=== PATIENT | female | born 1945 | race African-American/Black ===

== ENCOUNTER 2016-08-12 06:41 | Day surgery (SDC) | payer MEDICARE ==
--- NOTE | 2016-08-10 23:58 | HP ---
OPERATIVE SUMMARY: DATE OF ADMISSION: 08/12/16 AGE: 35 years, female. ADMITTING DIAGNOSES: 1. Advanced cervical carcinoma. 2. Right hydronephrosis. 3. Bladder lesion. PLANNED PROCEDURE: Transurethral resection of bladder lesion and right retrograde right stent insertion. SURGEON: Dr. Jimenez. ADMITTING HISTORY AND PHYSICAL: Teodora Kaplan is a 71-year-old lady with advanced cervical carcinoma resulting in severe right hydronephrosis. An ultrasound done in my office had revealed what appears to be tumor invading the right side of the trigone and obscuring the right orifice. She has been brought in for an attempt right stent insertion. After discussion with Dr. Moreau , the plan is that if stent insertion is feasible, then I would proceed with it. If it looks like the ureter is completely obliterated by the tumor, then we would hold off on a nephrostomy tube at the present time. PAST MEDICAL HISTORY: Significant for: 1. Advanced cervical carcinoma. 2. Diabetes mellitus. 3. Rheumatoid arthritis. MEDICATIONS ON ADMISSION: 1. Metformin 500 mg daily. 2. Prednisone 5 mg b.i.d. 3. Glucosamine chondroitin 1 tablet daily. 4. Gabapentin 300 mg t.i.d. ALLERGIES: No known drug allergies. PHYSICAL EXAM: GENERAL: Reveals a pleasant, elderly, uncomfortable-appearing -[place] lady. VITAL SIGNS: Blood pressure is 132/80, pulse 120 per minute, oxygen saturation 94% on room air. LUNGS: Clear bilaterally. CARDIOVASCULAR EXAM: Regular rate and rhythm. S1, S2. ABDOMEN: Soft with tenderness along the right upper and right lower quadrant and fullness in that area. IMPRESSION: A 71-year-old lady with advanced cervical cancer causing eroding into the trigone, into the bladder, and causing right hydronephrosis. PLAN: Plan is for transurethral resection of bladder lesion and right retrograde and stent insertion. CC: Dr. Jose Moreau; Dr. Deangelo Jimenez* [id number]/[facility] #: [id number] [facility]
[~2016-08-12 06:41] MED LIST: Buffered Lidocaine 1% SYRIN* 5 ML/SYR SYRINGE ONE; Famotidine IV* 10 MG/ML 2 ML (20 mg) IV ONE; Famotidine IV* 10 MG/ML 2 ML (20 mg) ONE; Hydrocortisone INJ* 100 MG VIAL ONE; Hydrocortisone INJ* 250 MG VIAL IV ONE; cefTRIAXone(*) 2 GM ADDV.VIAL IVPB ONE
[2016-08-12] MEDS ORDERED: Iohexol 180 (CONTRAST) 10 ML SDV IV ONE (07:16)
[2016-08-12] MEDS ORDERED: Ondansetron INJ* 2 MG/ML VIAL IV PRN (07:32)
[2016-08-12] MEDS ORDERED: oxyCODONE/Acetamin 5/325 MG* TAB PO PRN (07:32)
[2016-08-12] MEDS ORDERED: fentaNYL* 50 MCG/ML 2 ML VIAL (100 MCG VIAL) IV PRN (07:32)
[2016-08-12] MEDS ORDERED: DiMENhydriNATE IV* 50 MG/ML VIAL IV PUSH PRN (07:32)
[2016-08-12] MEDS ORDERED: Ondansetron INJ* 2 MG/ML VIAL ONE (07:39)
[2016-08-12] MEDS ORDERED: Propofol* 10 MG/ML 20 ML BTL IV PUSH ONE (07:39)
[2016-08-12] MEDS ORDERED: Chloroprocaine 2%* 20 ML VIAL ONE (07:39)
[2016-08-12] MEDS ORDERED: Midazolam* 1 MG/ML 5 ML VIAL (5 MG) ONE (07:40)
[2016-08-12] MEDS ORDERED: fentaNYL* 50 MCG/ML 2 ML VIAL (100 MCG VIAL) ONE (07:41)
[2016-08-12] MEDS ORDERED: Phenylephrine IV* 40 MCG/ML 10 ML SYRINGE ONE (08:06)
[2016-08-12] MEDS ORDERED: Fluorescein 10% INJ* 100 MG/ML AMP ONE (08:38)
[2016-08-12] MEDS ORDERED: Furosemide IV* 10 MG/ML 2 ML VIAL (20 MG) ONE (08:41)
[2016-08-12] MEDS ORDERED: oxyCODONE/Acetamin 5/325 MG* TAB ONE (10:35)
[2016-08-12 15:49] VITALS: BP 135/53
--- NOTE | 2016-08-13 03:04 | OP ---
CC: Dr. Jose Moreau; Dr. Deangelo Jimenez OPERATIVE SUMMARY: DATE OF OPERATION: 08/12/16 DATE OF : [birth year] AGE: 71 years, female. SURGEON: Deangelo Jimenez MD ANESTHESIOLOGIST: Dr. Khoury. ANESTHESIA: Spinal. PRE-OP DIAGNOSES: 1. Severe chronic right hydronephrosis. 2. Hematuria. 3. Bladder tumor (related to locally advanced cervical carcinoma). POST-OP DIAGNOSES: 1. Severe chronic right hydronephrosis. 2. Hematuria. 3. Bladder tumor (related to locally advanced cervical carcinoma). OPERATIVE PROCEDURE: 1. Cystoscopy, transurethral resection, and fulguration of bladder tumor (5 to 6 cm). 2. Attempted right stent insertion. COMPLICATIONS: None. ESTIMATED BLOOD LOSS: Less than 100 cc. INDICATIONS: Teodora Kaplan is a 71-year-old lady who unfortunately has advanced cervical carcinoma. Imaging had revealed right hydronephrosis, which appears to be chronic as there is significant los s of cortical thickness in the right kidney. I am attempting a right stent insertion on Dr. Moreau's request and the plan after discussing with him is that if the stent insertion is not successful, we will hold off for now on any attempted nephrostomy tube insertion. OPERATIVE FINDINGS: Large amount of solid invasive vascular tumor eroding into right side of trigon e of bladder and completely obstructing distal right ureter. POSTOPERATIVE CONDITION: Stable. DESCRIPTION OF PROCEDURE: After induction of spinal anesthesia, the patient was placed in dorsal li thotomy position. Sequential compression devices were in place and functioning. Initial cystoscopy revealed a normally located left orifice. On the right side, there was a large amount of solid lon earing tumor distorting the entire right trigone. There was no evidence of normal anatomic landmark on the right side of the trigone. Using the resectoscope, transurethral resection and fulguration of the tumor in the bladder was lópez ied out. The patient received intravenous fluorescein dye, which was seen coming from the left orif ice but in spite of a fairly aggressive resection, there was no fluorescein dye noted from the insid e. Using a wire, I attempted to probe to locate the right orifice and at one point, I did think contreras t I was able to cannulate what I thought was the right orifice; however, I suspect that there was ob struction further outside the bladder, which prevented the wire from advancing proximally. Hemostas is was secured using the coagulating current. A 24- Tajik Grant was placed for temporary bladder d rainage. The patient tolerated the procedure satisfactorily and was transferred back to the [facility] area in stable condition. [id number]/[facility] #: [id number]
== END 2016-08-12 16:29 | disposition home or self-care (01) ==
LOC: OR 06:41
PROVIDERS: ATTEND Urology
DX: C67.0 Malignant neoplasm of trigone of bladder (principal); N13.39 Other hydronephrosis; R31.9 Hematuria, unspecified; C53.9 Malignant neoplasm of cervix uteri, unspecified; E11.9 Type 2 diabetes mellitus without complications; Z79.84 Long term (current) use of oral hypoglycemic drugs; M06.9 Rheumatoid arthritis, unspecified
CPT/HCPCS: 88305; A9270-GY; J0696; J1720; J1940; J2250; J2400; J2405; J2704; J3010

== ENCOUNTER 2016-08-16 09:46 | Day surgery (SDC) | payer MEDICARE ==
[~2016-08-16 09:46] MED LIST changes: +Buffered Lidocaine 1% SYRIN* 5 ML/SYR SYRINGE INTRADERM ONE; -Buffered Lidocaine 1% SYRIN* 5 ML/SYR SYRINGE ONE; +Dexamethasone IV* 4 MG/ML 1 ML (4 MG) IV SLOW PU ONE; -Famotidine IV* 10 MG/ML 2 ML (20 mg) ONE; -Hydrocortisone INJ* 100 MG VIAL ONE; -Hydrocortisone INJ* 250 MG VIAL IV ONE; -cefTRIAXone(*) 2 GM ADDV.VIAL IVPB ONE
[2016-08-16] MEDS ORDERED: ceFAZolin 2 GM PREMIX(*) 2 GM/50 ML BAG IVPB ONE (10:12)
[2016-08-16] MEDS ORDERED: Dexamethasone IV* 4 MG/ML 1 ML (4 MG) ONE (10:13)
[2016-08-16] MEDS ORDERED: Famotidine IV* 10 MG/ML 2 ML (20 mg) ONE (10:13)
[2016-08-16] MEDS ORDERED: Lidocaine 1% INJ* 10 MG/ML 30 ML SDV ONE (12:15)
[2016-08-16] MEDS ORDERED: Midazolam* 1 MG/ML 5 ML VIAL (5 MG) ONE (12:20)
[2016-08-16] MEDS ORDERED: fentaNYL* 50 MCG/ML 2 ML VIAL (100 MCG VIAL) ONE (12:20)
[2016-08-16] MEDS ORDERED: Ondansetron INJ* 2 MG/ML VIAL ONE (12:21)
[2016-08-16] MEDS ORDERED: Propofol* 10 MG/ML 20 ML BTL IV PUSH ONE (12:21)
--- NOTE | 2016-08-16 14:05 | RAD ---
INDICATION: PowerPort placement COMPARISON: None FINDINGS: 10.9 seconds of fluoroscopy were provided for the surgical department. Fluoroscopic spot imaging of the chest were obtained for operative control and show a normal course of the right-sided central venous catheter. A follow-up chest x-rays pending . CPT II Codes: 6045F (fluoro time doc)
[2016-08-16] MEDS ORDERED: oxyCODONE/Acetamin 5/325 MG* TAB ONE (14:34)
[2016-08-16 14:39] VITALS: BP 135/82
--- NOTE | 2016-08-16 23:40 | OP ---
OPERATIVE REPORT: DATE OF OPERATION: 08/16/16 - SDS DATE OF : [birth year] SURGEON: Kory Kim MD GRAPHIC DESIGN ASSISTANT: None. ANESTHESIA: Local MAC. ANESTHESIOLOGIST: Dr. Khoury. PRE-OP DIAGNOSIS: Cervical carcinoma. POST-OP DIAGNOSIS: Cervical carcinoma. OPERATIVE PROCEDURE: Right subclavian PowerPort insertion. ESTIMATED BLOOD LOSS: Minimal. IV FLUIDS: Crystalloids. SPECIMEN: None. DRAINS: None. COMPLICATIONS: None. COUNT: The instrument, needle, and sponge counts were correct. DESCRIPTION OF PROCEDURE: The patient was brought to the operating room and placed on table supine. Sequential compression devices were placed on both lower extremities. Intravenous sedation was administered. She was prepped and draped in the usual sterile fashion and time-out was performed. Local anesthetic was infiltrated into the skin and soft tissue for a right subclavian approach. After accessing the right subclavian vein on first pass, the needle and J-wire was placed in its position, confirmed the superior vena cava under fluoroscopic guidance. Additional anesthetic was then infiltrated into the operative right chest to create the pocket, which was performed with sharp and blunt dissection along with cautery. The 8-Turkish PowerPort catheter was connected to the tunneler, it was back tunneled from the insertion site to the port site and then the peel-away sheath and dilator were advanced over the J -wire to the superior vena cava, then the dilator and guidewire were removed and the catheter was advanced to the superior vena cava with the tip noted at the intercaval junction. The peel-away sheath was removed. The catheter was cut to an appropriate length, connected to the PowerPort, which was placed into the pocket subcutaneously and secured there with a single 2-0 Surgipro. The port was accessed. It zeus and flushed easily. The pocket was closed with 3-0 Polysorb with subcutaneous tissues, 4-0 Monocryl's for the skin. Steri-Strips were applied. Tegaderm was applied. The port was flushed with heparinized saline. The patient tolerated the procedure well, was awakened and transferred to the recovery room in stable condition. CC: Jose Moreau MD* [id number]/[facility] #: [id number] [facility]
== END 2016-08-16 15:02 | disposition home or self-care (01) ==
LOC: OR 09:46
PROVIDERS: ATTEND Surgery
DX: C53.9 Malignant neoplasm of cervix uteri, unspecified (principal); D64.9 Anemia, unspecified; E11.9 Type 2 diabetes mellitus without complications; Z79.84 Long term (current) use of oral hypoglycemic drugs; Z87.891 Personal history of nicotine dependence; M06.9 Rheumatoid arthritis, unspecified
CPT/HCPCS: 71010; 76000; A9270-GY; C1788; J0690; J1100; J1642; J2001; J2250; J2405; J2704; J3010

== ENCOUNTER 2016-08-18 16:23 | Observation (INO) | payer MEDICARE ==
--- NOTE | 2016-08-18 18:17 | ED ---
Hector Mullins Benjamin, scribed for Ruperto Del Toro MD on 08/18/16 at 1731 . HPI Chest Pain - HPI Summary HPI Summary: 71yo female c/o crushing CP that radiates to the back. Pt is brought in from interventional radiology for CP. Pt states that her CP radiates to the back. Also mildly SOB. - History of Current Complaint Chief Complaint: EDChestPainROMI Time Seen by Provider: 08/18/16 17:04 Hx Obtained From: Patient Onset/Duration: Started Hours Ago, Still Present Timing: Constant Initial Severity: Moderate Current Severity: Moderate Chest Pain Location: Diffuse Chest Pain Radiates: Yes Chest Pain Radiates To:: Back Character: Crushing Aggravating Factor(s): Nothing Alleviating Factor(s): Nothing Associated Signs and Symptoms: Positive: Chest Pain, Shortness of Breath, Back Pain - Allergy/Home Medications Allergies/Adverse Reactions: Allergies Allergy/AdvReac Type Severity Reaction Status Date / Time No Known Allergies Allergy Verified 08/18/16 16:38 Home Medications: Home Medications Alendronate (NF) [Fosamax (NF)] 70 mg PO WEEKLY 08/18/16 [History Confirmed 04/05] Iron Polysaccharide Complex- [Poly-Iron 150 Forte] 1 cap PO DAILY 08/18/16 [ History Confirmed 08/18/16] PMH/Surg Hx/FS Hx/Imm Hx Endocrine/Hematology History: Reports: Hx Diabetes - type 2, Hx Anemia - on iron Cardiovascular History: Reports: Hx Hypertension - off of blood pressure meds at this time History: Reports: Hx Kidney Infection - last year at least 3 kidney infections - none at this time Musculoskeletal History: Reports: Hx Arthritis - osteoarthritis, rheumatoid arthritis Sensory History: Reports: Hx Cataracts - both eye , not ready for surgery, Hx Contacts or Glasses - glasses Denies: Hx Hearing Aid Opthamlomology History: Reports: Hx Cataracts - both eye , not ready for surgery , Hx Contacts or Glasses - glasses - Surgical History Surgery Procedure, Year, and Place: laparoscopic gall bladder removed 2012. right total knee replacement 2012 Hx Anesthesia Reactions: No Infectious Disease History: Denies: Traveled Outside the [place] in Last 30 Days - Family History Known Family History: Positive: Hypertension, Diabetes - Social History Occupation: Employed Full-time, Retired Lives: With Family Alcohol Use: Rare Substance Use Type: Reports: None Smoking Status (MU): Former Smoker Amount Used/How Often: smoked for 40 years approx, 1/2 -1 ppd Review of Systems Constitutional: Negative Eyes: Negative ENT: Negative Positive: Chest Pain Positive: Shortness Of Breath Gastrointestinal: Negative Genitourinary: Negative Musculoskeletal: Negative Skin: Negative Neurological: Negative Psychological: Normal All Other Systems Reviewed And Are Negative: Yes Physical Exam Triage Information Reviewed: Yes Vital Signs On Initial Exam: Initial Vitals Temp Pulse Resp BP Pulse Ox 98 F 80 18 122/61 100 08/18/16 17:30 08/18/16 17:30 08/18/16 17:30 08/18/16 17:30 08/18/16 17:30 Vital Signs Reviewed: Yes Appearance: Positive: Well-Appearing, No Pain Distress, Well-Nourished Skin: Positive: Warm, Skin Color Reflects Adequate Perfusion, Dry Head/Face: Positive: Normal Head/Face Inspection Eyes: Positive: Normal ENT: Positive: Normal ENT inspection Neck: Positive: Supple, Nontender Respiratory/Lung Sounds: Positive: Clear to Auscultation, Breath Sounds Present Cardiovascular: Positive: RRR Abdomen Description: Positive: Nontender, Soft Bowel Sounds: Positive: Present Musculoskeletal: Positive: Normal Neurological: Positive: Normal Psychiatric: Positive: Affect/Mood Appropriate Diagnostics - Vital Signs Vital Signs Temp Pulse Resp BP Pulse Ox 08/18/16 17:30 98 F 80 18 122/61 100 - Laboratory Lab Statement: Any lab studies that have been ordered have been reviewed, and results considered in the medical decision making process. - EKG 1658. Cardiac Rate: NL - 81bpm EKG Rhythm: Sinus Rhythm Ectopy: PACs Chest Pain Course/Dx - Course Course Of Treatment: Discussed with Dr. Crouch (surgery) at 1737. Ms. Kaplan has a small pneumothorax, is on O2 and we are observing her. I have ordered a repeat CXR for 1999. If the same or improved, then she will F/U with Dr. Crouch tomorrow morning after a repeat CXR. If worsening we will contact Dr. Crouch now. - Diagnoses Provider Diagnoses: Pneumothorax after biopsy - Provider Notifications Discussed Care Of Patient With: Dr. Gracia at change of shift Discharge - Discharge Plan Condition: Stable Disposition: OTHER Discharge Disposition Comment: change of shift The documentation as recorded by the scribe, Young,Lauro accurately reflects the service I personally performed and the decisions made by me, Ruperto Del Toro MD.
--- NOTE | 2016-08-18 20:32 | RAD ---
INDICATION: Pneumothorax COMPARISON: August 18, 2016 TECHNIQUE: PA dual-energy views were obtained. FINDINGS: Bones/Soft Tissues: There are no acute bony findings. Cardiomediastinal: The cardiomediastinal silhouette is normal. Lungs: There are no infiltrates. There is a small to moderate sized left-sided pneumothorax with 1.9 cm of visceral-parietal surface separation near the apex. Pleura: There are no pleural effusions. Other: None IMPRESSION: INTERVAL INCREASE IN SIZE IN LEFT-SIDED PNEUMOTHORAX.
[2016-08-18] MEDS ORDERED: Ondansetron TAB* 4 MG PO PRN (21:02)
--- NOTE | 2016-08-18 21:09 | ED ---
Nikki Mullins Rebecca, scribed for Garcia Gracia on 08/18/16 at 2106 . Progress - Progress Note Progress Note: Pt was signed out from Dr. Del Toro. - EKG/XRAY/CT XRAY: chest Xray Comments: INTERVAL INCREASE IN SIZE IN LEFT-SIDED PNEUMOTHORAX. Re-Evaluation - Re-Evaluation First Eval Re-Evaluation Time: 21:08 Change: Improved Comment: Pt is in mild pain, discussed the admission with her. She agreed and understands. Course/Dx - Course Course Of Treatment: Discussed care of pt with Dr. Morales, hospitalist, at 2100 , who already talked to Dr. Crouch conerning the pt and accepts her for admission. - Diagnoses Provider Diagnoses: Pneumothorax after biopsy - Provider Notifications Discussed Care Of Patient With: Dr. Crouch - Already discussed with Dr. Morales, advises admission Time Discussed With Above Provider: 20:59 The documentation as recorded by the Nikki byrd Rebecca accurately reflects the service I personally performed and the decisions made by , Garcia Gracia.
[2016-08-18] MEDS ORDERED: Acetaminophen TAB* 325 MG PO PRN (21:10)
[2016-08-18] MEDS ORDERED: Dextrose 50% Syringe 50 ML* 25 GM/50 ML SYRINGE IV PUSH PRN (21:23)
[2016-08-18] MEDS ORDERED: Heparin VIAL(*) 5000 UNITS/ML VIAL (FIVE THOUSAND) ONE (23:55)
[2016-08-18] MEDS: Heparin VIAL(*) 5000 UNITS/ML VIAL (FIVE THOUSAND) SUBCUT SCH (23:59)
--- NOTE | 2016-08-19 01:20 | HP ---
HOSPITAL MEDICINE HISTORY AND PHYSICAL: DATE OF ADMISSION: 08/18/16 PRIMARY CARE PHYSICIAN: Dr. Amando Tamez, [facility]. ATTENDING PHYSICIAN: Dr. Jesus Morales (dictation provided by Nanette Valle NP) CHIEF COMPLAINT: Chest pain. HISTORY OF PRESENT ILLNESS: Ms. Kaplan is a 71-year-old female with a recent diagnosis of advanced cervical cancer, who presented to the hospital today after a lung biopsy for pulmonary nodule. Ms. Kaplan states that she had not followed routinely with [employer]. She developed vaginal bleeding and was found to have a mass in the cervix. 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 The patient had cystoscopy with transurethral resection and fulguration of the bladder tumor, but Dr. Jimenez was unable to pass a stent on 08/12/16. On 08/16/16, she had port placed for chemotherapy. Per the report, Ms. Kaplan was evaluated in [place] and felt not to be a surgical candidate and therefore is planning for chemotherapy and radiation with Dr. Moreau. The patient had a PET scan, which showed the pulmonary nodule and therefore came in today for biopsy to help guide planning of chemotherapy and radiation. Ms. Kaplan states that everything went well with the procedure until approximately 5 minutes before she was going to leave the hospital, when while getting dressed, she developed sudden onset of crushing chest pain on the left side radiating into her back. She was immediately brought to the emergency room where chest x-ray showed a very small pneumothorax. Repeat chest x-ray showed that it has increased very slightly in size. Case was discussed with Dr. Crouch from surgical services, who states that this pneumothorax is small and that a chest tube would not be indicated at this point. The patient, however, states she does continue to feel mildly short of breath but her pain is essentially resolved. PAST MEDICAL HISTORY: 1. Cervical cancer with extension to the bladder causing right hydronephrosis, now status post cystoscopy and fulguration of the bladder. 2. Pulmonary nodule, left lung. 3. Diabetes, non-insulin dependent. 4. Hypertension, resolved, no longer on medications. 5. History of cholecystectomy. 6. History of right total knee replacement. 7. Rheumatoid arthritis. 4. Osteoarthritis. MEDICATIONS: As outpatient are: 1. Fosamax 70 mg p.o. weekly. 2. Tylenol p.r.n. 3. Ondansetron p.r.n. 4. Gabapentin 300 mg p.o. t.i.d. 5. Folic acid 1 mg p.o. daily. 6. Iron polysaccharide complex 1 cap p.o. daily. 7. Prednisone 5 mg in the a.m. and 3 mg in the p.m. 8. Metformin 500 mg p.o. daily. ALLERGIES: No known drug allergies. FAMILY HISTORY: The patient reports that mom and dad had hypertension and coronary artery disease. SOCIAL HISTORY: No report of alcohol, tobacco, or drug use. The patient states that her son, Renan, would be the healthcare proxy. REVIEW OF SYSTEMS: A 14-point review of systems was completed with Ms. Kaplan and all those not mentioned above were negative. PHYSICAL EXAMINATION GENERAL: Ms. Kaplan is lying in the bed. She is in no acute distress. VITAL SIGNS: Temperature 98, heart rate 83, respiratory rate 17, O2 saturation 100% on 2 L nasal cannula, blood pressure 106/48. LUNGS: Clear to auscultation bilaterally. There is good aeration. HEART: S1 and S2. No murmur, rub, or gallop, and regular. ABDOMEN: Soft, nontender with bowel sounds positive x4. EXTREMITIES: No cyanosis or edema. NEURO: She is alert. She is oriented x3. She moves all extremities equally. There is no facial asymmetry or focal weakness. Extraocular movements are intact. SKIN: Intact. DIAGNOSTIC STUDIES/LAB DATA: No available labs in our computer. Chest x-ray from 1435 shows small pneumothorax and I repeated it approximately 2000 hours, showed it increased slightly in size. ASSESSMENT AND PLAN: Ms. Kaplan is a 71-year-old female with past medical history of diabetes; hypertension, no longer on medication; as well as recent diagnosis of cervical cancer with a finding of a pulmonary nodule on CT, with biopsy of the nodule today and resultant pneumothorax. Our plans are for observation in the hospital for the followin. Pneumothorax: Again, Dr. Crouch has been consulted and there is no need for chest tube at this point. The patient will be monitored closely overnight. She will have oxygen available as needed and we will repeat the chest x-ray with any new chest pain, worsening shortness of breath, or hypoxia, otherwise she will have a repeat chest x-ray in the a.m. 2. Diabetes: Plan to hold metformin and provide blood glucoses q.a.c. with lispro sliding scale. 3. Hypertension: The patient states that she is no longer on medications. We will monitor. 4. History of cervical cancer: Plan as outlined per Dr. Moreau. 5. DVT prophylaxis: With heparin subcutaneous. 6. Disposition: To the surgical floor. TIME SPENT: Approximately 60 minutes was spent on the admission of this patient , more than half the time was spent with the patient at the bedside reviewing the events leading up to this hospitalization, performing the physical examination, and reviewing the plan of care. NANETTE VALLE NP CC: Dr. Amando Tamez, [facility] * [id number]/[facility] #: [id number] LILY
[2016-08-19] MEDS: Heparin VIAL(*) 5000 UNITS/ML VIAL (FIVE THOUSAND) SUBCUT SCH ×2 (06:29→14:06)
[2016-08-19] MEDS: Insulin LISPRO* 1 UNITS UNIT SUBCUT SCH ×2 (07:43→12:10)
--- NOTE | 2016-08-19 08:02 | RAD ---
INDICATION: Pneumothorax. COMPARISON: Comparison is made with a prior chest x-ray study from August 18, 2016. TECHNIQUE: A portable view of the chest was obtained. FINDINGS: Cardiac and mediastinal contours appear to be within normal limits. There is a power port central venous catheter present on the right side. The catheter tip projects over the right paratracheal region. The heart is within normal limits in size. The lungs are underinflated. There is a left apical pneumothorax measuring 2 cm from the lung apex, unchanged from the prior exam. There is a small infiltrate at the left lung base suggestive of atelectasis also unchanged. No pleural effusion is seen. IMPRESSION: SMALL LEFT APICAL PNEUMOTHORAX, UNCHANGED.
[2016-08-19] MEDS ORDERED: Folic Acid TAB* 1 MG PO SCH (09:00)
[2016-08-19] MEDS ORDERED: predniSONE TAB* 5 MG PO SCH (09:00)
[2016-08-19] MEDS: Gabapentin CAP(*) 300 MG PO SCH ×2 (09:35→14:05)
--- NOTE | 2016-08-19 10:45 | PN ---
Subjective Date of Service: 08/19/16 Interval History: Patient seen and examined at bedside. Pt states that she is feeling well today. Denies fever, chills, shortness of breath, chest discomfort, N/V/D. Family History: Unchanged from Admission Social History: Unchanged from Admission Past Medical History: Unchanged from Admission Objective Active Medications: Acetaminophen (Tylenol Tab*) 650 mg PO Q6H PRN Reason: PAIN Dextrose (D50w Syringe 50 Ml*) 12.5 gm IV PUSH .FOR FS < 60 - SS PRN Reason: FS < 60 Folic Acid (Folvite Tab*) 1 mg PO DAILY ANN Gabapentin (Neurontin Cap(*)) 300 mg PO TID ANN Heparin Sodium (Porcine) (Heparin Vial(*)) 5,000 units SUBCUT Q8HR ANN Insulin Human Lispro (Humalog*) 0 units SUBCUT AC ANN Ondansetron HCl (Zofran Tab*) 4 mg PO Q4HR PRN Reason: NAUSEA Prednisone (Deltasone Tab*) 3 mg PO QPM ANN Prednisone (Deltasone Tab*) 5 mg PO QAM [facility] Vital Signs 08/18/16 08/18/16 08/18/16 21:30 22:00 22:17 Temperature 99.0 F Pulse Rate 80 79 85 Respiratory 16 20 22 Rate Blood Pressure 125/63 123/66 124/71 (mmHg) O2 Sat by Pulse 98 97 100 Oximetry 08/18/16 08/18/16 08/18/16 22:26 22:30 23:15 Temperature 99.0 F 99.1 F Pulse Rate 85 75 Respiratory 22 18 16 Rate Blood Pressure 124/71 134/54 (mmHg) O2 Sat by Pulse 100 100 Oximetry 08/19/16 08/19/16 08/19/16 03:36 07:19 07:44 Temperature 98.8 F 98.8 F Pulse Rate 86 88 Respiratory 17 15 16 Rate Blood Pressure 124/68 123/50 (mmHg) O2 Sat by Pulse 100 96 Oximetry Oxygen Devices in Use Now: None Appearance: NAD, laying in bed Respiratory: Symmetrical Chest Expansion and Respiratory Effort, Clear to Auscultation Cardiovascular: NL Sounds; No Murmurs; No JVD, RRR Abdominal: NL Sounds; No Tenderness; No Distention Extremities: No Edema Skin: No Rash or Ulcers Neurological: Alert and Oriented x 3, NL Muscle Strength and Tone Lines/Tubes/Other Access: Clean, Dry and Intact Peripheral IV - site benign Nutrition: Taking PO's Assess/Plan/Problems-Billing Assessment: Ms. Kaplan is a 71 yo female with PMH DM, HTN, and recent dx cervical cancer with finding of pulmonary nodule on CT who is s/p biopsy on 08/18/16 and was admitted for observation for a resultant pneumothorax. - Patient Problems (1) Pneumothorax Code(s): J93.9 - PNEUMOTHORAX, UNSPECIFIED SNOMED Code(s): 89325311 Comment: - Repeat chest xray this AM shows a stable small left apical pneumothorax - Seen in consultation by Dr. Crouch, he feels there is no need for a chest tube at this time. - Discharge to home with follow-up chest xray in the morning (2) Diabetes Code(s): E11.9 - TYPE 2 DIABETES MELLITUS WITHOUT COMPLICATIONS SNOMED Code(s) : 64608604 Comment: - Resume metformin at discharge (3) HTN (hypertension) Code(s): I10 - ESSENTIAL (PRIMARY) HYPERTENSION SNOMED Code(s): 73006720 Comment: - Normotensive - Not currently on medications (4) Cervical cancer Code(s): C53.9 - MALIGNANT NEOPLASM OF CERVIX UTERI, UNSPECIFIED SNOMED Code(s ): 096400220 Comment: - Management per Dr. Moreau (5) DVT prophylaxis Code(s): GYE4886 - SNOMED Code(s): 096666694 (6) Full code status Code(s): Z78.9 - OTHER SPECIFIED HEALTH STATUS SNOMED Code(s): 456226568 Status and Disposition: OBV. Discharge to home.
[2016-08-19 11:55] VITALS: BP 116/58
--- NOTE | 2016-08-19 16:13 | CONS ---
CONSULTATION REPORT: DATE OF CONSULT: 08/19/16 HISTORY: The patient is a 71-year-old female with a history of carcinoma of the cervix, who has been found to have left upper lobe lung nodule, underwent an outpatient CT-guided biopsy of the left upper lobe lung nodule and sustained a postprocedure pneumothorax. She had chest pain with it and was sent to the emergency room. She was evaluated and worked up by the emergency room, found to have approximately 1 cm left apical pneumothorax. A 4-hour protocol was carried out and at that point, it was maybe 2 cm. She still had some dyspnea and chest pain and was admitted by the hospitalist service for observation and I have been asked to see her in evaluation as well. PHYSICAL EXAM: Today, she does not appear in any kind of distress. She has an O2 saturation in the mid 90s. At the time of my visit, she is not using her oxygen and is perfectly comfortable. There is no dyspnea, respiratory rate is 15, pulse is in the 80s, breathing is easy and unlabored. Lung sounds are clear with good aeration bilaterally. She has a bandage site in the upper chest , which appears to be in good condition. I have reviewed her chest x-ray from this morning, it shows approximately 2 cm left apical pneumothorax, unchanged from 12 hours ago. IMPRESSION: I discussed this with the patient and with her son and she is feeling much better now and I think the pneumothorax is stable. She does not need to stay in the hospital, she can be discharged. I think she should come back tomorrow for an outpatient x-ray and will be happy to see her any time should she get increasing dyspnea or chest pain. Certainly, she can come to the emergency room at any time as well. They are understanding and agreeable with this plan and I have discussed with hospitalist and we will make arrangements. CC: Carlos Crouch MD; Kory Fernandes MD; Jose Moreau MD* [id number]/[facility] [place] #: [id number] MTDClif
[2016-08-19] MEDS ORDERED: predniSONE TAB* 1 MG PO SCH (18:00)
--- NOTE | 2016-08-20 08:48 | DS ---
DISCHARGE SUMMARY: DATE OF ADMISSION: 08/18/16 DATE OF DISCHARGE: 08/19/16 ATTENDING PHYSICIAN: Jorge Johnson MD * (dictated by Tan Quinones NP) PRIMARY CARE PROVIDER: Dr. Sharee Tamez at [facility]. PRIMARY DIAGNOSIS: Pneumothorax. SECONDARY DIAGNOSES: 1. Diabetes. 2. Hypertension. 3. Cervical cancer. CONSULTATIONS WHILE IN THE HOSPITAL: Carlos Crouch MD with General Surgery. STUDIES WHILE IN THE HOSPITAL: 1. Chest x-ray on 08/18/16. Radiologist impression: Interval increase in size of left-sided pneumothorax. 2. Chest x-ray on 08/19/16. Radiologist impression: Small left apical pneumothorax, unchanged. DISCHARGE MEDICATIONS: Continued home medications: 1. Fosamax 70 mg oral weekly. 2. Extra strength acetaminophen 500 to 1000 mg oral every 6 hours as needed for pain. 3. Zofran 4 mg oral every 4 hours as needed for nausea. 4. Gabapentin 300 mg oral 3 times daily. 5. Folic acid 1 mg oral daily. 6. Iron polysaccharide complex 1 capsule oral daily. 7. Prednisone 5 mg oral every morning. 8. Prednisone 3 mg oral every evening. 9. Metformin 500 mg oral daily. HISTORY OF PRESENT ILLNESS/HOSPITAL COURSE: Ms. Kaplan is a 71-year-old female with past medical history significant for diabetes mellitus, hypertension , recent cervical cancer, diagnosis with left lung pulmonary nodule, who presented to the hospital on 08/18/16 for a lung biopsy of her pulmonary nodule. Ms. Kaplan had not been following routinely with [facility]. She developed vaginal bleeding and was found to have a mass in her cervix. 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 The patient had a large tumor extending into her right bladder, causing severe hydronephrosis. The patient underwent a cystoscopy and transurethral resection and fulguration of the bladder tumor by Dr. Jimenez. On August 16, the patient had a PowerPort placed for chemotherapy. Per the patient, she is not a surgical candidate and is planning chemotherapy and radiation therapy. The patient had a PET scan showing pulmonary nodule and therefore presented to the hospital for a biopsy to help further guide the planning of her treatment for her cervical cancer. The procedure went well and just prior to leaving the hospital, the patient developed sudden onset of crushing chest pain and left-sided pain radiating into her back. She was immediately taken to the emergency room, where she had a chest x-ray and was found to have a small pneumothorax. The patient had a repeat chest x-ray showing a slight increase in the size of the pneumothorax. The case was discussed with Dr. Crouch with General Surgery, who felt that the pneumothorax is small and the patient would not need a chest tube. The patient continued to not feel well and felt short of breath, but her pain had resolved. Hospitalists were asked to evaluate the patient for admission. While in the hospital the patient's shortness of breath resolved. She continued to be chest pain free. The patient had a repeat chest x-ray this morning showing a stable small left apical pneumothorax. The patient was seen in consultation by Dr. Crouch who felt that the patient could be discharged to home. She did not need chest tube at this time. Ms. Kaplan is stable for discharge to home today. Vital signs are as follows: Temperature 98.9, heart rate 77, respiratory rate 22, O2 saturation 95% on room air, and blood pressure 116/58. DISCHARGE PLAN: Ms. Kaplan will be discharged to home today. Activity as tolerated. She will be on a consistent carbohydrate diet. As far as the patient's pneumothorax, she has been instructed to return to the hospital tomorrow, August 20, to have a chest x-ray in the morning. The patient will wait at the hospital while that is read by the On-Call General Surgeon, Dr. Boom Ryo. The patient would be given further instruction if needed. It should be noted that the patient is not currently following up with her primary care provider, Dr. Sharee Tamez, as she is living here in [place] with her son where she undergoes treatment and not home in [place]. The patient does have an appointment with Dr. Fernandes in Radiation Oncology on August 22, at 3:30 p.m. The patient should continue to follow up with Dr. Moreau as previously planned or discussed. The patient will resume all of her home medications. The patient has been asked to return to the emergency room for any chest pain or shortness of breath. This is a summarized report of a complex medical history and hospital stay. For further details, please see the entire medical record. TIME SPENT: Time for this discharge was 50 minutes and greater than half of that was spent [id number] with the patient, discussing discharge plans and instructions. CONDITION ON DISCHARGE: Stable. TAN GALLAGHER NP CC: Dr. Sharee Tamez at [facility]; Jose Moreau MD; Kory Fernandes MD* [id number]/[facility] #: [id number] [facility]
--- NOTE | 2016-08-20 11:59 | PN ---
Progress Note - Progress Note SOAP: Subjective: case reviewed. Pt to come this am for cxr. Has not arrived. I called both phone numbers with no answer. No messgae left.
== END 2016-08-19 14:45 | disposition home or self-care (01) ==
LOC: ED 16:23 → SSU 21:01
PROVIDERS: ADMIT Internal Medicine; ATTEND Hospitalist
DX: J95.811 Postprocedural pneumothorax (principal); Y84.8 Other medical procedures as the cause of abnormal reaction of the patient, or of later complication, without mention of misadventure at the time of the procedure; E11.9 Type 2 diabetes mellitus without complications; I10 Essential (primary) hypertension; C53.9 Malignant neoplasm of cervix uteri, unspecified; I49.1 Atrial premature depolarization; I51.7 Cardiomegaly; I44.4 Left anterior fascicular block; R91.1 Solitary pulmonary nodule; M06.9 Rheumatoid arthritis, unspecified; Z79.899 Other long term (current) drug therapy
CPT/HCPCS: 71010; 93005; 96372; 99285; A9270-GY; G0378; J1644; J7512

== ENCOUNTER 2016-09-14 19:26 | Inpatient (IN) | payer MEDICARE ==
[2016-09-14] MEDS ORDERED: NS 0.9% 1000 ML* 1,000 ML IV ONE (20:12)
--- NOTE | 2016-09-14 20:57 | ED ---
Nikki Mullins Rebecca, scribed for Carlos Sinclair MD on 09/14/16 at 2012 . Complex/Multi-Sys Presentation - HPI Summary HPI Summary: Pt is a 71 y/o F who who presents to ED c/o N/D, low-grade fever, decreased appetite and generalized weakness. Son reports that diarrhea began 4 days ago and he started giving her Immodium which did not change sx. Experienced 6 episodes of diarrhea yesterday and 3 today, beginning at 0300. She additionally notes mild, intermittent abd pain which is not currently present. Sx aggravated and alleviated by nothing. Denies vomiting. She is currently undergoing chemotherapy Tx for cervical CA with her first Tx 6 days ago and the next scheduled for September 26. Oncologist is Dr. Pete. - History Of Current Complaint Chief Complaint: EDWeakness Time Seen by Provider: 09/14/16 20:04 Hx Obtained From: Patient, Family/Armament Mechanic - Son Onset/Duration: Lasting Days - 4 days, Still Present Timing: Intermittent, Lasting: Severity Currently: None Severity Initially: Mild Location: Pain At: - Abdominal pain Aggravating Factor(s): Nothing Alleviating Factor(s): Nothing Associated Signs And Symptoms: Positive: Weakness - Generalized, Nausea, Diarrhea, Abdominal Pain - Mild, intermittent, Decreased Oral Intake, Fever - Low-grade. Negative: Vomiting - Allergies/Home Medications Allergies/Adverse Reactions: Allergies Allergy/AdvReac Type Severity Reaction Status Date / Time No Known Allergies Allergy Verified 09/09/16 15:35 Home Medications: Home Medications Loperamide CAP* 2 mg PO Q6HR PRN 09/14/16 [History Confirmed 09/14/16] Vitamin 1 dose PO DAILY 09/14/16 [History Confirmed 09/14/16] oxyCODONE/Acetamin 5/325 MG* 1 - 2 tab PO Q4HR PRN 09/14/16 [History Confirmed 09/14/16] PMH/Surg Hx/FS Hx/Imm Hx Endocrine/Hematology History: Reports: Hx Diabetes - type 2, Hx Anemia - on iron Cardiovascular History: Reports: Hx Hypercholesterolemia, Hx Hypertension - off of blood pressure meds at this time, Other Cardiovascular Problems/Disorders - HYPERCHOLESTEROLEMIA Respiratory History: Reports: Other Respiratory Problems/Disorders - L lung nodule GI History: Reports: Hx Gall Bladder Disease - s/p cholesysectomy History: Reports: Hx Kidney Infection - last year at least 3 kidney infections - none at this time, Other Problems/Disorders - L hydronephrosis d /t obstruction Musculoskeletal History: Reports: Hx Arthritis - osteoarthritis, rheumatoid arthritis Sensory History: Reports: Hx Cataracts - both eye , not ready for surgery, Hx Contacts or Glasses Denies: Hx Hearing Aid Opthamlomology History: Reports: Hx Cataracts - both eye , not ready for surgery , Hx Contacts or Glasses - Cancer History Cancer Type, Location and Year: Cervical CA, diagnosed June 2016 - Surgical History Surgery Procedure, Year, and Place: laparoscopic gall bladder removed 2012. right total knee replacement 2012, s/p cysto with attempted stent placement Hx Anesthesia Reactions: No Infectious Disease History: Reports: Hx Shingles Denies: Traveled Outside the [place] in Last 30 Days - Family History Known Family History: Positive: Hypertension, Diabetes - Social History Alcohol Use: Occasionally Substance Use Type: Reports: None Hx Tobacco Use: Yes Smoking Status (MU): Former Smoker Amount Used/How Often: smoked for 40 years approx, 1/2 -1 ppd Review of Systems Positive: Fever - Low-grade, Other - Generalized weakness Positive: Abdominal Pain - Intermittent, mild, Diarrhea, Nausea, Other - Decreased appetite. Negative: Vomiting All Other Systems Reviewed And Are Negative: Yes Physical Exam Triage Information Reviewed: Yes Vital Signs On Initial Exam: Initial Vitals Temp BP 98.4 F 114/58 09/14/16 19:28 09/14/16 19:28 Vital Signs Reviewed: Yes Appearance: Positive: Thin - frail appearing Skin: Positive: Warm, Dry Head/Face: Positive: Normal Head/Face Inspection Eyes: Positive: MEGHAN ENT: Positive: Hearing grossly normal Neck: Positive: Supple Respiratory/Lung Sounds: Positive: Clear to Auscultation, Breath Sounds Present Cardiovascular: Positive: Tachycardia Abdomen Description: Positive: Nontender, Soft. Negative: Distended Bowel Sounds: Positive: Present Musculoskeletal: Positive: Strength/ROM Intact Neurological: Positive: Alert, Oriented to Person Place, Time Psychiatric: Positive: Affect/Mood Appropriate Diagnostics - Vital Signs Vital Signs Temp BP 09/14/16 19:28 98.4 F 114/58 - Laboratory Result Diagrams: 09/14/16 21:35 09/14/16 21:35 Lab Statement: Any lab studies that have been ordered have been reviewed, and results considered in the medical decision making process. - EKG 2146 Cardiac Rate: Bradycardia EKG Rhythm: Sinus Tachycardia EKG Interpretation: APCs, no STEMI Re-Evaluation - Re-Evaluation First Eval Change: Improved - results d/w pt d/w hospitalist Complex Multi-Symp Course/Dx Assessment/Plan: Pt is a 71 y/o F who who presents to ED c/o N/D, low-grade fever, decreased appetite and generalized weakness for 4 days. Experienced 6 episodes of diarrhea yesterday and 3 today, unchanged by Immodium. She additionally notes mild, intermittent abd pain which is not currently present. Sx aggravated and alleviated by nothing. Denies vomiting. She is currently undergoing chemotherapy Tx for cervical CA with her first Tx 6 days ago and the next scheduled for September 26. EKG reveals sinus tachy with APCs without STEMI. - Diagnoses Provider Diagnoses: Hyponatremia - Physician Notifications Discussed Care Of Patient With: Jesus Morales Time Discussed With Above Provider: 22:50 Instructed by Provider To: Admit As Inpatient - Critical Care Time Critical Care Time: 30-74 min Discharge - Discharge Plan Condition: Fair Disposition: ADMITTED TO [facility] The documentation as recorded by the Nikki byrd Rebecca accurately reflects the service I personally performed and the decisions made by me, Carlos Sinclair MD.
[2016-09-14 21:50] LABS: Hematocrit 31 % (35-47); Hemoglobin 9.7 g/dl (12.0-16.0); Mean Corpuscular HGB Conc 32 g/dl (31-36); Mean Corpuscular Hemoglobin 24 pg (27-31); Mean Corpuscular Volume 76 fL (80-97); Mean Platelet Volume 7 um3 (7.4-10.4); Red Blood Count 4.07 10^6/ul (4.0-5.4); Red Cell Distribution Width 19 % (10.5-15); White Blood Count 0.9 10^3/ul (3.5-10.8)
[2016-09-14 21:51] LABS: Comments Flag Yes
[2016-09-14 21:53] LABS: Add Diff/Slide Review? Slide Review Added
[2016-09-14 22:00] LABS: ALT 57 U/L (7-52); AST 31 U/L (13-39); Alkaline Phosphatase 311 U/L (34-104); Anion Gap 9 mmol/L (2-11); BUN/Creatinine Ratio 15.2 (8-20); Blood Urea Nitrogen 16 mg/dL (6-24); CO2 Carbon Dioxide 21 mmol/L (22-32); Calcium 8.8 mg/dL (8.6-10.3); Chloride 92 mmol/L (101-111); EGFR African American 66.1 (>60); EGFR Non-African American 51.4 (>60); Globulin 3.8 g/dL (2-4); Glucose 107 mg/dL (70-100); Lipase < 10 U/L (11.0-82.0); Magnesium 1.5 mg/dL (1.9-2.7); Potassium 4.3 mmol/L (3.5-5.0); Sodium 122 mmol/L (133-145); Total Protein 6.8 g/dL (6.4-8.9)
[2016-09-14 23:01] LABS: C Reactive Protein 250.05 mg/L (< 5.00)
[2016-09-14] MEDS ORDERED: Phytonadione Oral Solution* 5 MG/25 ML UDC PO ONE (23:49)
[2016-09-14] MEDS ORDERED: Dextrose 50% Syringe 50 ML* 25 GM/50 ML SYRINGE IV PUSH PRN (23:49)
[2016-09-15] MEDS ORDERED: Magnesium Sulfate 1 GM IV* 1 GM/100 ML BAG IV ONE (00:11)
[2016-09-15] MEDS ORDERED: oxyCODONE/Acetamin 5/325 MG* TAB PO PRN (02:08)
[2016-09-15] MEDS: NS 0.9% 1000 ML* 1,000 ML IV SCH ×2 (02:25→10:53)
[2016-09-15] MEDS: Heparin VIAL(*) 5000 UNITS/ML VIAL (FIVE THOUSAND) SUBCUT SCH ×3 (06:31→21:36)
--- NOTE | 2016-09-15 08:15 | HP ---
CC: Dr. Jose Moreau * HISTORY AND PHYSICAL: DATE OF ADMISSION: 09/14/16 PRIMARY CARE PHYSICIAN: Dr. Jose Moreau. CHIEF COMPLAINT: Diarrhea and weakness. HISTORY OF PRESENT ILLNESS: The patient is a 71-year-old woman who had her first chemotherapy approximately one week ago of Taxol and carboplatin. Approximately 4 days ago, she started developing weakness and diarrhea. It is watery diarrhea that is several bowel movements a day as per her son. She has had accompanying nausea but no vomiting. Her temperature maximum was 99.9. She has no abdominal pain. She is increasingly weak. She had decreased p.o. intake. PAST MEDICAL HISTORY: She has a past medical history significant for cervical cancer with extension of the bladder causing right hydronephrosis, status post cystoscopy and fulguration of the bladder, pulmonary nodule in left lung, non- insulin dependent diabetes, hypertension, rheumatoid arthritis, osteoarthritis. PAST SURGICAL HISTORY: Significant for total right knee replacement, rheumatoid arthritis and port placement. CURRENT MEDICATIONS: 1. Loperamide 2 mg every 6 hours as needed as given by her son. 2. Percocet 1 to 2 tabs every 4 hours as needed. 3. Compazine 10 mg every 6 hours as needed. 4. vitamins 1 dose daily. 5. Potassium chloride 20 mEq daily. 6. Iron polysaccharide complex 1 capsule daily. 7. Gabapentin 300 mg 3 times a day. 8. Folic acid 1 mg daily. 9. Prednisone 3 mg in the evening and 5 mg in the morning. 10. Metformin 500 mg daily. 11. Zofran 4 mg every 4 hours as needed. ALLERGIES: She has no known drug allergies. FAMILY HISTORY: Mom had hypertension and coronary artery disease. SOCIAL HISTORY: Quit tobacco 10 years ago. No alcohol or recreational drug use. She is retired. She worked in a bank. She is not . She has 1 son , Renan Kaplan, is her healthcare proxy. REVIEW OF SYSTEMS: A 14-point review of systems was completed with the patient. All pertinent positives and negatives are in the history of present illness, otherwise negative. PHYSICAL EXAMINATION GENERAL: Thin lady, weak, but in no acute distress. VITAL SIGNS: Temperature 99 degrees, heart rate 99 beats per minute, respiratory rate 16 breaths per minute, pulse ox 95% on room air, blood pressure 145/67. HEENT: Normocephalic, atraumatic. Pupils equal, round, and reactive to light. Moist mucous membranes. NECK: Supple. No JVD, bruits, palpable thyroid or lymphadenopathy. CHEST: Clear to auscultation and percussion bilaterally. CARDIOVASCULAR: S1 and S2 appreciated. Regular rate and rhythm. ABDOMEN: Positive bowel sounds in all 4 quadrants. Soft, nontender, nondistended. EXTREMITIES: No cyanosis, clubbing, or edema. +2 peripheral pulses bilaterally. NEUROLOGIC: Alert and oriented x3. Moves all extremities. DIAGNOSTIC STUDIES/LAB DATA: White count 3.9, hemoglobin 9.7, hematocrit 31, platelets are 130. Absolute neutrophils 0.3. Sodium is 122, potassium 4.2, chloride 92, CO2 21, BUN 16, creatinine 1.05, glucose 107. Alk phos 311. CRP 250.5. Magnesium is 1.5. EKG shows sinus tachycardia with rate of 100 beats per minute. Left axis deviation. No acute ST-T wave changes. ASSESSMENT AND PLAN: 1. Diarrhea, dehydration probably from chemotherapy. We will hydrate the patient with normal saline 125 cc an hour, Zofran p.r.n. for nausea. Check stool for O and P, fecal leukocytes, and C and S. Hold off on any treatment at this time. We will hold off on loperamide also until results from the stool are back. 2. Neutropenia, almost certainly secondary to chemotherapy. Uncertain if the patient has got Neulasta, will need it. We will defer to Oncology at this time. 3. Hyponatremia, probably hypovolemic hyponatremia. Expect this to improve once the patient is rehydrated. 4. Cervical cancer. Management as per Oncology. 5. Diabetes. Hold metformin. Fingersticks with sliding scale insulin. Consistent carb diet. 6. DVT prophylaxis: Heparin subcu. 7. The patient is a full code. TIME SPENT: Over 75 minutes was spent on this H and P, more than 40 minutes of which was spent in direct [id number] contact with the patient in evaluation, physical exam, and counseling and coordination of care. [id number]/[facility] #: [id number] MTDD
[2016-09-15 08:59] LABS: Mean Corpuscular Hemoglobin 24 pg (27-31); White Blood Count 0.8 10^3/ul (3.5-10.8)
[2016-09-15 09:09] LABS: Hematocrit 32 % (35-47); Hemoglobin 9.9 g/dl (12.0-16.0); Mean Corpuscular HGB Conc 31 g/dl (31-36); Mean Corpuscular Volume 77 fL (80-97); Mean Platelet Volume 7 um3 (7.4-10.4); Red Blood Count 4.14 10^6/ul (4.0-5.4); Red Cell Distribution Width 19 % (10.5-15)
[2016-09-15 09:12] LABS: Comments Flag Yes
[2016-09-15 09:14] LABS: Add Diff/Slide Review? Slide Review Added
[2016-09-15 09:17] LABS: BUN/Creatinine Ratio 13.2 (8-20); Calcium 8.5 mg/dL (8.6-10.3); EGFR African American 77.9 (>60); EGFR Non-African American 60.6 (>60); Globulin 3.7 g/dL (2-4); Magnesium 1.9 mg/dL (1.9-2.7); Potassium 4.3 mmol/L (3.5-5.0); Total Bilirubin 1.1 mg/dL (0.2-1.0); Total Protein 6.7 g/dL (6.4-8.9)
[2016-09-15] MEDS: Insulin LISPRO* 1 UNITS UNIT SUBCUT SCH ×4 (09:18→21:35)
--- NOTE | 2016-09-15 09:37 | PN ---
Progress Note - Progress Note Date of Service: 09/15/16 SOAP: Subjective: []Diagnosed with stage IV cervical cancer in July after nearly a year of vaginal bleeding. Started Carboplatin and Paclitaxel t2ukflj 09/08 (C1D1). Received blood 09/09. Presented to the ER last evening per recommendation from on-call provider d/t progressive weakness and fatigue with N/V/D x4 days. Pt. nor family (son very involved, though not at bedside today) had called office. Admitted for intractable N/V/D for hydration. Since admission temp. up to 100.3 as well as mild hypotension and tachycardia. Neutropenic on admission. This AM doesn't feel well. Tired. Still nauseated. Still stomach pain. Denies throwing up. Cont.'d diarrhea. PMH: RA, HTN, DM Medications: Dextrose (D50w Syringe 50 Ml*) 12.5 gm IV PUSH .FOR FS < 60 - SS PRN PRN Reason: FS < 60 Folic Acid (Folvite Tab*) 1 mg PO DAILY [facility] Gabapentin (Neurontin Cap(*)) 300 mg PO TID [facility] Heparin Sodium (Porcine) (Heparin Vial(*)) 5,000 units SUBCUT Q8HR [facility] Last Admin: 09/15/16 06:31 Dose: 5,000 units Sodium Chloride (Ns 0.9% 1000 Ml*) 1,000 mls @ 125 mls/hr IV PER RATE [facility] Last Admin: 09/15/16 02:25 Dose: 125 mls/hr Piperacillin Sod/Tazobactam (Sod 3.375 gm/ Sodium Chloride) 100 mls @ 200 mls/ hr IVPB ONCE ONE Stop: 09/15/16 10:07 Metronidazole/Sodium Chloride (Flagyl 500 Mg Ivpb*) 500 mg in 100 mls @ 100 mls /hr IVPB Q6H [facility] Insulin Human Lispro (Humalog*) 0 units SUBCUT ACHS ANN PRN Reason: Protocol Last Admin: 09/15/16 09:18 Dose: Not Given Multivitamins ( Vitamin Tab*) 1 tab PO DAILY [facility] Non-Formulary Medication (Iron Polysaccharide Complex-Vi [Poly-Iron 150 Forte 150-25-1 Mg-Mcg-Mg]) 1 cap PO DAILY [facility] Ondansetron HCl (Zofran Inj*) 4 mg IV Q4H PRN PRN Reason: NAUSEA Oxycodone/Acetaminophen (Percocet 5/325 Tab*) 1 tab PO Q4H PRN PRN Reason: PAIN Last Admin: 09/15/16 02:31 Dose: 1 tab Pharmacy Consult (Zosyn Per Pharmacy*) 1 note FOLLOW UP .ZOSYN PER PHARMACY ANN Potassium Chloride (Klor Con Er Tab*) 20 meq PO DAILY [facility] Prednisone (Deltasone Tab*) 3 mg PO QPM ANN Prednisone (Deltasone Tab*) 5 mg PO QAM ANN Objective: [] Vital Signs Temp Pulse Resp BP Pulse Ox 99.0 F 89 16 112/35 98 09/15/16 07:24 09/15/16 07:24 09/15/16 07:24 09/15/16 07:24 09/15/16 07:24 Sleepy and frail appearing, however oriented x3 and to situation, able to be roused but falls asleep shortly -- oral temp. during exam 100.1F EOMI, PERRLA, LAM HRR, S1S2 LS clear with dry cough +BS abd. soft and tender throughout +PP=bilat., trace edema Laboratory Results - last 24 hr 09/14/16 09/14/16 09/14/16 21:35 21:35 21:35 WBC 0.9 L RBC 4.07 Hgb 9.7 L Hct 31 L MCV 76 L MCH 24 L MCHC 32 RDW 19 H Plt Count 130 L MPV 7 L Neut % (Auto) 37.5 L Lymph % (Auto) 38.7 [place] % (Auto) 19.2 H Eos % (Auto) 3.8 Baso % (Auto) 0.8 Absolute Neuts (auto) 0.3 L* Absolute Lymphs (auto) 0.3 L Absolute Monos (auto) 0.2 Absolute Eos (auto) 0 Absolute Basos (auto) 0 Absolute Nucleated RBC 0.01 Nucleated RBC % 1.3 INR (Anticoag Therapy) Sodium 122 L Potassium 4.3 Chloride 92 L Carbon Dioxide 21 L Anion Gap 9 BUN 16 Creatinine 1.05 H Est GFR ( Amer) 66.1 Est GFR (Non-Af Amer) 51.4 BUN/Creatinine Ratio 15.2 Glucose 107 H POC Glucose (mg/dL) Lactic Acid 0.7 Calcium 8.8 Magnesium 1.5 L Total Bilirubin 0.80 AST 31 ALT 57 H Alkaline Phosphatase 311 H C-Reactive Protein 250.05 H Total Protein 6.8 Albumin 3.0 L Globulin 3.8 Albumin/Globulin Ratio 0.8 L Lipase < 10 L 09/15/16 09/15/16 09/15/16 08:44 08:44 08:44 WBC 0.8 L RBC 4.14 Hgb 9.9 L Hct 32 L MCV 77 L MCH 24 L MCHC 31 RDW 19 H Plt Count 125 L MPV 7 L Neut % (Auto) 28.0 L Lymph % (Auto) 46.9 [place] % (Auto) 21.0 H Eos % (Auto) 3.7 Baso % (Auto) 0.4 Absolute Neuts (auto) 0.2 L* Absolute Lymphs (auto) 0.4 L Absolute Monos (auto) 0.2 Absolute Eos (auto) 0 Absolute Basos (auto) 0 Absolute Nucleated RBC 0 Nucleated RBC % 0.6 INR (Anticoag Therapy) 0.97 Sodium 126 L Potassium 4.3 Chloride 98 L Carbon Dioxide 20 L Anion Gap 8 BUN 12 Creatinine 0.91 Est GFR ( Amer) 77.9 Est GFR (Non-Af Amer) 60.6 BUN/Creatinine Ratio 13.2 Glucose 97 POC Glucose (mg/dL) Lactic Acid Calcium 8.5 L Magnesium 1.9 Total Bilirubin 1.10 H AST 27 ALT 48 Alkaline Phosphatase 295 H C-Reactive Protein Total Protein 6.7 Albumin 3.0 L Globulin 3.7 Albumin/Globulin Ratio 0.8 L Lipase Microbiology 09/15/16 01:40 Stool Gross Appearance - Final Stool Stool Lactoferrin - Final: Positive 09/15/16 01:40 Stool Gross Appearance - Final Stool Assessment: []71 yo with stage IV ovarian cancer no C1D8 Carbo/Taxol (q3week dosing) with significant neutropenia and appearing very ill on exam concerning for SIRS. Plan: []1. STAT Blood Cultures as ordered by Dr. Escalera, STAT lactic acid as well 2. STAT CT abd./pelvis with contrast: eval. for diverticulitis vs. colitis and should show lung bases to help r/o PNA 3. NS @ 75 mL/hr IV continuous, start IV Zoysn and Flagyl 4. Repeat labs in AM, monitor VS q4hrs Case discussed with pt.'s primary Onc., Dr. Moreau, and today's attending, Dr. Escalera.
[2016-09-15] MEDS ORDERED: Iodixanol* (CONTRAST) 320 MG/ML 100 ML SDV IV SCH (09:58)
[2016-09-15] MEDS ORDERED: Zosyn per Pharmacy* NOTE FOLLOW UP SCH (10:00)
[2016-09-15] MEDS: Ondansetron INJ* 2 MG/ML VIAL IV PRN ×2 (10:50→14:49)
[2016-09-15] MEDS ORDERED: metroNIDAZOLE IV 500 MG/100ML* 500 MG/100 ML BAG IVPB SCH (11:00)
[2016-09-15] MEDS: Acetaminophen TAB* 325 MG PO PRN (13:16)
[2016-09-15] MEDS ORDERED: ZOSYN 3.375 GM Q8H per EXTENDED INFUSION IVPB SCH ×2 (14:00)
[2016-09-15] MEDS: predniSONE TAB* 5 MG PO SCH (14:49)
[2016-09-15] MEDS: Potassium Chlor TAB* 20 MEQ TAB.ER PO SCH (14:49)
[2016-09-15] MEDS: Prenatal Vitamin TAB PO SCH (14:49)
[2016-09-15] MEDS: Gabapentin CAP(*) 300 MG PO SCH ×3 (14:49→21:34)
[2016-09-15] MEDS: Folic Acid TAB* 1 MG PO SCH (14:50)
--- NOTE | 2016-09-15 15:03 | RAD ---
CLINICAL HISTORY: Diarrhea and abdominal pain. Relevant surgical history includes cholecystectomy in 2013. COMPARISON: CT abdomen pelvis dated July 10, 2016 TECHNIQUE: Contrast enhanced CT examination of the abdomen and pelvis from the lung bases through the initial tuberosities. The patient received 91 mL Visipaque 320 intravenously prior to imaging.The patient received oral contrast as well prior to imaging. FINDINGS: VISUALIZED LUNG BASES: The visualized lung bases are grossly clear. There is no pleural effusion. ABDOMEN AND PELVIS: There is been interval worsening in the degree of intrahepatic biliary duct dilatation. The common bile duct measures up to 1.3 cm in diameter (image 34 of 99) and increased from 8 mm on the previous CT examination. At the posterior aspect of the right lobe of the liver (image 18) there is a well-circumscribed 4.4 cm area of relative hypoattenuation. This was not definitely identified on the previous CT examination. This could represent a geographic area of focal fatty sparing. A more sinister etiology is not excluded. The spleen, pancreas and adrenal glands are grossly normal in appearance. The gallbladder is surgically absent. The degree of moderate hydronephrosis involving the right kidney is unchanged from the previous CT examination with the ureter measuring a maximum diameter of 1.3 cm. There is no definite hydronephrosis of the left kidney. A mostly fluid density cyst is noted at the left kidney. Delayed phase imaging shows no contrast being excreted in the right kidney compared to the left. The urinary bladder is mostly decompressed which makes evaluation difficult. Depicted better on the lateral view images the urinary bladder wall appears to be thickened up to 1 cm in thickness (image 73 of 139). Neural contrast has progressed as far as the rectum. There is no small or large bowel pathologic dilatation. The normal appendix is identified in the right lower quadrant (coronal image 27). Beginning at the descending colon there is wall thickening that extends as far as the rectum. The involved bowel wall measures a maximum wall thickness of 6 mm. Involving the rectum (axial image 85 and sagittal image 65) there is the appearance of ulcer along the endothelial membrane of the colon with contrast within the wall of the thickened rectum. There is no gross retroperitoneal or mesenteric lymphadenopathy. The fluid-filled uterus exhibits an endometrial stripe thickness of at least 2.7 cm. The lower abdominal aorta exhibits coarse calcification and irregularity with a maximum axial diameter of 2.3 cm. Atherosclerotic calcification of the abdominal aorta extends into the bilateral iliac arteries, more severely affecting the right than the left. Degenerative changes include multilevel loss of intervertebral disc height involving the lower thoracic and lumbar spine.There are no sinister bone lesions. IMPRESSION: 1. Specifically to the patient's current symptoms, there is long segment inflammatory change involving the distal descending colon through to the rectum. This includes wall thickening, irregularity of the bowel wall potentially including an ulcer at the rectum and pericolonic infiltration of the mesenteric fat. 2. The urinary bladder is completely decompressed but there appears to be wall thickening measuring up to a centimeter in thickness. Please correlate to symptoms of cystitis. Similar to the previous CT examination there is moderate right-sided hydroureter nephrosis with evidence of delayed excretion on the delayed phase CT imaging. 3. Thickened and fluid-filled uterus most suspicious for endometrial cancer in a woman of this age. 4. Well-circumscribed 4.5 cm area of hypoattenuation involving the posterior subcapsular liver. This can be further characterized with ultrasound to determine whether this is focal fatty sparing or potentially a metastatic lesion. 5. There is been interval worsening in the appearance of biliary duct dilatation, both intra and extrahepatic, since the July 10, 2016 CT examination. Please correlate to LFTs and bilirubin levels. Please correlate the patient's constellation of pelvic findings to radiation therapy.
[2016-09-15] MEDS: IRON POLYSACCHARIDE COMPLEX VI PO SCH (15:28)
[2016-09-15] MEDS: predniSONE TAB* 1 MG PO SCH (17:51)
[2016-09-15] MEDS: metroNIDAZOLE IV 500 MG/100ML* 500 MG/100 ML BAG IVPB SCH (20:23)
[2016-09-15] MEDS: ZOSYN 3.375 GM Q8H per EXTENDED INFUSION IVPB SCH ×4 (22:28→22:29)
[2016-09-16] MEDS: metroNIDAZOLE IV 500 MG/100ML* 500 MG/100 ML BAG IVPB SCH ×4 (01:53→19:33)
[2016-09-16] MEDS: NS 0.9% 1000 ML* 1,000 ML IV SCH ×2 (01:56→14:24)
[2016-09-16] MEDS: ZOSYN 3.375 GM Q8H per EXTENDED INFUSION IVPB SCH ×8 (04:54→22:21)
[2016-09-16 05:33] LABS: Hematocrit 25 % (35-47); Hemoglobin 7.7 g/dl (12.0-16.0); Mean Corpuscular HGB Conc 31 g/dl (31-36); Mean Corpuscular Hemoglobin 24 pg (27-31); Mean Corpuscular Volume 78 fL (80-97); Mean Platelet Volume 8 um3 (7.4-10.4); Red Blood Count 3.23 10^6/ul (4.0-5.4); Red Cell Distribution Width 19 % (10.5-15); White Blood Count 0.7 10^3/ul (3.5-10.8)
[2016-09-16 05:39] LABS: Add Diff/Slide Review? Slide Review Added; Comments Flag Yes
[2016-09-16 05:46] LABS: Albumin 2.3 g/dL (3.2-5.2); BUN/Creatinine Ratio 14.1 (8-20); EGFR African American 70.7 (>60); Globulin 3.2 g/dL (2-4); Magnesium 1.8 mg/dL (1.9-2.7); Potassium 3.9 mmol/L (3.5-5.0); Total Bilirubin 0.4 mg/dL (0.2-1.0); Total Protein 5.5 g/dL (6.4-8.9)
[2016-09-16] MEDS: Heparin VIAL(*) 5000 UNITS/ML VIAL (FIVE THOUSAND) SUBCUT SCH ×3 (06:19→21:21)
[2016-09-16] MEDS: Insulin LISPRO* 1 UNITS UNIT SUBCUT SCH ×4 (08:49→20:45)
[2016-09-16] MEDS: Folic Acid TAB* 1 MG PO SCH (10:10)
[2016-09-16] MEDS: Prenatal Vitamin TAB PO SCH (10:10)
[2016-09-16] MEDS: Gabapentin CAP(*) 300 MG PO SCH ×3 (10:11→20:41)
[2016-09-16] MEDS: Potassium Chlor TAB* 20 MEQ TAB.ER PO SCH (10:11)
[2016-09-16] MEDS: predniSONE TAB* 5 MG PO SCH (10:12)
[2016-09-16] MEDS: IRON POLYSACCHARIDE COMPLEX VI PO SCH (10:31)
[2016-09-16] MEDS: predniSONE TAB* 1 MG PO SCH (17:41)
[2016-09-17] MEDS: metroNIDAZOLE IV 500 MG/100ML* 500 MG/100 ML BAG IVPB SCH ×4 (01:47→19:31)
[2016-09-17] MEDS: NS 0.9% 1000 ML* 1,000 ML IV SCH ×2 (01:47→12:27)
[2016-09-17] MEDS: ZOSYN 3.375 GM Q8H per EXTENDED INFUSION IVPB SCH ×8 (04:11→21:59)
[2016-09-17 04:41] LABS: Hematocrit 25 % (35-47); Hemoglobin 7.5 g/dl (12.0-16.0); Mean Corpuscular HGB Conc 31 g/dl (31-36); Mean Corpuscular Hemoglobin 24 pg (27-31); Mean Corpuscular Volume 78 fL (80-97); Mean Platelet Volume 8 um3 (7.4-10.4); Red Blood Count 3.14 10^6/ul (4.0-5.4); Red Cell Distribution Width 19 % (10.5-15); White Blood Count 1.1 10^3/ul (3.5-10.8)
[2016-09-17 04:50] LABS: Add Diff/Slide Review? Slide Review Added; Comments Flag Yes
[2016-09-17 05:14] LABS: BUN/Creatinine Ratio 14.6 (8-20); EGFR Non-African American 62.2 (>60)
[2016-09-17 05:23] LABS: Potassium 4.1 mmol/L (3.5-5.0)
[2016-09-17] MEDS: Heparin VIAL(*) 5000 UNITS/ML VIAL (FIVE THOUSAND) SUBCUT SCH ×3 (05:43→21:45)
--- NOTE | 2016-09-17 07:55 | PN ---
Progress Note - Progress Note Date of Service: 09/17/16 SOAP: Subjective: patient reports overall she is feeling markedly better than admission. when questioned if she is having any rectal or vaginal bleeding she reports "I wouldn 't know, the nurses change me". she does report much less diarrhea. she denies nausea or vomiting no fevers x 2 dys. Objective: Vital Signs Temp Pulse Resp BP Pulse Ox 98.6 F 74 18 123/69 100 09/17/16 07:31 09/17/16 07:31 09/17/16 07:31 09/17/16 07:31 09/17/16 07:31 elderly female lying flat in bed in NAD perr eomi op moist, semiadentulous CTA bl s1 s2 nl soft nt +bs trace edema bilaterally A+O x 3, grossly nonfocal but did not ambulate port clean skin intact Laboratory Results - last 24 hr 09/15/16 09/16/16 09/16/16 01:40 08:22 11:20 WBC RBC Hgb Hct MCV MCH MCHC RDW Plt Count MPV Neut % (Auto) Lymph % (Auto) Sebastian % (Auto) Eos % (Auto) Baso % (Auto) Absolute Neuts (auto) Absolute Lymphs (auto) Absolute Monos (auto) Absolute Eos (auto) Absolute Basos (auto) Absolute Nucleated RBC Nucleated RBC % Sodium Potassium Chloride Carbon Dioxide Anion Gap BUN Creatinine Est GFR ( Amer) Est GFR (Non-Af Amer) BUN/Creatinine Ratio Glucose POC Glucose (mg/dL) 108 H 138 H Calcium Parasite Exam See comment 09/16/16 09/16/16 09/17/16 17:29 20:44 04:16 WBC RBC Hgb Hct MCV MCH MCHC RDW Plt Count MPV Neut % (Auto) Lymph % (Auto) Sebastian % (Auto) Eos % (Auto) Baso % (Auto) Absolute Neuts (auto) Absolute Lymphs (auto) Absolute Monos (auto) Absolute Eos (auto) Absolute Basos (auto) Absolute Nucleated RBC Nucleated RBC % Sodium 138 Potassium 4.1 Chloride 111 Carbon Dioxide 21 L Anion Gap 6 BUN 13 Creatinine 0.89 Est GFR ( Amer) 80.0 Est GFR (Non-Af Amer) 62.2 BUN/Creatinine Ratio 14.6 Glucose 121 H POC Glucose (mg/dL) 127 H 142 H Calcium 8.0 L Parasite Exam 09/17/16 04:16 WBC 1.1 L RBC 3.14 L Hgb 7.5 L Hct 25 L MCV 78 L MCH 24 L MCHC 31 RDW 19 H Plt Count 135 L MPV 8 Neut % (Auto) 37.2 L Lymph % (Auto) 41.0 Sebastian % (Auto) 19.0 H Eos % (Auto) 2.4 Baso % (Auto) 0.4 Absolute Neuts (auto) 0.4 L Absolute Lymphs (auto) 0.4 L Absolute Monos (auto) 0.2 Absolute Eos (auto) 0 Absolute Basos (auto) 0 Absolute Nucleated RBC 0 Nucleated RBC % 0.1 Sodium Potassium Chloride Carbon Dioxide Anion Gap BUN Creatinine Est GFR ( Amer) Est GFR (Non-Af Amer) BUN/Creatinine Ratio Glucose POC Glucose (mg/dL) Calcium Parasite Exam Acetaminophen (Tylenol Tab*) 650 mg PO Q6H PRN PRN Reason: FEVER/ PAIN Last Admin: 09/15/16 13:16 Dose: 650 mg Dextrose (D50w Syringe 50 Ml*) 12.5 gm IV PUSH .FOR FS < 60 - SS PRN PRN Reason: FS < 60 Folic Acid (Folvite Tab*) 1 mg PO DAILY [facility] Last Admin: 09/16/16 10:10 Dose: 1 mg Gabapentin (Neurontin Cap(*)) 300 mg PO TID [facility] Last Admin: 09/16/16 20:41 Dose: 300 mg Heparin Sodium (Porcine) (Heparin Vial(*)) 5,000 units SUBCUT Q8HR [facility] Last Admin: 09/17/16 05:43 Dose: 5,000 units Sodium Chloride (Ns 0.9% 1000 Ml*) 1,000 mls @ 125 mls/hr IV PER RATE [facility] Last Admin: 09/17/16 01:47 Dose: 125 mls/hr Piperacillin Sod/Tazobactam (Sod 3.375 gm/ Sodium Chloride) 100 mls @ 200 mls/ hr IVPB Q6H [facility] Last Admin: 09/17/16 04:11 Dose: 200 mls/hr Metronidazole/Sodium Chloride (Flagyl 500 Mg Ivpb*) 500 mg in 100 mls @ 100 mls /hr IVPB Q6H [facility] Last Admin: 09/17/16 01:47 Dose: 100 mls/hr Insulin Human Lispro (Humalog*) 0 units SUBCUT ACHS [facility] PRN Reason: Protocol Last Admin: 09/16/16 20:45 Dose: Not Given Multivitamins ( Vitamin Tab*) 1 tab PO DAILY [facility] Last Admin: 09/16/16 10:10 Dose: 1 tab Non-Formulary Medication (Iron Polysaccharide Complex-Vi [Poly-Iron 150 Forte 150-25-1 Mg-Mcg-Mg]) 1 cap PO DAILY [facility] Last Admin: 09/16/16 10:31 Dose: Not Given Ondansetron HCl (Zofran Inj*) 4 mg IV Q4H PRN PRN Reason: NAUSEA Last Admin: 09/15/16 14:49 Dose: 4 mg Oxycodone/Acetaminophen (Percocet 5/325 Tab*) 1 tab PO Q4H PRN PRN Reason: PAIN Last Admin: 09/15/16 02:31 Dose: 1 tab Pharmacy Consult (Zosyn Per Pharmacy*) 1 note FOLLOW UP .ZOSYN PER PHARMACY [facility] Potassium Chloride (Klor Con Er Tab*) 20 meq PO DAILY [facility] Last Admin: 09/16/16 10:11 Dose: 20 meq Prednisone (Deltasone Tab*) 3 mg PO QPM [facility] Last Admin: 09/16/16 17:41 Dose: 3 mg Prednisone (Deltasone Tab*) 5 mg PO QAM [facility] Last Admin: 09/16/16 10:12 Dose: 5 mg Assessment: 71 yo F w metastatic cervical cancer sp recent palliative RT 2/ bleeding and cycle 1 of carbo/taxol 09/08 admitted with neutropenic fevers and diarrhea. CT findings nicely summarized in Dr. Welsh's very thorough assessment, and many changes related to recent RT (bowel and bladder) and known cervical cancer ( uterus and hydro). 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 with diarrhea and variable PO intake may need to consider alternate regimen on resumption carb consistent diet diarrhea: improving significantly, decrease fluid repletion to 75 cc/hr rheumatoid arthritis: quiescent right now, cont prednisone anemia: chemotherapy induced PLUS iron deficiency from blood loss -cont po iron DVT prophylaxis: heparin as long as no significant vaginal bleeding full code
[2016-09-17] MEDS: Gabapentin CAP(*) 300 MG PO SCH ×3 (10:02→20:46)
[2016-09-17] MEDS: predniSONE TAB* 5 MG PO SCH (10:02)
[2016-09-17] MEDS: Potassium Chlor TAB* 20 MEQ TAB.ER PO SCH (10:02)
[2016-09-17] MEDS: Prenatal Vitamin TAB PO SCH (10:02)
[2016-09-17] MEDS: Folic Acid TAB* 1 MG PO SCH (10:02)
[2016-09-17] MEDS: Acetaminophen TAB* 325 MG PO PRN (10:06)
[2016-09-17] MEDS: IRON POLYSACCHARIDE COMPLEX VI PO SCH (10:07)
[2016-09-17] MEDS: Insulin LISPRO* 1 UNITS UNIT SUBCUT SCH ×4 (10:09→20:44)
[2016-09-17] MEDS: predniSONE TAB* 1 MG PO SCH (17:44)
[2016-09-18] MEDS: NS 0.9% 1000 ML* 1,000 ML IV SCH (00:17)
[2016-09-18] MEDS: metroNIDAZOLE IV 500 MG/100ML* 500 MG/100 ML BAG IVPB SCH ×4 (02:03→20:04)
[2016-09-18] MEDS: ZOSYN 3.375 GM Q8H per EXTENDED INFUSION IVPB SCH ×8 (04:14→22:14)
[2016-09-18 04:43] LABS: Hematocrit 26 % (35-47); Mean Corpuscular HGB Conc 30 g/dl (31-36); Mean Corpuscular Hemoglobin 24 pg (27-31); Mean Corpuscular Volume 79 fL (80-97); Mean Platelet Volume 8 um3 (7.4-10.4); Red Blood Count 3.33 10^6/ul (4.0-5.4); Red Cell Distribution Width 18 % (10.5-15)
[2016-09-18 04:47] LABS: Add Diff/Slide Review? Slide Review Added; Comments Flag Yes; White Blood Count 1.6 10^3/ul (3.5-10.8)
[2016-09-18 04:52] LABS: BUN/Creatinine Ratio 14.5 (8-20); Calcium 8.3 mg/dL (8.6-10.3); EGFR African American 95.9 (>60); EGFR Non-African American 74.6 (>60)
[2016-09-18] MEDS: Heparin VIAL(*) 5000 UNITS/ML VIAL (FIVE THOUSAND) SUBCUT SCH ×2 (05:58→12:55)
[2016-09-18] MEDS ORDERED: NS 0.9% 1000 ML* 1,000 ML IV SCH (07:53)
[2016-09-18] MEDS: Potassium Chlor TAB* 20 MEQ TAB.ER PO SCH (08:25)
[2016-09-18] MEDS: predniSONE TAB* 5 MG PO SCH (08:26)
[2016-09-18] MEDS: Folic Acid TAB* 1 MG PO SCH (08:26)
[2016-09-18] MEDS: Prenatal Vitamin TAB PO SCH (08:26)
[2016-09-18] MEDS: Gabapentin CAP(*) 300 MG PO SCH ×3 (08:26→21:12)
[2016-09-18] MEDS: IRON POLYSACCHARIDE COMPLEX VI PO SCH (08:27)
[2016-09-18] MEDS: Insulin LISPRO* 1 UNITS UNIT SUBCUT SCH ×4 (08:30→21:13)
[2016-09-18] MEDS: Omeprazole CAP* 20 MG PO SCH ×2 (13:01→21:13)
--- NOTE | 2016-09-18 13:14 | PN ---
Subjective Date of Service: 09/18/16 Interval History: pt was noted to have BRBPR today with a bowel movement. She stated that she has had intermittent rectal bleeding for the past month Objective Active Medications: Acetaminophen (Tylenol Tab*) 650 mg PO Q6H PRN PRN Reason: FEVER/ PAIN Last Admin: 09/17/16 10:06 Dose: 650 mg Dextrose (D50w Syringe 50 Ml*) 12.5 gm IV PUSH .FOR FS < 60 - SS PRN PRN Reason: FS < 60 Folic Acid (Folvite Tab*) 1 mg PO DAILY [facility] Last Admin: 09/18/16 08:26 Dose: 1 mg Gabapentin (Neurontin Cap(*)) 300 mg PO TID [facility] Last Admin: 09/18/16 12:53 Dose: 300 mg Heparin Sodium (Porcine) (Heparin Vial(*)) 5,000 units SUBCUT Q8HR [facility] Last Admin: 09/18/16 12:55 Dose: 5,000 units Piperacillin Sod/Tazobactam (Sod 3.375 gm/ Sodium Chloride) 100 mls @ 200 mls/ hr IVPB Q6H [facility] Last Admin: 09/18/16 11:42 Dose: 200 mls/hr Metronidazole/Sodium Chloride (Flagyl 500 Mg Ivpb*) 500 mg in 100 mls @ 100 mls /hr IVPB Q6H [facility] Last Admin: 09/18/16 08:33 Dose: 100 mls/hr Sodium Chloride (Ns 0.9% 1000 Ml*) 1,000 mls @ 75 mls/hr IV PER RATE [facility] Last Admin: 09/18/16 12:54 Dose: 75 mls/hr Insulin Human Lispro (Humalog*) 0 units SUBCUT ACHS [facility] PRN Reason: Protocol Last Admin: 09/18/16 11:56 Dose: Not Given Multivitamins ( Vitamin Tab*) 1 tab PO DAILY [facility] Last Admin: 09/18/16 08:26 Dose: 1 tab Non-Formulary Medication (Iron Polysaccharide Complex-Vi [Poly-Iron 150 Forte 150-25-1 Mg-Mcg-Mg]) 1 cap PO DAILY [facility] Last Admin: 09/18/16 08:27 Dose: 1 cap Omeprazole (Prilosec Cap*) 20 mg PO BID [facility] Last Admin: 09/18/16 13:01 Dose: 20 mg Ondansetron HCl (Zofran Inj*) 4 mg IV Q4H PRN PRN Reason: NAUSEA Last Admin: 09/15/16 14:49 Dose: 4 mg Oxycodone/Acetaminophen (Percocet 5/325 Tab*) 1 tab PO Q4H PRN PRN Reason: PAIN Last Admin: 09/15/16 02:31 Dose: 1 tab Pharmacy Consult (Zosyn Per Pharmacy*) 1 note FOLLOW UP .ZOSYN PER PHARMACY [facility] Potassium Chloride (Klor Con Er Tab*) 20 meq PO DAILY [facility] Last Admin: 09/18/16 08:25 Dose: 20 meq Prednisone (Deltasone Tab*) 3 mg PO QPM [facility] Last Admin: 09/17/16 17:44 Dose: 3 mg Prednisone (Deltasone Tab*) 5 mg PO QAM [facility] Last Admin: 09/18/16 08:26 Dose: 5 mg Vital Signs 09/17/16 09/17/16 09/17/16 15:19 15:58 17:58 Temperature 98.1 F Pulse Rate 71 Respiratory 16 14 16 Rate Blood Pressure 123/65 (mmHg) O2 Sat by Pulse 99 Oximetry 09/17/16 09/17/16 09/17/16 19:58 20:00 20:46 Temperature 98.5 F Pulse Rate 66 Respiratory 17 17 16 Rate Blood Pressure 118/64 (mmHg) O2 Sat by Pulse 99 Oximetry 09/17/16 09/17/16 09/18/16 22:46 23:05 03:37 Temperature 98.4 F 98.1 F Pulse Rate 65 73 Respiratory 16 16 16 Rate Blood Pressure 116/47 134/69 (mmHg) O2 Sat by Pulse 100 99 Oximetry 09/18/16 09/18/16 09/18/16 07:46 08:26 10:26 Temperature 98.3 F Pulse Rate 57 Respiratory 18 14 14 Rate Blood Pressure 146/66 (mmHg) O2 Sat by Pulse 100 Oximetry 09/18/16 09/18/16 10:52 12:53 Temperature 98.2 F Pulse Rate 63 Respiratory 18 14 Rate Blood Pressure 139/66 (mmHg) O2 Sat by Pulse 100 Oximetry Oxygen Devices in Use Now: None Appearance: 71 yo F in nAD, aAOx3 Eyes: No Scleral Icterus, PERRLA Ears/Nose/Mouth/Throat: NL Teeth, Lips, Gums, Mucous Membranes Moist Neck: NL Appearance and Movements; NL JVP, Trachea Midline Respiratory: Symmetrical Chest Expansion and Respiratory Effort, Clear to Auscultation Cardiovascular: NL Sounds; No Murmurs; No JVD, RRR Abdominal: NL Sounds; No Tenderness; No Distention Lymphatic: No Cervical Adenopathy Extremities: No Edema, No Clubbing, Cyanosis Skin: No Rash or Ulcers, No Nodules or Sclerosis Neurological: Alert and Oriented x 3, NL Muscle Strength and Tone Result Diagrams: 09/18/16 04:25 09/18/16 04:25 Microbiology and Other Data: Microbiology 09/15/16 08:44 Aerobic Blood Culture - Preliminary Blood Venous No Growth Day 3 Anaerobic Blood Culture - Preliminary No Growth Day 3 Blood Culture - Final 09/15/16 13:50 Aerobic Blood Culture - Preliminary Blood Venous No Growth Day 2 Anaerobic Blood Culture - Preliminary No Growth Day 2 Blood Culture - Final 09/16/16 15:00 Urine Culture - Final Urine No Growth (<1,000 CFU/mL) 09/15/16 01:40 Stool Culture - Final Stool Stool Gross Appearance - Final Shiga Toxin I & II - Final Negative Shiga Toxin 1 & 2 09/15/16 01:40 Stool Gross Appearance - Final Stool Stool Lactoferrin - Final Cryptosporidium/Giardia - Final Neg Cryptosporidium/Giardia Assess/Plan/Problems-Billing Assessment: 71 yo F w metastatic cervical cancer sp recent palliative RT 2/2 bleeding and cycle 1 of carbo/taxol 09/08 admitted with neutropenic fevers and diarrhea. - Patient Problems (1) Neutropenic fever Comment: ANC improving cont Zosyn and Flagyl assuming source likely GI with recent diarrhea, CT changes suggestive of colonic inflammation and rectal ulcer . Radiation related colitis also on differential when ANC closer to 1000 can d/c home (2) Diarrhea Comment: improving. Pt tolerates PO diet. Today pt had an episode of blood in stool, apparently she has had intermittent BRBPR x 1 month. I could be a consequence of radiation related colitis and rectal ulcer noted on CT. cont antibiotics. F/u H&H. (3) Hypokalemia Comment: repleted (4) DM2 (diabetes mellitus, type 2) Comment: controlled with ISS (5) Rheumatoid arthritis Comment: cont Prednisone (6) Anemia Comment: Hb stable, but in light of BRBPR will recheck tonight (7) DVT prophylaxis Comment: heparin held due to BRBPR Status and Disposition: inpatient
[2016-09-18 19:11] LABS: Hematocrit 27 % (35-47); Hemoglobin 8.2 g/dl (12.0-16.0)
[2016-09-18 19:12] LABS: Comments Flag Yes
[2016-09-18] MEDS: predniSONE TAB* 1 MG PO SCH (19:18)
[2016-09-19] MEDS: metroNIDAZOLE IV 500 MG/100ML* 500 MG/100 ML BAG IVPB SCH ×2 (01:09→09:07)
[2016-09-19] MEDS: ZOSYN 3.375 GM Q8H per EXTENDED INFUSION IVPB SCH ×2 (04:25)
[2016-09-19 05:59] LABS: Hematocrit 29 % (35-47); Mean Corpuscular HGB Conc 31 g/dl (31-36); Mean Corpuscular Hemoglobin 24 pg (27-31); Mean Corpuscular Volume 78 fL (80-97); Mean Platelet Volume 8 um3 (7.4-10.4); Red Blood Count 3.75 10^6/ul (4.0-5.4); Red Cell Distribution Width 19 % (10.5-15)
[2016-09-19 06:01] LABS: Comments Flag Yes; White Blood Count 2.6 10^3/ul (3.5-10.8)
[2016-09-19 06:10] LABS: BUN/Creatinine Ratio 14.4 (8-20); Calcium 8.6 mg/dL (8.6-10.3); EGFR African American 72.4 (>60); EGFR Non-African American 56.3 (>60)
[2016-09-19 06:42] LABS: Potassium 3.9 mmol/L (3.5-5.0)
[2016-09-19 07:28] VITALS: BP 134/60
[2016-09-19] MEDS: Insulin LISPRO* 1 UNITS UNIT SUBCUT SCH (07:29)
--- NOTE | 2016-09-19 08:09 | DS ---
- Discharge Summary ADMIT DATE: 09/14/2016 DISCHARGE DATE: 09/19/2016 DISCHARGE DIAGNOSIS: 1. neutropenic fevers 2. metastatic cervical cancer on chemotherapy 3. radiation colitis 4. dehydration, resolved 5. hypokalemia, resolved 6. diet controlled diabetes DISCHARGE MEDICATIONS: Home Medications Medication Instructions Recorded Confirmed Type Folic Acid TAB* [Folvite TAB*] 1 mg PO DAILY 08/10/16 09/14/16 History Gabapentin CAP(*) [Neurontin 300 300 mg PO TID 08/10/16 09/14/16 History CAP(*)] predniSONE TAB* [Deltasone TAB*] 3 mg PO QPM 08/10/16 09/14/16 History predniSONE TAB* [Deltasone TAB*] 5 mg PO QAM 08/10/16 09/14/16 History Iron Polysaccharide Complex- 1 cap PO DAILY 08/18/16 09/14/16 History [Poly-Iron 150 Forte 150-25-1 mg-Mcg-mg] Ondansetron HCl [Zofran 4 MG TAB] 1 tab PO Q4HR PRN 08/18/16 09/14/16 History Potassium Chlor TAB* [Potassium 20 meq PO DAILY 09/09/16 09/14/16 History Chlor TAB 20 MEQ*] Prochlorperazine TAB* [Compazine 10 mg PO Q6H PRN 09/09/16 09/14/16 History Tab*] Loperamide CAP* 2 mg PO Q6HR PRN 09/14/16 09/14/16 History Vitamin 1 dose PO DAILY 09/14/16 09/14/16 History oxyCODONE/Acetamin 5/325 MG* 1 - 2 tab PO Q4HR PRN 09/14/16 09/14/16 History Omeprazole CAP* [Prilosec CAP* 20 20 mg PO BID #60 cap 09/19/16 Rx MG] DISCHARGE FOLLOW UP: 1. Yelena Stokes NP 09/26 KRYSTAL Parrish, 1 pm DISCHARGE SUMMARY: Maite was admitted 5 days after receiving cycle 1 carbo/taxol, with weakness, dehydration and fevers in the setting of radiation colitis and significant diarrhea. The night of admission she developed a fever and was hypotensive. Coverage for neutropenic fevers was started to include bowel source given diarrhea. CT A/P revealed radiation colitis and cystitis, known hydronephrosis and some biliary ductal dilitation. She improved markedly with fluids and antibiotics, as well as antidiarrheals. She will be discharged off of antibiotics. Notably, she did not require ANY insulin coverage in the hospital and her metformin has been held. Her fingersticks have been well below 200 and she will be discharged OFF of metformin. >30 mins spent on this discharge, >50% in face to face counseling
[2016-09-19] MEDS: Acetaminophen TAB* 325 MG PO PRN (09:06)
[2016-09-19] MEDS: Folic Acid TAB* 1 MG PO SCH (09:07)
[2016-09-19] MEDS: predniSONE TAB* 5 MG PO SCH (09:08)
[2016-09-19] MEDS: Prenatal Vitamin TAB PO SCH (09:08)
[2016-09-19] MEDS: Omeprazole CAP* 20 MG PO SCH (09:08)
[2016-09-19] MEDS: Gabapentin CAP(*) 300 MG PO SCH (09:08)
[2016-09-19] MEDS: Potassium Chlor TAB* 20 MEQ TAB.ER PO SCH (09:09)
[2016-09-19] MEDS: IRON POLYSACCHARIDE COMPLEX VI PO SCH (09:09)
== END 2016-09-19 12:15 | disposition home or self-care (01) | DRG 809 ==
LOC: ED 19:26 → MED 23:49
PROVIDERS: ADMIT Internal Medicine; ATTEND Internal Medicine Hematology & Oncology
DX: D70.1 Agranulocytosis secondary to cancer chemotherapy (principal); C79.11 Secondary malignant neoplasm of bladder; N13.30 Unspecified hydronephrosis; C53.9 Malignant neoplasm of cervix uteri, unspecified; K52.0 Gastroenteritis and colitis due to radiation; E86.0 Dehydration; N30.80 Other cystitis without hematuria; E11.9 Type 2 diabetes mellitus without complications; I10 Essential (primary) hypertension; R50.81 Fever presenting with conditions classified elsewhere; R91.1 Solitary pulmonary nodule; M06.9 Rheumatoid arthritis, unspecified; M19.90 Unspecified osteoarthritis, unspecified site; E87.6 Hypokalemia; Z96.651 Presence of right artificial knee joint; Z79.52 Long term (current) use of systemic steroids; Z79.899 Other long term (current) drug therapy; Z82.49 Family history of ischemic heart disease and other diseases of the circulatory system; Z79.84 Long term (current) use of oral hypoglycemic drugs; Z87.891 Personal history of nicotine dependence
CPT/HCPCS: 36415; 74177; 80048; 80053; 83605; 83630; 83690; 83735; 85014; 85018; 85025; 85060; 85610; 86140; 87040; 87045; 87046; 87086; 87177; 87209; 87328; 87329; 87899; 93005; 99232; 99233; A9270-GY; J1642; J1644; J2405; J2543; J7512; Q9967

== ENCOUNTER 2016-10-10 21:16 | Inpatient (IN) | payer MEDICARE, OTHER ==
[2016-10-10 22:01] LABS: Hematocrit 36 % (35-47); Hemoglobin 10.6 g/dl (12.0-16.0); Mean Corpuscular HGB Conc 30 g/dl (31-36); Mean Corpuscular Hemoglobin 24 pg (27-31); Mean Corpuscular Volume 80 fL (80-97); Mean Platelet Volume 8 um3 (7.4-10.4); Red Blood Count 4.47 10^6/ul (4.0-5.4); Red Cell Distribution Width 22 % (10.5-15); White Blood Count 6.7 10^3/ul (3.5-10.8)
[2016-10-10 22:05] LABS: Albumin 3.3 g/dL (3.2-5.2); Calcium 9.6 mg/dL (8.6-10.3); EGFR African American 39.8 (>60); EGFR Non-African American 30.9 (>60); Globulin 4.1 g/dL (2-4); Potassium 4.3 mmol/L (3.5-5.0); Total Bilirubin 0.5 mg/dL (0.2-1.0); Total Protein 7.4 g/dL (6.4-8.9)
[2016-10-10] MEDS ORDERED: NS 0.9% 500 ML BAG* 500 ML IV ONE (22:16)
[2016-10-10 22:31] LABS: Comments Flag Yes
--- NOTE | 2016-10-10 22:38 | ED ---
Yady Mullins Edward, scribed for Carlos Sinclair MD on 10/10/16 at 2138 . Shortness of Breath - HPI Summary HPI Summary: 71 y/o female presents to ED c/o gradual onset SOB starting at around 14:00 this afternoon. Pt c/o weakness from chemotherapy two weeks ago, and she also had 1 syncopal episode this afternoon before the onset of SOB. Denies fever. PMHx CA, currently in treatment. Most of the information was provided by the patient's son. - History of Current Complaint Chief Complaint: EDShortnessOfBreath Time Seen by Provider: 10/10/16 21:32 Hx Obtained From: Patient Onset/Duration: Gradual Onset, Lasting Hours - This afternoon, Still Present - Allergy/Home Medications Allergies/Adverse Reactions: Allergies Allergy/AdvReac Type Severity Reaction Status Date / Time No Known Allergies Allergy Verified 09/09/16 15:35 PMH/Surg Hx/FS Hx/Imm Hx Previously Healthy: No Endocrine/Hematology History: Reports: Hx Diabetes - type 2, Hx Anemia - on iron Cardiovascular History: Reports: Hx Hypercholesterolemia, Hx Hypertension - off of blood pressure meds at this time, Other Cardiovascular Problems/Disorders - HYPERCHOLESTEROLEMIA Respiratory History: Reports: Other Respiratory Problems/Disorders - L lung nodule GI History: Reports: Hx Gall Bladder Disease - s/p cholesysectomy History: Reports: Hx Kidney Infection - last year at least 3 kidney infections - none at this time, Other Problems/Disorders - L hydronephrosis d /t obstruction Musculoskeletal History: Reports: Hx Arthritis - osteoarthritis, rheumatoid arthritis Sensory History: Reports: Hx Cataracts - both eye , not ready for surgery, Hx Contacts or Glasses Denies: Hx Hearing Aid Opthamlomology History: Reports: Hx Cataracts - both eye , not ready for surgery , Hx Contacts or Glasses - Cancer History Cancer Type, Location and Year: Cervical CA, diagnosed June 2016 Hx Chemotherapy: Yes Hx Radiation Therapy: Yes - Surgical History Surgery Procedure, Year, and Place: laparoscopic gall bladder removed 2012. right total knee replacement 2012, s/p cysto with attempted stent placement Hx Anesthesia Reactions: No Infectious Disease History: No Infectious Disease History: Reports: Hx Shingles - FALL 2015 Denies: Traveled Outside the [place] in Last 30 Days - Family History Known Family History: Positive: Hypertension, Diabetes - Social History Alcohol Use: None Substance Use Type: Reports: None Hx Tobacco Use: Yes Smoking Status (MU): Former Smoker Type: Cigarettes Amount Used/How Often: smoked for 40 years approx, 1/2 -1 ppd Review of Systems Constitutional: Negative Eyes: Negative ENT: Negative Cardiovascular: Negative Positive: Shortness Of Breath Gastrointestinal: Negative Genitourinary: Negative Musculoskeletal: Negative Skin: Negative Positive: Weakness, Syncope Psychological: Normal All Other Systems Reviewed And Are Negative: Yes Physical Exam Triage Information Reviewed: Yes Vital Signs On Initial Exam: Initial Vitals Pulse Resp BP Pulse Ox 74 24 113/80 97 10/10/16 21:18 10/10/16 21:18 10/10/16 21:18 10/10/16 21:18 Vital Signs Reviewed: Yes Appearance: Positive: No Pain Distress, Ill-Appearing, Thin Skin: Positive: Warm Head/Face: Positive: Normal Head/Face Inspection Eyes: Positive: MEGHAN ENT: Positive: Hearing grossly normal Neck: Positive: Supple, Nontender Respiratory/Lung Sounds: Positive: Breath Sounds Present Cardiovascular: Positive: Tachycardia Abdomen Description: Positive: Nontender, Soft Bowel Sounds: Positive: Present Musculoskeletal: Positive: Strength/ROM Intact Neurological: Positive: Alert, Oriented to Person Place, Time Psychiatric: Positive: Affect/Mood Appropriate Diagnostics - Vital Signs Vital Signs Temp Pulse Resp BP Pulse Ox 10/10/16 21:26 96.9 F 133 20 103/62 92 10/10/16 21:18 74 24 113/80 97 - Laboratory Lab Results: Lab Results 10/10/16 10/10/16 10/10/16 Range/Units 21:38 21:38 21:38 WBC 6.7 (3.5-10.8) 10^3/ul RBC 4.47 (4.0-5.4) 10^6/ul Hgb 10.6 L (12.0-16.0) g/dl Hct 36 (35-47) % MCV 80 (80-97) fL MCH 24 L (27-31) pg MCHC 30 L (31-36) g/dl RDW 22 H (10.5-15) % Plt Count 242 (150-450) 10^3/ul MPV 8 (7.4-10.4) um3 Neut % (Auto) 51.6 (38-83) % Lymph % (Auto) 33.1 (25-47) % [place] % (Auto) 14.9 H (1-9) % Eos % (Auto) 0 (0-6) % Baso % (Auto) 0.4 (0-2) % Absolute Neuts (auto) 3.4 (1.5-7.7) 10^3/ul Absolute Lymphs (auto) 2.2 (1.0-4.8) 10^3/ul Absolute Monos (auto) 1.0 H (0-0.8) 10^3/ul Absolute Eos (auto) 0 (0-0.6) 10^3/ul Absolute Basos (auto) 0 (0-0.2) 10^3/ul Absolute Nucleated RBC 0.01 10^3/ul Nucleated RBC % 0.2 Sodium 131 L (133-145) mmol/L Potassium 4.3 (3.5-5.0) mmol/L Chloride 98 L (101-111) mmol/L Carbon Dioxide 14 L* (22-32) mmol/L Anion Gap 19 H (2-11) mmol/L BUN 26 H (6-24) mg/dL Creatinine 1.63 H (0.51-0.95) mg/dL Est GFR ( Amer) 39.8 (>60) Est GFR (Non-Af Amer) 30.9 (>60) BUN/Creatinine Ratio 16.0 (8-20) Glucose 310 H (70-100) mg/dL Lactic Acid 5.4 H* (0.5-2.0) mmol/L Calcium 9.6 (8.6-10.3) mg/dL Total Bilirubin 0.50 (0.2-1.0) mg/dL AST 16 (13-39) U/L ALT 13 (7-52) U/L Alkaline Phosphatase 77 (34-104) U/L Troponin I 1.00 H* (<0.04) ng/mL B-Natriuretic Peptide ( - 100) pg/mL Total Protein 7.4 (6.4-8.9) g/dL Albumin 3.3 (3.2-5.2) g/dL Globulin 4.1 H (2-4) g/dL Albumin/Globulin Ratio 0.8 L (1-3) //17 Range/Units 21:38 WBC (3.5-10.8) 10^3/ul RBC (4.0-5.4) 10^6/ul Hgb (12.0-16.0) g/dl Hct (35-47) % MCV (80-97) fL MCH (27-31) pg MCHC (31-36) g/dl RDW (10.5-15) % Plt Count (150-450) 10^3/ul MPV (7.4-10.4) um3 Neut % (Auto) (38-83) % Lymph % (Auto) (25-47) % [place] % (Auto) (1-9) % Eos % (Auto) (0-6) % Baso % (Auto) (0-2) % Absolute Neuts (auto) (1.5-7.7) 10^3/ul Absolute Lymphs (auto) (1.0-4.8) 10^3/ul Absolute Monos (auto) (0-0.8) 10^3/ul Absolute Eos (auto) (0-0.6) 10^3/ul Absolute Basos (auto) (0-0.2) 10^3/ul Absolute Nucleated RBC 10^3/ul Nucleated RBC % Sodium (133-145) mmol/L Potassium (3.5-5.0) mmol/L Chloride (101-111) mmol/L Carbon Dioxide (22-32) mmol/L Anion Gap (2-11) mmol/L BUN (6-24) mg/dL Creatinine (0.51-0.95) mg/dL Est GFR ( Amer) (>60) Est GFR (Non-Af Amer) (>60) BUN/Creatinine Ratio (8-20) Glucose (70-100) mg/dL Lactic Acid (0.5-2.0) mmol/L Calcium (8.6-10.3) mg/dL Total Bilirubin (0.2-1.0) mg/dL AST (13-39) U/L ALT (7-52) U/L Alkaline Phosphatase (34-104) U/L Troponin I (<0.04) ng/mL B-Natriuretic Peptide 400 H ( - 100) pg/mL Total Protein (6.4-8.9) g/dL Albumin (3.2-5.2) g/dL Globulin (2-4) g/dL Albumin/Globulin Ratio (1-3) Result Diagrams: 10/10/16 21:38 10/10/16 21:38 Lab Statement: Any lab studies that have been ordered have been reviewed, and results considered in the medical decision making process. - Radiology CXR Xray Interpretation: No Acute Changes - Negative for acute pathology Radiology Interpretation Completed By: ED Physician - EKG 1 EKG Interpretation: 21:29 - Sinus tachycardia @ 132 bpm Course/Dx - Course Assessment/Plan: 71 y/o female presents to ED c/o gradual onset SOB starting at around 14:00 this afternoon. Pt c/o weakness from chemotherapy two weeks ago, and she also had 1 syncopal episode this afternoon before the onset of SOB. Denies fever. PMHx CA, currently in treatment. Most of the information was provided by the patient's son. EKG at 21:29 shows sinus tachycardia @ [address] Morales @ 22:00. Pt will be admitted to [facility] [place]. - Diagnoses Provider Diagnoses: ACS (acute coronary syndrome), Dyspnea - Physician Notifications Discussed Care of Patient With: Jesus Morales Time Discussed With Above Provider: 22:00 Instructed by Provider To: Admit As Inpatient Discharge - Discharge Plan Condition: Fair Disposition: ADMITTED TO [facility] The documentation as recorded by the Yady byrd Edward accurately reflects the service I personally performed and the decisions made by , Carlos Sinclair MD.
[2016-10-10] MEDS ORDERED: Loperamide CAP* 2 MG PO PRN (23:37)
[2016-10-10] MEDS ORDERED: Prochlorperazine TAB* 10 MG PO PRN (23:37)
[2016-10-11 00:07] LABS: Magnesium 1.9 mg/dL (1.9-2.7)
[2016-10-11] MEDS: Heparin DRIP 25,000 UNITS(*) 25,000 UNITS/500 ML BAG IV SCH ×2 (00:32→02:53)
[2016-10-11] MEDS: NS 0.9% 1000 ML* 1,000 ML IV SCH (02:54)
--- NOTE | 2016-10-11 04:33 | HP ---
CC: Dr. Jose Moreau * HISTORY AND PHYSICAL: DATE OF ADMISSION: CHIEF COMPLAINT: Shortness of breath. HISTORY OF PRESENT ILLNESS: The patient is a 71-year-old woman who said she could not breathe today and it started earlier today. Yesterday, she was feeling much better. She has had this shortness of breath on and off even before she was diagnosed with cancer. Shortness of breath only occurs when she is exerting herself and is not worse with position. She had no wheezing or chest tightness or chest pain. She had no palpitations or nausea or vomiting. Her last chemo treatment was about one and a half weeks ago. In the ED, the patient was evaluated and found to have sinus tachycardia and an elevated troponin of 1. PAST MEDICAL HISTORY: Significant for cervical cancer with extension of the bladder causing right hydronephrosis, status post cystoscopy and fulguration of the bladder, pulmonary nodule in left lung, non-insulin dependent diabetes, hypertension, rheumatoid arthritis and osteoarthritis. PAST SURGICAL HISTORY: Significant for total right knee replacement and port placement. CURRENT MEDICATIONS: 1. Prednisone 5 mg in the morning, 3 mg in the evening. 2. Compazine 10 mg every 6 hours as needed. 3. vitamins 1 dose daily. 4. Potassium chloride 20 mEq daily. 5. Percocet 5/325 every 4 hours as needed. 6. Zofran 4 mg every 4 hours as needed. 7. Omeprazole 20 mg twice daily. 8. Loperamide 2 mg every 6 hours as needed. 9. Iron polysaccharide complex 1 capsule daily. 10. Gabapentin 300 mg 3 times a day. 11. Folic acid 1 mg daily. ALLERGIES: She has no known drug allergies. FAMILY HISTORY: Mother had hypertension and coronary artery disease. SOCIAL HISTORY: Quit tobacco 10 years ago. No alcohol or recreational drug use. Retired. She worked in a bank. She is not . She has 1 son, Renan Kaplan, who is her healthcare proxy. REVIEW OF SYSTEMS: A 14-point review of systems was completed with the patient. All pertinent positives and negatives are in the history of present illness, otherwise it is negative. PHYSICAL EXAMINATION GENERAL: A very pleasant woman, lying in bed, in no acute distress. VITAL SIGNS: Temperature, she has got a temperature of 96.9 degrees, heart rate 135 beats a minute, respiratory rate 22 breaths per minute, pulse ox 89%, blood pressure 103/62. HEENT: Normocephalic, atraumatic. Pupils equal, round, and reactive to light. Dry mucous membranes. NECK: Supple. No JVD, bruits, palpable thyroid or lymphadenopathy. CHEST: Clear to auscultation and percussion bilaterally. CARDIOVASCULAR: S1 and S2 appreciated. Increased rate and regular rhythm. ABDOMEN: Positive bowel sounds in all 4 quadrants. Soft, nontender, nondistended. EXTREMITIES: No cyanosis, clubbing, or edema. +2 peripheral pulses bilaterally. NEUROLOGIC: Alert and oriented x3. Moves all extremities. SKIN: Poor skin turgor. DIAGNOSTIC STUDIES/LAB DATA: White count 6.7, hemoglobin 10.6, hematocrit 36, platelets of 242. Sodium is 131, potassium 4.3, chloride 98, CO2 14, BUN is 26 , creatinine 1.63, glucose 310, lactic acid 5.4, troponin 1. BNP is 400. D- dimer is greater than 1050. Chest x-ray shows pulmonary reading, no acute infiltrates. EKG shows sinus tach at 132 beats per minute. Left axis deviation. No acute ST -T wave changes. ASSESSMENT AND PLAN: 1. Possible non-ST elevation myocardial infarction. Troponin is elevated. I question if this is real or not. Based on the patient's symptoms, we will cycle troponins, place her on telemetry, and start her on a heparin drip. Pulmonary embolism is obviously a concern, but I cannot get a CTA of her chest right now. As I noticed that she will still be on heparin, I will hydrate her with normal saline at 100 cc an hour. She has got an elevated lactic acid, which could be from poor perfusion. I am hoping this will come down with fluids as will her creatinine, then we will be able to get a CTA of her chest. 2. Cervical cancer. Management per Oncology. 3. Diabetes mellitus. She is off metformin at this time. Her sugar here was 310. I will place her on fingersticks with sliding scale insulin. 4. FEN. NPO diet for now in case, she is having non-ST elevation myocardial infarction and needs procedure. 5. The patient is a full code. TIME SPENT: Over 75 minutes were spent on this H and P, more than 40 minutes of which was spent in direct [id number] contact with the patient in evaluation , physical exam, and counseling and coordination of care. [id number]/[facility] #: [id number] LILY
[2016-10-11 06:33] LABS: BUN/Creatinine Ratio 20.4 (8-20); Calcium 8.9 mg/dL (8.6-10.3); EGFR African American 48.6 (>60); EGFR Non-African American 37.8 (>60); Potassium 4.7 mmol/L (3.5-5.0)
[2016-10-11 06:47] LABS: Hematocrit 32 % (35-47); Mean Corpuscular HGB Conc 31 g/dl (31-36); Mean Corpuscular Hemoglobin 24 pg (27-31); Mean Corpuscular Volume 78 fL (80-97); Mean Platelet Volume 8 um3 (7.4-10.4); Red Blood Count 4.15 10^6/ul (4.0-5.4); Red Cell Distribution Width 22 % (10.5-15); White Blood Count 4.1 10^3/ul (3.5-10.8)
[2016-10-11 06:54] LABS: Troponin I 0.97 ng/mL (<0.04)
--- NOTE | 2016-10-11 07:28 | RAD ---
INDICATION: Shortness of breath. COMPARISON: Comparison is made with a prior study from August 20, 2016. TECHNIQUE: PA and lateral views of the chest were obtained. FINDINGS: There is a power port central venous catheter present on the right side. The catheter tip projects over the superior vena cava. Cardiac and mediastinal contours appear normal. The lungs are clear. There appears to be interval resolution of the previously noted left-sided pneumothorax. No pleural effusion is seen. IMPRESSION: NO EVIDENCE FOR ACUTE FINDING.
[2016-10-11] MEDS ORDERED: Iodixanol* (CONTRAST) 320 MG/ML 100 ML SDV IV SCH (08:41)
--- NOTE | 2016-10-11 09:39 | ECHO ---
Patient: HOLA CHONG Rec#: [id number] : 1945 Date: 10/11/2016 Age: 71y Height: 175.3 cm / 69.0 in Weight: 68 kg / 149.9 lbs Sex: F BSA: 1.83 Room#: 432 Admit Date#: 10/10/2016 Type: Inpatient Referring: Jesus Morales MD Reading: Jovan Garces MD Wood Inspector: Nga Fontaine RN RDCS Transthoracic Echocardiogram Indication: NSTEMI, SOB BP: 95/69 HR: 107 Rhythm: Tachycardia Findings History: Cervical cancer with bladder involvement, chemotherapy, pulmonary nodule left lung, HTN, HLD, DM, former smoker, RA, OA Technical Comments: The study quality is fair. The study is technically limited due to poor apical windows. Completed at 0855. Left Ventricle: The left ventricular chamber size is decreased. Mild to moderate concentric left ventricular hypertrophy is observed. Global left ventricular wall motion and contractility are within normal limits. There is normal left ventricular systolic function. The estimated ejection fraction is 60-65%. There is septal flattening of the interventricular septum consistent with right ventricular volume or pressure overload. There is no consistent Doppler evidence of clinically significant diastolic dysfunction. Left Atrium: The left atrial chamber size is normal. Right Ventricle: The right ventricle is moderate to severely dilated. The right ventricular global systolic function is severely reduced. Right Atrium: The right atrium is moderately dilated. Aortic Valve: The aortic valve is trileaflet. The aortic valve leaflets are mildly thickened. There is a trace of aortic regurgitation. There is no evidence of aortic stenosis. Mitral Valve: The mitral valve leaflets are mildly thickened. There is a trace of mitral regurgitation. There is no evidence of mitral stenosis. Tricuspid Valve: The tricuspid valve leaflets are normal. There is moderate tricuspid regurgitation. There is evidence of mild pulmonary hypertension. Pulmonic Valve: The pulmonic valve appears normal. There is mild pulmonic regurgitation. There is no pulmonic stenosis. Pericardium: There is no significant pericardial effusion. Aorta: There is no dilatation of the ascending aorta. There is no dilatation of the aortic arch. The aortic root is normal in size. Pulmonary Artery: The main pulmonary artery appears normal. Venous: The inferior vena cava appears normal in size. There is less than 50% respiratory change in the inferior vena cava dimension. Conclusions The left ventricular chamber size is decreased. Mild to moderate concentric left ventricular hypertrophy is observed. There is normal left ventricular systolic function. The estimated ejection fraction is 60-65%. There is septal flattening of the interventricular septum consistent with right ventricular volume or pressure overload. The right ventricle is moderate to severely dilated. The right ventricular global systolic function is severely reduced. There is a trace of aortic regurgitation. There is a trace of mitral regurgitation. There is moderate tricuspid regurgitation. There is evidence of mild pulmonary hypertension (of note this may be due to significant RV systolic dysfunction) . There is mild pulmonic regurgitation. Sugeestive findings of significant RV overload with significant RV systolic dysfunction. Dr. Herrera contacted Dr. Welsh with preliminary results. Measurements Name Value Normal Range RVIDd (AP) 2D 4.6 cm (0.9 - 2.6) RVDdMajor (2D) 5.1 cm (2.2 - 4.4) RAd ISD 4CH 6 cm (3.4 - 4.9) RA (A4C)W 5.1 cm (2.9 - 4.6) IVSd (2D) 1.3 cm (0.6 - 1) LVPWd (2D) 1.3 cm (0.6 - 1) LVIDd (2D) 2.5 cm (3.6 - 5.4) LVIDs (2D) 1.7 cm - LV FS (2D) 33 % (25 - 45) Aortic Annulus 2 cm (1.4 - 2.6) Ao root diameter (2D) 2.8 cm (2.1 - 3.5) Ascending Ao 2.5 cm (2.1 - 3.4) Aortic arch 2.5 cm (1.8 - 3.4) LA dimension (AP) 2D 2.4 cm (2.3 - 3.8) LAd ISD 4CH 3.7 cm (2.9 - 5.3) LA ISD 4CH W 3 cm (2.5 - 4.5) Name Value Normal Range MV E-wave Vmax 0.41 m/sec - MV deceleration time 204 msec - MV A-wave Vmax 0.53 m/sec - MV E:A ratio 0.76 ratio - LV septal e' Vmax 0.09 m/sec - LV lateral e' Vmax 0.05 m/sec - LV E:e' septal ratio 4.6 ratio - LV E:e' lateral ratio 8.2 ratio - Name Value Normal Range AV Vmax 0.96 m/sec - LVOT Vmax 0.53 m/sec - CATINA Vmax 0.38 m/sec - Name Value Normal Range TR Vmax 2.8 m/sec - TR peak gradient 31 mmHg - RAP 8 mmHg - RVSP 39 mmHg - IVC diameter 2.1 cm - Name Value Normal Range PV Vmax 0.33 m/sec -
--- NOTE | 2016-10-11 09:45 | RAD ---
Indication: Shortness of breath, elevated d-dimer. Contrast: Administered 67.0 ml of VISIPAQUE 320 mg/ml CTA of the chest was performed after IV contrast administration. Coronal and sagittal reconstructed images were obtained. Inferior thyroid lobes are unremarkable. The origins of the great vessels are unremarkable. The pulmonary arterial tree is well opacified. There are large filling defects in the right upper lobe, right lower lobe pulmonary arteries consistent with pulmonary embolus. There is also large filling defect involving the left lower lobe pulmonary artery extending into the segmental branches. Left upper lobe filling defects are also noted. The heart demonstrates no pericardial effusion. The changes and major bronchi appear patent. The lung spain demonstrate no definite nodules or alveolar consolidation. The liver demonstrates no focal lesions. The spleen is normal in size. There is chronic right hydronephrosis noted. 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 There is a large left para-aortic lymph node present. This may represent infectious etiology or metastatic process. IMPRESSION: BILATERAL MULTIPLE LARGE PULMONARY EMBOLI ESPECIALLY IN THE LOWER LOBES WITH PULMONARY EMBOLI IN BOTH UPPER LOBES WELL. LEFT PARA-AORTIC ADENOPATHY. CHRONIC RIGHT HYDRONEPHROSIS. SPLENIC ARTERY ANEURYSM. Adriel the nurse taking care of the patient on 4 S. was notified of the results at 0942 hours.
[2016-10-11] MEDS: Heparin VIAL(*) 5000 UNITS/ML VIAL (FIVE THOUSAND) IV SCH (11:09)
[2016-10-11] MEDS: Omeprazole CAP* 20 MG PO SCH ×2 (12:17→21:06)
[2016-10-11] MEDS: Folic Acid TAB* 1 MG PO SCH (12:17)
[2016-10-11] MEDS: Prenatal Vitamin TAB PO SCH (12:18)
[2016-10-11] MEDS: predniSONE TAB* 5 MG PO SCH (12:18)
[2016-10-11] MEDS: Potassium Chlor TAB* 20 MEQ TAB.ER PO SCH (12:18)
[2016-10-11] MEDS: Gabapentin CAP(*) 300 MG PO SCH ×3 (12:18→21:05)
[2016-10-11] MEDS: POLY IRON 150 MG PO SCH (12:21)
[2016-10-11 15:18] LABS: Urine Bilirubin Negative (Negative); Urine Glucose Negative (Negative); Urine Nitrite Negative (Negative)
[2016-10-11] MEDS: oxyCODONE/Acetamin 5/325 MG* TAB PO PRN (19:45)
[2016-10-11] MEDS: predniSONE TAB* 1 MG PO SCH (19:45)
[2016-10-12] MEDS: Heparin DRIP 25,000 UNITS(*) 25,000 UNITS/500 ML BAG IV SCH (00:06)
[2016-10-12] MEDS: NS 0.9% 1000 ML* 1,000 ML IV SCH ×2 (01:14→12:42)
[2016-10-12] MEDS: oxyCODONE/Acetamin 5/325 MG* TAB PO PRN (01:18)
[2016-10-12 04:20] LABS: Hematocrit 32 % (35-47); Hemoglobin 9.8 g/dl (12.0-16.0); Mean Corpuscular HGB Conc 30 g/dl (31-36); Mean Corpuscular Hemoglobin 24 pg (27-31); Mean Corpuscular Volume 78 fL (80-97); Mean Platelet Volume 8 um3 (7.4-10.4); Red Blood Count 4.14 10^6/ul (4.0-5.4); Red Cell Distribution Width 22 % (10.5-15); White Blood Count 7.2 10^3/ul (3.5-10.8)
[2016-10-12 04:23] LABS: BUN/Creatinine Ratio 23.2 (8-20); Calcium 8.1 mg/dL (8.6-10.3); EGFR African American 70.7 (>60); Potassium 4.5 mmol/L (3.5-5.0)
[2016-10-12] MEDS: Heparin VIAL(*) 5000 UNITS/ML VIAL (FIVE THOUSAND) IV SCH (05:04)
[2016-10-12] MEDS: Gabapentin CAP(*) 300 MG PO SCH ×4 (08:12→20:39)
[2016-10-12] MEDS: Omeprazole CAP* 20 MG PO SCH ×2 (08:12→20:39)
[2016-10-12] MEDS: Prenatal Vitamin TAB PO SCH (09:58)
[2016-10-12] MEDS: predniSONE TAB* 5 MG PO SCH (09:58)
[2016-10-12] MEDS: Potassium Chlor TAB* 20 MEQ TAB.ER PO SCH (09:58)
[2016-10-12] MEDS: Folic Acid TAB* 1 MG PO SCH (10:03)
[2016-10-12] MEDS: POLY IRON 150 MG PO SCH (10:04)
[2016-10-12] MEDS: Enoxaparin(*) 60 MG/0.6 ML SYR SUBCUT SCH (16:25)
[2016-10-12] MEDS: predniSONE TAB* 1 MG PO SCH (17:15)
[2016-10-13 00:47] LABS: Hematocrit 28 % (35-47); Hemoglobin 8.8 g/dl (12.0-16.0)
[2016-10-13] MEDS: oxyCODONE/Acetamin 5/325 MG* TAB PO PRN (05:03)
[2016-10-13] MEDS: Enoxaparin(*) 60 MG/0.6 ML SYR SUBCUT SCH ×2 (05:04→16:37)
[2016-10-13 05:28] LABS: Hematocrit 28 % (35-47); Hemoglobin 8.7 g/dl (12.0-16.0); Mean Corpuscular HGB Conc 31 g/dl (31-36); Mean Corpuscular Hemoglobin 24 pg (27-31); Mean Corpuscular Volume 78 fL (80-97); Mean Platelet Volume 8 um3 (7.4-10.4); Red Blood Count 3.64 10^6/ul (4.0-5.4); Red Cell Distribution Width 21 % (10.5-15); White Blood Count 9.9 10^3/ul (3.5-10.8)
[2016-10-13 05:46] LABS: BUN/Creatinine Ratio 20.9 (8-20); Calcium 8.2 mg/dL (8.6-10.3); EGFR African American 62.6 (>60); EGFR Non-African American 48.7 (>60); Potassium 4.8 mmol/L (3.5-5.0)
[2016-10-13] MEDS: Omeprazole CAP* 20 MG PO SCH ×2 (08:41→20:44)
[2016-10-13] MEDS: predniSONE TAB* 5 MG PO SCH (08:41)
[2016-10-13] MEDS: Prenatal Vitamin TAB PO SCH (08:41)
[2016-10-13] MEDS: Folic Acid TAB* 1 MG PO SCH (08:41)
[2016-10-13] MEDS: Potassium Chlor TAB* 20 MEQ TAB.ER PO SCH (08:41)
[2016-10-13] MEDS: Gabapentin CAP(*) 300 MG PO SCH ×3 (08:41→20:43)
[2016-10-13] MEDS: POLY IRON 150 MG PO SCH (10:48)
[2016-10-13] MEDS: predniSONE TAB* 1 MG PO SCH (18:00)
[2016-10-13] MEDS: Acetaminophen TAB* 325 MG PO PRN (20:42)
[2016-10-14] MEDS: Enoxaparin(*) 60 MG/0.6 ML SYR SUBCUT SCH ×2 (05:29→19:40)
[2016-10-14 07:08] LABS: Hematocrit 24 % (35-47); Hemoglobin 7.5 g/dl (12.0-16.0); Mean Corpuscular HGB Conc 31 g/dl (31-36); Mean Corpuscular Hemoglobin 24 pg (27-31); Mean Corpuscular Volume 77 fL (80-97); Mean Platelet Volume 8 um3 (7.4-10.4); Red Blood Count 3.12 10^6/ul (4.0-5.4); Red Cell Distribution Width 22 % (10.5-15); White Blood Count 8.3 10^3/ul (3.5-10.8)
[2016-10-14] MEDS: Potassium Chlor TAB* 20 MEQ TAB.ER PO SCH (10:09)
[2016-10-14] MEDS: Omeprazole CAP* 20 MG PO SCH ×2 (10:09→19:53)
[2016-10-14] MEDS: Prenatal Vitamin TAB PO SCH (10:09)
[2016-10-14] MEDS: Gabapentin CAP(*) 300 MG PO SCH ×3 (10:09→19:52)
[2016-10-14] MEDS: Folic Acid TAB* 1 MG PO SCH (10:09)
[2016-10-14] MEDS: predniSONE TAB* 5 MG PO SCH (10:09)
[2016-10-14] MEDS: POLY IRON 150 MG PO SCH (10:12)
--- NOTE | 2016-10-14 10:30 | PN ---
Progress Note - Progress Note Date of Service: 10/14/16 SOAP: Subjective: []Feeling OK, no significant improvement. Wonders about her breathing and doesn 't understand. Having upper abd. pain across right to epigastric region. Passing gas but no BM in last day per her report ("But I just started eating so there isn't much in there). No further bright red blood, no dark stools per her report. Was able to amb. to doorway yesterday but became very week. Getting chilled easily. Medications: Acetaminophen (Tylenol Tab*) 650 mg PO Q6H PRN PRN Reason: FEVER Last Admin: 10/13/16 20:42 Dose: 650 mg Enoxaparin Sodium (Lovenox(*)) 60 mg SUBCUT Q12H [facility] Last Admin: 10/14/16 05:29 Dose: 60 mg Folic Acid (Folvite Tab*) 1 mg PO DAILY [facility] Last Admin: 10/14/16 10:09 Dose: 1 mg Gabapentin (Neurontin Cap(*)) 300 mg PO TID [facility] Last Admin: 10/14/16 10:09 Dose: 300 mg Loperamide HCl (Imodium Cap*) 2 mg PO Q6H PRN PRN Reason: DIARRHEA Multivitamins ( Vitamin Tab*) 1 tab PO DAILY [facility] Last Admin: 10/14/16 10:09 Dose: 1 tab Non-Formulary Medication (Iron Polysaccharide Complex-Vi [Poly-Iron 150 Forte 150-25-1 Mg-Mcg-Mg]) 1 cap PO DAILY [facility] Last Admin: 10/14/16 10:12 Dose: Not Given Omeprazole (Prilosec Cap*) 20 mg PO BID [facility] Last Admin: 10/14/16 10:09 Dose: 20 mg Oxycodone/Acetaminophen (Percocet 5/325 Tab*) 1 tab PO Q4H PRN PRN Reason: PAIN Last Admin: 10/13/16 05:03 Dose: 1 tab Potassium Chloride (Klor Con Er Tab*) 20 meq PO DAILY [facility] Last Admin: 10/14/16 10:09 Dose: 20 meq Prednisone (Deltasone Tab*) 3 mg PO QPM [facility] Last Admin: 10/13/16 18:00 Dose: 3 mg Prednisone (Deltasone Tab*) 5 mg PO QAM [facility] Last Admin: 10/14/16 10:09 Dose: 5 mg Prochlorperazine (Compazine Tab*) 10 mg PO Q6H PRN PRN Reason: NAUSEA Last Admin: 10/12/16 08:18 Dose: 10 mg Objective: [] Vital Signs Temp Pulse Resp BP Pulse Ox 97.5 F 101 20 107/58 100 10/14/16 03:22 10/14/16 03:22 10/14/16 10:09 10/14/16 03:22 10/14/16 03:22 A&Ox3, EOMI, neuro grossly non-focal HRR, tachycardic, S1S2 Tele ST with PACs LS clear to bases without rhonchi or wheeze, slightly tachypnea and some resp. effort noted @ rest. +BS, abd. soft and very tender to RUQ. No rebound tenderness and no tenderness with percussion +PP=bilat., +1 non-pitting edema Laboratory Results - last 24 hr 10/14/16 10/14/16 05:06 05:06 WBC 8.3 RBC 3.12 L Hgb 7.5 L Hct 24 L MCV 77 L MCH 24 L MCHC 31 RDW 22 H Plt Count 139 L MPV 8 Neut % (Auto) 77.3 Lymph % (Auto) 10.8 L [place] % (Auto) 11.5 H Eos % (Auto) 0.2 Baso % (Auto) 0.2 Absolute Neuts (auto) 6.4 Absolute Lymphs (auto) 0.9 L Absolute Monos (auto) 1.0 H Absolute Eos (auto) 0 Absolute Basos (auto) 0 Absolute Nucleated RBC 0.01 Nucleated RBC % 0.1 BUN 24 Assessment: []71 yo female with recently diagnosed metastatic cervical cancer s/p C2 Carbo/ Taxol (D16 today) with admission for large bilat. PEs with slow improvement on anti-coagulation. Reviewed reason for resp. distress with pt. at length. Plan: []1. PE: Lovenox indefinitely, hypoxia off O2 and will need supplement likely for some time d/t extent of PEs. 2. NSTEMI: demand ischemia r/t PE, no further work-up indicated 3. Tachycardia: secondary to poor perfusion, cont. to monitor on tele while resp. status improves 4. Fever: likely r/t PE, however last elevation approx. 24 hours ago and with significant RUQ pain I would like to r/o abscess vs. hepatic progression (s/p 2 cycles with prior plan for restaging at this time anyway) with CT scan 5. Hyponatremia: likely r/t poor intake, will recheck today with planned contrast as may want to provide hydration after scan 6. Anemia: one episode of bright red blood per rectum, possibly hemorrhoidal and will check stool for occult blood with drop in H&H and recheck in AM, likely secondary to chemotherapy with associated thrombocytopenia 7. Stage IV cervical cancer: s/p 2 cycles, restaging scan today (A/P only as chest done on admission)
[2016-10-14] MEDS ORDERED: Iodixanol* (CONTRAST) 320 MG/ML 100 ML SDV IV ONE (12:07)
[2016-10-14 13:20] LABS: Albumin 2.5 g/dL (3.2-5.2); BUN/Creatinine Ratio 23.5 (8-20); Calcium 8.2 mg/dL (8.6-10.3); EGFR African American 71.5 (>60); EGFR Non-African American 55.6 (>60); Globulin 3.7 g/dL (2-4); Potassium 4.5 mmol/L (3.5-5.0); Total Bilirubin 0.4 mg/dL (0.2-1.0); Total Protein 6.2 g/dL (6.4-8.9)
--- NOTE | 2016-10-14 14:15 | RAD ---
INDICATION: Cervical cancer diagnosed in June 2016. Restaging. COMPARISON: September 15, 2016 CT. TECHNIQUE: Multidetector CT images were obtained from the lung bases to the ischial tuberosities with 79 mL Visipaque 320 IV and oral contrast. Multiplanar reformation. REPORT: Mild LEFT basilar dependent atelectasis with cardiomegaly contributing to LEFT lower lobe volume loss. Arms down position results in beam hardening artifact limiting image quality at the upper abdomen. No conspicuous focal hepatic lesions. Post cholecystectomy with typical postcholecystectomy mild prominence of the common bile duct. Moderately atrophic pancreas without suspicious finding. Unremarkable spleen. Small splenule anterior to the dominant spleen. Negative for CT abnormality of the upper GI, small bowel, or retrocecal appendix. Mild diverticulosis of the colon without findings of diverticulitis. Negative for ascites, free air, or significant hernias. Normal adrenal glands. Severe RIGHT hydroureteronephrosis without change with associated delayed nephrogram and pyelogram appears secondary to contiguous tumor infiltration from the cervix. Negative for LEFT hydronephrosis. A few renal cortical cysts are noted. Unremarkable LEFT ureter. Partially distended urinary bladder is remarkable for mild nonfocal wall thickening. Hydrometra with the endometrial cavity distended up to 5 cm in thickness compared with 2.7 cm previously. Interval decrease in size of ill-defined mass at the level of the cervix extending to the distal RIGHT ureter measuring up to 2.4 cm AP by 3.6 cm transverse compared with 2.6 x 4.5 cm previously. No adnexal region lesions evident. 1.6 cm short axis lymph node insinuating between the RIGHT internal and external iliac arteries decreased from 1.7 cm short axis previously. Infrarenal periaortic lymphadenopathy with dominant 2.5 cm short axis LEFT periaortic node decreased from 2.6 cm previously. No anterior to the IVC at the bifurcation measures 1.4 cm short axis without change. Atherosclerotic plaque. Negative for aortoiliac aneurysm. Negative for suspicious osseous lesions. IMPRESSION: 1. Resolution of previous biliary dilatation. 2. Unchanged severe RIGHT hydronephrosis appears secondary to direct tumor infiltration of the distal ureter. 3. Hydrometra with the endometrial cavity distended up to 5 cm in thickness compared with 2.7 cm previously. 4. Interval decrease in size of ill-defined mass at the level of the cervix extending to the distal RIGHT ureter. 5. Equivocal mild interval improvement in retroperitoneal metastatic adenopathy.
[2016-10-14] MEDS: predniSONE TAB* 1 MG PO SCH (17:31)
[2016-10-15] MEDS: Enoxaparin(*) 60 MG/0.6 ML SYR SUBCUT SCH ×2 (05:29→17:35)
[2016-10-15 06:05] LABS: Hematocrit 23 % (35-47); Hemoglobin 6.9 g/dl (12.0-16.0); Mean Corpuscular HGB Conc 31 g/dl (31-36); Mean Corpuscular Hemoglobin 24 pg (27-31); Mean Corpuscular Volume 78 fL (80-97); Mean Platelet Volume 8 um3 (7.4-10.4); Red Cell Distribution Width 21 % (10.5-15); White Blood Count 5.7 10^3/ul (3.5-10.8)
[2016-10-15 06:21] LABS: Albumin 2.4 g/dL (3.2-5.2); BUN/Creatinine Ratio 21.4 (8-20); EGFR African American 71.5 (>60); EGFR Non-African American 55.6 (>60); Globulin 3.7 g/dL (2-4); Potassium 4.8 mmol/L (3.5-5.0); Total Bilirubin 0.3 mg/dL (0.2-1.0); Total Protein 6.1 g/dL (6.4-8.9)
[2016-10-15] MEDS: predniSONE TAB* 5 MG PO SCH (07:51)
[2016-10-15] MEDS: Gabapentin CAP(*) 300 MG PO SCH ×3 (07:51→20:07)
[2016-10-15] MEDS: Prenatal Vitamin TAB PO SCH (07:52)
[2016-10-15] MEDS: Folic Acid TAB* 1 MG PO SCH (07:52)
[2016-10-15] MEDS: Potassium Chlor TAB* 20 MEQ TAB.ER PO SCH (07:52)
[2016-10-15] MEDS: Omeprazole CAP* 20 MG PO SCH ×2 (07:52→20:09)
[2016-10-15] MEDS: POLY IRON 150 MG PO SCH (07:52)
[2016-10-15] MEDS: Acetaminophen TAB* 325 MG PO PRN (12:57)
[2016-10-15] MEDS: predniSONE TAB* 1 MG PO SCH (16:59)
[2016-10-16] MEDS: Enoxaparin(*) 60 MG/0.6 ML SYR SUBCUT SCH ×2 (05:25→16:15)
[2016-10-16 05:51] LABS: Hematocrit 27 % (35-47); Hemoglobin 8.3 g/dl (12.0-16.0); Mean Corpuscular HGB Conc 31 g/dl (31-36); Mean Corpuscular Hemoglobin 25 pg (27-31); Mean Corpuscular Volume 79 fL (80-97); Mean Platelet Volume 8 um3 (7.4-10.4); Red Blood Count 3.37 10^6/ul (4.0-5.4); Red Cell Distribution Width 22 % (10.5-15); White Blood Count 5.3 10^3/ul (3.5-10.8)
[2016-10-16 06:05] LABS: BUN/Creatinine Ratio 21.4 (8-20); EGFR African American 85.5 (>60); EGFR Non-African American 66.5 (>60); Potassium 4.4 mmol/L (3.5-5.0)
[2016-10-16] MEDS: Folic Acid TAB* 1 MG PO SCH (07:19)
[2016-10-16] MEDS: Prenatal Vitamin TAB PO SCH (07:19)
[2016-10-16] MEDS: Omeprazole CAP* 20 MG PO SCH ×2 (07:19→21:57)
[2016-10-16] MEDS: Potassium Chlor TAB* 20 MEQ TAB.ER PO SCH (07:19)
[2016-10-16] MEDS: predniSONE TAB* 5 MG PO SCH (07:19)
[2016-10-16] MEDS: Gabapentin CAP(*) 300 MG PO SCH ×3 (07:19→21:56)
[2016-10-16] MEDS: POLY IRON 150 MG PO SCH (07:23)
[2016-10-16] MEDS: Acetaminophen TAB* 325 MG PO PRN (08:33)
[2016-10-16] MEDS: predniSONE TAB* 1 MG PO SCH (16:59)
[2016-10-17] MEDS: Enoxaparin(*) 60 MG/0.6 ML SYR SUBCUT SCH ×2 (05:25→17:15)
[2016-10-17 06:33] LABS: Hematocrit 27 % (35-47); Hemoglobin 8.6 g/dl (12.0-16.0); Mean Corpuscular HGB Conc 31 g/dl (31-36); Mean Corpuscular Hemoglobin 25 pg (27-31); Mean Corpuscular Volume 80 fL (80-97); Mean Platelet Volume 8 um3 (7.4-10.4); Red Blood Count 3.45 10^6/ul (4.0-5.4); White Blood Count 4.5 10^3/ul (3.5-10.8)
[2016-10-17 06:35] LABS: Comments Flag Yes; Red Cell Distribution Width 22 % (10.5-15)
[2016-10-17] MEDS: Potassium Chlor TAB* 20 MEQ TAB.ER PO SCH (08:35)
[2016-10-17] MEDS: Omeprazole CAP* 20 MG PO SCH ×2 (08:35→20:00)
[2016-10-17] MEDS: Gabapentin CAP(*) 300 MG PO SCH ×3 (08:35→19:59)
[2016-10-17] MEDS: oxyCODONE/Acetamin 5/325 MG* TAB PO PRN (08:35)
[2016-10-17] MEDS: Folic Acid TAB* 1 MG PO SCH (08:35)
[2016-10-17] MEDS: Prenatal Vitamin TAB PO SCH (08:35)
[2016-10-17] MEDS: predniSONE TAB* 5 MG PO SCH (08:35)
[2016-10-17] MEDS: POLY IRON 150 MG PO SCH (08:36)
[2016-10-17 09:34] LABS: Urine Bacteria Absent (Absent); Urine Bilirubin Negative (Negative); Urine Glucose Negative (Negative); Urine Nitrite Negative (Negative)
--- NOTE | 2016-10-17 09:53 | PN ---
Progress Note - Progress Note Date of Service: 10/17/16 SOAP: Subjective: feeling slowly better day to day. got up a little with PT today and thinks she will probably be able to go home tomorrow. still coughing a lot. Objective: Vital Signs Temp Pulse Resp BP Pulse Ox 99.0 F 95 16 120/74 100 10/17/16 07:12 10/17/16 07:12 10/17/16 08:35 10/17/16 07:12 10/17/16 07:12 sitting up in chair sleeping comfortably perr eomi op moist adentulous irr irr cta but poor effort soft nt +bs trace LE edema severe RA changes of hands A+O x 3, globally weak but nonfocal Laboratory Results - last 24 hr 10/17/16 10/17/16 06:25 09:02 WBC 4.5 RBC 3.45 L Hgb 8.6 L Hct 27 L MCV 80 MCH 25 L MCHC 31 RDW 22 H Plt Count 150 MPV 8 Neut % (Auto) 74.0 Lymph % (Auto) 16.5 L [place] % (Auto) 8.4 Eos % (Auto) 0.6 Baso % (Auto) 0.5 Absolute Neuts (auto) 3.3 Absolute Lymphs (auto) 0.7 L Absolute Monos (auto) 0.4 Absolute Eos (auto) 0 Absolute Basos (auto) 0 Absolute Nucleated RBC 0 Nucleated RBC % 0.1 Urine Color [place] Urine Appearance Turbid Urine pH 6.0 Ur Specific [place] 1.015 Urine Protein 2+(100 mg/dl) H Urine Ketones Negative Urine Blood 3+ H Urine Nitrate Negative Urine Bilirubin Negative Urine Urobilinogen Negative Ur Leukocyte Esterase 3+ H Urine WBC (Auto) 3+(>20/hpf) H Urine RBC (Auto) 3+(>10/hpf) H Ur Squamous Epith Cells Present H Urine Bacteria Absent Urine Glucose Negative Acetaminophen (Tylenol Tab*) 650 mg PO Q6H PRN PRN Reason: FEVER Last Admin: 10/16/16 08:33 Dose: 650 mg Enoxaparin Sodium (Lovenox(*)) 60 mg SUBCUT Q12H [facility] Last Admin: 10/17/16 05:25 Dose: 60 mg Folic Acid (Folvite Tab*) 1 mg PO DAILY ANN Last Admin: 10/17/16 08:35 Dose: 1 mg Gabapentin (Neurontin Cap(*)) 300 mg PO TID [facility] Last Admin: 10/17/16 08:35 Dose: 300 mg Heparin Sodium (Porcine) (Heparin Flush Port (Ivad)) 5 ml FLUSH DAILY PRN; Protocol PRN Reason: PER PROTOCOL Last Admin: 10/15/16 18:50 Dose: 5 ml Loperamide HCl (Imodium Cap*) 2 mg PO Q6H PRN PRN Reason: DIARRHEA Multivitamins ( Vitamin Tab*) 1 tab PO DAILY [facility] Last Admin: 10/17/16 08:35 Dose: 1 tab Pto:Poly-Iron 150 Mg 1 cap PO DAILY [facility] Last Admin: 10/17/16 08:36 Dose: 1 cap Omeprazole (Prilosec Cap*) 20 mg PO BID [facility] Last Admin: 10/17/16 08:35 Dose: 20 mg Oxycodone/Acetaminophen (Percocet 5/325 Tab*) 1 tab PO Q4H PRN PRN Reason: PAIN Last Admin: 10/17/16 08:35 Dose: 1 tab Potassium Chloride (Klor Con Er Tab*) 20 meq PO DAILY [facility] Last Admin: 10/17/16 08:35 Dose: 20 meq Prednisone (Deltasone Tab*) 3 mg PO QPM [facility] Last Admin: 10/16/16 16:59 Dose: 3 mg Prednisone (Deltasone Tab*) 5 mg PO QAM [facility] Last Admin: 10/17/16 08:35 Dose: 5 mg Prochlorperazine (Compazine Tab*) 10 mg PO Q6H PRN PRN Reason: NAUSEA Last Admin: 10/12/16 08:18 Dose: 10 mg Assessment: 71 yo F w metastatic cervical cancer on palliative chemoRT admitted with massive PEs and subsequent NSTEMI. currently improving slowly. Plan for more conditioning today and hopeful discharge home tomorrow (home PT and oxygen). In terms of her malodorous urine, UA is pending but I do wonder if it might just be radiation cystitis. I will discuss with Dr. Fernandes. Plan: -cont lovenox BID (son to administer) -home O2 -PT eval and treat -holding all cervical cancer treatment at present pending improvement in performance status -cont oral iron for iron deficiency anemia as well as anemia of chronic disease
[2016-10-17] MEDS: predniSONE TAB* 1 MG PO SCH (17:15)
[2016-10-18] MEDS: Enoxaparin(*) 60 MG/0.6 ML SYR SUBCUT SCH (04:17)
[2016-10-18 07:41] VITALS: BP 119/61
[2016-10-18] MEDS ORDERED: NS 0.9% 1000 ML* 1,000 ML IV ONE (09:07)
--- NOTE | 2016-10-18 09:24 | DS ---
- Discharge Summary DISCHARGE SUMMARY: Admission Date: 10/10/16 Discharge Date: 10/18/16 Discharge Diagnosis: 1. Bilat. Pulmonary Emoblisms: present on admission, resp. status improving slowly with supplemental O2 and Lovenox 2. NSTEMI: demand ischemia r/t PE with no evidence for significant damage, no f/ u required 3. DM: stable on diet management alone and will need close monitoring as outpatient with HmgA1C to be checked on f/u 4. RA: stable with steroids 5. Cervical Cancer: s/p C2 09/29 and would be due 10/20 however will hold therapy until improved performance status, home PT in place Discharge Medications: Acetaminophen (Tylenol Tab*) 650 mg PO Q6H PRN PRN Reason: FEVER Last Admin: 10/16/16 08:33 Dose: 650 mg -- Call office prior to taking for any fevers Enoxaparin Sodium (Lovenox(*)) 60 mg SUBCUT Q12H [facility] Last Admin: 10/18/16 04:17 Dose: 60 mg Folic Acid (Folvite Tab*) 1 mg PO DAILY [facility] Last Admin: 10/17/16 08:35 Dose: 1 mg Gabapentin (Neurontin Cap(*)) 300 mg PO TID [facility] Last Admin: 10/17/16 19:59 Dose: 300 mg Loperamide HCl (Imodium Cap*) 2 mg PO Q6H PRN PRN Reason: DIARRHEA Multivitamins ( Vitamin Tab*) 1 tab PO DAILY [facility] Last Admin: 10/17/16 08:35 Dose: 1 tab Poly-Iron 150 Mg 1 cap PO DAILY [facility] Last Admin: 10/17/16 08:36 Dose: 1 cap Omeprazole (Prilosec Cap*) 20 mg PO BID [facility] Last Admin: 10/17/16 20:00 Dose: 20 mg Potassium Chloride (Klor Con Er Tab*) 20 meq PO DAILY [facility] Last Admin: 10/17/16 08:35 Dose: 20 meq Prednisone (Deltasone Tab*) 3 mg PO QPM [facility] Last Admin: 10/17/16 17:15 Dose: 3 mg Prednisone (Deltasone Tab*) 5 mg PO QAM [facility] Last Admin: 10/17/16 08:35 Dose: 5 mg Prochlorperazine (Compazine Tab*) 10 mg PO Q6H PRN PRN Reason: NAUSEA Last Admin: 10/12/16 08:18 Dose: 10 mg Ondansetron (Zofran) 4 mg PO q4H PRN nausea Oxycodone/APAP 5/325 mg PO 1-2 tabs PO q4H PRN pain Hospital Course: Please see admission note for full H&P, however briefly Ms. Kaplan is well known to our service d/t her recent diagnosis of advanced Cervical cancer. Treatment with palliative Carboplatin and Paclitaxel was initiated on 09/08/16 with C1 c/b neutropenia and subsequently received C2 with 20% dose reduction on 09/29. She presented to the ER on the evening of 10/10 with acute SOB and was admitted with NSTEMI and subsequently found to have multiple bilat. PEs. Her elevated troponins are felt to be related to the demand ischemia of these PEs. A heparin gtt was initiated and she transitioned to Lovenox on 10/12. While she made slow improvement she has had cont.'d hypoxia requiring supplemental O2 via NC and PT d/t marked de-conditioning. During her admission /c de-conditioning and fevers for several days a full CT was completed on 10/14 (AP in addition to CTA done on admission) revealing stable to slightly improved disease and no abscess present. On 10/15 she required 1 unit of PRBCs d/t drop in H&H over several days with 1 episode of bright red blood per rectum on the evening of which self resolved and ultimately was felt to be related to hemorrhoidal bleeding. Her hmg has since remained stable. On 10/16 Ms. Kaplan c/o foul smelling urine with UA revealing + WBC and esterace, however negative for bacteria. By time of d/c her urine had grown E.Coli >100,000CFU/mL therefore she will be d/c'd home on Keflex 500 mg PO BID x14 days. She will be d/c'd home where she lives with family and will continue BID Lovenox injections (to be administered by her son) and home PT. Further treatment of her cervical cancer will be held until she is re-evaluated d/t her marked de-conditioning. She will f/u with Dr. Moreau on 11/04 with labs. >40 min spent with >50% face to face counseling
[2016-10-18] MEDS: Folic Acid TAB* 1 MG PO SCH (09:35)
[2016-10-18] MEDS: Gabapentin CAP(*) 300 MG PO SCH (09:35)
[2016-10-18] MEDS: POLY IRON 150 MG PO SCH (09:35)
[2016-10-18] MEDS: Prenatal Vitamin TAB PO SCH (09:36)
[2016-10-18] MEDS: Omeprazole CAP* 20 MG PO SCH (09:36)
[2016-10-18] MEDS: Potassium Chlor TAB* 20 MEQ TAB.ER PO SCH (09:36)
[2016-10-18] MEDS: predniSONE TAB* 5 MG PO SCH (09:36)
== END 2016-10-18 14:42 | disposition home or self-care (01) | DRG 175 ==
LOC: ED 21:16 → MEDTELE 23:42
PROVIDERS: ADMIT Internal Medicine; ATTEND Internal Medicine Hematology & Oncology
PROC: 30233N1 Transfusion of Nonautologous Red Blood Cells into Peripheral Vein, Percutaneous Approach (ICD-10-PCS; principal; 2016-10-15)
DX: I26.99 Other pulmonary embolism without acute cor pulmonale (principal); I21.4 Non-ST elevation (NSTEMI) myocardial infarction; N39.0 Urinary tract infection, site not specified; E87.1 Hypo-osmolality and hyponatremia; N13.39 Other hydronephrosis; C53.9 Malignant neoplasm of cervix uteri, unspecified; B96.20 Unspecified Escherichia coli [E. coli] as the cause of diseases classified elsewhere; I10 Essential (primary) hypertension; E11.9 Type 2 diabetes mellitus without complications; M06.9 Rheumatoid arthritis, unspecified; K64.9 Unspecified hemorrhoids; D50.0 Iron deficiency anemia secondary to blood loss (chronic); R91.1 Solitary pulmonary nodule; Z96.651 Presence of right artificial knee joint; M19.90 Unspecified osteoarthritis, unspecified site; Z79.52 Long term (current) use of systemic steroids; Z79.899 Other long term (current) drug therapy; Z82.49 Family history of ischemic heart disease and other diseases of the circulatory system; Z87.891 Personal history of nicotine dependence; Z79.84 Long term (current) use of oral hypoglycemic drugs
CPT/HCPCS: 36415; 71020; 71275; 74177; 80048; 80053; 81003; 81015; 82272; 83605; 83735; 83880; 84484; 84520; 85014; 85018; 85025; 85379; 85610; 85730; 86850; 86900; 86901; 86922; 87040; 87077; 87086; 87186; 93005; 93306; 94760; 99232; 99233; 99239; A9270-GY; J1642; J1644; J1650; J7512; P9016; Q0164; Q9967

== ENCOUNTER 2017-03-31 06:11 | Day surgery (SDC) | payer MEDICARE ==
--- NOTE | 2017-03-29 19:49 | HP ---
CC: Dr. Moreau * ADMITTING HISTORY AND PHYSICAL: DATE OF ADMISSION: 03/31/17 ADMITTING DIAGNOSES: 1. Right hydronephrosis. 2. Cervical cancer invading into bladder. PLANNED PROCEDURE: Transurethral resection of bladder tumor and right retrograde and right stent insertion. SURGEON: Deangelo Jimenez MD HISTORY OF PRESENT ILLNESS: Teodora Kaplan is a 72-year-old lady who has been diagnosed with metastatic cervical cancer. This is a large pelvic tumor eroding into the bladder and causing obstruction of the right ureter. I had previously seen her several months and had attempted a right stent insertion, but in spite of resecting tumor in the bladder, I was not able to place a right stent. Since then, she has had radiotherapy and chemotherapy with some significant resolution of the tumor burden and is now being brought in at Dr. Moreau's request for another attempt at right stent insertion. PAST MEDICAL HISTORY: Significant for: 1. Advanced cervical cancer. 2. History of pulmonary embolism. 3. Right hydronephrosis. MEDICATIONS ON ADMISSION: 1. Prednisone 5 mg q.a.m. and 3 mg q.p.m. 2. Warfarin which is currently on hold (on Lovenox). 3. Omeprazole 20 mg a day. ALLERGIES: No known drug allergies. PHYSICAL EXAMINATION GENERAL: Reveals a pleasant elderly -[place]istani lady. VITAL SIGNS: Blood pressure is 136/98, pulse 114 per minute (recheck 100 per minute), oxygen saturation 98% on room air, temperature 96.8. LUNGS: Clear bilaterally. CARDIOVASCULAR: Regular rate and rhythm. S1, S2. ABDOMEN: Soft with bilateral flank tenderness, more on the right. IMPRESSION: A 72-year-old lady with advanced cervical cancer and right hydronephrosis with tumor eroding into the bladder. Planned procedure is cystoscopy, transurethral resection of bladder tumor, right retrograde and right stent insertion. [id number]/[facility] #: [id number] MTDD
[~2017-03-31 06:11] MED LIST changes: +Buffered Lidocaine 0.9% SYRIN* 5 ML/SYR SYRINGE INTRADERM ONE; -Buffered Lidocaine 1% SYRIN* 5 ML/SYR SYRINGE INTRADERM ONE
[2017-03-31] MEDS ORDERED: Famotidine IV* 10 MG/ML 2 ML (20 mg) ONE (06:21)
[2017-03-31] MEDS ORDERED: Dexamethasone IV* 4 MG/ML 1 ML (4 MG) ONE (06:22)
[2017-03-31] MEDS ORDERED: cefTRIAXone(*) 2 GM VIAL ONE (06:22)
[2017-03-31] MEDS ORDERED: Buffered Lidocaine 0.9% SYRIN* 5 ML/SYR SYRINGE ONE (06:22)
[2017-03-31] MEDS ORDERED: Midazolam* 1 MG/ML 2 ML VIAL (2 MG) ONE (07:18)
[2017-03-31 07:23] LABS: INR 0.94 (0.77-1.02)
[2017-03-31] MEDS ORDERED: PROCHLORPERAZINE INJ 5 MG/ML 2 ML VIAL IV PRN (07:24)
[2017-03-31] MEDS ORDERED: Naloxone* 0.4 MG/ML 1 ML VIAL IV PRN (07:24)
[2017-03-31] MEDS ORDERED: Acetaminophen TAB* 325 MG PO PRN (07:24)
[2017-03-31] MEDS ORDERED: fentaNYL* 50 MCG/ML 2 ML VIAL (100 MCG VIAL) IV PRN (07:24)
[2017-03-31] MEDS ORDERED: HYDROcodone/ACETAMIN 5-325 MG* 1 TAB PO PRN (07:24)
[2017-03-31] MEDS ORDERED: oxyCODONE TAB* 5 MG TAB PO PRN (07:24)
[2017-03-31] MEDS ORDERED: Iohexol 180 (CONTRAST) 10 ML SDV IV ONE (08:01)
[2017-03-31] MEDS ORDERED: fentaNYL* 50 MCG/ML 2 ML VIAL (100 MCG VIAL) ONE ×2 (08:02→08:27)
[2017-03-31] MEDS ORDERED: Propofol* 10 MG/ML 20 ML BTL IV PUSH ONE (08:02)
[2017-03-31] MEDS ORDERED: Lidocaine 2% PF * 5 ML VIAL ONE (08:02)
[2017-03-31] MEDS ORDERED: Ondansetron INJ* 2 MG/ML VIAL ONE (08:30)
--- NOTE | 2017-03-31 09:51 | RAD ---
CPT II Codes: 6045F INDICATION: Right retrograde ureteral stent placement. Fluoroscopic services provided for referring physician. 9 seconds of fluoroscopy time was used. This placement of a right ureteral stent. IMPRESSION: Placement of right ureteral stent under fluoroscopic guidance.
[2017-03-31 11:05] VITALS: BP 141/72
--- NOTE | 2017-04-01 07:04 | OP ---
CC: Dr. Jose Moreau * DATE OF OPERATION: 03/31/17 - [facility] DATE OF : 41 SURGEON: Deangelo Jimenez MD ANESTHESIOLOGIST: Dr. Paredes. ANESTHESIA: General. PRE-OP DIAGNOSES: 1. Cervical/bladder tumor. 2. Right hydronephrosis. POST-OP DIAGNOSES: 1. Cervical/bladder tumor. 2. Right hydronephrosis. OPERATIVE PROCEDURE: 1. Transurethral resection of bladder tumor (approximately 2 cm). 2. Right retrograde and right stent insertion. COMPLICATIONS: None. ESTIMATED BLOOD LOSS: Less than 25 mL. STENT USED: 8.5 [place] 28 cm silicon stent, right ureter. INDICATIONS: Teodora Kaplan is a 72-year-old lady with advanced cervical cancer eroding into the urinary bladder and leading to right hydronephrosis. She had a very significant response to chemotherapy and is now being brought in for an attempt at right stent insertion. POSTOPERATIVE CONDITION: Stable. DESCRIPTION OF PROCEDURE: After induction of general anesthesia, the patient was placed in dorsal lithotomy position. Sequential compression devices were in place and functioning. Initial cystoscopy revealed normally located right and left urethral orifices. There was some tumor noted adjacent to the right orifice, but the orifice itself now could be visualized. Right retrograde pyelogram revealed right hydronephrosis. Balloon dilatation of the right distal ureter was carried out and an 8.5-Ang[place] 28 cm silicon stent was placed. Next, using the resectoscope, the visible tumor adjacent to the orifice was resected. The tumor burden was much less than it had been previously noted suggesting an excellent response to the chemotherapy and radiation. Hemostasis was secured using the coagulant current. At the end of the procedure, hemostasis appeared satisfactory and there was no evidence of bladder perforation. A 22- [place] Grant was placed for temporary bladder drainage. The patient tolerated the procedure satisfactorily and was transferred back to recovery area in stable condition. [id number]/[facility] #: [id number] MTDD
== END 2017-03-31 11:27 | disposition home or self-care (01) ==
LOC: OR 06:11
PROVIDERS: ATTEND Urology
DX: N32.9 Bladder disorder, unspecified (principal); N13.30 Unspecified hydronephrosis; C53.9 Malignant neoplasm of cervix uteri, unspecified; Z86.711 Personal history of pulmonary embolism; Z79.01 Long term (current) use of anticoagulants; I10 Essential (primary) hypertension; I25.2 Old myocardial infarction; E11.9 Type 2 diabetes mellitus without complications; D64.9 Anemia, unspecified; Z79.52 Long term (current) use of systemic steroids
CPT/HCPCS: 36415; 74420; 85610; 88305; C1876; J0696; J1100; J2250; J2405; J2704; J3010

== ENCOUNTER 2017-04-10 17:09 | Observation (INO) | payer MEDICARE ==
[2017-04-10] MEDS ORDERED: oxyCODONE/Acetamin 5/325 MG* TAB PO PRN (17:13)
[2017-04-10] MEDS ORDERED: Ondansetron INJ* 2 MG/ML VIAL IV PRN (17:13)
[2017-04-10] MEDS ORDERED: Acetaminophen TAB* 325 MG PO PRN (17:13)
[2017-04-10] MEDS ORDERED: predniSONE TAB* 1 MG PO SCH (18:00)
[2017-04-10] MEDS ORDERED: Iodixanol* (CONTRAST) 320 MG/ML 100 ML SDV IV ONE (18:03)
[2017-04-10] MEDS: Aspirin EC TAB* 325 MG PO SCH (19:10)
[2017-04-10] MEDS: Metoprolol Tartrate TAB* 25 MG PO SCH ×2 (19:10→23:50)
[2017-04-10] MEDS ORDERED: Zolpidem TAB* 5 MG PO SCH (21:00)
[2017-04-10] MEDS: Senna TAB PO SCH (21:24)
--- NOTE | 2017-04-10 21:25 | RAD ---
Indication: History of pulmonary embolus. Shortness of breath. Contrast: Administered 79.0 ml of VISIPAQUE 320 mg/ml CTA of the chest was performed coronal and sagittal reconstructed images were obtained. Comparison is made with previous exam dated 02/22 and 10/11/2016 The pulmonary arterial tree is well opacified. There is wall thickening of the left lower lobe pulmonary artery region prior pulmonary embolus September 2016. This may be chronic changes from embolus. This was noted on February 22, 2017 and is not significantly changed. No definite intraluminal filling defect pulmonary. The heart demonstrates no pericardial effusion. Inferior thyroid lobes are unremarkable with no mediastinal adenopathy noted. The trachea and major bronchi are patent. The aorta demonstrates no evidence of aortic dissection. Trachea and major bronchi appear patent. Dependent changes noted in the lung bases only structures are grossly unremarkable. The abdominal organs demonstrates a splenic artery aneurysm which appears to be unchanged from 12 IMPRESSION: There is some wall thickening of the left lower lobe pulmonary artery likely sequela from prior pulmonary embolus September 2016. No intraluminal filling defect to suggest acute pulmonary embolus is noted currently. Dependent changes are noted in the lung [place]. Stable splenic artery aneurysm.
[2017-04-11] MEDS: Metoprolol Tartrate TAB* 25 MG PO SCH ×2 (05:17→12:54)
[2017-04-11 06:37] LABS: INR 2.84 (0.77-1.02)
[2017-04-11 06:40] LABS: ABS Basophils 0 10^3/ul (0-0.2); ABS Eosinophils 0.1 10^3/ul (0-0.6); ABS Monocytes 0.1 10^3/ul (0-0.8); ABS Neutrophils 1.1 10^3/ul (1.5-7.7); ABS Nucleated RBC 0 10^3/ul; Eosinophil % 2.3 % (0-6); Hematocrit 31 % (35-47); Hemoglobin 10.1 g/dl (12.0-16.0); Lymphocyte % 42.7 % (25-47); Mean Corpuscular HGB Conc 32 g/dl (31-36); Mean Corpuscular Hemoglobin 28 pg (27-31); Mean Corpuscular Volume 86 fL (80-97); Mean Platelet Volume 8 um3 (7.4-10.4); Nucleated Red Blood Cells % 0.2; Platelet Count 241 10^3/ul (150-450); Red Blood Count 3.64 10^6/ul (4.0-5.4); Red Cell Distribution Width 20 % (10.5-15); White Blood Count 2.3 10^3/ul (3.5-10.8)
[2017-04-11 06:41] LABS: EGFR Non-African American 61.2 (>60)
[2017-04-11 06:47] LABS: Urine Appearance Turbid; Urine Blood 2+ (Negative); Urine Color Yellow; Urine Ketones Negative (Negative); Urine Protein 2+(100 mg/dL) (Negative); Urine Specific Gravity > 1.060 (1.010-1.030); Urine Urobilinogen Negative (Negative)
[2017-04-11] MEDS ORDERED: Folic Acid TAB* 1 MG PO SCH (09:00)
[2017-04-11] MEDS: Senna TAB PO SCH (09:29)
[2017-04-11] MEDS: Aspirin EC TAB* 325 MG PO SCH (09:29)
--- NOTE | 2017-04-11 10:36 | ECHO ---
Patient: HOLA CHONG Rec#: [id number] : 1945 Date: 04/11/2017 Age: 72y Height: 175.3 cm / 69.0 in Weight: 81.7 kg / 180.1 lbs Sex: F BSA: 2 Room#: [facility] Admit Date#: 04/10/2017 Type: Inpatient Referring: Jose Moreau MD Reading: Guanako Herrera MD Dental Scheduler: Nga Fontaine RN RDCS Transthoracic Echocardiogram Indication: Shortness of breath, tachycardia BP: 118/55 HR: 52 Rhythm: Bradycardia Findings History: HTN, HLD, DM, former smoker, cervical cancer with bladder involvement, chemotherapy, pulmonary nodule left lung, PE Technical Comments: The study quality is fair. The study is technically limited due to poor apical windows. The study is technically limited due to patient body habitus. The study is technically limited due to the patient's smoking history. Left Ventricle: The left ventricular chamber size is normal. Mild to moderate concentric left ventricular hypertrophy is observed. Global left ventricular wall motion and contractility are within normal limits. There is normal left ventricular systolic function. The estimated ejection fraction is 55-60%. There is an E to A reversal in the mitral valve flow pattern suggestive of diastolic dysfunction. Left Atrium: The left atrial chamber size is normal. Right Ventricle: The right ventricular cavity size is normal. The right ventricular global systolic function is mildly reduced. Right Atrium: The right atrial cavity size is normal. Aortic Valve: The aortic valve is trileaflet. The aortic valve leaflets are mildly thickened. There is a trace of aortic regurgitation. There is no evidence of aortic stenosis. Mitral Valve: The mitral valve leaflets are mildly thickened. There is a trace of mitral regurgitation. There is no evidence of mitral stenosis. Tricuspid Valve: The tricuspid valve leaflets are normal. There is trace to mild tricuspid regurgitation. There is evidence of mild pulmonary hypertension. There is no tricuspid stenosis. Pulmonic Valve: The pulmonic valve appears normal. There is trace to mild pulmonic regurgitation. There is no pulmonic stenosis. Pericardium: There is no significant pericardial effusion. A pericardial fat pad is visualized. Aorta: The ascending aorta is not well visualized. The aortic arch is not well visualized. There is no dilation of the aortic root. Pulmonary Artery: The main pulmonary artery appears normal. Venous: The venous system is not well visualized. The inferior vena cava is not visualized. Conclusions Mild to moderate concentric left ventricular hypertrophy is observed. Global left ventricular wall motion and contractility are within normal limits. The estimated ejection fraction is 55-60%. There is an E to A reversal in the mitral valve flow pattern suggestive of diastolic dysfunction. There is a trace of aortic regurgitation. There is no evidence of aortic stenosis. There is a trace of mitral regurgitation. There is trace to mild tricuspid regurgitation. There is evidence of mild pulmonary hypertension. There is no significant pericardial effusion. Compared to study of 10/11/16, the LV function iss the same. THe degree of TR is less Measurements Name Value Normal Range RVDdMajor (2D) 3.6 cm (2.2 - 4.4) RAd ISD 4CH 4.6 cm (3.4 - 4.9) RA (A4C)W 3.4 cm (2.9 - 4.6) IVSd (2D) 1.3 cm (0.6 - 1) LVPWd (2D) 1.3 cm (0.6 - 1) LVIDd (2D) 3.9 cm (3.6 - 5.4) Aortic Annulus 2.2 cm (1.4 - 2.6) Ao root diameter (2D) 2.7 cm (2.1 - 3.5) LA dimension (AP) 2D 3.6 cm (2.3 - 3.8) LAd ISD 4CH 4.6 cm (2.9 - 5.3) LA ISD 4CH W 3.7 cm (2.5 - 4.5) Name Value Normal Range MV E-wave Vmax 0.47 m/sec - MV deceleration time 264 msec - MV A-wave Vmax 0.71 m/sec - MV E:A ratio 0.66 ratio - LV septal e' Vmax 0.07 m/sec - LV lateral e' Vmax 0.08 m/sec - LV E:e' septal ratio 6.7 ratio - LV E:e' lateral ratio 5.9 ratio - Name Value Normal Range AV Vmax 1.1 m/sec - AV VTI 22.7 cm - AV peak gradient 4.9 mmHg - AV mean gradient 2.9 mmHg - LVOT Vmax 0.78 m/sec - LVOT VTI 15.5 cm - LVOT peak gradient 2.4 mmHg - LVOT mean gradient 1 mmHg - Name Value Normal Range TR Vmax 2.8 m/sec - TR peak gradient 31 mmHg - RAP 8 mmHg - RVSP 39 mmHg - Name Value Normal Range PV Vmax 0.78 m/sec -
[2017-04-11 11:49] VITALS: BP 117/50
[2017-04-11] MEDS ORDERED: Warfarin TAB(*) 5 MG PO SCH (17:00)
== END 2017-04-11 13:13 | disposition home or self-care (01) ==
LOC: MEDTELE 17:09
PROVIDERS: ADMIT Internal Medicine Hematology & Oncology; ATTEND Internal Medicine Hematology & Oncology
DX: C78.00 Secondary malignant neoplasm of unspecified lung (principal); C53.9 Malignant neoplasm of cervix uteri, unspecified; R07.9 Chest pain, unspecified; R06.02 Shortness of breath; R00.1 Bradycardia, unspecified; I27.20 Pulmonary hypertension, unspecified; R91.1 Solitary pulmonary nodule; Z86.79 Personal history of other diseases of the circulatory system; Z87.891 Personal history of nicotine dependence; Z85.41 Personal history of malignant neoplasm of cervix uteri; D64.9 Anemia, unspecified; E11.9 Type 2 diabetes mellitus without complications; M19.90 Unspecified osteoarthritis, unspecified site; Z96.651 Presence of right artificial knee joint
CPT/HCPCS: 36415; 71275; 80053; 81003; 81015; 83735; 84443; 84484; 85025; 85610; 87077; 87086; 87186; 93306; 96375; 99220; 99239; A9270-GY; G0378; J1642; Q9967

== ENCOUNTER 2017-07-24 21:13 | Inpatient (IN) | payer MEDICARE ==
[2017-07-25] MEDS ORDERED: NS 0.9% 1000 ML* 1,000 ML IV ONE ×2 (00:26→04:28)
[2017-07-25] MEDS ORDERED: Albuterol/Ipratropium NEB.SOL* Albuterol 2.5 MG/Ipratropium 0.5 MG 3 ML INH ONE (00:26)
[2017-07-25] MEDS ORDERED: Hydrocortisone INJ* 100 MG VIAL IV ONE (00:27)
[2017-07-25 01:12] LABS: INR 3.22 (0.77-1.02)
[2017-07-25 01:16] LABS: Hematocrit 32 % (35-47); Hemoglobin 10.1 g/dl (12.0-16.0); Mean Corpuscular HGB Conc 32 g/dl (31-36); Mean Corpuscular Hemoglobin 27 pg (27-31); Mean Corpuscular Volume 85 fL (80-97); Platelet Count 199 10^3/ul (150-450); Red Blood Count 3.69 10^6/ul (4.0-5.4); Red Cell Distribution Width 22 % (10.5-15); White Blood Count 3.5 10^3/ul (3.5-10.8)
[2017-07-25] MEDS: Albuterol 2.5 MG/3 ML NEB.SOL* (0.083%) INH SCH ×3 (01:17→01:50)
[2017-07-25 01:20] LABS: EGFR Non-African American 42.7 (>60)
[2017-07-25 01:35] LABS: ABS Basophils 0 10^3/ul (0-0.2); ABS Eosinophils 0 10^3/ul (0-0.6); ABS Lymphocytes 0.4 10^3/ul (1.0-4.8); ABS Monocytes 0.1 10^3/ul (0-0.8); ABS Neutrophils 2.9 10^3/ul (1.5-7.7); ABS Nucleated RBC 0 10^3/ul; Eosinophil % 0.2 % (0-6); Lymphocyte % 12.7 % (25-47); Nucleated Red Blood Cells % 0.1
[2017-07-25] MEDS ORDERED: Iodixanol* (CONTRAST) 320 MG/ML 100 ML SDV IV ONE (01:41)
[2017-07-25] MEDS ORDERED: Levofloxacin 750 MG IVPREMIX(* 750 MG/150 ML BAG IVPB ONE (04:25)
--- NOTE | 2017-07-25 04:58 | ED ---
Nikki Mullins Rebecca, scribed for Evelina Calhoun MD on 07/25/17 at 0009 . Shortness of Breath - HPI Summary HPI Summary: Pt is a 72 y/o F who presents to ED due to SOB. Son reports that since last night her breathing has been labored. SOB characterized as dyspnea at rest. Additionally c/o back pain that began while en route to [facility] and cough. Denies fever. Does not use O2 at home. Dx CA in June 2016, oncologist is Dr. Pete, last chemotherapy was last (5 days ago) IV. Chemotherapy schedule is 2 weeks on, 1 week off. PSHx ureteral stent. PMHx bilateral PE - about 1 year ago. Is on Coumadin. - History of Current Complaint Chief Complaint: EDShortnessOfBreath Time Seen by Provider: 07/25/17 00:04 Hx Obtained From: Patient, Family/Financial Professional - son Onset/Duration: Lasting Days - Last night, Still Present Dyspnea At: Rest Aggrevating Factors: Nothing Alleviating Factors: Nothing Associated Signs & Symptoms: Cough (Nonproductive) - Allergy/Home Medications Allergies/Adverse Reactions: Allergies Allergy/AdvReac Type Severity Reaction Status Date / Time No Known Allergies Allergy Verified 03/31/17 06:27 PMH/Surg Hx/FS Hx/Imm Hx Endocrine/Hematology History: Reports: Hx Diabetes - type 2, Hx Anemia - on iron Cardiovascular History: Reports: Hx Hypercholesterolemia, Hx Hypertension - off of blood pressure meds at this time, Other Cardiovascular Problems/Disorders - HYPERCHOLESTEROLEMIA Respiratory History: Reports: Other Respiratory Problems/Disorders - L lung nodule GI History: Reports: Hx Gall Bladder Disease - s/p cholesysectomy History: Reports: Hx Kidney Infection - last year at least 3 kidney infections - none at this time, Other Problems/Disorders - stent placed on kidney 03/31/17 Denies: Hx Renal Disease Musculoskeletal History: Reports: Hx Arthritis - osteoarthritis, rheumatoid arthritis Sensory History: Reports: Hx Cataracts - both eye , not ready for surgery, Hx Contacts or Glasses Denies: Hx Hearing Aid Opthamlomology History: Reports: Hx Cataracts - both eye , not ready for surgery , Hx Contacts or Glasses - Cancer History Cancer Type, Location and Year: cervical 2016 Hx Chemotherapy: Yes Hx Radiation Therapy: Yes - Surgical History Surgery Procedure, Year, and Place: laparoscopic gall bladder removed 2012. right total knee replacement 2012, s/p cysto with attempted stent placement Hx Anesthesia Reactions: No Infectious Disease History: No Infectious Disease History: Reports: Hx Shingles - FALL 2015 Denies: Traveled Outside the [place] in Last 30 Days - Family History Known Family History: Positive: Hypertension, Diabetes - Social History Alcohol Use: Rare Substance Use Type: Reports: None Hx Tobacco Use: Yes Smoking Status (MU): Former Smoker Type: Cigarettes Amount Used/How Often: smoked for 40 years approx, 1/2 -1 ppd Have You Smoked in the Last Year: No Review of Systems Negative: Fever Positive: Shortness Of Breath, Cough Positive: Other - Back pain All Other Systems Reviewed And Are Negative: Yes Physical Exam - Summary Physical Exam Summary: VITAL SIGNS: Reviewed. GENERAL: ~Patient is a pale, lethargic female. Patient is not in any acute respiratory distress. HEAD AND FACE: No signs of trauma. No ecchymosis, hematomas or skull depressions. No sinus tenderness. EYES: PERRLA, EOMI x 2, No injected conjunctiva, no nystagmus. EARS: Hearing grossly intact. Ear canals and tympanic membranes are within normal limits. MOUTH: Oropharynx within normal limits. NECK: Supple, trachea is midline, no adenopathy, no JVD, no carotid bruit, no c- spine tenderness, neck with full ROM. CHEST: Symmetric, no tenderness at palpation LUNGS: Clear to auscultation bilaterally. No wheezing or crackles. Decreased breath sounds bilaterally. CVS: Regular rate and rhythm, S1 and S2 present, no murmurs or gallops appreciated. ABDOMEN: Soft, non-tender. No signs of distention. No rebound no guarding, and no masses palpated. Bowel sounds are normal. EXTREMITIES: Deformities in both hands, consistent with rheumatoid arthritis. No edema, no cyanosis or clubbing. NEURO: Alert and oriented x 3. No acute neurological deficits. Speech is normal and follows commands. SKIN: Dry and warm, pale. Triage Information Reviewed: Yes Vital Signs On Initial Exam: Initial Vitals Temp Pulse Resp BP Pulse Ox 99.4 F 114 20 106/52 93 07/24/17 21:28 07/24/17 21:28 07/24/17 21:28 07/24/17 21:28 07/24/17 21:28 Vital Signs Reviewed: Yes Diagnostics - Vital Signs Vital Signs Temp Pulse Resp BP Pulse Ox 07/24/17 21:28 99.4 F 114 20 106/52 93 - Laboratory Result Diagrams: 07/25/17 00:42 07/25/17 00:42 Lab Statement: Any lab studies that have been ordered have been reviewed, and results considered in the medical decision making process. - Radiology CXR Xray Interpretation: No Acute Changes - No acute disease. Pending official report. Radiology Interpretation Completed By: ED Physician - CT Chest/thorax CTA CT Interpretation Completed By: Radiologist - There is air space opacity are new from the prior study and suggests pneumonia. ED physician reviewed this radiology report. Pending official report. Re-Evaluation - Re-Evaluation First Eval Re-Evaluation Time: 04:31 Comment: Discussed results with the pt. Course/Dx - Course Assessment/Plan: Pt is a 72 y/o F who presents to ED due to SOB characterized as dyspnea at rest since last night with labored breathing. Additionally c/o back pain that began while en route to [facility] and cough. Denies fever. Does not use O2 at home. Dx CA in June 2016, oncologist is Dr. Pete, last chemotherapy was last (5 days ago) IV. Chemotherapy schedule is 2 weeks on, 1 week off. PSHx ureteral stent. PMHx bilateral PE - about 1 year ago. Is on Coumadin. CXR reveals no acute findings. CT Chest reveals PNA. Discussed care of pt with Driss Lehman, who accepts pt for admission. Pt will be admitted with Dx of PNA. - Diagnoses Provider Diagnoses: PNA (pneumonia) - Physician Notifications Discussed Care of Patient With: Joseph Lehman Time Discussed With Above Provider: 04:30 Instructed by Provider To: Other - Accepts pt for admission. Discharge - Sign-Out/Discharge Documenting (check all that apply): Discharge/Admit/Transfer - Admit - Discharge Plan Condition: Stable Disposition: ADMITTED TO [facility] Referrals: Non Staff,Doctor [Primary Care Provider] - The documentation as recorded by the Nikki byrd Rebecca accurately reflects the service I personally performed and the decisions made by , Evelina Calhoun MD.
[2017-07-25] MEDS ORDERED: Albuterol 2.5 MG/3 ML NEB.SOL* (0.083%) INH PRN (05:14)
[2017-07-25] MEDS ORDERED: Ondansetron INJ* 2 MG/ML VIAL IV PRN (05:14)
[2017-07-25] MEDS ORDERED: NS 0.9% 1000 ML* 1,000 ML IV SCH (05:15)
[2017-07-25] MEDS ORDERED: oxyCODONE/Acetamin 5/325 MG* TAB PO PRN (05:23)
[2017-07-25] MEDS ORDERED: Dextrose 50% Syringe 50 ML* 25 GM/50 ML SYRINGE IV PUSH PRN (05:33)
[2017-07-25 06:19] LABS: Hematocrit 27 % (35-47); Hemoglobin 8.6 g/dl (12.0-16.0); Mean Corpuscular HGB Conc 32 g/dl (31-36); Mean Corpuscular Hemoglobin 28 pg (27-31); Mean Corpuscular Volume 87 fL (80-97); Mean Platelet Volume 7.5 um3 (7.4-10.4); Platelet Count 145 10^3/ul (150-450); Red Cell Distribution Width 22 % (10.5-15); White Blood Count 3.5 10^3/ul (3.5-10.8)
[2017-07-25 06:25] LABS: INR 3.47 (0.77-1.02)
[2017-07-25 06:32] LABS: EGFR Non-African American 43.9 (>60)
[2017-07-25 06:57] LABS: ABS Basophils 0 10^3/ul (0-0.2); ABS Eosinophils 0 10^3/ul (0-0.6); ABS Lymphocytes 0.1 10^3/ul (1.0-4.8); ABS Monocytes 0.1 10^3/ul (0-0.8); ABS Neutrophils 3.3 10^3/ul (1.5-7.7)
[2017-07-25 07:30] LABS: Monocytes % 2 % (0-7)
[2017-07-25 08:11] LABS: Urine Appearance Cloudy; Urine Blood 2+ (Negative); Urine Color Yellow; Urine Ketones 1+ (Negative); Urine Protein 2+(100 mg/dL) (Negative); Urine Specific Gravity 1.039 (1.010-1.030); Urine Urobilinogen Negative (Negative)
[2017-07-25] MEDS: Acetaminophen TAB* 325 MG PO PRN (08:14)
--- NOTE | 2017-07-25 08:14 | RAD ---
INDICATION: Difficulty breathing COMPARISON: Most recent comparison chest x-rays dated October 10, 2016 TECHNIQUE: Single AP portable view of the chest was obtained. FINDINGS: Image quality is compromised due to the relative inferiority of a portable chest x-ray. Again seen is a right subclavian vein Mediport with the tip terminating at the superior vena cava The heart and mediastinum exhibit normal size and contour. The lungs are grossly clear. There is no evidence of a large pleural effusion. Visualized bones are normal for the patient's age. IMPRESSION: No radiographic evidence for acute cardiopulmonary abnormality on this portable chest x-ray.
[2017-07-25] MEDS: predniSONE TAB* 5 MG PO SCH (08:15)
[2017-07-25] MEDS: Metoprolol Tartrate TAB* 25 MG PO SCH ×2 (08:15→21:24)
[2017-07-25] MEDS: Insulin LISPRO* 1 UNITS UNIT SUBCUT SCH ×3 (08:27→17:49)
[2017-07-25] MEDS ORDERED: Metoprolol Tartrate TAB* 25 MG PO SCH (09:00)
--- NOTE | 2017-07-25 09:04 | HP ---
CC: Dr. Sharee Tamez; Dr. Moreau * HISTORY AND PHYSICAL: DATE OF ADMISSION: 07/25/17 PRIMARY CARE PROVIDER: Dr. Sharee Tamez. PRIMARY ONCOLOGIST: Dr. Moreau. ATTENDING PHYSICIAN WHILE IN THE HOSPITAL: Dr. Concepcion * (report dictated by Joseph Lehman NP). CHIEF COMPLAINT: 1. Shortness of breath. 2. Cough. 3. Not feeling well. HISTORY OF PRESENTING ILLNESS: Ms. Ortega is a 72-year-old female patient; she carries a history of uterine cancer that has spread to bladder and has caused hydronephrosis of the right kidney and she is status post cystoscopy with stenting. She also has a history of pulmonary nodule, diabetes that is diet controlled, history of hypertension, history of PE, rheumatoid arthritis, osteoarthritis, and a history of a pneumothorax. She present to our ER today stating that the last few days she started out having a sore throat, feeling decreased appetite. She says the last couple of days she has had progressive worsening shortness of breath. She has been having pain in her chest when she takes a deep breath. She has been having a cough that has been productive. She says she normally has a dry cough but the cough in the last few days has been productive. She is unclear what the color of sputum looks like as she has been swallowing it. She says that she has been having no vomiting except for 1 episode. No abdominal pain. No nausea. She denied any urinary symptoms. No dysuria or frequency. No chills. She has been more and more short of breath particularly now even at rest. She was concerned given her history and she decided to come into the ER today to be evaluated. She says she has been taking her warfarin and her medications as prescribed with the exception she did miss her Lopressor tonight. She came into the ED, was evaluated, and she was noted to be tachycardic when she came in. In addition to this, she had a respiratory rate of 20, she was requiring O2, on room air she was 91% to 89% and now she is requiring 2 L. On evaluation, I did find her to have pneumonia bilaterally. So, because of these findings, we were asked to evaluate for admission. PAST MEDICAL HISTORY: Significant for: 1. Uterine cancer. 2. Pulmonary nodule. 3. Diabetes, diet controlled. 4. Hypertension. 5. Rheumatoid arthritis. 6. Osteoarthritis. 7. Pneumothorax. 8. History of PE. PAST SURGICAL HISTORY: 1. She has had a cystoscopy with right ureteral stent placement. 2. Right total knee replacement. 3. Cholecystectomy. HOME MEDICATIONS: Include, according to the bottle she brought in: 1. Prednisone 5 mg in the morning, 3 mg at bedtime. 2. Compazine 10 mg every 6 hours as needed. 3. Zofran 4 mg every 4 hours as needed. 4. Warfarin 5 mg alternating with 7.5 mg daily. She will take 5 mg and then alternating with 7.5. 5. She takes Percocet 1 tablet every 4 hours as needed. 6. Lopressor 25 mg p.o. b.i.d. ALLERGIES TO MEDICATIONS: Include no known drug allergies. FAMILY HISTORY: Mother had a history of CAD as did her father and both her parents had a history of hypertension. SOCIAL HISTORY: She is a former smoker; she quit about 10 years ago. She smoked for about 40 years. She does not drink alcohol. She lives with her family. Surrogate decision maker is her son. REVIEW OF SYSTEMS: There is no documented fever. She denied having any significant weight change. There was no double vision. She denies having any ear discharge. There was no rhinorrhea. There is a sore throat. She does admit to having a cough. There was chest pain, sharp stabbing pain with worsening with deep breath. She did admit to dyspnea with exertion and at rest. No orthopnea. No nocturnal dyspnea. She denied having any abdominal pain. There was no nausea, no vomiting. No dysuria, no frequency. No seizure , no loss of consciousness. No pruritus and no skin ulcerations. Review of 14 systems completed, all others were negative. PHYSICAL EXAMINATION GENERAL: At this time, Ms. Ortega is a 72-year-old female patient; she is sitting in the ER stretcher. She does not appear to be in any acute distress. VITAL SIGNS: Blood pressure 119/60, pulse 116, respirations were 18, her O2 saturation is 96% on 2 L, temperature was 99.4. HEENT: Head is atraumatic and normocephalic. Eyes: EOMs are intact. Sclerae are anicteric and not pale. Throat: Oral mucosa appears to be dry. No oropharyngeal erythema. NECK: Supple. LUNGS: She did have rhonchi in the upper lobes. Crackles noted in the right base. She had equal diaphragmatic expansion. HEART: Sounds S1, S2. Regular rate and rhythm. No murmurs, rubs, or gallops. ABDOMEN: Soft, it was flat, nontender. Bowel sounds were present. EXTREMITIES: Pulses were 2+ throughout. She is moving all 4 extremities with 5 /5 strength. She does have deformities of her both hands due to rheumatoid arthritis. NEUROLOGICAL: She is awake, alert, and oriented x3. Her speech is clear. Tongue midline. She had no gross focal deficits. SKIN: Grossly intact. DIAGNOSTIC STUDIES/LABORATORY DATA: Today revealing a WBC of 3.5, RBC of 3.69 , hemoglobin of 10.1, hematocrit of 32; that hemoglobin is right near her baseline. Her platelet count was 199. INR was 3.32, PTT of 42.3. Sodium 130; potassium 4.1; chloride 97; bicarb 23; BUN 17; creatinine 1.23, which is slightly up from her baseline of 1.0; her glucose was 194, lactate 1.4, calcium of 8.9. Total bili 1.5, AST 15, ALT 20, alk phos 72. Troponin 0.01. CRP was 360. BNP was 55. Albumin was 3.1. Urine is pending. She did have a chest x-ray obtained today. Under my review, I do see that she does have blunting of the left costophrenic angle and in the right there did appear to be an infiltrate, most likely in the right lower base. She did have a CTA chest, impression: Airspace opacities are new from the prior study and suggest pneumonia. She had dense airspace consolidation in the dependent lower lobes bilaterally, it is new from previous study and there is some patchy peripheral airspace disease in the right upper lobe, which is new from previous study. Old medical records were reviewed. ASSESSMENT AND PLAN: Ms. Ortega is a 72-year-old female patient undergoing active chemotherapy, and in addition of this has a history of rheumatoid arthritis, presenting to the emergency department today with progressive worsening cough, sore throat. On evaluation, today there was concern for bilateral pneumonia. She will be admitted under inpatient status for: 1. Bilateral pneumonia. Again at this point, I would like to get a sputum culture, legionella antigen, Strep pneumo antigen. Blood cultures have been sent. I do think we should check her for flu swab. She is tachycardic down here and she does appear to be dry, so I am going to give her another liter of fluid in the ED, which has been started for a 2 L bolus of normal saline at 100 an hour for one more liter. Continue with Levaquin for antibiotics. I have ordered flutter valve for pulmonary toileting, p.r.n. nebs, and I will continue to follow. We will monitor her blood pressure closely. If she does become hypotensive, she might need stress- dose steroids given the fact that she is on chronic steroids. If she does not improve on Levaquin, we can consider broadening her antibiotic coverage, but at this point, I think Levaquin is appropriate. She appears to be stable. She is not overly tachypneic. She is not tachypneic in the ER hopefully with fluids the heart rate will respond and we will continue to follow. 2. History of uterine cancer. Follow up with her primary oncology team. 3. Diabetes. Her sugar here was 194. I will check an A1c. I am going to put her on a lispro sliding scale. She says she is diet controlled but her random sugar of 194. I would like to get a little bit better control of this. 4. Hypertension. She is on the metoprolol. We will continue her meds as prescribed. 5. Rheumatoid arthritis. Continue her steroids. 6. Osteoarthritis. Continue with p.r.n. Percocet. 7. History of pulmonary embolism. Her INR is 3.22. I am holding her warfarin. We will check her INR later this morning and we will need to adjust accordingly. 8. History of pulmonary nodule. Follow up with her primary care provider and oncologist. 9. Acute kidney injury. This is probably secondary to dehydration. Again, we will hydrate the patient and we will check a urine and we will continue to follow. 10. DVT prophylaxis. She will continue her warfarin. 11. Fluids, electrolytes, nutrition: She can have a consistent carbohydrate diet. 12. Code status. Full code. TIME SPENT: Time spent on the admission was approximately 60 minutes; greater than half the time was spent [id number] with the patient obtaining my history and physical, other half the time was spent going over the plan of care with the patient and implementing plan of care. I did discuss the plan of care with my attending, Dr. Concepcion; she is in agreement. JOSEPH LEHMAN NP [id number]/CPS #: [id number] LILY
--- NOTE | 2017-07-25 09:07 | RAD ---
INDICATION: Shortness of breath. COMPARISON: Comparison is made with a prior CT angiogram of the chest from April 10, 2017 and a prior chest x-ray study from July 24, 2017. Correlation is also made with a prior study from October 11, 2016. TECHNIQUE: A CT angiogram of the chest was performed with intravenous following intravenous injection of 85 ml of Visipaque 320 nonionic contrast. Contiguous axial sections were obtained from the lung apices through the lung bases. Images were reconstructed in the coronal and sagittal planes. FINDINGS: There is suboptimal opacification of the pulmonary arteries limiting the exam slightly. Again note is made of mild thickening of the wall of the left lower lobe pulmonary artery which appears less prominent than on the prior exam and is in the region of a prior pulmonary embolus noted on the study from September 2016 and most consistent with chronic pulmonary embolic changes. No other intraluminal filling defects are seen. There is no evidence for acute pulmonary embolism. The heart is within normal limits in size. There are coronary artery calcifications. No pericardial effusion is seen. The thoracic aorta is normal in caliber and demonstrates homogeneous contrast opacification. No significant enlarged mediastinal or hilar lymph nodes are seen. There is a patchy infiltrate present in the dependent portion of the right upper lobe and more confluent dependent lower lobe infiltrates suspicious for pneumonia. No pleural effusion is seen. Images of the upper abdomen are without evidence for acute finding. No significant focal osseous abnormality is seen. IMPRESSION: 1. SLIGHTLY LIMITED EXAM, NO EVIDENCE FOR ACUTE PULMONARY EMBOLISM. FINDINGS CONSISTENT WITH CHRONIC PULMONARY EMBOLIC CHANGES IN THE LEFT LOWER LOBE PULMONARY ARTERY SLIGHTLY IMPROVED FROM THE PRIOR STUDY. 2. BILATERAL LOWER LOBE INFILTRATES MOST CONSISTENT WITH PNEUMONIA.
[2017-07-25] MEDS: predniSONE TAB* 1 MG PO SCH (17:49)
[2017-07-26] MEDS: Levofloxacin 750 MG IVPREMIX(* 750 MG/150 ML BAG IVPB SCH (06:04)
[2017-07-26 06:27] LABS: INR 2.48 (0.77-1.02)
[2017-07-26] MEDS: Acetaminophen TAB* 325 MG PO PRN ×2 (07:31→19:50)
[2017-07-26] MEDS: predniSONE TAB* 5 MG PO SCH (08:27)
[2017-07-26] MEDS: Metoprolol Tartrate TAB* 25 MG PO SCH ×2 (08:27→19:50)
[2017-07-26] MEDS: Insulin LISPRO* 1 UNITS UNIT SUBCUT SCH ×3 (08:28→17:35)
--- NOTE | 2017-07-26 11:09 | PN ---
Progress Note - Progress Note Date of Service: 07/26/17 SOAP: Subjective: [][place] poorly upon waking, though states a little better now. Better than when first came in. Denies concerns and states she has still been getting up to walk to bathroom. No additional pain. Has gained wt. recently which she attributes to her sons "good cooking." Medications: Acetaminophen (Tylenol Tab*) 650 mg PO Q4H PRN PRN Reason: FEVER/PAIN Last Admin: 07/26/17 07:31 Dose: 650 mg Albuterol (Ventolin 2.5 Mg/3 Ml Neb.Antonia*) 2.5 mg INH Q2H PRN PRN Reason: SOB/WHEEZING Dextrose (D50w Syringe 50 Ml*) 12.5 gm IV PUSH .FOR FS < 60 - SS PRN PRN Reason: FS < 60 Heparin Sodium (Porcine) (Heparin Flush Port (Ivad)) 5 ml FLUSH DAILY [facility] PRN Reason: Protocol Last Admin: 07/26/17 08:27 Dose: 5 ml Levofloxacin/Dextrose (Levaquin 750 Mg Ivpremix(*)) 750 mg in 150 mls @ 100 mls /hr IVPB Q24H [facility] Last Admin: 07/26/17 06:04 Dose: 100 mls/hr Insulin Human Lispro (Humalog*) 0 units SUBCUT AC [facility] PRN Reason: Protocol Last Admin: 07/26/17 08:28 Dose: 2 units Metoprolol Tartrate (Lopressor Tab*) 25 mg PO BID [facility] Last Admin: 07/26/17 08:27 Dose: 25 mg Ondansetron HCl (Zofran Inj*) 4 mg IV Q6H PRN PRN Reason: NAUSEA Last Admin: 07/26/17 08:28 Dose: 4 mg Oxycodone/Acetaminophen (Percocet 5/325 Tab*) 1 tab PO Q4H PRN PRN Reason: PAIN Prednisone (Deltasone Tab*) 5 mg PO DAILY [facility] Last Admin: 07/26/17 08:27 Dose: 5 mg Prednisone (Deltasone Tab*) 3 mg PO QPM [facility] Last Admin: 07/25/17 17:49 Dose: 3 mg Objective: [] Vital Signs Temp Pulse Resp BP Pulse Ox 100.7 F 99 20 112/50 99 07/26/17 07:12 07/26/17 08:54 05/09/18 08:54 07/26/17 07:12 07/26/17 08:54 A&Ox3, EOMI, PERRLA, good strength bilat. Notable swan neck deformities of hands, known RA HRR, S1S2 LS +rhonchi, resp. even and non-labored, harsh wet cough +BS, abd. soft and non-tender throughout -CVA tenderness +PP=bilat., +1 edema bilat. Laboratory Results - last 24 hr 07/25/17 07/25/17 07/25/17 06:08 11:28 17:01 Hem Pathologist Commnt INR (Anticoag Therapy) POC Glucose (mg/dL) 163 H 201 H 07/26/17 07/26/17 06:10 07:30 Hem Pathologist Commnt INR (Anticoag Therapy) 2.48 H POC Glucose (mg/dL) 139 H Microbiology 07/25/17 07:51 Urine Culture - Preliminary Urine Enterococcus Faecalis Aerococcus Urinae 07/25/17 00:42 Aerobic Blood Culture - Preliminary Blood Venous No Growth Day 1 Anaerobic Blood Culture - Preliminary No Growth Day 1 07/25/17 00:42 Aerobic Blood Culture - Preliminary Blood Venous No Growth Day 1 Anaerobic Blood Culture - Preliminary No Growth Day 1 07/25/17 07:49 Legionella Urinary Antigen - Final Urine Negative Legionella Antigen Streptococcus pneumoniae Ag Screen - Final Negative S. 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 PNA and now positive urine. Plan: []1. UTI: limited symptoms and moderate growth of two bacteria as above, should have reasonable coverage with Levaquin, will cont. 2. Pneumonia: slightly improved breathing since coming into hosp. per pt., cont. Levaquin as not neutropenic 3. Fever: felt related to above and just 24 hrs. since starting abx., no additional coverage as of now. Recommend cultures with any further fevers 4. Anemia: likely secondary to dilution, recheck labs today 5. Wt. Gain: check BNP d/t mild edema and follow daily while inpt. Disposition: suggest at least 3 days IV abx., will d/c home independently as per previously
[2017-07-26 12:32] LABS: Hematocrit 24 % (35-47); Hemoglobin 7.6 g/dl (12.0-16.0); Mean Corpuscular HGB Conc 32 g/dl (31-36); Mean Corpuscular Hemoglobin 27 pg (27-31); Mean Corpuscular Volume 86 fL (80-97); Mean Platelet Volume 7.7 um3 (7.4-10.4); Platelet Count 156 10^3/ul (150-450); Red Blood Count 2.78 10^6/ul (4.0-5.4); Red Cell Distribution Width 22 % (10.5-15); White Blood Count 2.9 10^3/ul (3.5-10.8)
[2017-07-26 12:40] LABS: EGFR Non-African American 55.5 (>60)
[2017-07-26 12:53] LABS: ABS Basophils 0 10^3/ul (0-0.2); ABS Eosinophils 0 10^3/ul (0-0.6); ABS Lymphocytes 0.3 10^3/ul (1.0-4.8); ABS Monocytes 0.2 10^3/ul (0-0.8); ABS Neutrophils 2.5 10^3/ul (1.5-7.7)
[2017-07-26 12:57] LABS: Monocytes % 4 % (0-7); Tear Drop Cells 1+
[2017-07-26] MEDS: predniSONE TAB* 1 MG PO SCH (17:55)
[2017-07-27] MEDS: Levofloxacin 750 MG IVPREMIX(* 750 MG/150 ML BAG IVPB SCH (04:43)
[2017-07-27] MEDS: Acetaminophen TAB* 325 MG PO PRN (04:46)
[2017-07-27 05:19] LABS: Hematocrit 25 % (35-47); Hemoglobin 8.1 g/dl (12.0-16.0); Mean Corpuscular HGB Conc 32 g/dl (31-36); Mean Corpuscular Hemoglobin 28 pg (27-31); Mean Corpuscular Volume 86 fL (80-97); Mean Platelet Volume 7.7 um3 (7.4-10.4); Platelet Count 191 10^3/ul (150-450); Red Blood Count 2.91 10^6/ul (4.0-5.4); Red Cell Distribution Width 22 % (10.5-15); White Blood Count 3.4 10^3/ul (3.5-10.8)
[2017-07-27 05:32] LABS: EGFR Non-African American 51.2 (>60)
[2017-07-27 05:39] LABS: ABS Basophils 0 10^3/ul (0-0.2); ABS Eosinophils 0 10^3/ul (0-0.6); ABS Lymphocytes 0.6 10^3/ul (1.0-4.8); ABS Monocytes 0.3 10^3/ul (0-0.8); ABS Neutrophils 2.4 10^3/ul (1.5-7.7); ABS Nucleated RBC 0 10^3/ul; Eosinophil % 1.4 % (0-6); Lymphocyte % 17.9 % (25-47); Nucleated Red Blood Cells % 0.1
[2017-07-27] MEDS: predniSONE TAB* 5 MG PO SCH (08:05)
[2017-07-27] MEDS: Metoprolol Tartrate TAB* 25 MG PO SCH ×2 (08:05→20:18)
[2017-07-27] MEDS: Insulin LISPRO* 1 UNITS UNIT SUBCUT SCH ×3 (08:06→18:05)
--- NOTE | 2017-07-27 10:58 | PN ---
Progress Note - Progress Note Date of Service: 07/27/17 SOAP: Subjective: []Feeling OK today, a little better. Breathing feels better. Hasn't given a sputum yet. Has some LLQ discomfort. Last BM 2 days ago. Urine output OK, but less as she admits to decreased PO fluids. Ambulating in room, no pain. No back pain. Has tingling in legs intermittently over last several weeks, improves with ambulating and no numbness or radiculopathy. Medications: Acetaminophen (Tylenol Tab*) 650 mg PO Q4H PRN PRN Reason: FEVER/PAIN Last Admin: 07/27/17 04:46 Dose: 650 mg Albuterol (Ventolin 2.5 Mg/3 Ml Neb.Antonia*) 2.5 mg INH Q2H PRN PRN Reason: SOB/WHEEZING Dextrose (D50w Syringe 50 Ml*) 12.5 gm IV PUSH .FOR FS < 60 - SS PRN PRN Reason: FS < 60 Heparin Sodium (Porcine) (Heparin Flush Port (Ivad)) 5 ml FLUSH DAILY [facility] PRN Reason: Protocol Last Admin: 07/27/17 06:29 Dose: 5 ml Levofloxacin/Dextrose (Levaquin 750 Mg Ivpremix(*)) 750 mg in 150 mls @ 100 mls /hr IVPB Q24H [facility] Last Admin: 07/27/17 04:43 Dose: 100 mls/hr Insulin Human Lispro (Humalog*) 0 units SUBCUT AC [facility] PRN Reason: Protocol Last Admin: 07/27/17 08:06 Dose: Not Given Metoprolol Tartrate (Lopressor Tab*) 25 mg PO BID [facility] Last Admin: 07/27/17 08:05 Dose: 25 mg Ondansetron HCl (Zofran Inj*) 4 mg IV Q6H PRN PRN Reason: NAUSEA Last Admin: 07/26/17 08:28 Dose: 4 mg Oxycodone/Acetaminophen (Percocet 5/325 Tab*) 1 tab PO Q4H PRN PRN Reason: PAIN Prednisone (Deltasone Tab*) 5 mg PO DAILY [facility] Last Admin: 07/27/17 08:05 Dose: 5 mg Prednisone (Deltasone Tab*) 3 mg PO QPM [facility] Last Admin: 07/26/17 17:55 Dose: 3 mg Objective: [] Vital Signs Temp Pulse Resp BP Pulse Ox 98.6 F 90 18 113/64 93 07/27/17 07:15 07/27/17 08:24 07/27/17 08:31 07/27/17 07:15 07/27/17 08:24 A&Ox3, EOMI, LAM [place] neck deformities of fingers HRR, S1S2, no murmur noted LS with fine crackles at bases, harsh wet cough, no sputum production while in room Resp. even and non-labored Skin warm, temp. 99F orally while in room +BS, abd soft and tender to left lower quad with mod. pressure, tymphony throughout +PP=bilat., non-pitting edema to ankles -CVA tenderness Laboratory Results - last 24 hr 07/26/17 07/26/17 07/26/17 11:57 12:05 12:05 WBC 2.9 L RBC 2.78 L Hgb 7.6 L Hct 24 L MCV 86 MCH 27 MCHC 32 RDW 22 H Plt Count 156 MPV 7.7 Neut % (Auto) Not Reportable Lymph % (Auto) Not Reportable Morton % (Auto) Not Reportable Eos % (Auto) Not Reportable Baso % (Auto) Not Reportable Absolute Neuts (auto) 2.5 Absolute Lymphs (auto) 0.3 L Absolute Monos (auto) 0.2 Absolute Eos (auto) 0 Absolute Basos (auto) 0 Absolute Nucleated RBC Not Reportable Immature Gran % 15 H Neutrophils % 72 Band Neutrophils % 15 H Lymphocytes % 6 L Reactive Lymphs % 2 Monocytes % 4 Eosinophils % 1 Basophils % 0 Nucleated RBC % Not Reportable Abs Neuts (Manual) 2.1 Abs Lymphs (Manual) 0.2 L Abs Monocytes (Manual) 0.1 Absolute Eos (Manual) 0 Abs Basophils (Manual) 0 Toxic Granulation 1+ Dohle Bodies Present Normal RBC Morphology Not Reportable Tear Drop Cells 1+ Sodium Potassium Chloride Carbon Dioxide Anion Gap BUN Creatinine Est GFR ( Amer) Est GFR (Non-Af Amer) BUN/Creatinine Ratio Glucose POC Glucose (mg/dL) 121 H Calcium Total Bilirubin AST ALT Alkaline Phosphatase B-Natriuretic Peptide 97 Total Protein Albumin Globulin Albumin/Globulin Ratio 07/26/17 07/26/17 07/27/17 12:05 17:33 04:43 WBC 3.4 L RBC 2.91 L Hgb 8.1 L Hct 25 L MCV 86 MCH 28 MCHC 32 RDW 22 H Plt Count 191 MPV 7.7 Neut % (Auto) 71.4 Lymph % (Auto) 17.9 L Morton % (Auto) 9.0 H Eos % (Auto) 1.4 Baso % (Auto) 0.3 Absolute Neuts (auto) 2.4 Absolute Lymphs (auto) 0.6 L Absolute Monos (auto) 0.3 Absolute Eos (auto) 0 Absolute Basos (auto) 0 Absolute Nucleated RBC 0 Immature Gran % Neutrophils % Band Neutrophils % Lymphocytes % Reactive Lymphs % Monocytes % Eosinophils % Basophils % Nucleated RBC % 0.1 Abs Neuts (Manual) Abs Lymphs (Manual) Abs Monocytes (Manual) Absolute Eos (Manual) Abs Basophils (Manual) Toxic Granulation Dohle Bodies Normal RBC Morphology Tear Drop Cells Sodium 133 L Potassium 3.8 Chloride 103 Carbon Dioxide 23 Anion Gap 7 BUN 13 Creatinine 0.98 H Est GFR ( Amer) 71.3 Est GFR (Non-Af Amer) 55.5 BUN/Creatinine Ratio 13.3 Glucose 127 H POC Glucose (mg/dL) 125 H Calcium 8.3 L Total Bilirubin 0.60 AST 17 ALT 16 Alkaline Phosphatase 59 B-Natriuretic Peptide Total Protein 5.7 L Albumin 2.5 L Globulin 3.2 Albumin/Globulin Ratio 0.8 L 07/27/17 07/27/17 04:43 07:58 WBC RBC Hgb Hct MCV MCH MCHC RDW Plt Count MPV Neut % (Auto) Lymph % (Auto) Morton % (Auto) Eos % (Auto) Baso % (Auto) Absolute Neuts (auto) Absolute Lymphs (auto) Absolute Monos (auto) Absolute Eos (auto) Absolute Basos (auto) Absolute Nucleated RBC Immature Gran % Neutrophils % Band Neutrophils % Lymphocytes % Reactive Lymphs % Monocytes % Eosinophils % Basophils % Nucleated RBC % Abs Neuts (Manual) Abs Lymphs (Manual) Abs Monocytes (Manual) Absolute Eos (Manual) Abs Basophils (Manual) Toxic Granulation Dohle Bodies Normal RBC Morphology Tear Drop Cells Sodium 132 L Potassium 3.8 Chloride 101 Carbon Dioxide 24 Anion Gap 7 BUN 13 Creatinine 1.05 H Est GFR ( Amer) 65.9 Est GFR (Non-Af Amer) 51.2 BUN/Creatinine Ratio 12.4 Glucose 113 H POC Glucose (mg/dL) 108 H Calcium 8.6 Total Bilirubin 0.50 AST 31 ALT 31 Alkaline Phosphatase 64 B-Natriuretic Peptide Total Protein 6.3 L Albumin 2.8 L Globulin 3.5 Albumin/Globulin Ratio 0.8 L Assessment: []72 yo female with advanced uterine cancer, hx. of hydronephrosis secondary to tumor, admitted with PNA and found to have a UTI slowly improving on IV Levaquin. She did have a fever last night and repeat cultures were sent though fortunately she feels a little better today. If she spikes a temp. again I want to obtain a CT AP to eval. for abcess vs. pyelonephritis, however at this time her urine culture is sensative to Levaquin and I think we should see cont.' d improvement. Plan: []1. Enc. ambulation and PO fluids 2. Cont. IV Levaquin 3. If recurrent temp. >100.4F obtain CT AP as above 4. Repeat labs in AM, if rising Cr will need IV fluids and may consider CT
[2017-07-27] MEDS: predniSONE TAB* 1 MG PO SCH (16:34)
[2017-07-28] MEDS: Levofloxacin 750 MG IVPREMIX(* 750 MG/150 ML BAG IVPB SCH (05:39)
[2017-07-28 06:00] LABS: Hematocrit 24 % (35-47); Hemoglobin 7.5 g/dl (12.0-16.0); Mean Corpuscular HGB Conc 32 g/dl (31-36); Mean Corpuscular Hemoglobin 28 pg (27-31); Mean Corpuscular Volume 86 fL (80-97); Mean Platelet Volume 7.7 um3 (7.4-10.4); Platelet Count 217 10^3/ul (150-450); Red Blood Count 2.73 10^6/ul (4.0-5.4); Red Cell Distribution Width 23 % (10.5-15)
[2017-07-28 06:10] LABS: EGFR Non-African American 64.5 (>60)
[2017-07-28 06:41] LABS: Monocytes % 10 % (0-7); Tear Drop Cells 1+
[2017-07-28] MEDS: Insulin LISPRO* 1 UNITS UNIT SUBCUT SCH ×3 (07:41→17:25)
[2017-07-28] MEDS: Metoprolol Tartrate TAB* 25 MG PO SCH ×2 (09:10→21:27)
[2017-07-28] MEDS: predniSONE TAB* 5 MG PO SCH (09:10)
--- NOTE | 2017-07-28 11:30 | PN ---
Progress Note - Progress Note Date of Service: 07/21/17 SOAP: Subjective: [No fevers overnight. Teodora reports that she is starting to feel somewhat better. Still has an occasional cough, able to provide a sputum sample this am. No dyspnea. No BM in several days, no abd pain, n/v. Appetite is poor. No urinary symptoms.] Objective: [ Vital Signs Temp Pulse Resp BP Pulse Ox 99.2 F 80 16 108/62 98 07/28/17 10:47 07/28/17 10:47 07/28/17 07:42 07/28/17 10:47 07/28/17 10:47 Acetaminophen (Tylenol Tab*) 650 mg PO Q4H PRN PRN Reason: FEVER/PAIN Last Admin: 07/27/17 04:46 Dose: 650 mg Albuterol (Ventolin 2.5 Mg/3 Ml Neb.Antonia*) 2.5 mg INH Q2H PRN PRN Reason: SOB/WHEEZING Clotrimazole (Mycelex Jasmyn*) 10 mg PO QID [facility] Dextrose (D50w Syringe 50 Ml*) 12.5 gm IV PUSH .FOR FS < 60 - SS PRN PRN Reason: FS < 60 Heparin Sodium (Porcine) (Heparin Flush Port (Ivad)) 5 ml FLUSH DAILY [facility] PRN Reason: Protocol Last Admin: 07/28/17 09:10 Dose: 5 ml Levofloxacin/Dextrose (Levaquin 750 Mg Ivpremix(*)) 750 mg in 150 mls @ 100 mls /hr IVPB Q24H [facility] Last Admin: 07/28/17 05:39 Dose: 100 mls/hr Insulin Human Lispro (Humalog*) 0 units SUBCUT AC [facility] PRN Reason: Protocol Last Admin: 07/28/17 07:41 Dose: Not Given Metoprolol Tartrate (Lopressor Tab*) 25 mg PO BID [facility] Last Admin: 07/28/17 09:10 Dose: 25 mg Ondansetron HCl (Zofran Inj*) 4 mg IV Q6H PRN PRN Reason: NAUSEA Last Admin: 07/26/17 08:28 Dose: 4 mg Oxycodone/Acetaminophen (Percocet 5/325 Tab*) 1 tab PO Q4H PRN PRN Reason: PAIN Polyethylene Glycol/Electrolytes (Miralax*) 17 gm PO DAILY [facility] Prednisone (Deltasone Tab*) 5 mg PO DAILY [facility] Last Admin: 07/28/17 09:10 Dose: 5 mg Prednisone (Deltasone Tab*) 3 mg PO QPM [facility] Last Admin: 07/27/17 16:34 Dose: 3 mg Senna (Senokot Tab*) 1 tab PO BEDTIME [facility] Laboratory Results - last 24 hr 07/27/17 07/27/17 07/28/17 11:35 16:35 05:36 WBC 3.0 L RBC 2.73 L Hgb 7.5 L Hct 24 L MCV 86 MCH 28 MCHC 32 RDW 23 H Plt Count 217 MPV 7.7 Neut % (Auto) Not Reportable Lymph % (Auto) Not Reportable [place] % (Auto) Not Reportable Eos % (Auto) Not Reportable Baso % (Auto) Not Reportable Absolute Neuts (auto) Not Reportable Absolute Lymphs (auto) Not Reportable Absolute Monos (auto) Not Reportable Absolute Eos (auto) Not Reportable Absolute Basos (auto) Not Reportable Absolute Nucleated RBC Not Reportable Immature Gran % 5 Neutrophils % 58 Band Neutrophils % 4 Lymphocytes % 26 Monocytes % 10 H Eosinophils % 1 Basophils % 0 Metamyelocytes % 1 Nucleated RBC % Not Reportable Abs Neuts (Manual) 1.7 Abs Lymphs (Manual) 0.8 L Abs Monocytes (Manual) 0.3 Absolute Eos (Manual) 0 Abs Basophils (Manual) 0 Toxic Granulation 1+ Normal RBC Morphology Not Reportable Tear Drop Cells 1+ Elliptocytes 1+ Sodium Potassium Chloride Carbon Dioxide Anion Gap BUN Creatinine Est GFR ( Amer) Est GFR (Non-Af Amer) BUN/Creatinine Ratio Glucose POC Glucose (mg/dL) 99 164 H Calcium Total Bilirubin AST ALT Alkaline Phosphatase Total Protein Albumin Globulin Albumin/Globulin Ratio Blood Type Antibody Screen Crossmatch 07/28/17 07/28/17 07/28/17 05:36 05:36 07:35 WBC RBC Hgb Hct MCV MCH MCHC RDW Plt Count MPV Neut % (Auto) Lymph % (Auto) [place] % (Auto) Eos % (Auto) Baso % (Auto) Absolute Neuts (auto) Absolute Lymphs (auto) Absolute Monos (auto) Absolute Eos (auto) Absolute Basos (auto) Absolute Nucleated RBC Immature Gran % Neutrophils % Band Neutrophils % Lymphocytes % Monocytes % Eosinophils % Basophils % Metamyelocytes % Nucleated RBC % Abs Neuts (Manual) Abs Lymphs (Manual) Abs Monocytes (Manual) Absolute Eos (Manual) Abs Basophils (Manual) Toxic Granulation Normal RBC Morphology Tear Drop Cells Elliptocytes Sodium 135 L Potassium 3.5 Chloride 103 Carbon Dioxide 25 Anion Gap 7 BUN 10 Creatinine 0.86 Est GFR ( Amer) 83.0 Est GFR (Non-Af Amer) 64.5 BUN/Creatinine Ratio 11.6 Glucose 108 H POC Glucose (mg/dL) 124 H Calcium 8.4 L Total Bilirubin 0.40 AST 42 H ALT 43 Alkaline Phosphatase 69 Total Protein 6.2 L Albumin 2.7 L Globulin 3.5 Albumin/Globulin Ratio 0.8 L Blood Type A Positive Antibody Screen Negative Crossmatch See Detail Exam: Gen: 72 yo female in NAD, appears fatigued but comfortable HEENT: thin white coat on tongue Neck: supple, free LAD CV: RRR, no murmurs appreciated Resp: few crackles at lung bases Abd: soft, mildly distended, non TTP, bowel sounds present Ext: No edema] Assessment: [72 yo female with uterine CA currently treated with paclitaxel who presented with cough and fever with bilateral infiltrates on CT. Treated for PNA with Levaquin. Urine also grew a low colony count of enterococcus, also sensitive to Levaquin.] Plan: [1. Sepsis secondary to PNA - patient met SIRS and qSOFA criteria for sepsis at time of admission with bilateral infiltrate present on CT - improved 2. PNA - improving - sputum pending - cont Levaquin 3. Anemia - likely r/t chemotherapy - transfuse 1U PRBCs today 4. Uterine CA 5. RA Dispo: likely ready for dc home tomorrow]
[2017-07-28] MEDS: Clotrimazole TROCHE* 10 MG TROCHE PO SCH ×3 (12:55→21:27)
[2017-07-28] MEDS: Polyethylene Glycol 3350* 17 GM PACKET PO SCH (12:57)
[2017-07-28] MEDS: Acetaminophen TAB* 325 MG PO PRN (16:35)
[2017-07-28] MEDS: predniSONE TAB* 1 MG PO SCH (17:24)
[2017-07-28] MEDS ORDERED: Senna TAB PO SCH (21:00)
[2017-07-29] MEDS: Levofloxacin 750 MG IVPREMIX(* 750 MG/150 ML BAG IVPB SCH (05:34)
[2017-07-29] MEDS: Acetaminophen TAB* 325 MG PO PRN (07:36)
[2017-07-29] MEDS: Insulin LISPRO* 1 UNITS UNIT SUBCUT SCH ×3 (07:40→17:24)
[2017-07-29] MEDS ORDERED: Polyethylene Glycol 3350* 17 GM PACKET PO ONE (08:28)
--- NOTE | 2017-07-29 08:34 | PN ---
Progress Note - Progress Note Date of Service: 07/29/17 SOAP: Subjective: []Doing well. Breathing at baseline. Wants to go home. No fevers or chills. Eating well. No BM since Monday. Has not been up to walk. No pain. Active Medications Generic Name Dose Route Start Last Admin Trade Name Freq PRN Reason Stop Dose Admin Acetaminophen 650 mg 07/25/17 05:14 07/29/17 07:36 Tylenol Tab* PO 650 mg Q4H PRN Administration FEVER/PAIN Albuterol 2.5 mg 07/25/17 05:14 Ventolin 2.5 Mg/3 Ml Neb.Antonia* INH Q2H PRN SOB/WHEEZING Clotrimazole 10 mg 07/28/17 13:00 07/28/17 21:27 Mycelex Jasmyn* PO 10 mg QID [facility] Administration Dextrose 12.5 gm 07/25/17 05:33 D50w Syringe 50 Ml* IV PUSH .FOR FS < 60 - SS PRN FS < 60 Heparin Sodium (Porcine) 5 ml 07/25/17 19:00 07/29/17 07:29 Heparin Flush Port (Ivad) FLUSH 5 ml DAILY [facility] Administration Protocol Levofloxacin/Dextrose 750 mg in 150 mls @ 100 mls/hr 07/26/17 06:00 07/29/17 05:34 Levaquin 750 Mg Ivpremix(*) IVPB 100 mls/hr Q24H [facility] Administration Insulin Human Lispro 0 units 07/25/17 07:30 07/29/17 07:40 Humalog* SUBCUT Not Given [facility] Protocol Metoprolol Tartrate 25 mg 07/25/17 09:00 07/28/17 21:27 Lopressor Tab* PO 25 mg BID [facility] Administration Ondansetron HCl 4 mg 07/25/17 05:14 07/26/17 08:28 Zofran Inj* IV 4 mg Q6H PRN Administration NAUSEA Oxycodone/Acetaminophen 1 tab 07/25/17 05:23 Percocet 5/325 Tab* PO Q4H PRN PAIN Polyethylene Glycol/Electrolytes 17 gm 07/28/17 11:00 07/28/17 12:57 Miralax* PO 17 gm DAILY [facility] Administration Polyethylene Glycol/Electrolytes 17 gm 07/29/17 08:28 Miralax* PO 07/29/17 08:29 ONCE ONE Prednisone 5 mg 07/25/17 09:00 07/28/17 09:10 Deltasone Tab* PO 5 mg DAILY [facility] Administration Prednisone 3 mg 07/25/17 18:00 07/28/17 17:24 Deltasone Tab* PO 3 mg QPM [facility] Administration Senna 1 tab 07/28/17 21:00 07/28/17 21:27 Senokot Tab* PO 1 tab BEDTIME [facility] Administration Objective: [] Vital Signs Temp Pulse Resp BP Pulse Ox 98.9 F 77 17 118/51 95 07/29/17 07:52 07/29/17 07:52 07/29/17 07:52 07/29/17 07:52 07/29/17 07:52 Exam: HEENT: thin white coat on tongue, no thrush on soft palate Neck: supple, free LAD CV: RRR, no murmurs appreciated Resp: few crackles at lung bases Abd: soft, mildly distended, non TTP, bowel sounds present Ext: No edema, joint deformity from RA MSK: Tried to walk. Stand with assist, to weak to move otherwise. Assessment: [72 yo female with uterine CA currently treated with paclitaxel who presented with cough and fever with bilateral infiltrates on CT. Treated for PNA with Levaquin. Urine also grew a low colony count of enterococcus, also sensitive to Levaquin.] Plan: [1. Sepsis secondary to PNA - patient met SIRS and qSOFA criteria for sepsis at time of admission with bilateral infiltrate present on CT - improved 2. PNA. Baseline SOB, will plan total of 14 days Levaquin. 3. Anemia. PRBC 07/28, check CBC today 4. Uterine CA. Chemotherapy on hold until follow up in clinc 5. RA, prednisone 6. GI. Miralax x 1 6. Disp. Ready to go but could not walk on exam today. Lives in trailer, no room for walker but has cane. Will have PT see today and if she is able to walk enough, discharge this afternoon.
[2017-07-29] MEDS: Clotrimazole TROCHE* 10 MG TROCHE PO SCH ×3 (09:20→17:22)
[2017-07-29] MEDS: Metoprolol Tartrate TAB* 25 MG PO SCH (09:20)
[2017-07-29] MEDS: predniSONE TAB* 5 MG PO SCH (09:20)
[2017-07-29] MEDS: Polyethylene Glycol 3350* 17 GM PACKET PO SCH (09:21)
[2017-07-29 11:32] LABS: ABS Basophils 0 10^3/ul (0-0.2); ABS Eosinophils 0 10^3/ul (0-0.6); ABS Lymphocytes 1.2 10^3/ul (1.0-4.8); ABS Monocytes 0.4 10^3/ul (0-0.8); ABS Neutrophils 2.7 10^3/ul (1.5-7.7); ABS Nucleated RBC 0 10^3/ul; Eosinophil % 0.7 % (0-6); Hematocrit 29 % (35-47); Hemoglobin 9.4 g/dl (12.0-16.0); Lymphocyte % 27.5 % (25-47); Mean Corpuscular HGB Conc 32 g/dl (31-36); Mean Corpuscular Hemoglobin 28 pg (27-31); Mean Corpuscular Volume 86 fL (80-97); Nucleated Red Blood Cells % 0.6; Red Blood Count 3.36 10^6/ul (4.0-5.4); Red Cell Distribution Width 22 % (10.5-15); White Blood Count 4.3 10^3/ul (3.5-10.8)
[2017-07-29 15:35] VITALS: BP 108/64
[2017-07-29] MEDS: predniSONE TAB* 1 MG PO SCH (17:22)
--- NOTE | 2017-09-04 23:35 | DS ---
DISCHARGE SUMMARY: DATE OF ADMISSION: 07/25/17 DATE OF DISCHARGE: 07/29/17 DISCHARGE DIAGNOSES: 1. Metastatic uterine cancer on Taxol chemotherapy. 2. Community-acquired pneumonia. 3. Urinary tract infection. 4. Constipation. HOSPITAL COURSE: She was admitted on the with cough and fever. CT scan showed bilateral infiltr ates. She was placed on IV Levaquin for community-acquired pneumonia. She did meet SIRS criteria ea rly in admission and had subsequently improved. Breathing has improved dramatically since being on a ntibiotics. She is now with her baseline shortness of breath. Course was complicated by polyuria wi th UA consistent with UTI and growing out enterococcus. Treated concurrently with the Levaquin. She had bouts of progressive anemia and had a unit of packed red blood cells on 07/28. History of rheum atoid arthritis on prednisone, she continued through the admission. She had some limitation of functional status both from her weakness and from peripheral neuropathy, s econdary to chemotherapy. She received physical therapy while in the hospital and was doing well, wa lking with a walker, able to manage challenges of her home environment. DISCHARGE MEDICATIONS: 1. Levofloxacin 500 mg p.o. daily 7 days. 2. Prednisone 8 mg daily. 3. Oxycodone and Tylenol 5/325 one tab q.4 hours p.r.n. 4. Warfarin 7.5 and 5 mg alternating daily. 5. Compazine 10 mg p.o. p.r.n. 6. Ondansetron 4 mg p.o. p.r.n. 7. Lopressor 25 mg b.i.d. FOLLOWUP: She will follow up next week in clinic before resuming chemotherapy. [id number]/[facility] #: [id number]
== END 2017-07-29 19:30 | disposition home or self-care (01) | DRG 871 ==
LOC: ED 21:13 → MED 07-25 10:07
PROVIDERS: ADMIT Internal Medicine; ATTEND Internal Medicine Hematology & Oncology
PROC: 30233N1 Transfusion of Nonautologous Red Blood Cells into Peripheral Vein, Percutaneous Approach (ICD-10-PCS; principal; 2017-07-28)
DX: A41.9 Sepsis, unspecified organism (principal); J18.9 Pneumonia, unspecified organism; N17.9 Acute kidney failure, unspecified; N39.0 Urinary tract infection, site not specified; I10 Essential (primary) hypertension; M54.9 Dorsalgia, unspecified; Z86.711 Personal history of pulmonary embolism; E78.00 Pure hypercholesterolemia, unspecified; R91.1 Solitary pulmonary nodule; M06.9 Rheumatoid arthritis, unspecified; E11.36 Type 2 diabetes mellitus with diabetic cataract; Z90.49 Acquired absence of other specified parts of digestive tract; Z96.651 Presence of right artificial knee joint; Z82.49 Family history of ischemic heart disease and other diseases of the circulatory system; Z83.3 Family history of diabetes mellitus; Z87.891 Personal history of nicotine dependence; Z72.89 Other problems related to lifestyle; E86.0 Dehydration; C54.1 Malignant neoplasm of endometrium; D64.9 Anemia, unspecified; B95.2 Enterococcus as the cause of diseases classified elsewhere
CPT/HCPCS: 36415; 71045; 71275; 80048; 80053; 81003; 81015; 83036; 83605; 83880; 84484; 85025; 85060; 85610; 85730; 86140; 86850; 86900; 86901; 86922; 87040; 87070; 87077; 87086; 87186; 87205; 87502; 87899; 93005; 99232; 99238; 99285; A9270-GY; G8978-GP-CJ; G8979-GP-CH; J1642; J1720; J7512; P9040; Q9967

== ENCOUNTER 2017-08-21 23:07 | Inpatient (IN) | payer MEDICARE ==
[2017-08-22] MEDS ORDERED: NS 0.9% 1000 ML*IV.FLUID IV ONE (00:11)
[2017-08-22] MEDS ORDERED: Acetaminophen TAB* 325 MG PO ONE (00:12)
[2017-08-22] MEDS ORDERED: Levofloxacin 750 MG IVPREMIX(* 750 MG/150 ML BAG IVPB ONE (00:12)
[2017-08-22 01:04] LABS: ABS Basophils 0 10^3/ul (0-0.2); ABS Eosinophils 0 10^3/ul (0-0.6); ABS Lymphocytes 1.2 10^3/ul (1.0-4.8); ABS Monocytes 0.1 10^3/ul (0-0.8); ABS Neutrophils 1.1 10^3/ul (1.5-7.7); ABS Nucleated RBC 0 10^3/ul; Eosinophil % 1.2 % (0-6); Hematocrit 32 % (35-47); Hemoglobin 10.3 g/dl (12.0-16.0); Mean Corpuscular HGB Conc 32 g/dl (31-36); Mean Corpuscular Hemoglobin 27 pg (27-31); Mean Corpuscular Volume 85 fL (80-97); Mean Platelet Volume 7.4 um3 (7.4-10.4); Nucleated Red Blood Cells % 0.5; Platelet Count 197 10^3/ul (150-450); Red Blood Count 3.76 10^6/ul (4.0-5.4); Red Cell Distribution Width 22 % (10.5-15); White Blood Count 2.5 10^3/ul (3.5-10.8)
[2017-08-22 01:14] LABS: INR 1.6 (0.77-1.02)
[2017-08-22 01:23] LABS: EGFR Non-African American 61.2 (>60)
[2017-08-22] MEDS ORDERED: Iodixanol* (CONTRAST) 320 MG/ML 100 ML SDV IV ONE (02:36)
--- NOTE | 2017-08-22 04:06 | ED ---
Crystal Mullins Emily, scribcarmen for Evelina Calhoun MD on 08/22/17 at 0005 . HPI Febrile Illness - HPI Summary HPI Summary: This patient is a 72 year old F presenting to [facility] accompanied by family with a chief complaint of fever that began today. The patient rates the pain 0/10 in severity. Symptoms aggravated by nothing. Symptoms alleviated by nothing. Patient reports SOB and cough. Pt reports that she is currently in chemotherapy (last treatment was ) for cervical cancer. Family reports she was diagnosed with cervical cancer in June 2016. - History of Current Complaint Chief Complaint: EDFever Hx Obtained From: Patient Onset/Duration: Started Hours Ago, Atraumatic, Still Present Timing: Constant Initial Severity: Mild Current Severity: Mild Pain Intensity: 0 Pain Scale Used: 0-10 Numeric Aggravating Factors: Nothing Alleviating Factors: Nothing Associated Signs and Symptoms: Cough, SOB - Additional Pertinent History Primary Care Physician: DUANE - Allergy/Home Medications Allergies/Adverse Reactions: Allergies Allergy/AdvReac Type Severity Reaction Status Date / Time No Known Allergies Allergy Verified 03/31/17 06:27 PMH/Surg Hx/FS Hx/Imm Hx Previously Healthy: No Endocrine/Hematology History: Reports: Hx Diabetes - type 2, Hx Anemia - on iron Cardiovascular History: Reports: Hx Hypercholesterolemia, Hx Hypertension - off of blood pressure meds at this time, Other Cardiovascular Problems/Disorders - HYPERCHOLESTEROLEMIA Respiratory History: Reports: Other Respiratory Problems/Disorders - L lung nodule Denies: Hx Asthma, Hx Chronic Obstructive Pulmonary Disease (COPD) GI History: Reports: Hx Gall Bladder Disease - s/p cholesysectomy History: Reports: Hx Kidney Infection - last year at least 3 kidney infections - none at this time, Other Problems/Disorders - stent placed on kidney 03/31/17 Denies: Hx Renal Disease Musculoskeletal History: Reports: Hx Arthritis - osteoarthritis, rheumatoid arthritis Sensory History: Reports: Hx Cataracts - both eye , not ready for surgery, Hx Contacts or Glasses Denies: Hx Hearing Aid Opthamlomology History: Reports: Hx Cataracts - both eye , not ready for surgery , Hx Contacts or Glasses - Cancer History Cancer Type, Location and Year: cervical 2016 Hx Chemotherapy: Yes Hx Radiation Therapy: Yes - Surgical History Surgery Procedure, Year, and Place: laparoscopic gall bladder removed 2012. right total knee replacement 2012, s/p cysto with attempted stent placement Hx Anesthesia Reactions: No Infectious Disease History: Yes Infectious Disease History: Reports: Hx Shingles - FALL 2016 Denies: Traveled Outside the [place] in Last 30 Days - Family History Known Family History: Positive: Hypertension, Diabetes - Social History Occupation: Retired Lives: With Family Alcohol Use: Rare Substance Use Type: Reports: None Hx Tobacco Use: Yes Smoking Status (MU): Former Smoker Type: Cigarettes Amount Used/How Often: smoked for 40 years approx, 1/2 -1 ppd Have You Smoked in the Last Year: No Review of Systems Positive: Fever Positive: Shortness Of Breath, Cough All Other Systems Reviewed And Are Negative: Yes Physical Exam - Summary Physical Exam Summary: VITAL SIGNS: Reviewed. GENERAL: ~Patient is a well-developed and nourished female who is lying comfortable in the stretcher. Patient is not in any acute respiratory distress. HEAD AND FACE: No signs of trauma. No ecchymosis, hematomas or skull depressions. No sinus tenderness. EYES: PERRLA, EOMI x 2, No injected conjunctiva, no nystagmus. EARS: Hearing grossly intact. Ear canals and tympanic membranes are within normal limits. MOUTH: Oropharynx within normal limits. NECK: Supple, trachea is midline, no adenopathy, no JVD, no carotid bruit, no c- spine tenderness, neck with full ROM. CHEST: Symmetric, no tenderness at palpation LUNGS: Bilateral basal rales, left more than right. No wheezing. CVS: Regular rate and rhythm, S1 and S2 present, no murmurs or gallops appreciated. ABDOMEN: Soft, non-tender. No signs of distention. No rebound no guarding, and no masses palpated. Bowel sounds are normal. EXTREMITIES: FROM in all major joints, no edema, no cyanosis or clubbing. Bilateral hand deformity, consistent with rheumatoid arthritis NEURO: Alert and oriented x 3. No acute neurological deficits. Speech is normal and follows commands. SKIN: Dry and warm Triage Information Reviewed: Yes Vital Signs On Initial Exam: Initial Vitals Temp Pulse Resp BP Pulse Ox 97.7 F 129 20 98/60 98 08/21/17 23:09 08/21/17 23:09 08/21/17 23:09 08/21/17 23:09 08/21/17 23:09 Vital Signs Reviewed: Yes Diagnostics - Vital Signs Vital Signs Temp Pulse Resp BP Pulse Ox 08/21/17 23:22 112 106/68 98 08/21/17 23:21 120 95 08/21/17 23:09 97.7 F 129 20 98/60 98 - Laboratory Result Diagrams: 08/22/17 00:37 08/22/17 00:37 Lab Statement: Any lab studies that have been ordered have been reviewed, and results considered in the medical decision making process. - Radiology CXR Radiology Interpretation Completed By: ED Physician - CXR reveals, per ED physician, right lower lobe infiltrate. - CT CTA Chest CT Interpretation Completed By: Radiologist - CT CTA chest reveals, per radiologist, airspace opacity at the right lung base suggesting aspiration or pneumonia. Follow-up to document complete resolution is recommended. ED physician has reviewed this radiology report. - EKG 0048 Cardiac Rate: Tachycardia EKG Rhythm: Sinus Rhythm - 109 BPM EKG Interpretation: LVH Course/Dx - Course Course Of Treatment: This patient is a 72 year old F [facility] by family with a chief complaint of fever that began today. Pt reports that she is currently in chemotherapy (last treatment was ) for cervical cancer. CXR reveals, per ED physician, right lower lobe infiltrate. CT CTA chest reveals, per radiologist, airspace opacity at the right lung base suggesting aspiration or pneumonia. Consult with Dr. Driver ( hospitalist) at [phone]. He agrees to admit patient for further evaluation. Patient is agreeable with this plan. - Diagnoses Provider Diagnoses: Right lower lobe pneumonia Discharge - Sign-Out/Discharge Documenting (check all that apply): Discharge/Admit/Transfer - Admit to [facility] - Discharge Plan Condition: Stable Disposition: ADMITTED TO [facility] Referrals: No Primary Care Phys,NOPCP [Primary Care Provider] - The documentation as recorded by the Crystal byrd Emily accurately reflects the service I personally performed and the decisions made by me, Evelina Calhoun MD.
[2017-08-22 04:08] LABS: Urine Appearance Cloudy; Urine Blood 2+ (Negative); Urine Color Yellow; Urine Ketones Negative (Negative); Urine Protein 2+(100 mg/dL) (Negative); Urine Specific Gravity 1.036 (1.010-1.030); Urine Urobilinogen Negative (Negative)
[2017-08-22] MEDS ORDERED: Acetaminophen TAB* 325 MG PO PRN (04:59)
[2017-08-22] MEDS ORDERED: Albuterol/Ipratropium NEB.SOL* Albuterol 2.5 MG/Ipratropium 0.5 MG 3 ML INH PRN (04:59)
[2017-08-22] MEDS ORDERED: Albuterol 2.5 MG/3 ML NEB.SOL* (0.083%) INH PRN (04:59)
[2017-08-22] MEDS ORDERED: NS 0.9% 1000 ML* 1,000 ML IV SCH (05:00)
[2017-08-22] MEDS ORDERED: Zosyn per Pharmacy* NOTE FOLLOW UP PRN (05:17)
[2017-08-22] MEDS ORDERED: Zosyn 3.375 GM IV - ED ONCE IVPB ONE ×2 (05:30)
[2017-08-22] MEDS ORDERED: Vancomycin(*) 0 MG in NS 0.9% 250 ML* 250 ML IVPB SCH (06:00)
[2017-08-22] MEDS ORDERED: Vancomycin(*) 1,250 MG in NS 0.9% 250 ML* 250 ML IVPB SCH (06:00)
[2017-08-22] MEDS ORDERED: Vancomycin 1500 MG IV - x ONCE IVPB ONE ×2 (06:00)
[2017-08-22 06:09] LABS: INR 1.57 (0.77-1.02)
[2017-08-22] MEDS ORDERED: Vancomycin per Pharmacy* NOTE FOLLOW UP PRN (07:34)
--- NOTE | 2017-08-22 07:36 | RAD ---
HISTORY: Fever COMPARISONS: July 24, 2017 VIEWS: 1: frontal portable view of the chest at 12:20 AM FINDINGS: LINES AND TUBES: A right-sided chest port is noted from a subclavian approach with the tip overlying the superior vena cava. CARDIOMEDIASTINAL SILHOUETTE: The cardiomediastinal silhouette is normal for portable technique. PLEURA: The costophrenic angles are sharp. No pleural abnormalities are noted. LUNG PARENCHYMA: There is patchy alveolar opacification of the right lung base near the cardiophrenic angle. ABDOMEN: The upper abdomen is clear. There is no subphrenic gas. BONES AND SOFT TISSUES: Degenerative changes are noted IMPRESSION: PATCHY AIRSPACE DISEASE OF THE RIGHT LUNG BASE. RECOMMEND FOLLOW-UP UNTIL RESOLUTION TO EXCLUDE UNDERLYING PULMONARY PARENCHYMAL PATHOLOGY.
--- NOTE | 2017-08-22 07:46 | RAD ---
HISTORY: Fever, pulmonary reason, shortness of breath, cervical cancer COMPARISONS: July 25, 2017 TECHNIQUE: Multiple contiguous axial CT scans of the chest were obtained after the administration of nonionic intravenous contrast, timed to the pulmonary arterial phase of contrast enhancement.. Coronal and sagittal multiplanar reformations are also submitted for review. FINDINGS: NECK AND THYROID: The lower neck and thyroid are unremarkable. CHEST WALL: There is no lower cervical, axillary, or supraclavicular lymphadenopathy by size criteria. A right-sided chest port is noted. HEART AND PERICARDIUM: The heart is unremarkable. AORTA AND PULMONARY VASCULATURE: There is no pulmonary arterial filling defect to suggest pulmonary embolism. There is no linear filling defect within the aorta to suggest aortic dissection. MEDIASTINUM: There is no mediastinal lymphadenopathy by size criteria. FLORENTIN: There is no hilar lymphadenopathy by size criteria. AIRWAY AND ESOPHAGUS: The airway is unremarkable, without endobronchial filling defect. The esophagus is grossly normal. LUNG PARENCHYMA: There are small patchy consolidative changes in the lung bases bilaterally, though pulmonary parenchymal nodules may give a similar appearance. These measure up to 2 cm in size. There is mild emphysematous change. PLEURA: No pleural abnormalities are noted. UPPER ABDOMEN: The upper abdomen is unremarkable. BONES AND SOFT TISSUES: Degenerative changes are noted along the spine. OTHER: None. IMPRESSION: 1. NO PULMONARY ARTERIAL FILLING DEFECT TO SUGGEST PULMONARY EMBOLISM. 2. SMALL PATCHY CONSOLIDATIVE CHANGES IN THE LUNG BASES BILATERALLY, THOUGH PULMONARY NODULES MAY GIVE A SIMILAR APPEARANCE. RECOMMEND FOLLOW-UP UNTIL RESOLUTION, OR CONSIDERATION OF CORRELATION WITH PET/CT IF THERE IS HIGH CLINICAL SUSPICION FOR METASTATIC DISEASE TO THE LUNGS.
[2017-08-22] MEDS: predniSONE TAB* 5 MG PO SCH (08:16)
[2017-08-22] MEDS: Docusate CAP* 100 MG PO SCH ×2 (08:16→20:59)
[2017-08-22] MEDS: Metoprolol Tartrate TAB* 25 MG PO SCH ×2 (08:16→20:58)
[2017-08-22] MEDS ORDERED: Ondansetron ODT TAB* 4 MG PO PRN (09:08)
--- NOTE | 2017-08-22 10:59 | HP ---
ADMITTING HISTORY AND PHYSICAL: DATE OF ADMISSION: 08/22/17 CHIEF COMPLAINT/REASON FOR ADMISSION: Shortness of breath, as well as cough and fever. HISTORY OF PRESENT ILLNESS/HOSPITAL COURSE: The patient is a 72-year-old lady with history of diabetes, hypertension, and uterine/cervical cancer, possibly adenocarcinoma stage IV on palliative chemotherapy on Taxol, who was recently admitted and discharged last month for shortness of breath due to pneumonia and was subsequently discharged. She mentions that when she finished her medications she was at her usual state of health and went back to her baseline until 1 day prior to admission when she started feeling unwell. More specifically, she describes symptoms of shortness of breath and productive cough , although she has not looked at her sputum to further evaluate its quality and color. She also complained of some shortness of breath and fever that was taken at home to be 101 degrees Fahrenheit. Persistence of signs and symptoms during the night led to her presentation in the ED, for which she had a chest x- ray and a CT angio was done despite the fact that the patient is on Coumadin given the patient's INR was subtherapeutic. CT angio reveals bilateral bibasilar infiltrates which is also present on chest x-ray, although more clear on the right on the chest x-ray than it is on the left. PE was ruled out, although there are some changes that was thought to be due to her old PE. In the ED, she was given Tylenol, Levaquin, and normal saline bolus. PAST MEDICAL/SURGICAL HISTORY: 1. Uterine cancer with possible cervical involvement, stage IV, on palliative chemotherapy on Taxol, last dose was . 2. Pulmonary nodules. 3. Diabetes, diet controlled. 4. Hypertension. 5. Rheumatoid arthritis. 6. Osteoarthritis. 7. Pneumothorax. 8. History of PE, on Coumadin. 9. Status post cystoscopy with right ureteral stent placement. 10. Right total knee replacement. 11. Cholecystectomy. MEDICATIONS: Home medications that is remembered by the patient : 1. Coumadin 5 mg p.o. daily. 2. Prednisone 5 mg in the a.m. and 3 mg in the p.m. 3. Metoprolol. Although she does not remember her metoprolol dose, previous data suggests that she takes 25 mg p.o. b.i.d. ALLERGIES: NKDA. FAMILY HISTORY: Mother has had history of CAD. Father and both her parents had history of hypertension. SOCIAL HISTORY: She is a former smoker. She quit about 10 years prior. She smoked about 40 years and denies any history of alcohol abuse. She lives with her family and surrogate decision maker is her son. REVIEW OF SYSTEMS: The patient mentions that she feels unwell, but is now currently feeling better. Fevers as described above, productive sputum as previously described. Denies any recent headaches, dizziness, nausea, vomiting , chest pain, shortness of breath, abdominal pain, diarrhea, constipation, pain and/or increased frequency in urination, myalgias or arthralgias, throat pain or new skin lesions. The rest of the 14-point review of systems are otherwise unremarkable. PHYSICAL EXAMINATION GENERAL APPEARANCE: The patient is awake, obese, not in acute distress. VITAL SIGNS: Shows the most recent vitals signs of records with blood pressure of 124/65, 96 beats per minute, heart rate 97 per minute, 20 per minute respiratory rate and saturating at 97%. HEENT: Normocephalic, atraumatic. PERRLA. Extraocular muscles intact. Negative for icterus. Moist oral mucosa. Negative throat erythema. NECK: Soft and supple with no cervical lymphadenopathy, no JVD. CHEST: Clear to auscultation bilaterally. Good air entry. No wheezes, rales, or rhonchi. HEART: S1, S2 within normal limits. Regular rate and rhythm. No murmurs, rubs , or gallops. ABDOMEN: Soft, nondistended, nontender. Normoactive bowel sounds x4 quadrants. EXTREMITIES: No cyanosis or clubbing, with 1 to 2 + bilateral lower extremity edema. DIAGNOSTIC STUDIES AND LABORATORY DATA: Has been reviewed including imaging and EKG data. Please see chart for details. ASSESSMENT AND PLAN: 1. Healthcare-associated pneumonia. Given she is immunocompromised, although her ANC is still above 1000, we will place the patient on Zosyn and vancomycin, especially when she was just recently discharged for a similar condition last month. We will continue to follow cultures and we will check urine antigen for Legionella, as well as Strep pneumonia. We will place the patient on normal saline at 75 cc an hour for 1 bag and then reevaluate. 2. Uterine/cervical carcinoma stage IV. The patient is followed by Heme-Onc. I have spoken with Dr. Escalera to further clarify above history and hence will defer. 3. Hypertension. Continue metoprolol. We will continue watchful waiting. 4. Diabetes mellitus, diet controlled. We will check HbA1c and fingersticks q.a.c. and h.s., and we will continue consistent carbohydrate diet. 5. Hyponatremia, stable. We will continue to follow. 6. DVT prophylaxis. The patient is on Coumadin, but her INR is currently subtherapeutic. We will continue warfarin and adjust warfarin doses to achieve appropriate INR goal. 7. Disposition. Informed Dr. Escalera of oncologic admission as mentioned and we will ask for a PT evaluation for discharge planning as well as optimization of the patient's activity. [id number]/[facility] #: [id number] LILY
--- NOTE | 2017-08-22 11:09 | HP ---
HISTORY AND PHYSICAL: ADDENDUM: ASSESSMENT AND PLAN: 1. The patient was also found to have UTI, which should be treated with Zosyn provided for HCAP. Will defer with rounding team to likewise follow cultures. [id number]/[facility] #: [id number] MTDD
[2017-08-22] MEDS: Piperacillin/Tazobac ADVAN(*) 3.375 GM in NS 0.9% 100 ML* 100 ML IVPB SCH ×2 (11:38→19:58)
[2017-08-22] MEDS ORDERED: Warfarin TAB(*) 5 MG PO SCH (17:00)
[2017-08-22] MEDS: Vancomycin(*) 1,000 MG in NS 0.9% 250 ML* 250 ML IVPB SCH (17:21)
[2017-08-22] MEDS: Warfarin TAB(*) 6 MG PO SCH (17:21)
[2017-08-22] MEDS: predniSONE TAB* 1 MG PO SCH (18:42)
[2017-08-23] MEDS: Vancomycin(*) 1,000 MG in NS 0.9% 250 ML* 250 ML IVPB SCH ×2 (00:45→07:17)
[2017-08-23] MEDS: Piperacillin/Tazobac ADVAN(*) 3.375 GM in NS 0.9% 100 ML* 100 ML IVPB SCH ×3 (02:37→17:23)
[2017-08-23 05:37] LABS: ABS Basophils 0 10^3/ul (0-0.2); ABS Eosinophils 0 10^3/ul (0-0.6); ABS Lymphocytes 1.2 10^3/ul (1.0-4.8); ABS Monocytes 0.2 10^3/ul (0-0.8); ABS Neutrophils 1.3 10^3/ul (1.5-7.7); ABS Nucleated RBC 0 10^3/ul; Eosinophil % 1.5 % (0-6); Hematocrit 27 % (35-47); Hemoglobin 8.5 g/dl (12.0-16.0); Lymphocyte % 43.8 % (25-47); Mean Corpuscular HGB Conc 32 g/dl (31-36); Mean Corpuscular Hemoglobin 28 pg (27-31); Mean Corpuscular Volume 86 fL (80-97); Mean Platelet Volume 7.4 um3 (7.4-10.4); Nucleated Red Blood Cells % 0.1; Platelet Count 151 10^3/ul (150-450); Red Blood Count 3.11 10^6/ul (4.0-5.4); Red Cell Distribution Width 21 % (10.5-15); White Blood Count 2.7 10^3/ul (3.5-10.8)
[2017-08-23 05:42] LABS: INR 1.62 (0.77-1.02)
[2017-08-23 05:52] LABS: EGFR Non-African American 56.1 (>60)
[2017-08-23 05:53] LABS: Vancomycin Trough 23.4 mcg/mL
[2017-08-23] MEDS ORDERED: Vancomycin Trough Check NOTE FOLLOW UP ONE (07:30)
[2017-08-23] MEDS ORDERED: NS 0.9% 100 ML* 100 ML ONE ×2 (08:40→17:16)
[2017-08-23] MEDS: Metoprolol Tartrate TAB* 25 MG PO SCH ×2 (08:47→20:53)
[2017-08-23] MEDS: predniSONE TAB* 5 MG PO SCH (08:47)
[2017-08-23] MEDS: Docusate CAP* 100 MG PO SCH ×2 (08:52→20:53)
[2017-08-23] MEDS ORDERED: Vancomycin(*) 1,000 MG in NS 0.9% 250 ML* 250 ML IVPB SCH (14:00)
[2017-08-23] MEDS: predniSONE TAB* 1 MG PO SCH (17:23)
[2017-08-23] MEDS: Warfarin TAB(*) 6 MG PO SCH (17:23)
[2017-08-23] MEDS ORDERED: Magnesium Sulfate IV* 3 GM in NS 0.9% 100 ML* 100 ML IVPB ONE (19:30)
[2017-08-24] MEDS: Piperacillin/Tazobac ADVAN(*) 3.375 GM in NS 0.9% 100 ML* 100 ML IVPB SCH ×2 (02:00→10:57)
[2017-08-24 06:20] LABS: INR 1.56 (0.77-1.02)
[2017-08-24 06:27] LABS: EGFR Non-African American 54.2 (>60)
[2017-08-24] MEDS: Docusate CAP* 100 MG PO SCH (08:29)
[2017-08-24] MEDS: predniSONE TAB* 5 MG PO SCH (08:34)
[2017-08-24] MEDS: Metoprolol Tartrate TAB* 25 MG PO SCH (08:34)
[2017-08-24 11:50] VITALS: BP 92/54
--- NOTE | 2017-08-24 12:20 | DS ---
- Discharge Summary Admission Date: 08/22/2017 Discharge Date: 08/24/2017 Discharge Diagnosis: 1. Pneumonia: d/c home on abx. 2. Cervical Lung Cancer: chemo on hold until /p 09/06 appt., CT restaging scans ordered (abd/pelvis as chest completed during admission) 3. RA: cont. low dose steroids 4. Hydronephrosis: stent in place, followed by urology Discharge Medications: Medication Instructions Recorded Confirmed Type predniSONE TAB* [Deltasone 1 MG 3 mg PO QPM 08/10/16 08/22/17 History TAB*] oxyCODONE/Acetamin 5/325 MG* 1 tab PO Q4HR PRN 09/14/16 08/22/17 History Metoprolol Tartrate TAB* 25 mg PO BID 07/25/17 08/22/17 History [Lopressor TAB*] Ondansetron TAB* [Zofran 4 MG Tab*] 4 mg PO Q4H PRN 07/25/17 08/22/17 History Prochlorperazine TAB* [Compazine 10 mg PO Q6H PRN 07/25/17 08/22/17 History Tab*] predniSONE TAB* [Deltasone TAB*] 5 mg PO DAILY 07/25/17 08/22/17 History Acetaminophen TAB* [Tylenol TAB*] 650 mg PO Q6H PRN tab 08/24/17 Rx Amoxicillin/Clavulanate TAB* 875 mg PO BID #22 tab 08/24/17 Rx [Augmentin TAB 875*] Docusate CAP* [Colace Cap*] 100 mg PO BID PRN #30 cap 08/24/17 Rx Warfarin TAB(*) [Coumadin TAB(*)] 6 mg PO 1700 #14 tab 08/24/17 Rx Hospital Course: Please see admission note for full H&P, however briefly, Ms. Kaplan is well known to our service due to her unfortunate diagnosis of metastatic cervical cancer diagnosed just over a year ago. She presented to the ER early in the AM of 08/22 with fever, sweats, and recent progressive cough. She had previously been discharge from the hospital for bilat. pneumonia on 07/29 at which time she was on Levaquin. She resumed her weekly paclitaxel (2 on 1 off) on 08/10 after a week delay and received day 8 on 08/17. A CTA of the chest revealed bilat. infiltrates, R>L, similar to prior admission CT. She was given Zosyn and Vanco and admitted to the hospital. She also had flank pain, however a urine was ultimately negative (colonization growth). On 08/23 she felt markedly better and the Vanco was discontinued. She cont.'s to improve and is feeling "back to normal today". She has been ambulating in the room and denies SOB. She will be discharged home on oral antibiotics with Augmentin for anaerobe coverage ( with question of post-obstructive component) to complete a full 2 weeks of abx. She will f/u with Dr. Moreau on 09/[address] of the abd/pelvis prior as she is due for restaging (s/p C8 with last imaging in May). Plan of care was reviewed with the patient who states good understanding. >40 min with >50% face to face counseling
[2017-08-25] MEDS ORDERED: Vancomycin Trough Check NOTE FOLLOW UP ONE (05:30)
== END 2017-08-24 16:04 | disposition home or self-care (01) | DRG 194 ==
LOC: ED 23:07 → MEDTELE 08-22 04:59
PROVIDERS: ADMIT Student in an Organized Health Care Education/Training Program; ATTEND Internal Medicine Hematology & Oncology
DX: J18.9 Pneumonia, unspecified organism (principal); N13.30 Unspecified hydronephrosis; C78.00 Secondary malignant neoplasm of unspecified lung; E87.1 Hypo-osmolality and hyponatremia; N39.0 Urinary tract infection, site not specified; E78.00 Pure hypercholesterolemia, unspecified; M06.9 Rheumatoid arthritis, unspecified; Z96.0 Presence of urogenital implants; C53.9 Malignant neoplasm of cervix uteri, unspecified; I10 Essential (primary) hypertension; Z96.651 Presence of right artificial knee joint; M19.90 Unspecified osteoarthritis, unspecified site; D89.9 Disorder involving the immune mechanism, unspecified; D64.9 Anemia, unspecified; E11.36 Type 2 diabetes mellitus with diabetic cataract; Z92.3 Personal history of irradiation; Z79.52 Long term (current) use of systemic steroids; Z79.01 Long term (current) use of anticoagulants; Z90.49 Acquired absence of other specified parts of digestive tract; Z86.711 Personal history of pulmonary embolism; Z82.49 Family history of ischemic heart disease and other diseases of the circulatory system; Z92.21 Personal history of antineoplastic chemotherapy; Z87.891 Personal history of nicotine dependence; Z83.3 Family history of diabetes mellitus; Z86.19 Personal history of other infectious and parasitic diseases
CPT/HCPCS: 36415; 71045; 71275; 80048; 80053; 80202; 81003; 81015; 83605; 83735; 83880; 84100; 84484; 85025; 85610; 85730; 86140; 87040; 87086; 87088; 87899; 93005; 99232; 99233; 99239; 99285; A9270-GY; J1642; J2543; J3370; J3475; J7512; Q9967

== ENCOUNTER 2017-09-10 23:02 | Inpatient (IN) | payer MEDICARE ==
[2017-09-11] MEDS ORDERED: NS 0.9% 1000 ML*IV.FLUID IV ONE (00:22)
[2017-09-11] MEDS ORDERED: Hydrocortisone INJ* 100 MG VIAL IV ONE (00:23)
[2017-09-11] MEDS ORDERED: Levofloxacin 750 MG IVPREMIX(* 750 MG/150 ML BAG IVPB ONE (00:26)
[2017-09-11] MEDS ORDERED: Vancomycin per Pharmacy* NOTE FOLLOW UP PRN (00:32)
[2017-09-11] MEDS ORDERED: Vancomycin(*) 1,500 MG in NS 0.9% 250 ML* 250 ML IVPB ONE (00:45)
[2017-09-11] MEDS ORDERED: NS 0.9% 250 ML* 250 ML ONE (00:51)
[2017-09-11 01:03] LABS: INR 4.37 (0.77-1.02)
[2017-09-11 01:17] LABS: EGFR Non-African American 51.2 (>60); Urine Appearance Turbid; Urine Blood 2+ (Negative); Urine Color Yellow; Urine Ketones Negative (Negative); Urine Protein 2+(100 mg/dL) (Negative); Urine Specific Gravity 1.016 (1.010-1.030); Urine Urobilinogen Negative (Negative)
[2017-09-11] MEDS ORDERED: Potassium Chloride LIQUID* 20 MEQ PACKET PO ONE (01:21)
[2017-09-11 01:30] LABS: ABS Basophils 0 10^3/ul (0-0.2); ABS Eosinophils 0 10^3/ul (0-0.6); ABS Lymphocytes 1.4 10^3/ul (1.0-4.8); ABS Monocytes 0.4 10^3/ul (0-0.8); ABS Neutrophils 11.4 10^3/ul (1.5-7.7); ABS Nucleated RBC 0 10^3/ul; Eosinophil % 0.3 % (0-6); Hematocrit 32 % (35-47); Hemoglobin 10.2 g/dl (12.0-16.0); Lymphocyte % 10.5 % (25-47); Mean Corpuscular HGB Conc 32 g/dl (31-36); Mean Corpuscular Hemoglobin 28 pg (27-31); Mean Corpuscular Volume 87 fL (80-97); Mean Platelet Volume 7.4 um3 (7.4-10.4); Nucleated Red Blood Cells % 0; Platelet Count 286 10^3/ul (150-450); Red Cell Distribution Width 21 % (10.5-15); White Blood Count 13.2 10^3/ul (3.5-10.8)
--- NOTE | 2017-09-11 01:42 | ED ---
Crystal Mullins Emily, scribed for Evelina Calhoun MD on 09/11/17 at 0015 . HPI Febrile Illness - HPI Summary HPI Summary: This patient is a 72 year old F presenting to [facility] accompanied by son with a chief complaint of fever that began earlier today. The patient rates the pain 0/ 10 in severity. Symptoms aggravated by nothing. Symptoms alleviated by nothing. Patient reports weakness, vomiting, nausea, and incontinence. The son reports that the patient currently has cervical CA. Per son, patient was recently diagnosed with pneumonia. - History of Current Complaint Chief Complaint: EDFever Time Seen by Provider: 09/10/17 23:44 Hx Obtained From: Patient, Family/Cyber Security Specialist Onset/Duration: Started Hours Ago, Still Present Timing: Constant, Lasting Hours Initial Severity: Mild Current Severity: Mild Pain Intensity: 0 Pain Scale Used: 0-10 Numeric Aggravating Factors: Nothing Alleviating Factors: Nothing Associated Signs and Symptoms: Other: - Positive weakness, vomiting, nausea, and incontinence. - Additional Pertinent History Primary Care Physician: [id number] - Allergy/Home Medications Allergies/Adverse Reactions: Allergies Allergy/AdvReac Type Severity Reaction Status Date / Time amoxicillin [From Augmentin] AdvReac Intermediate Rash Verified 09/10/17 23:35 clavulanic acid AdvReac Intermediate Rash Verified 09/10/17 23:35 [From Augmentin] PMH/Surg Hx/FS Hx/Imm Hx Previously Healthy: No Endocrine/Hematology History: Reports: Hx Diabetes - type 2, diet controlled, Hx Anemia - on iron Cardiovascular History: Reports: Hx Hypercholesterolemia, Hx Hypertension - off of blood pressure meds at this time, Other Cardiovascular Problems/Disorders - HYPERCHOLESTEROLEMIA Respiratory History: Reports: Hx Pulmonary Embolism, Other Respiratory Problems/ Disorders - L lung nodule Denies: Hx Asthma, Hx Chronic Obstructive Pulmonary Disease (COPD) GI History: Reports: Hx Gall Bladder Disease - s/p cholesysectomy History: Reports: Hx Kidney Infection - last year at least 3 kidney infections - none at this time, Other Problems/Disorders - stent placed on kidney 03/31/17 Denies: Hx Renal Disease Musculoskeletal History: Reports: Hx Arthritis - osteoarthritis, rheumatoid arthritis, Other Musculoskeletal History - RA, contracted right hand Sensory History: Reports: Hx Cataracts - both eye , not ready for surgery, Hx Contacts or Glasses Denies: Hx Hearing Aid Opthamlomology History: Reports: Hx Cataracts - both eye , not ready for surgery , Hx Contacts or Glasses - Cancer History Cancer Type, Location and Year: cervical 2017 Hx Chemotherapy: Yes Hx Radiation Therapy: Yes - Surgical History Surgery Procedure, Year, and Place: laparoscopic gall bladder removed 2012. right total knee replacement 2012, s/p cysto with attempted stent placement Hx Anesthesia Reactions: No Infectious Disease History: No Infectious Disease History: Reports: Hx Shingles - FALL 2015 Denies: Traveled Outside the [place] in Last 30 Days - Family History Known Family History: Positive: Hypertension, Diabetes - Social History Occupation: Retired Lives: With Family Alcohol Use: None Hx Substance Use: No Substance Use Type: Reports: None Hx Tobacco Use: Yes Smoking Status (MU): Former Smoker Type: Cigarettes Amount Used/How Often: smoked for 40 years approx, 1/2 -1 ppd Have You Smoked in the Last Year: No Review of Systems Positive: Fever Positive: Vomiting, Nausea Positive: incontinence Positive: Weakness All Other Systems Reviewed And Are Negative: Yes Physical Exam - Summary Physical Exam Summary: VITAL SIGNS: Reviewed. GENERAL: Patient is a well-developed and nourished female who is lying comfortable in the stretcher. Patient is not in any acute respiratory distress. Ill appearing. HEAD AND FACE: No signs of trauma. No ecchymosis, hematomas or skull depressions. No sinus tenderness. EYES: PERRLA, EOMI x 2, No injected conjunctiva, no nystagmus. EARS: Hearing grossly intact. Ear canals and tympanic membranes are within normal limits. MOUTH: Oropharynx within normal limits. NECK: Supple, trachea is midline, no adenopathy, no JVD, no carotid bruit, no c- spine tenderness, neck with full ROM. CHEST: Symmetric, no tenderness at palpation LUNGS: Decreased breath sounds bilaterally. No wheezing or crackles. CVS: Regular rate and rhythm, S1 and S2 present, no murmurs or gallops appreciated. ABDOMEN: Soft, non-tender. No signs of distention. No rebound no guarding, and no masses palpated. Bowel sounds are normal. EXTREMITIES: FROM in all major joints, bilateral lower extremity edema, no cyanosis or clubbing. NEURO: Alert and oriented x 3. No acute neurological deficits. Speech is normal and follows commands. Lethargic, sleepy but arousable SKIN: Dry and warm Triage Information Reviewed: Yes Vital Signs On Initial Exam: Initial Vitals Temp Pulse Resp BP Pulse Ox 98.8 F 98 20 118/85 93 09/10/17 23:10 09/10/17 23:10 09/10/17 23:10 09/10/17 23:10 09/10/17 23:10 Vital Signs Reviewed: Yes Diagnostics - Vital Signs Vital Signs Temp Pulse Resp BP Pulse Ox 09/10/17 23:10 98.8 F 98 20 118/85 93 - Laboratory Result Diagrams: 09/11/17 00:36 09/11/17 00:36 Lab Statement: Any lab studies that have been ordered have been reviewed, and results considered in the medical decision making process. - Radiology CXR Radiology Interpretation Completed By: ED Physician - CXR reveals, per ED physician, right upper lobe pneumonia and left upper lobe infiltrate. Course/Dx - Course Course Of Treatment: This patient is a 72 year old F presenting to [facility] accompanied by son with a chief complaint of fever that began earlier today. Symptoms alleviated by nothing. Patient reports weakness, vomiting, nausea, and incontinence. Bloodwork and UA obtained. In the ED course the patient was given hydrocortisone, levofloxacin, and fluids. CXR reveals, per ED physician, right upper lobe pneumonia and left upper lobe infiltrate. Consult with Dr. Recinos (hospitalist) at 0137. He agrees to admit pt for further evaluation. Pt is agreeable with this plan. - Diagnoses Provider Diagnoses: Sepsis, Pneumonia, UTI (urinary tract infection) - Provider Notifications Discussed Care Of Patient With: Chris Recinos Time Discussed With Above Provider: 01:37 Instructed by Provider To: Other - Consult with Dr. Recinos (hospitalist) at 0137. He agrees to admit pt for further evaluation. Discharge - Sign-Out/Discharge Documenting (check all that apply): Discharge/Admit/Transfer - Admit - Discharge Plan Condition: Stable Disposition: ADMITTED TO [facility] documentation as recorded by the Crystal bryd Emily accurately reflects the service I personally performed and the decisions made by me, Evelina Calhoun MD.
--- NOTE | 2017-09-11 02:01 | ED ---
Crystal Mullins Emily, scribed for Evelina Calhoun MD on 09/11/17 at 0154 . Progress - Progress Note Progress Note: EKG taken at 0138 reveals nml sinus tachycardia at 124 BPM with Q waves in the inferior leads. Course/Dx - Course Course Of Treatment: This patient is a 72 year old F presenting to [facility] accompanied by son with a chief complaint of fever that began earlier today. Symptoms alleviated by nothing. Patient reports weakness, vomiting, nausea, and incontinence. Bloodwork and UA obtained. In the ED course the patient was given hydrocortisone, levofloxacin, and fluids. CXR reveals, per ED physician, right upper lobe pneumonia and left upper lobe infiltrate. Consult with Dr. Recinos (hospitalist) at 0137. He agrees to admit pt for further evaluation. Pt is agreeable with this plan. - Diagnoses Provider Diagnoses: Sepsis, Pneumonia, UTI (urinary tract infection) - Provider Notifications Time Discussed With Above Provider: 01:37 Instructed by Provider To: Other - Consult with Dr. Recinos (hospitalist) at 0137. He agrees to admit pt for further evaluation. Discharge - Sign-Out/Discharge Documenting (check all that apply): Discharge/Admit/Transfer - Discharge Plan Condition: Stable Disposition: ADMITTED TO [facility] Referrals: No Primary Care Phys,NOPCP [Primary Care Provider] - - Billing Disposition and Condition Condition: STABLE Disposition: Admitted to [facility] The documentation as recorded by the fawnibCrystal carmen Emily accurately reflects the service I personally performed and the decisions made by , Evelina Calhoun MD.
[2017-09-11] MEDS ORDERED: Albuterol 2.5 MG/3 ML NEB.SOL* (0.083%) INH PRN (02:57)
[2017-09-11] MEDS ORDERED: Melatonin 3 MG TAB PO PRN (03:01)
--- NOTE | 2017-09-11 03:02 | HP ---
H&P (Free Text) History and Physical: PCP: Maday Tamez MD Oncology: Israel Moreau MD Date/Time: 09/11/2017 0230 CC: AMS/lethargy HPI: Mrs Kaplan is a 72YO female HX uterine CA stg 4, pulmonary embolism, DM2, HTN, RA presenting at the behest of her son who felt she was lethargic today. She reports stable cough and sputum production since discharge 08/24/2017 from an admission for HCAP. She reports chills, but denies fever, sweats, pain, change in bowel/bladder, B/U/F of urine, headache, rash, open wound, or other issues. Please note this is an interval H&P. The original dated 08/22/2017 has been copied at the end. PMedHx, PSurgHx, SocHx, & FamHx: Reviewed & unchanged compared to H&P dated 07/2017 Ambulatory Orders Nursing to reconcile. predniSONE TAB* [Deltasone 1 MG TAB*] 3 mg PO QPM 08/10/16 Metoprolol Tartrate TAB* [Lopressor TAB*] 25 mg PO BID 07/25/17 predniSONE TAB* [Deltasone TAB*] 5 mg PO DAILY 07/25/17 Warfarin TAB(*) [Coumadin TAB(*)] 6 mg PO 1700 #14 tab 08/24/17 Allergies amoxicillin [From Augmentin] Adverse Reaction (Intermediate, Verified 09/10/17 23:35) Rash clavulanic acid [From Augmentin] Adverse Reaction (Intermediate, Verified 23:35) Rash ROS: as above, otherwise reviewed and all were negative vitals: Vital Signs Temp 37.1 C 09/10/17 23:10 Pulse 125 09/11/17 01:47 Resp 15 09/11/17 01:47 BP 97/49 09/11/17 01:47 Pulse Ox 99 09/11/17 01:47 Intake & Output 09/10/17 09/10/17 09/11/17 11:59 23:59 11:59 Intake Total 3190 Output Total 300 Balance 2890 Weight 92.986 kg Intake: IV Fluids 3190 Output: Residual 300 Grant 16 Fr 300 Constitutional: NAD, normally developed, obese black female HEENM: atraumatic; sclera/conjunctiva: anicteric/clear; hearing: clinically intact; oropharynx: clear, mucosa tacky Neck: soft tissue: no nuchal rigidity; thyroid: non-tender Pulmonary: coarse upper airways B, fair aeration, no accessory muscle use CV: TR/RR, normal S1S2, no carotid bruit, no jugular venous distention, 1+ B DP/ PT, no edema Abdominal: soft, non-distended, non-tender, no rebound/guarding/rigidity, normoactive bowel sounds, no hepatosplenomegaly or masses, no costovertebral angle tenderness Musculoskeletal: general: grossly intact, non-tender Integumental: normal appearance and texture of exposed skin Psychiatric orientation: AA&O to PPS affect: fatigued mood: cooperative eye contact: poor content: seemingly reliable, but only brief responses responses: mildly slowed insight: fair Testing: Lab Results 09/11/17 09/11/17 09/11/17 Range/Units 00:36 00:36 00:36 WBC 13.2 H (3.5-10.8) 10^3/ul RBC 3.70 L (4.00-5.40) 10^6/ul Hgb 10.2 L (12.0-16.0) g/dl Hct 32 L (35-47) % MCV 87 (80-97) fL MCH 28 (27-31) pg MCHC 32 (31-36) g/dl RDW 21 H (10.5-15) % Plt Count 286 (150-450) 10^3/ul MPV 7.4 (7.4-10.4) um3 Neut % (Auto) 86.2 H (38-83) % Lymph % (Auto) 10.5 L (25-47) % Platte % (Auto) 2.9 (0-7) % Eos % (Auto) 0.3 (0-6) % Baso % (Auto) 0.1 (0-2) % Absolute Neuts (auto) 11.4 H (1.5-7.7) 10^3/ul Absolute Lymphs (auto) 1.4 (1.0-4.8) 10^3/ul Absolute Monos (auto) 0.4 (0-0.8) 10^3/ul Absolute Eos (auto) 0 (0-0.6) 10^3/ul Absolute Basos (auto) 0 (0-0.2) 10^3/ul Absolute Nucleated RBC 0 10^3/ul Nucleated RBC % 0 INR (Anticoag Therapy) (0.77-1.02) APTT (26.0-36.3) seconds Sodium 136 (135-145) mmol/L Potassium 3.3 L (3.5-5.0) mmol/L Chloride 101 (101-111) mmol/L Carbon Dioxide 23 (22-32) mmol/L Anion Gap 12 H (2-11) mmol/L BUN 17 (6-24) mg/dL Creatinine 1.05 H (0.51-0.95) mg/dL Est GFR ( Amer) 62.0 (>60) Est GFR (Non-Af Amer) 51.2 (>60) BUN/Creatinine Ratio 16.2 (8-20) Glucose 161 H (70-100) mg/dL Lactic Acid (0.5-2.0) mmol/L Calcium 8.8 (8.6-10.3) mg/dL Total Bilirubin 0.90 (0.2-1.0) mg/dL AST 14 (13-39) U/L ALT 23 (7-52) U/L Alkaline Phosphatase 97 (34-104) U/L Troponin I 0.02 (<0.04) ng/mL C-Reactive Protein 234.31 H (<8.01) mg/L Total Protein 6.5 (6.4-8.9) g/dL Albumin 2.9 L (3.2-5.2) g/dL Globulin 3.6 (2-4) g/dL Albumin/Globulin Ratio 0.8 L (1-3) Urine Color Yellow Urine Appearance Turbid Urine pH 5.0 (5-9) Ur Specific [place] 1.016 (1.010-1.030) Urine Protein 2+(100 mg/dl) A (Negative) Urine Ketones Negative (Negative) Urine Blood 2+ A (Negative) Urine Nitrate Negative (Negative) Urine Bilirubin Negative (Negative) Urine Urobilinogen Negative (Negative) Ur Leukocyte Esterase 3+ A (Negative) Urine WBC (Auto) 3+(>20/hpf) A (Absent) Urine RBC (Auto) 3+(>10/hpf) A (Absent) Ur Squamous Epith Cells Present A (Absent) Urine Bacteria Absent (Absent) Urine Glucose Negative (Negative) 09/11/17 09/11/17 Range/Units 00:36 00:37 WBC (3.5-10.8) 10^3/ul RBC (4.00-5.40) 10^6/ul Hgb (12.0-16.0) g/dl Hct (35-47) % MCV (80-97) fL MCH (27-31) pg MCHC (31-36) g/dl RDW (10.5-15) % Plt Count (150-450) 10^3/ul MPV (7.4-10.4) um3 Neut % (Auto) (38-83) % Lymph % (Auto) (25-47) % Platte % (Auto) (0-7) % Eos % (Auto) (0-6) % Baso % (Auto) (0-2) % Absolute Neuts (auto) (1.5-7.7) 10^3/ul Absolute Lymphs (auto) (1.0-4.8) 10^3/ul Absolute Monos (auto) (0-0.8) 10^3/ul Absolute Eos (auto) (0-0.6) 10^3/ul Absolute Basos (auto) (0-0.2) 10^3/ul Absolute Nucleated RBC 10^3/ul Nucleated RBC % INR (Anticoag Therapy) 4.37 H (0.77-1.02) APTT 42.0 H (26.0-36.3) seconds Sodium (135-145) mmol/L Potassium (3.5-5.0) mmol/L Chloride (101-111) mmol/L Carbon Dioxide (22-32) mmol/L Anion Gap (2-11) mmol/L BUN (6-24) mg/dL Creatinine (0.51-0.95) mg/dL Est GFR ( Amer) (>60) Est GFR (Non-Af Amer) (>60) BUN/Creatinine Ratio (8-20) Glucose (70-100) mg/dL Lactic Acid 1.8 (0.5-2.0) mmol/L Calcium (8.6-10.3) mg/dL Total Bilirubin (0.2-1.0) mg/dL AST (13-39) U/L ALT (7-52) U/L Alkaline Phosphatase (34-104) U/L Troponin I (<0.04) ng/mL C-Reactive Protein (<8.01) mg/L Total Protein (6.4-8.9) g/dL Albumin (3.2-5.2) g/dL Globulin (2-4) g/dL Albumin/Globulin Ratio (1-3) Urine Color Urine Appearance Urine pH (5-9) Ur Specific [place]bank (1.010-1.030) Urine Protein (Negative) Urine Ketones (Negative) Urine Blood (Negative) Urine Nitrate (Negative) Urine Bilirubin (Negative) Urine Urobilinogen (Negative) Ur Leukocyte Esterase (Negative) Urine WBC (Auto) (Absent) Urine RBC (Auto) (Absent) Ur Squamous Epith Cells (Absent) Urine Bacteria (Absent) Urine Glucose (Negative) ECG, personally reviewed: sinus tachycardia rate 124, no ischemia CXR, personally reviewed: interval development of a RUL infiltrate Impression: 72F HX stg 4 uterine CA, pulmonary embolism, DM2, HTN, RA presents with sepsis 2nd RUL pneumonia & UTI DIAGNOSIS & PLAN Primary sepsis (tachypnea, tachycardia, leukocytosis) 2nd RUL pneumonia & UTI : IV vancomycin, cefepime, & levofloxacin : IVFs : blood, sputum, & urine CXs : urine Legionella & S pneumo antigens : supportive care warfarin toxicity : hold & re-initiate once therapeutic, daily INRs Secondary uterine CA, stg 4 : continue outpatient oncology follow up DM2, diet controlled : A1c 6.24 Jul 2017 : consistent carb diet : ACHS glucometry & correctional insulin HTN : hold anti-hypertensives for now given soft BPs currently in setting of sepsis Admission Rational: inpatient for IVFs & IV ABX in patient at high risk of morbidity/mortality; inappropriate for outpatient setting DVTp: SCDs, hold warfarin as above Code Status: full HCP: Renan rodríguez History & Physical Patient: HOLA KAPLAN /Age: 12 1945 72 Medical Record#: [id number] Admission Date: 08/22/17 Provider: Lawrence Driver MD ADMITTING HISTORY AND PHYSICAL: DATE OF ADMISSION: 08/22/17 CHIEF COMPLAINT/REASON FOR ADMISSION: Shortness of breath, as well as cough and fever. HISTORY OF PRESENT ILLNESS/HOSPITAL COURSE: The patient is a 72-year-old lady with history of diabetes, hypertension, and uterine/cervical cancer, possibly adenocarcinoma stage IV on palliative chemotherapy on Taxol, who was recently admitted and discharged last month for shortness of breath due to pneumonia and was subsequently discharged. She mentions that when she finished her medications she was at her usual state of health and went back to her baseline until 1 day prior to admission when she started feeling unwell. More specifically, she describes symptoms of shortness of breath and productive cough , although she has not looked at her sputum to further evaluate its quality and color. She also complained of some shortness of breath and fever that was taken at home to be 101 degrees Fahrenheit. Persistence of signs and symptoms during the night led to her presentation in the ED, for which she had a chest x- ray and a CT angio was done despite the fact that the patient is on Coumadin given the patient's INR was subtherapeutic. CT angio reveals bilateral bibasilar infiltrates which is also present on chest x-ray, although more clear on the right on the chest x-ray than it is on the left. PE was ruled out, although there are some changes that was thought to be due to her old PE. In the ED, she was given Tylenol, Levaquin, and normal saline bolus. PAST MEDICAL/SURGICAL HISTORY: 1. Uterine cancer with possible cervical involvement, stage IV, on palliative chemotherapy on Taxol, last dose was . 2. Pulmonary nodules. 3. Diabetes, diet controlled. 4. Hypertension. 5. Rheumatoid arthritis. 6. Osteoarthritis. 7. Pneumothorax. 8. History of PE, on Coumadin. 9. Status post cystoscopy with right ureteral stent placement. 10. Right total knee replacement. 11. Cholecystectomy. MEDICATIONS: Home medications that is remembered by the patient : 1. Coumadin 5 mg p.o. daily. 2. Prednisone 5 mg in the a.m. and 3 mg in the p.m. 3. Metoprolol. Although she does not remember her metoprolol dose, previous data suggests that she takes 25 mg p.o. b.i.d. ALLERGIES: NKDA. FAMILY HISTORY: Mother has had history of CAD. Father and both her parents had history of hypertension. SOCIAL HISTORY: She is a former smoker. She quit about 10 years prior. She smoked about 40 years and denies any history of alcohol abuse. She lives with her family and surrogate decision maker is her son. REVIEW OF SYSTEMS: The patient mentions that she feels unwell, but is now currently feeling better. Fevers as described above, productive sputum as previously described. Denies any recent headaches, dizziness, nausea, vomiting , chest pain, shortness of breath, abdominal pain, diarrhea, constipation, pain and/or increased frequency in urination, myalgias or arthralgias, throat pain or new skin lesions. The rest of the 14-point review of systems are otherwise unremarkable. PHYSICAL EXAMINATION GENERAL APPEARANCE: The patient is awake, obese, not in acute distress. VITAL SIGNS: Shows the most recent vitals signs of records with blood pressure of 124/65, 96 beats per minute, heart rate 97 per minute, 20 per minute respiratory rate and saturating at 97%. HEENT: Normocephalic, atraumatic. PERRLA. Extraocular muscles intact. Negative for icterus. Moist oral mucosa. Negative throat erythema NECK: Soft and supple with no cervical lymphadenopathy, no JVD. CHEST: Clear to auscultation bilaterally. Good air entry. No wheezes, rales, or rhonchi. HEART: S1, S2 within normal limits. Regular rate and rhythm. No murmurs, rubs , or gallops. ABDOMEN: Soft, nondistended, nontender. Normoactive bowel sounds x4 quadrants. EXTREMITIES: No cyanosis or clubbing, with 1 to 2 + bilateral lower extremity edema. DIAGNOSTIC STUDIES AND LABORATORY DATA: Has been reviewed including imaging and EKG data. Please see chart for details. ASSESSMENT AND PLAN: 1. Healthcare-associated pneumonia. Given she is immunocompromised, although her ANC is still above 1000, we will place the patient on Zosyn and vancomycin, especially when she was just recently discharged for a similar condition last month. We will continue to follow cultures and we will check urine antigen for Legionella, as well as Strep pneumonia. We will place the patient on normal saline at 75 cc an hour for 1 bag and then reevaluate. 2. Uterine/cervical carcinoma stage IV. The patient is followed by Heme-Onc. I have spoken with Dr. Escalera to further clarify above history and hence will defer. 3. Hypertension. Continue metoprolol. We will continue watchful waiting. 4. Diabetes mellitus, diet controlled. We will check HbA1c and fingersticks q.a.c. and h.s., and we will continue consistent carbohydrate diet. 5. Hyponatremia, stable. We will continue to follow. 6. DVT prophylaxis. The patient is on Coumadin, but her INR is currently subtherapeutic. We will continue warfarin and adjust warfarin doses to achieve appropriate INR goal. 7. Disposition. Informed Dr. Escalera of oncologic admission as mentioned and we will ask for a PT evaluation for discharge planning as well as optimization of the patient's activity. [id number] #: [id number] <Electronically signed by Lawrence Driver MD> 08/22/171951 Lawrence Driver MD Dictated Date/Time: 08/22/17520 Transcribed Date/Time 08/22/17 0645 Copy to: CC: Lawrence Driver MD ADDENDUM HISTORY AND PHYSICAL: ADDENDUM: ASSESSMENT AND PLAN: 1. The patient was also found to have UTI, which should be treated with Zosyn provided for HCAP. Will defer with rounding team to likewise follow cultures. [id number] #: [id number] <Electronically signed by Lawrence Driver MD>08/24/1720 Dictated by: Lawrence Driver MD Dictated Date/Time:08/22/17534 Transcribed Date/Time 08/22/17 0713 Copy to: Lawrence Driver MD
[2017-09-11] MEDS ORDERED: Ondansetron ODT TAB* 4 MG PO PRN (03:51)
[2017-09-11] MEDS ORDERED: Vancomycin per Pharmacy* NOTE FOLLOW UP SCH (04:00)
[2017-09-11] MEDS: Cefepime 1 GM in Dextrose(*) 1 GM/50 ML BAG IV SCH ×2 (04:31→16:16)
[2017-09-11] MEDS: NS 0.9% 1000 ML* 1,000 ML IV SCH ×2 (04:31→14:19)
[2017-09-11] MEDS: Omeprazole CAP* 20 MG PO SCH (04:42)
[2017-09-11 04:55] LABS: ABS Basophils 0 10^3/ul (0-0.2); ABS Eosinophils 0 10^3/ul (0-0.6); ABS Lymphocytes 0.6 10^3/ul (1.0-4.8); ABS Monocytes 0.4 10^3/ul (0-0.8); ABS Neutrophils 10.9 10^3/ul (1.5-7.7); ABS Nucleated RBC 0 10^3/ul; Eosinophil % 0.1 % (0-6); Hematocrit 27 % (35-47); Hemoglobin 8.5 g/dl (12.0-16.0); Lymphocyte % 5.1 % (25-47); Mean Corpuscular HGB Conc 32 g/dl (31-36); Mean Corpuscular Hemoglobin 28 pg (27-31); Mean Corpuscular Volume 87 fL (80-97); Mean Platelet Volume 6.8 um3 (7.4-10.4); Nucleated Red Blood Cells % 0; Platelet Count 211 10^3/ul (150-450); Red Blood Count 3.08 10^6/ul (4.00-5.40); Red Cell Distribution Width 21 % (10.5-15); White Blood Count 11.9 10^3/ul (3.5-10.8)
[2017-09-11 04:59] LABS: INR 3.99 (0.77-1.02)
[2017-09-11 05:09] LABS: EGFR Non-African American 61.2 (>60)
--- NOTE | 2017-09-11 07:59 | RAD ---
INDICATION: Fever COMPARISON: August 22, 2017 TECHNIQUE: An AP portable view obtained at 0122 hours is submitted. FINDINGS: Bones/Soft Tissues: There are no acute bony findings. There is a right-sided [id number] catheter Cardiomediastinal: The cardiomediastinal silhouette is normal. Lungs: There is interstitial infiltrate in the right upper lobe. There may be a right basilar infiltrate as well. There is minimal atelectasis in left lung base. Pleura: There are no pleural effusions. Other: None IMPRESSION: RIGHT-SIDED INFILTRATES. SUGGEST FOLLOW-UP.
--- NOTE | 2017-09-11 08:36 | PN ---
Subjective Date of Service: 09/11/17 Interval History: Denies pain. Reports "sometimes SOB" No chest pain. Denies nausea, LH, palps Sleepy this AM but interactive Objective Active Medications: Acetaminophen (Tylenol Tab*) 650 mg PO Q6H PRN PRN Reason: FEVER/PAIN Albuterol (Ventolin 2.5 Mg/3 Ml Neb.Antonia*) 2.5 mg INH Q2H PRN PRN Reason: SOB/WHEEZING Levofloxacin/Dextrose (Levaquin 750 Mg Ivpremix(*)) 750 mg in 150 mls @ 100 mls /hr IVPB Q24H [facility] Cefepime HCl (Maxipime 1 Gm In Dextrose Duplex (*)) 1 gm in 50 mls @ 100 mls/ hr IV Q12H [facility] Last Admin: 09/11/17 04:31 Dose: 100 mls/hr Sodium Chloride (Ns 0.9% 1000 Ml*) 1,000 mls @ 125 mls/hr IV PER RATE [facility] Stop: 09/12/17 11:14 Last Admin: 09/11/17 04:31 Dose: 125 mls/hr Vancomycin HCl 1,000 mg/ (Sodium Chloride) 250 mls @ 166.667 mls/hr IVPB Q8H [facility] Insulin Human Lispro (Humalog*) 0 units SUBCUT ACHS [facility]; Protocol Melatonin (Melatonin) 3 mg PO BEDTIME PRN; Protocol PRN Reason: Sleep Omeprazole (Prilosec Cap*) 20 mg PO DAILY@0600 [facility] Last Admin: 09/11/17 04:42 Dose: 20 mg Ondansetron HCl (Zofran Odt Tab*) 4 mg PO Q6H PRN PRN Reason: n/v Pharmacy Consult (Vancomycin Per Pharmacy*) 1 note FOLLOW UP .VANC PER PHARMACY [facility] Pharmacy Profile Note (Vancomycin Trough Check) 1 note FOLLOW UP 0900 ONE Stop: 09/12/17 09:01 Prednisone (Deltasone Tab*) 3 mg PO QPM [facility] Prednisone (Deltasone Tab*) 5 mg PO DAILY [facility] Vital Signs - 8 hr 09/11/17 09/11/17 09/11/17 00:48 01:00 01:17 Temperature Pulse Rate 138 127 132 Respiratory 17 24 28 Rate Blood Pressure 105/56 121/59 (mmHg) O2 Sat by Pulse 96 94 97 Oximetry 06/09/11/17 09/11/17 01:47 02:00 02:17 Temperature Pulse Rate 125 115 121 Respiratory 15 20 27 Rate Blood Pressure 97/49 112/51 (mmHg) O2 Sat by Pulse 99 98 96 Oximetry 09/11/17 09/11/17 09/11/17 02:47 03:00 03:17 Temperature Pulse Rate 111 109 112 Respiratory 29 31 25 Rate Blood Pressure 113/48 120/58 (mmHg) O2 Sat by Pulse 94 95 96 Oximetry 09/11/17 09/11/17 09/11/17 03:37 04:07 05:06 Temperature 98 F 98.7 F 99.9 F Pulse Rate 108 110 110 Respiratory 18 16 20 Rate Blood Pressure 120/58 110/52 (mmHg) O2 Sat by Pulse 98 100 100 Oximetry 09/11/17 09/11/17 07:52 07:54 Temperature 99.5 F Pulse Rate 103 Respiratory 35 18 Rate Blood Pressure 102/46 (mmHg) O2 Sat by Pulse 100 Oximetry Oxygen Devices in Use Now: None Appearance: lying 35 deg, NAD Eyes: No Scleral Icterus, PERRLA Ears/Nose/Mouth/Throat: Clear Oropharnyx, - - dry MM Neck: NL Appearance and Movements; NL JVP, Trachea Midline Respiratory: Symmetrical Chest Expansion and Respiratory Effort, - - rhonchi b/ l posterior bases to 3/4 to apex Cardiovascular: RRR, - - tachy Abdominal: NL Sounds; No Tenderness; No Distention, No Hepatosplenomegaly Lymphatic: No Cervical Adenopathy Extremities: - - 1+ le edema, fingers with b/l contractures Skin: No Rash or Ulcers Neurological: Alert and Oriented x 3 Result Diagrams: 09/11/17 04:40 09/11/17 04:40 Assess/Plan/Problems-Billing Assessment: 72 yo F with metastatic cervical cancer, RA, b/l hydro with history of stents now admitted for 3rd time this month after developing fevers at home with sepsis with HCAP as continued source - Patient Problems (1) Sepsis Comment: continued infiltrate on CXR with SOB, fevers, tachypneia, tachycardia Worsening evidence of inflammation (CRP) and elevated WBC Start cefepime, vanco, and levaquin May need prolonged (14 day) course abx for complete eradication suspect PNA as source but urine with aerococcus in July and August - culture pending now Normal saline at 125cc/hr (2) Cervical cancer Comment: consult oncology (3) Rheumatoid arthritis Comment: cont Prednisone (4) Pulmonary embolism Comment: coumadin (5) DVT prophylaxis Comment: coumadin on hold with elevated INR
[2017-09-11] MEDS: Insulin LISPRO* 1 UNITS UNIT SUBCUT SCH ×4 (08:48→21:08)
[2017-09-11] MEDS: Vancomycin(*) 1,000 MG in NS 0.9% 250 ML* 250 ML IVPB SCH ×2 (08:48→17:34)
[2017-09-11] MEDS: predniSONE TAB* 5 MG PO SCH (08:50)
[2017-09-11] MEDS: predniSONE TAB* 1 MG PO SCH (17:36)
[2017-09-11] MEDS: Acetaminophen TAB* 325 MG PO PRN (21:13)
[2017-09-11] MEDS: Morphine VIAL* 4 MG/ML VIAL (1 ml vial) IV PRN (22:15)
[2017-09-12] MEDS: Levofloxacin 750 MG IVPREMIX(* 750 MG/150 ML BAG IVPB SCH (00:35)
[2017-09-12] MEDS: Cefepime 1 GM in Dextrose(*) 1 GM/50 ML BAG IV SCH ×2 (04:19→15:53)
[2017-09-12] MEDS: Omeprazole CAP* 20 MG PO SCH (05:37)
[2017-09-12 05:55] LABS: ABS Basophils 0 10^3/ul (0-0.2); ABS Eosinophils 0.1 10^3/ul (0-0.6); ABS Lymphocytes 0.7 10^3/ul (1.0-4.8); ABS Monocytes 0.3 10^3/ul (0-0.8); ABS Neutrophils 6.9 10^3/ul (1.5-7.7); ABS Nucleated RBC 0 10^3/ul; Eosinophil % 1.6 % (0-6); Hematocrit 24 % (35-47); Hemoglobin 7.6 g/dl (12.0-16.0); Lymphocyte % 9.2 % (25-47); Mean Corpuscular HGB Conc 32 g/dl (31-36); Mean Corpuscular Hemoglobin 28 pg (27-31); Mean Corpuscular Volume 87 fL (80-97); Mean Platelet Volume 6.6 um3 (7.4-10.4); Nucleated Red Blood Cells % 0.1; Platelet Count 184 10^3/ul (150-450); Red Blood Count 2.72 10^6/ul (4.00-5.40); Red Cell Distribution Width 21 % (10.5-15); White Blood Count 8.1 10^3/ul (3.5-10.8)
[2017-09-12 06:00] LABS: INR 2.35 (0.77-1.02)
[2017-09-12 06:11] LABS: EGFR Non-African American 70.1 (>60)
[2017-09-12] MEDS: Insulin LISPRO* 1 UNITS UNIT SUBCUT SCH ×4 (08:27→20:12)
[2017-09-12] MEDS ORDERED: Vancomycin Trough Check NOTE FOLLOW UP ONE (09:00)
[2017-09-12] MEDS: predniSONE TAB* 5 MG PO SCH (09:06)
--- NOTE | 2017-09-12 09:33 | PN ---
Subjective Date of Service: 09/12/17 Interval History: Pain in right flank with deep breath Feels more awake and alert today +cough denies SOB at rest has not walked Objective Active Medications: Acetaminophen (Tylenol Tab*) 650 mg PO Q6H PRN PRN Reason: FEVER/PAIN Last Admin: 09/11/17 21:13 Dose: 650 mg Albuterol (Ventolin 2.5 Mg/3 Ml Neb.Antonia*) 2.5 mg INH Q2H PRN PRN Reason: SOB/WHEEZING Levofloxacin/Dextrose (Levaquin 750 Mg Ivpremix(*)) 750 mg in 150 mls @ 100 mls /hr IVPB Q24H [facility] Last Admin: 09/12/17 00:35 Dose: 100 mls/hr Cefepime HCl (Maxipime 1 Gm In Dextrose Duplex (*)) 1 gm in 50 mls @ 100 mls/ hr IV Q12H [facility] Last Admin: 09/12/17 04:19 Dose: 100 mls/hr Insulin Human Lispro (Humalog*) 0 units SUBCUT ACHS [facility]; Protocol Last Admin: 09/12/17 08:27 Dose: Not Given Melatonin (Melatonin) 3 mg PO BEDTIME PRN; Protocol PRN Reason: Sleep Morphine Sulfate (Morphine Vial*) 1 mg IV Q2H PRN PRN Reason: PAIN Last Admin: 09/11/17 22:15 Dose: 1 mg Omeprazole (Prilosec Cap*) 20 mg PO DAILY@0600 [facility] Last Admin: 09/12/17 05:37 Dose: 20 mg Ondansetron HCl (Zofran Odt Tab*) 4 mg PO Q6H PRN PRN Reason: n/v Prednisone (Deltasone Tab*) 3 mg PO QPM [facility] Last Admin: 09/11/17 17:36 Dose: 3 mg Prednisone (Deltasone Tab*) 5 mg PO DAILY [facility] Last Admin: 09/12/17 09:06 Dose: 5 mg Vital Signs - 8 hr 09/12/17 09/12/17 09/12/17 03:43 07:34 08:00 Temperature 98.6 F 99.2 F Pulse Rate 88 93 Respiratory 20 24 24 Rate Blood Pressure 109/45 119/57 (mmHg) O2 Sat by Pulse 100 100 Oximetry Oxygen Devices in Use Now: Nasal Cannula - 2L Appearance: sittin gup, interactive, NAD Eyes: No Scleral Icterus, PERRLA Ears/Nose/Mouth/Throat: Clear Oropharnyx, Mucous Membranes Moist Neck: NL Appearance and Movements; NL JVP, Trachea Midline Respiratory: Symmetrical Chest Expansion and Respiratory Effort, - - rales left base, decreased BS in right base Cardiovascular: NL Sounds; No Murmurs; No JVD, RRR Abdominal: NL Sounds; No Tenderness; No Distention, No Hepatosplenomegaly Lymphatic: No Cervical Adenopathy Extremities: - - 3+ LE edema, left UE edema in hand and distal arm Neurological: Alert and Oriented x 3 Result Diagrams: 09/12/17 05:40 09/12/17 05:40 Microbiology and Other Data: Microbiology 09/11/17 00:37 Aerobic Blood Culture - Preliminary Blood Venous No Growth Day 1 Anaerobic Blood Culture - Preliminary Blood MRSA/MSSA (PCR) - Final Mrsa Negative S.aureus Negative 09/11/17 00:37 Aerobic Blood Culture - Preliminary Blood Venous Anaerobic Blood Culture - Preliminary No Growth Day 1 Blood MRSA/MSSA (PCR) - Final Mrsa Negative S.aureus Negative 09/11/17 10:00 Legionella Urinary Antigen - Final Urine Negative Legionella Antigen Streptococcus pneumoniae Ag Screen - Final Negative S. pneumo Antigen Assess/Plan/Problems-Billing Assessment: 72 yo F with metastatic cervical cancer, RA, b/l hydro with history of stents now admitted for 3rd time this month after developing fevers at home with sepsis with HAP as continued source - Patient Problems (1) Sepsis Comment: continued infiltrate on CXR with SOB, fevers, tachypneia, tachycardia Worsening evidence of inflammation (CRP) and elevated WBC c/w cefepime, vanco, and levaquin May need prolonged (14 day) course abx for complete eradication suspect PNA as source but urine with aerococcus in July and August - culture pending now stop IVF 09/12/17 (2) Cervical cancer Comment: receiving palliative therapy (3) Rheumatoid arthritis Comment: cont Prednisone (4) Pulmonary embolism Comment: history of PE coumadin - decreased from 6mg to 5mg while on levaquin. Recheck INR tomorrow (5) Anemia Comment: trend tomorrow No e/o acute blood loss although pt did have elevated INR (6) Edema Comment: Left upper extremity - check US to r/o DVT b/l LEs - stop IVF and elevate (7) DVT prophylaxis Comment: restart coumadin 09/12
[2017-09-12] MEDS: Acetaminophen TAB* 325 MG PO PRN (10:45)
--- NOTE | 2017-09-12 11:03 | RAD ---
HISTORY: Left upper extremity swelling and an oncology patient. COMPARISON: CTA chest August 22, 2017 TECHNIQUE: Multiple transverse and longitudinal ultrasound images were obtained of the veins of the left upper extremity using grayscale, color Doppler, and spectral Doppler imaging with and without compression and with augmentation. FINDINGS: VEINS: The axillary, brachial, basilic and cephalic are compressible throughout their course, with normal flow on color Doppler imaging and normal response to augmentation on spectral Doppler imaging. The subclavian vein exhibits appropriate augmentation and phasicity. The radial and ulnar veins are compressible. Evidence of adequate flow is identified in the left internal jugular and subclavian vein as well. SOFT TISSUES: Grossly normal. IMPRESSION: No sonographic evidence of deep vein thrombosis.
--- NOTE | 2017-09-12 11:10 | PN ---
Progress Note - Progress Note Date of Service: 09/12/17 SOAP: Subjective: [72 yo female with cervical CA admitted with sepsis secondary to PNA and UTI. This is her 3rd admission since the beginning of July for infectious reasons. Chemotherapy has been held since that time. She has had hydronephrosis on the R previously with a R ureteral stent in place that appeared in good position as of 09/04 CT scan. Since chemotherapy has been held, she did resume her methotrexate with her first dose being last week (09/07). She had some additional fever overnight, Tmax 100.8. Yesterday, she developed R sided chest/flank pain that seems to be quite severe this am and worse with deep inspiration. Cough remains about the same.] Objective: [ Laboratory Results - last 24 hr 09/11/17 09/11/17 09/11/17 11:48 16:49 20:58 WBC RBC Hgb Hct MCV MCH MCHC RDW Plt Count MPV Neut % (Auto) Lymph % (Auto) Aiken % (Auto) Eos % (Auto) Baso % (Auto) Absolute Neuts (auto) Absolute Lymphs (auto) Absolute Monos (auto) Absolute Eos (auto) Absolute Basos (auto) Absolute Nucleated RBC Nucleated RBC % INR (Anticoag Therapy) Sodium Potassium Chloride Carbon Dioxide Anion Gap BUN Creatinine Est GFR ( Amer) Est GFR (Non-Af Amer) BUN/Creatinine Ratio Glucose POC Glucose (mg/dL) 161 H 170 H 164 H Calcium 09/12/17 09/12/17 09/12/17 05:40 05:40 05:40 WBC 8.1 RBC 2.72 L Hgb 7.6 L Hct 24 L MCV 87 MCH 28 MCHC 32 RDW 21 H Plt Count 184 MPV 6.6 L Neut % (Auto) 85.1 H Lymph % (Auto) 9.2 L Aiken % (Auto) 3.8 Eos % (Auto) 1.6 Baso % (Auto) 0.3 Absolute Neuts (auto) 6.9 Absolute Lymphs (auto) 0.7 L Absolute Monos (auto) 0.3 Absolute Eos (auto) 0.1 Absolute Basos (auto) 0 Absolute Nucleated RBC 0 Nucleated RBC % 0.1 INR (Anticoag Therapy) 2.35 H Sodium 137 Potassium 3.5 Chloride 108 Carbon Dioxide 23 Anion Gap 6 BUN 11 Creatinine 0.80 Est GFR ( Amer) 84.8 Est GFR (Non-Af Amer) 70.1 BUN/Creatinine Ratio 13.8 Glucose 132 H POC Glucose (mg/dL) Calcium 7.7 L 09/12/17 07:51 WBC RBC Hgb Hct MCV MCH MCHC RDW Plt Count MPV Neut % (Auto) Lymph % (Auto) Aiken % (Auto) Eos % (Auto) Baso % (Auto) Absolute Neuts (auto) Absolute Lymphs (auto) Absolute Monos (auto) Absolute Eos (auto) Absolute Basos (auto) Absolute Nucleated RBC Nucleated RBC % INR (Anticoag Therapy) Sodium Potassium Chloride Carbon Dioxide Anion Gap BUN Creatinine Est GFR ( Amer) Est GFR (Non-Af Amer) BUN/Creatinine Ratio Glucose POC Glucose (mg/dL) 128 H Calcium Vital Signs Temp Pulse Resp BP Pulse Ox 99.2 F 93 24 119/57 100 09/12/17 07:34 09/12/17 07:34 09/12/17 08:00 09/12/17 07:34 09/12/17 07:34 Acetaminophen (Tylenol Tab*) 650 mg PO Q6H PRN PRN Reason: FEVER/PAIN Last Admin: 09/12/17 10:45 Dose: 650 mg Albuterol (Ventolin 2.5 Mg/3 Ml Neb.Antonia*) 2.5 mg INH Q2H PRN PRN Reason: SOB/WHEEZING Levofloxacin/Dextrose (Levaquin 750 Mg Ivpremix(*)) 750 mg in 150 mls @ 100 mls /hr IVPB Q24H ANN Last Admin: 09/12/17 00:35 Dose: 100 mls/hr Cefepime HCl (Maxipime 1 Gm In Dextrose Duplex (*)) 1 gm in 50 mls @ 100 mls/ hr IV Q12H ANN Last Admin: 09/12/17 04:19 Dose: 100 mls/hr Insulin Human Lispro (Humalog*) 0 units SUBCUT [facility]; Protocol Last Admin: 09/12/17 08:27 Dose: Not Given Melatonin (Melatonin) 3 mg PO BEDTIME PRN; Protocol PRN Reason: Sleep Morphine Sulfate (Morphine Vial*) 1 mg IV Q2H PRN PRN Reason: PAIN Last Admin: 09/11/17 22:15 Dose: 1 mg Omeprazole (Prilosec Cap*) 20 mg PO DAILY@0600 [facility] Last Admin: 09/12/17 05:37 Dose: 20 mg Ondansetron HCl (Zofran Odt Tab*) 4 mg PO Q6H PRN PRN Reason: n/v Pharmacy Profile Note (Coumadin Daily Reminder*) 1 note FOLLOW UP 1700 ANN Prednisone (Deltasone Tab*) 3 mg PO QPM [facility] Last Admin: 09/11/17 17:36 Dose: 3 mg Prednisone (Deltasone Tab*) 5 mg PO DAILY [facility] Last Admin: 09/12/17 09:06 Dose: 5 mg Warfarin Sodium (Coumadin Tab(*)) 5 mg PO DAILY@1700 ANN; Protocol Exam: Gen: 72 yo female who appears uncomfortable HEENT: few missing teeth, MMM CV: RRR, no m/r/g Resp: limited exam but no adventious sounds appreciated Abd: soft, R flank pain on palpation Ext: trace edema] Assessment: [72 yo female with metastatic cervical CA admitted with sepsis that appears to be due to PNA and UTI. Currently on Cefepime and Levaquin. New development of R sided chest/flank pain with R ureteral stent in place. Chemotherapy has been held since early July due to recurrent infection, but she did recently resume her MTX for RA.] Plan: [1. Septicemia - 2/4 blood culture bottles now growing gram + cocci, MSSA and MRSA neg on PCR - Klebsiella isolated from the urine - cont Cefepime and Levaquin - repeat blood cultures from periphery and port - she is now c/o R flank/chest pain which may be d/t PNA, but would like to eval R kidney for recurrent hydro and stent failure, US ordered 2. Metastatic cervical CA - previously treated with taxol with has been held since early July due to recurrent infection - plan to continue to hold additional treatment 3. RA - hold MTX - cont prednisone - received stress dose of hydrocortisone at admission 4. DM - generally diet controlled - cont glucose monitoring and coverage with Humalog for hyperglycemia ]
[2017-09-12] MEDS: Morphine VIAL* 4 MG/ML VIAL (1 ml vial) IV PRN (11:21)
[2017-09-12] MEDS: Alteplase (CATHFLO)* 2 MG VIAL IV ONE ×2 (11:23→12:07)
--- NOTE | 2017-09-12 13:06 | RAD ---
INDICATION: Right flank pain in a patient with a history of right ureteral stent COMPARISON: CT of the abdomen and pelvis dated September 04, 2017 TECHNIQUE: Real-time ultrasound examination of the right kidney and urinary bladder including grayscale and Doppler color flow analysis. FINDINGS: The right kidney measures 8.1 x 3.5 x 3.2 cm. There is no significant hydronephrosis. There is cortical thinning similar to that seen on the previous CT examination. The visualized portions of the proximal ureteral stent appear to be appropriately position. IMPRESSION: Appropriately positioned right ureteral stent without signs of urinary obstruction.
[2017-09-12] MEDS ORDERED: Vancomycin per Pharmacy* NOTE FOLLOW UP PRN (16:39)
[2017-09-12] MEDS: Warfarin TAB(*) 5 MG PO SCH (17:46)
[2017-09-12] MEDS: predniSONE TAB* 1 MG PO SCH (17:47)
[2017-09-12] MEDS: Vancomycin(*) 1,000 MG in NS 0.9% 250 ML* 250 ML IVPB SCH (18:30)
[2017-09-13] MEDS: Levofloxacin 750 MG IVPREMIX(* 750 MG/150 ML BAG IVPB SCH (00:31)
[2017-09-13] MEDS: Vancomycin(*) 1,000 MG in NS 0.9% 250 ML* 250 ML IVPB SCH ×2 (02:18→09:14)
[2017-09-13] MEDS: Cefepime 1 GM in Dextrose(*) 1 GM/50 ML BAG IV SCH ×2 (04:20→16:14)
[2017-09-13] MEDS: Omeprazole CAP* 20 MG PO SCH (05:26)
[2017-09-13 05:45] LABS: ABS Basophils 0 10^3/ul (0-0.2); ABS Eosinophils 0.2 10^3/ul (0-0.6); ABS Lymphocytes 0.9 10^3/ul (1.0-4.8); ABS Monocytes 0.4 10^3/ul (0-0.8); ABS Neutrophils 7.2 10^3/ul (1.5-7.7); ABS Nucleated RBC 0 10^3/ul; Eosinophil % 2.1 % (0-6); Hematocrit 24 % (35-47); Hemoglobin 7.7 g/dl (12.0-16.0); Lymphocyte % 10.5 % (25-47); Mean Corpuscular HGB Conc 33 g/dl (31-36); Mean Corpuscular Hemoglobin 28 pg (27-31); Mean Corpuscular Volume 85 fL (80-97); Mean Platelet Volume 6.8 um3 (7.4-10.4); Nucleated Red Blood Cells % 0; Platelet Count 195 10^3/ul (150-450); Red Blood Count 2.76 10^6/ul (4.00-5.40); Red Cell Distribution Width 21 % (10.5-15); White Blood Count 8.7 10^3/ul (3.5-10.8)
[2017-09-13 05:51] LABS: INR 1.82 (0.77-1.02)
[2017-09-13 06:01] LABS: EGFR Non-African American 72.2 (>60)
[2017-09-13] MEDS: Insulin LISPRO* 1 UNITS UNIT SUBCUT SCH ×4 (07:53→20:30)
[2017-09-13] MEDS: Acetaminophen TAB* 325 MG PO PRN ×2 (08:06→20:34)
[2017-09-13] MEDS: predniSONE TAB* 5 MG PO SCH (08:07)
[2017-09-13] MEDS ORDERED: Iodixanol* (CONTRAST) 320 MG/ML 100 ML SDV IV ONE (11:18)
--- NOTE | 2017-09-13 12:33 | RAD ---
INDICATION: Right upper quadrant pain. Flank pain. Metastatic cervical cancer. COMPARISON: CT abdomen and pelvis September 04, 2017; CTA chest August 22, 2017 TECHNIQUE: Axial source images were obtained from the thoracic inlet to the iliac crests following administration of intravenous contrast only. 119 mL of Visipaque 320 was utilized. Coronal and sagittal reconstructed images were acquired. CHEST FINDINGS: Neck/thyroid: The visualized neck to include the thyroid appear normal. Chest wall: There are no acute abnormalities of the bony thorax or chest wall. There is a right-sided [id number] catheter There is no supraclavicular, infraclavicular, or axillary lymphadenopathy. Lungs : There is extensive interstitial and alveolar change with a pneumatocele in the inferior segment of the right upper lobe. There is progressive consolidative change in the right lung base. There are stable interstitial change left lung base. Cardiomediastinal structures: The heart is normal in size. There is a tiny pericardial effusion at the base the heart which appears new. There is no evidence of aortic aneurysm or dissection. The pulmonary vessels appear normal. There is no mediastinal or hilar adenopathy. The esophagus appears normal. Pleura : There is a moderate sized right-sided pleural effusion which is new. ABDOMINAL FINDINGS: Liver: There is a subtle focus of increased attenuation in the posterior right hepatic lobe appearing less conspicuous than noted previously related the timing of the contrast injection. Previously, recommendations have been made for a workup for this indeterminate lesion. There is persistent intra and extra hepatic dilatation which is likely related to postsurgical cystectomy state. The appearance unchanged. Gallbladder: Cholecystectomy. Spleen: The spleen is normal in size. There are no masses. Pancreas: There is no evidence of pancreatic mass or ductal dilatation. There is partial fatty replacement of pancreas. Adrenal glands: There is no evidence of adrenal mass. Kidneys: The left kidney appears normal. There is prompt perfusion and excretion. Incidental note is made of a small mid pole cyst. The right kidney is atrophic. There are renal cortical cysts and presumed parapelvic cyst. There is mild hydronephrosis. There is right ureteral stenting. The appearance is unchanged. Adenopathy: There is enlarged periportal lymph node measuring 1.6 cm and there are several additional mildly prominent pelvic lymph nodes. The appearance unchanged. Fluid collections: There are no free or localized fluid collections. Vessels:There are atherosclerotic changes with ectasia of the infrarenal abdominal aorta with maximum transverse dimension of 2.5 cm, unchanged. The visualized iliac vessels are atherosclerotic vascular change and are tortuous and ectatic GI tract: Limited evaluation without oral contrast. The visualized upper and lower GI tracts are unremarkable. Abdominal soft tissues: The extraperitoneal abdominal soft tissues appear normal.. Osseous structures: There are no acute osseous findings. IMPRESSION: 1. Progressive interstitial and alveolar change in the inferior segment of the right upper lobe. Mild worsening aeration right lower lobe. New right-sided effusion. Suggest serial radiographs for follow-up. 2. Incompletely characterized right hepatic lesion. Please refer to CT dated September 04, 2017. 3. Cholecystectomy with chronic intra- and extra hepatic ductal dilatation. 4. Left para-aortic lymphadenopathy, unchanged. 5. Atrophic right kidney. Right renal stenting. No interval change. 6. Atherosclerotic changes of the aorta with ectasia.
--- NOTE | 2017-09-13 12:51 | PN ---
Progress Note - Progress Note Date of Service: 09/13/17 SOAP: Subjective: [Reports fatigue, still having R sided pain but some improved. No further fevers.] Objective: [ Laboratory Results - last 24 hr 09/12/17 09/12/17 09/13/17 17:16 19:47 05:25 WBC RBC Hgb Hct MCV MCH MCHC RDW Plt Count MPV Neut % (Auto) Lymph % (Auto) Geary % (Auto) Eos % (Auto) Baso % (Auto) Absolute Neuts (auto) Absolute Lymphs (auto) Absolute Monos (auto) Absolute Eos (auto) Absolute Basos (auto) Absolute Nucleated RBC Nucleated RBC % INR (Anticoag Therapy) Sodium 136 Potassium 3.7 Chloride 103 Carbon Dioxide 26 Anion Gap 7 BUN 11 Creatinine 0.78 Est GFR ( Amer) 87.4 Est GFR (Non-Af Amer) 72.2 BUN/Creatinine Ratio 14.1 Glucose 121 H POC Glucose (mg/dL) 159 H 159 H Calcium 8.4 L Total Bilirubin 0.50 Direct Bilirubin 0.10 Indirect Bilirubin 0.4 AST 22 ALT 24 Alkaline Phosphatase 64 Blood Type Antibody Screen Crossmatch 09/13/17 09/13/17 09/13/17 05:25 05:25 05:25 WBC 8.7 RBC 2.76 L Hgb 7.7 L Hct 24 L MCV 85 MCH 28 MCHC 33 RDW 21 H Plt Count 195 MPV 6.8 L Neut % (Auto) 83.0 Lymph % (Auto) 10.5 L Geary % (Auto) 4.2 Eos % (Auto) 2.1 Baso % (Auto) 0.2 Absolute Neuts (auto) 7.2 Absolute Lymphs (auto) 0.9 L Absolute Monos (auto) 0.4 Absolute Eos (auto) 0.2 Absolute Basos (auto) 0 Absolute Nucleated RBC 0 Nucleated RBC % 0 INR (Anticoag Therapy) 1.82 H Sodium Potassium Chloride Carbon Dioxide Anion Gap BUN Creatinine Est GFR ( Amer) Est GFR (Non-Af Amer) BUN/Creatinine Ratio Glucose POC Glucose (mg/dL) Calcium Total Bilirubin Direct Bilirubin Indirect Bilirubin AST ALT Alkaline Phosphatase Blood Type A Positive Antibody Screen Negative Crossmatch See Detail 09/13/17 09/13/17 07:51 11:13 WBC RBC Hgb Hct MCV MCH MCHC RDW Plt Count MPV Neut % (Auto) Lymph % (Auto) Geary % (Auto) Eos % (Auto) Baso % (Auto) Absolute Neuts (auto) Absolute Lymphs (auto) Absolute Monos (auto) Absolute Eos (auto) Absolute Basos (auto) Absolute Nucleated RBC Nucleated RBC % INR (Anticoag Therapy) Sodium Potassium Chloride Carbon Dioxide Anion Gap BUN Creatinine Est GFR ( Amer) Est GFR (Non-Af Amer) BUN/Creatinine Ratio Glucose POC Glucose (mg/dL) 127 H 185 H Calcium Total Bilirubin Direct Bilirubin Indirect Bilirubin AST ALT Alkaline Phosphatase Blood Type Antibody Screen Crossmatch Acetaminophen (Tylenol Tab*) 650 mg PO Q6H PRN PRN Reason: FEVER/PAIN Last Admin: 09/13/17 08:06 Dose: 650 mg Albuterol (Ventolin 2.5 Mg/3 Ml Neb.Antonia*) 2.5 mg INH Q2H PRN PRN Reason: SOB/WHEEZING Heparin Sodium (Porcine) (Heparin Flush Port ([place]ad)) 5 ml FLUSH DAILY [facility]; Protocol Last Admin: 09/12/17 12:53 Dose: 5 ml Cefepime HCl (Maxipime 1 Gm In Dextrose Duplex (*)) 1 gm in 50 mls @ 100 mls/ hr IV Q12H [facility] Last Admin: 09/13/17 04:20 Dose: 100 mls/hr Insulin Human Lispro (Humalog*) 0 units SUBCUT ACHS [facility]; Protocol Last Admin: 09/13/17 07:53 Dose: Not Given Melatonin (Melatonin) 3 mg PO BEDTIME PRN; Protocol PRN Reason: Sleep Morphine Sulfate (Morphine Vial*) 1 mg IV Q2H PRN PRN Reason: PAIN Last Admin: 09/12/17 11:21 Dose: 1 mg Omeprazole (Prilosec Cap*) 20 mg PO DAILY@0600 [facility] Last Admin: 09/13/17 05:26 Dose: 20 mg Ondansetron HCl (Zofran Odt Tab*) 4 mg PO Q6H PRN PRN Reason: n/v Pharmacy Profile Note (Coumadin Daily Reminder*) 1 note FOLLOW UP 1700 [facility] Last Admin: 09/12/17 18:31 Dose: 1 note Prednisone (Deltasone Tab*) 3 mg PO QPM [facility] Last Admin: 09/12/17 17:47 Dose: 3 mg Prednisone (Deltasone Tab*) 5 mg PO DAILY ANN Last Admin: 09/13/17 08:07 Dose: 5 mg Warfarin Sodium (Coumadin Tab(*)) 5 mg PO DAILY@1700 [facility]; Protocol Last Admin: 09/12/17 17:46 Dose: 5 mg Vital Signs: Temp Pulse Resp BP Pulse Ox 98.6 F 101 20 128/52 99 09/13/17 07:23 09/13/17 07:23 09/13/17 08:00 09/13/17 07:23 09/13/17 07:23 Exam: Gen: 72 yo female who appears fatigued but more comfortable today HEENT: few missing teeth, MMM CV: RRR, no m/r/g Resp: limited exam, few crackles at lung base Abd: soft, R distal hemithorax TTP Ext: trace edema] Assessment: [72 yo female with metastatic cervical CA admitted with sepsis that appears to be due to PNA and UTI. New development of R sided chest/flank pain with R ureteral stent in place, renal US from yesterday appeared normal. Chemotherapy has been held since early July due to recurrent infection, but she did recently resume her MTX for RA.] Plan: [1. Sepsis - 2/ blood culture bottles now growing gram + cocci, MSSA and MRSA neg on PCR, now identified to be Staph epi - requested ID consult who suggested bacteremia is likely a contaminant - repeat blood cultures from port and periphery are pending from yesterday - Klebsiella isolated from the urine - cont Cefepime, stop Levaquin and Vanco per ID recommendations - R sided pain is of unclear etiology, may be rib? - added transaminases to today's labs and ordered CT chest and abdomen with contrast to evaluate further 2. Metastatic cervical CA - previously treated with taxol with has been held since early July due to recurrent infection - plan to continue to hold additional treatment 3. RA - hold MTX - cont prednisone - received stress dose of hydrocortisone at admission 4. DM - generally diet controlled - cont glucose monitoring and coverage with Humalog for hyperglycemia ] Assessment: [] Plan: []
--- NOTE | 2017-09-13 15:23 | CONS ---
CONSULTATION REPORT: DATE OF CONSULT: 09/13/17 REQUESTING PROVIDER: CHETAN Talavera. CONSULTING SERVICE: Infectious Disease. REASON FOR CONSULTATION: Pneumonia, urinary tract infection. IMPRESSION: 1. Right upper lung field infiltrate on chest x-ray with cough and a fever as well as new supplemental oxygen requirement. She has a community-acquired pneumonia. She has been improving on broad coverage. 2. Klebsiella urinary tract infection in the setting of a right ureteral stent , question stent involvement. 3. Right upper quadrant flank pain. Renal ultrasound shows no hydronephrosis and stents in appropriate location, question biliary pathology or liver related. She does not have a gallbladder but could be common bile duct or liver. 4. Uterine cancer with cervical and bladder involvement, treated with chemotherapy, radiation, and transurethral resection of the bladder tumor. 5. Coag-negative Staphylococcus in 2/4 blood culture bottles. I think this is a contaminant. They were all drawn at the same time. 6. Rheumatoid arthritis, on chronic low-dose prednisone. RECOMMENDATIONS: 1. Continue cefepime. Stop the vanco and Levaquin. 2. CT chest and abdomen to evaluate further this right flank pain and if unrevealing, we will ask Dr. Jimenez to evaluate her. HISTORY OF PRESENT ILLNESS: This is a 72-year-old woman with uterine cancer with cervical involvement and bladder tumor, admitted with fever and cough. She had been in the hospital early August with pneumonia, treated with broad spectrum antibiotics, some improvement, the infiltrates at that time on the CT were bibasilar. She was discharged home, apparently doing well and then had worsening malaise, so her son brought her to the hospital on the . She was afebrile at that time, spiked a fever later in the night. She has been tachypneic and was found to be hypoxic, so she was started on supplemental oxygen 2 L a minute and satting in the high 90s now. She has had some right- sided lower chest and upper abdominal pain for the last day and a half. She had a renal ultrasound, which was unrevealing. She had a fever overnight. She has been on vancomycin, cefepime, Levaquin. Blood cultures /4 growing coag- negative staph, which was Staph epidermidis. She has no pain other than the right flank pain, which is not worse with eating, is sometimes worse with a deep breath or moving around. She is still coughing up brownish sputum without blood in it. She had an ultrasound of her leg, showed no blood clot. She had a leukocytosis of 13,000 on admission, down to 8000 today. She had a urinalysis that showed blood, leukocyte esterase. Urine cultures growing Klebsiella, which is resistant to ampicillin and intermediate to nitrofurantoin. PAST MEDICAL HISTORY: 1. Uterine cancer with cervical involvement and bladder involvement, treated with chemotherapy, radiation, transurethral resection of bladder tumor, and right ureteral stent placement in March 2017. 2. Rheumatoid arthritis with severe bilateral hand deformities, on chronic corticosteroids. 3. Pulmonary nodules. 4. Diet-controlled diabetes. 5. Hypertension. 6. Osteoarthritis. 7. Pneumothorax. 8. Pulmonary embolus, on Coumadin. 9. Status post right total knee arthroplasty. 10. Status post cholecystectomy in 2012. MEDICATIONS: 1. Tylenol. 2. Albuterol. 3. Insulin. 4. Heparin flush. 5. Cefepime 1 g IV twice a day. 6. Levaquin 750 mg IV daily. 7. Vancomycin 1 g twice a day. 8. Melatonin. 9. Morphine. 10. Omeprazole. 11. Prednisone 8 mg a day. ALLERGIES: AUGMENTIN, unknown reaction. FAMILY HISTORY: Mother had coronary artery disease, father had hypertension. SOCIAL HISTORY: She lives in [place], but here now with her son in the setting of cancer treatment. No injection drugs or travel. REVIEW OF SYSTEMS: All negative to a 14-point review of systems except as noted above in the history of present illness. PHYSICAL EXAM: Vital Signs: Temperature 37, heart rate 100, respiratory rate 20, blood pressure 120/52, oxygen saturation 99% on 2 L. In general, she is awake, appears comfortable. HEENT: There is no conjunctival hemorrhage. Oropharynx without lesions. Neck is supple without mass. Heart has regular rate and rhythm without murmurs, rubs, or gallops. Lungs are clear to auscultation bilaterally without wheezes, rales, or rhonchi. Abdomen: Soft. There is right upper quadrant tenderness to palpation, worse with deep breath. There is no rebound tenderness. There is no mass. Skin: There no rash or splinter hemorrhages. Musculoskeletal: There is no spine tenderness to palpation. There are swan neck deformities of her fingers. LABORATORY DATA: White blood cell count 8, hemoglobin 7.7, MCV 85, platelets 195,000. Creatinine is 0.7. Please see impressions and recommendations outlined above that I have discussed with CHETAN Talavera. Thanks for asking me to see Ms. Kaplan in consultation. [id number]/[facility] #: [id number] MTDD
[2017-09-13] MEDS ORDERED: Vancomycin Trough Check NOTE FOLLOW UP ONE (16:30)
[2017-09-13] MEDS: Warfarin TAB(*) 5 MG PO SCH (17:10)
[2017-09-13] MEDS: predniSONE TAB* 1 MG PO SCH (17:51)
[2017-09-13] MEDS: Nystatin TOP POWDER* 15 GM BTL TOPICAL SCH (20:34)
[2017-09-14] MEDS: Cefepime 1 GM in Dextrose(*) 1 GM/50 ML BAG IV SCH ×2 (03:57→15:52)
[2017-09-14] MEDS: Acetaminophen TAB* 325 MG PO PRN ×2 (05:15→11:07)
[2017-09-14] MEDS: Omeprazole CAP* 20 MG PO SCH (05:15)
[2017-09-14] MEDS: Insulin LISPRO* 1 UNITS UNIT SUBCUT SCH (09:05)
[2017-09-14] MEDS: Nystatin TOP POWDER* 15 GM BTL TOPICAL SCH ×3 (09:05→22:09)
[2017-09-14] MEDS: predniSONE TAB* 5 MG PO SCH (09:06)
[2017-09-14] MEDS: Morphine VIAL* 4 MG/ML VIAL (1 ml vial) IV PRN (09:46)
--- NOTE | 2017-09-14 09:54 | PN ---
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 Here with malaise, right sided pneumonia. Was having right flank pain. Since last night she is having substrnal chest pain, evaluation ongoing. Objective: Vital Signs Temp 37.1 C 09/14/17 09:25 Pulse 117 09/14/17 09:25 Resp 17 09/14/17 09:46 BP 122/58 09/14/17 09:25 Pulse Ox 100 09/14/17 09:25 Intake & Output 09/13/17 09/14/17 09/14/17 18:59 06:59 18:59 Intake Total 1396 695 Output Total 0 Balance 1396 695 Weight 209 lb 227 lb 4.8 oz Intake: IVPB 250 55 ABX - CEFEPIME 55 ABX - VANCOMYCIN 250 Oral 840 640 Packed Cells 306 Output: Urine 0 Other: Estimated Void Small Large # Bowel Movements 0 # Voids 3 1 Gen:awake, no distress HEENT: no thrush Heart:RRR no murmur; R chest port Lungs:Decr BS R base Abd:+BS soft, mild RUQ tenderness Skin: no rash Abnormal Lab Results 09/13/17 09/13/17 09/13/17 05:25 05:25 11:13 Sodium 136 Potassium 3.7 Chloride 103 Carbon Dioxide 26 Anion Gap 7 BUN 11 Creatinine 0.78 Est GFR ( Amer) 87.4 Est GFR (Non-Af Amer) 72.2 BUN/Creatinine Ratio 14.1 Glucose 121 H POC Glucose (mg/dL) 185 H Calcium 8.4 L Total Bilirubin 0.50 Direct Bilirubin 0.10 Indirect Bilirubin 0.4 AST 22 ALT 24 Alkaline Phosphatase 64 Troponin I Blood Type A Positive Antibody Screen Negative Crossmatch See Detail 09/13/17 09/13/17 09/14/17 16:31 20:28 05:50 Sodium Potassium Chloride Carbon Dioxide Anion Gap BUN Creatinine Est GFR ( Amer) Est GFR (Non-Af Amer) BUN/Creatinine Ratio Glucose POC Glucose (mg/dL) 168 H 128 H Calcium Total Bilirubin Direct Bilirubin Indirect Bilirubin AST ALT Alkaline Phosphatase Troponin I 0.03 Blood Type Antibody Screen Crossmatch 09/14/17 07:31 Sodium Potassium Chloride Carbon Dioxide Anion Gap BUN Creatinine Est GFR ( Amer) Est GFR (Non-Af Amer) BUN/Creatinine Ratio Glucose POC Glucose (mg/dL) 147 H Calcium Total Bilirubin Direct Bilirubin Indirect Bilirubin AST ALT Alkaline Phosphatase Troponin I Blood Type Antibody Screen Crossmatch Assessment: 1. chest pain; has right pleural effusion; cardiac evaluation ongoing 2. Pneumonia w pleural effusion 3. Klebsiella UTI 4. adenoCA cervix, receent chemo, XRT, TURBT and right ureteral stent 5. liver lesion Plan: 1. continue cefepime, follow effusion 2. liver US 3. cardiac eval per primary team Discussed with Dr Escalera and Andrés BENTON
--- NOTE | 2017-09-14 10:00 | PN ---
Progress Note - Progress Note Date of Service: 09/14/17 SOAP: Subjective: [Patient developed intermittent chest pain starting last night. EKGs are benign. Reports CP is worse with inspiration and cough. Her prior R sided pain has resolved and she describes this pain as different. Some increased shortness of breath associated with the pain. No personal cardiac history. Still coughing occasionally, not worse. No fevers overnight. CT yesterday shows consolidation of inferior portion of RUL with R sided pleural effusion which is small to moderate in size. No rib lesions. Liver shows an area of increased attenuation which is difficult to define on CT. Liver enzymes from yesterday are WNL. Chronic, mild biliary dilitation with prior cholecystectomy. Objective: [ Laboratory Results - last 24 hr 09/13/17 09/13/17 09/13/17 05:25 05:25 11:13 Sodium 136 Potassium 3.7 Chloride 103 Carbon Dioxide 26 Anion Gap 7 BUN 11 Creatinine 0.78 Est GFR ( Amer) 87.4 Est GFR (Non-Af Amer) 72.2 BUN/Creatinine Ratio 14.1 Glucose 121 H POC Glucose (mg/dL) 185 H Calcium 8.4 L Total Bilirubin 0.50 Direct Bilirubin 0.10 Indirect Bilirubin 0.4 AST 22 ALT 24 Alkaline Phosphatase 64 Troponin I Blood Type A Positive Antibody Screen Negative Crossmatch See Detail 09/13/17 09/13/17 09/14/17 16:31 20:28 05:50 Sodium Potassium Chloride Carbon Dioxide Anion Gap BUN Creatinine Est GFR ( Amer) Est GFR (Non-Af Amer) BUN/Creatinine Ratio Glucose POC Glucose (mg/dL) 168 H 128 H Calcium Total Bilirubin Direct Bilirubin Indirect Bilirubin AST ALT Alkaline Phosphatase Troponin I 0.03 Blood Type Antibody Screen Crossmatch 09/14/17 07:31 Sodium Potassium Chloride Carbon Dioxide Anion Gap BUN Creatinine Est GFR ( Amer) Est GFR (Non-Af Amer) BUN/Creatinine Ratio Glucose POC Glucose (mg/dL) 147 H Calcium Total Bilirubin Direct Bilirubin Indirect Bilirubin AST ALT Alkaline Phosphatase Troponin I Blood Type Antibody Screen Crossmatch Vital Signs Temp Pulse Resp BP Pulse Ox 98.7 F 117 17 122/58 100 09/14/17 09:25 09/14/17 09:25 09/14/17 09:46 09/14/17 09:25 09/14/17 09:25 Acetaminophen (Tylenol Tab*) 650 mg PO Q6H PRN PRN Reason: FEVER/PAIN Last Admin: 09/14/17 05:15 Dose: 650 mg Albuterol (Ventolin 2.5 Mg/3 Ml Neb.Antonia*) 2.5 mg INH Q2H PRN PRN Reason: SOB/WHEEZING Heparin Sodium (Porcine) (Heparin Flush Port (Ivad)) 5 ml FLUSH DAILY [facility]; Protocol Last Admin: 09/14/17 04:42 Dose: 5 ml Cefepime HCl (Maxipime 1 Gm In Dextrose Duplex (*)) 1 gm in 50 mls @ 100 mls/ hr IV Q12H [facility] Last Admin: 09/14/17 03:57 Dose: 100 mls/hr Melatonin (Melatonin) 3 mg PO BEDTIME PRN; Protocol PRN Reason: Sleep Morphine Sulfate (Morphine Vial*) 1 mg IV Q2H PRN PRN Reason: PAIN Last Admin: 09/14/17 09:46 Dose: 1 mg Nystatin (Nystatin Top Powder*) 1 applic TOPICAL BID [facility] Last Admin: 09/14/17 09:05 Dose: 1 applic Omeprazole (Prilosec Cap*) 20 mg PO DAILY@0600 [facility] Last Admin: 09/14/17 05:15 Dose: 20 mg Ondansetron HCl (Zofran Odt Tab*) 4 mg PO Q6H PRN PRN Reason: n/v Pharmacy Profile Note (Coumadin Daily Reminder*) 1 note FOLLOW UP 1700 [facility] Last Admin: 09/13/17 17:10 Dose: 1 note Prednisone (Deltasone Tab*) 3 mg PO QPM [facility] Last Admin: 09/13/17 17:51 Dose: 3 mg Prednisone (Deltasone Tab*) 5 mg PO DAILY [facility] Last Admin: 09/14/17 09:06 Dose: 5 mg Warfarin Sodium (Coumadin Tab(*)) 5 mg PO DAILY@1700 [facility]; Protocol Last Admin: 09/13/17 17:10 Dose: 5 mg Exam: Gen: 72 yo female who appears fatigued and slightly uncomfortable, sitting up in a recliner this am HEENT: few missing teeth, MMM CV: RRR, no m/r/g Chest wall: TTP over sternal region Resp: limited exam, few crackles at lung base Abd: soft, non TTP Ext: 1+ edema] Assessment: [72 yo female with metastatic cervical CA admitted with sepsis that appears to be due to PNA and UTI. Chemotherapy has been held since early July due to recurrent infection, but she did recently resume her MTX for RA.] Plan: [1. Sepsis - PNA and UTI - 2/ blood culture bottles grew Staph epi - requested ID consult who suggested bacteremia is likely a contaminant - repeat blood cultures from port and periphery are negative on repeat - Klebsiella isolated from the urine - cont Cefepime 2. Chest pain - R sided pain has resolved, now has central pain which is somewhat pleuritic and TTP over chest wall - likely musculoskeletal, but will trend troponins 2. Metastatic cervical CA - previously treated with taxol with has been held since early July due to recurrent infection - plan to continue to hold additional treatment 3. RA - hold MTX - cont prednisone - received stress dose of hydrocortisone at admission 4. DM - generally diet controlled - glucose control has been good since admission, stop finger sticks and Humalog coverage ]
[2017-09-14 10:04] LABS: EGFR Non-African American 67.2 (>60)
[2017-09-14] MEDS ORDERED: Furosemide IV* 10 MG/ML 2 ML VIAL (20 MG) IV ONE (10:15)
[2017-09-14 10:18] LABS: ABS Basophils 0 10^3/ul (0-0.2); ABS Eosinophils 0.2 10^3/ul (0-0.6); ABS Lymphocytes 0.9 10^3/ul (1.0-4.8); ABS Monocytes 0.5 10^3/ul (0-0.8); ABS Neutrophils 6.6 10^3/ul (1.5-7.7); ABS Nucleated RBC 0 10^3/ul; Eosinophil % 2.2 % (0-6); Hematocrit 28 % (35-47); Lymphocyte % 10.8 % (25-47); Mean Corpuscular HGB Conc 32 g/dl (31-36); Mean Corpuscular Hemoglobin 27 pg (27-31); Mean Corpuscular Volume 86 fL (80-97); Mean Platelet Volume 7.2 um3 (7.4-10.4); Nucleated Red Blood Cells % 0; Platelet Count 217 10^3/ul (150-450); Red Blood Count 3.29 10^6/ul (4.00-5.40); Red Cell Distribution Width 20 % (10.5-15); White Blood Count 8.2 10^3/ul (3.5-10.8)
--- NOTE | 2017-09-14 17:21 | RAD ---
INDICATION: Right upper quadrant pain. Fever. Lesion on CT COMPARISON: CT September 04, 2017 TECHNIQUE: Longitudinal and transverse scans of the right upper quadrant were obtained. Doppler interrogation of the hepatic and portal venous system was performed. FINDINGS: Liver: The liver is enlarged measuring 23 cm in cephalocaudal dimension. There are no focal masses. Specifically, a lesion in the posterior right hepatic lobe as best seen on the September 04, 2017 CT is not seen. This is a low suspicion finding which may be related to transient hepatic attenuation differences (SPIKE). Further characterization and confirmation of this possible etiology would likely require MR imaging. Vessels: There is normal hepatic and portal venous flow. Bile ducts: There is no intrahepatic dilatation. The common duct is dilated measuring1.5 cm. Gallbladder: Cholecystectomy. Pancreas: The visualized pancreas appears normal Right kidney: Atrophic right kidney with parenchymal thinning and a cyst in the upper pole measuring 1.0 cm. The right kidney measures 9.1 x 3.7 x 3.6 cm. IVC and aorta: The aorta and superior vena cava appear normal. Fluid: There is no ascites. Other: None. IMPRESSION: THE FOCAL HEPATIC FINDINGS ON THE RECENT CT IS NOT CONFIRMED ON SONOGRAPHY AND MAY BE RELATED TO SPIKE. CONSIDER MR IMAGING.
[2017-09-14] MEDS: Warfarin TAB(*) 5 MG PO SCH (17:23)
[2017-09-14] MEDS: predniSONE TAB* 1 MG PO SCH (17:23)
[2017-09-15] MEDS: Cefepime 1 GM in Dextrose(*) 1 GM/50 ML BAG IV SCH ×2 (03:48→15:22)
[2017-09-15] MEDS: Omeprazole CAP* 20 MG PO SCH (04:51)
[2017-09-15] MEDS: Nystatin TOP POWDER* 15 GM BTL TOPICAL SCH ×2 (08:08→20:14)
[2017-09-15] MEDS: predniSONE TAB* 5 MG PO SCH (08:40)
[2017-09-15] MEDS ORDERED: Polyethylene Glycol 3350* 17 GM PACKET PO ONE (09:40)
--- NOTE | 2017-09-15 09:54 | PN ---
Progress Note - Progress Note Date of Service: 09/15/17 SOAP: Subjective: [Patient reports no change in symptoms. Chest pain has mostly resolved. No significant dyspnea. Tmax 100.0 overnight. No abd pain n/v/d. No BM in several days.] Objective: [ Laboratory Results - last 24 hr 09/14/17 09/14/17 09/14/17 09:20 09:20 13:30 WBC 8.2 RBC 3.29 L Hgb 9.0 L Hct 28 L MCV 86 MCH 27 MCHC 32 RDW 20 H Plt Count 217 MPV 7.2 L Neut % (Auto) 80.6 Lymph % (Auto) 10.8 L [place] % (Auto) 6.2 Eos % (Auto) 2.2 Baso % (Auto) 0.2 Absolute Neuts (auto) 6.6 Absolute Lymphs (auto) 0.9 L Absolute Monos (auto) 0.5 Absolute Eos (auto) 0.2 Absolute Basos (auto) 0 Absolute Nucleated RBC 0 Nucleated RBC % 0 Sodium 134 L Potassium 3.5 Chloride 99 L Carbon Dioxide 27 Anion Gap 8 BUN 10 Creatinine 0.83 Est GFR ( Amer) 81.3 Est GFR (Non-Af Amer) 67.2 BUN/Creatinine Ratio 12.0 Glucose 205 H Calcium 8.7 Total Bilirubin 0.70 AST 42 H ALT 51 Alkaline Phosphatase 89 Troponin I 0.04 H* 0.01 Total Protein 6.4 Albumin 2.6 L Globulin 3.8 Albumin/Globulin Ratio 0.7 L Acetaminophen (Tylenol Tab*) 650 mg PO Q6H PRN PRN Reason: FEVER/PAIN Last Admin: 09/14/17 11:07 Dose: 650 mg Albuterol (Ventolin 2.5 Mg/3 Ml Neb.Antonia*) 2.5 mg INH Q2H PRN PRN Reason: SOB/WHEEZING Docusate Sodium (Colace Cap*) 100 mg PO BID ANN Heparin Sodium (Porcine) (Heparin Flush Port (Ivad)) 5 ml FLUSH DAILY [facility]; Protocol Last Admin: 09/15/17 08:09 Dose: 5 ml Cefepime HCl (Maxipime 1 Gm In Dextrose Duplex (*)) 1 gm in 50 mls @ 100 mls/ hr IV Q12H [facility] Last Admin: 09/15/17 03:48 Dose: 100 mls/hr Melatonin (Melatonin) 3 mg PO BEDTIME PRN; Protocol PRN Reason: Sleep Morphine Sulfate (Morphine Vial*) 1 mg IV Q2H PRN PRN Reason: PAIN Last Admin: 09/14/17 09:46 Dose: 1 mg Nystatin (Nystatin Top Powder*) 1 applic TOPICAL BID [facility] Last Admin: 09/15/17 08:08 Dose: 1 applic Omeprazole (Prilosec Cap*) 20 mg PO DAILY@0600 [facility] Last Admin: 09/15/17 04:51 Dose: 20 mg Ondansetron HCl (Zofran Odt Tab*) 4 mg PO Q6H PRN PRN Reason: n/v Pharmacy Profile Note (Coumadin Daily Reminder*) 1 note FOLLOW UP 1700 [facility] Last Admin: 09/14/17 17:24 Dose: 1 note Prednisone (Deltasone Tab*) 3 mg PO QPM [facility] Last Admin: 09/14/17 17:23 Dose: 3 mg Prednisone (Deltasone Tab*) 5 mg PO DAILY [facility] Last Admin: 09/15/17 08:40 Dose: 5 mg Warfarin Sodium (Coumadin Tab(*)) 5 mg PO DAILY@1700 [facility]; Protocol Last Admin: 09/14/17 17:23 Dose: 5 mg Vital Signs: Temp Pulse Resp BP Pulse Ox 98.9 F 108 26 140/61 99 09/15/17 07:43 09/15/17 07:43 09/15/17 07:43 09/15/17 07:43 09/15/17 07:43 Exam: Gen: 72 yo female who appears fatigued but comfortable and in NAD HEENT: few missing teeth, MMM CV: RRR, no m/r/g Chest wall: mild TTP over sternal region Resp: crackles in posterior lung [place], especially RLL Abd: soft, non TTP Ext: trace edema] Assessment: [72 yo female with metastatic cervical CA admitted with sepsis that appears to be due to PNA and UTI. Chemotherapy has been held since early July due to recurrent infection, but she did recently resume her MTX for RA.] Plan: [1. Sepsis - PNA and UTI - / blood culture bottles grew Staph epi - requested ID consult who suggested bacteremia is likely a contaminant - repeat blood cultures from port and periphery are negative on repeat - Klebsiella isolated from the urine - cont Cefepime 2. Chest pain - improved - negative cardiac evaluation, likely MS due to cough or some pleurisy related to PNA 2. Metastatic cervical CA - previously treated with taxol with has been held since early July due to recurrent infection - plan to continue to hold additional treatment 3. RA - hold MTX - cont prednisone - received stress dose of hydrocortisone at admission 4. DM - generally diet controlled - glucose control has been good since admission, stop finger sticks and Humalog coverage] Dispo: she is quite weak after multiple admissions. Discussed home v [facility] which she will discuss with her son, whom she lives with
[2017-09-15] MEDS: Acetaminophen TAB* 325 MG PO PRN (10:12)
[2017-09-15] MEDS: Docusate CAP* 100 MG PO SCH ×2 (10:14→20:13)
[2017-09-15] MEDS: predniSONE TAB* 1 MG PO SCH (16:56)
[2017-09-15] MEDS: Warfarin TAB(*) 5 MG PO SCH (16:56)
[2017-09-15] MEDS ORDERED: Polyethylene Glycol 3350* 17 GM PACKET PO PRN (17:46)
[2017-09-15] MEDS ORDERED: Senna TAB PO PRN (17:47)
[2017-09-16] MEDS: Cefepime 1 GM in Dextrose(*) 1 GM/50 ML BAG IV SCH ×2 (03:49→15:47)
[2017-09-16 05:17] LABS: ABS Basophils 0 10^3/ul (0-0.2); ABS Eosinophils 0.2 10^3/ul (0-0.6); ABS Monocytes 0.4 10^3/ul (0-0.8); ABS Neutrophils 4.1 10^3/ul (1.5-7.7); ABS Nucleated RBC 0 10^3/ul; Eosinophil % 2.9 % (0-6); Hematocrit 29 % (35-47); Hemoglobin 9.3 g/dl (12.0-16.0); Lymphocyte % 18.2 % (25-47); Mean Corpuscular HGB Conc 32 g/dl (31-36); Mean Corpuscular Hemoglobin 28 pg (27-31); Mean Corpuscular Volume 86 fL (80-97); Mean Platelet Volume 7.5 um3 (7.4-10.4); Nucleated Red Blood Cells % 0; Platelet Count 270 10^3/ul (150-450); Red Blood Count 3.36 10^6/ul (4.00-5.40); Red Cell Distribution Width 20 % (10.5-15); White Blood Count 5.8 10^3/ul (3.5-10.8)
[2017-09-16 05:21] LABS: EGFR Non-African American 79.2 (>60)
[2017-09-16] MEDS: Omeprazole CAP* 20 MG PO SCH (06:24)
[2017-09-16] MEDS: predniSONE TAB* 5 MG PO SCH (08:26)
[2017-09-16] MEDS: Docusate CAP* 100 MG PO SCH ×2 (08:26→21:38)
[2017-09-16] MEDS: Acetaminophen TAB* 325 MG PO PRN (08:35)
[2017-09-16] MEDS: Nystatin TOP POWDER* 15 GM BTL TOPICAL SCH ×2 (10:35→23:12)
[2017-09-16] MEDS: predniSONE TAB* 1 MG PO SCH (17:19)
[2017-09-16] MEDS: Warfarin TAB(*) 5 MG PO SCH (17:20)
[2017-09-17] MEDS: Acetaminophen TAB* 325 MG PO PRN ×2 (04:18→17:17)
[2017-09-17] MEDS: Cefepime 1 GM in Dextrose(*) 1 GM/50 ML BAG IV SCH ×2 (04:18→17:06)
[2017-09-17] MEDS: Omeprazole CAP* 20 MG PO SCH (06:44)
[2017-09-17 07:51] LABS: INR 2.39 (0.77-1.02)
[2017-09-17] MEDS: predniSONE TAB* 5 MG PO SCH (08:36)
[2017-09-17] MEDS: Docusate CAP* 100 MG PO SCH ×2 (08:36→22:36)
[2017-09-17] MEDS: Nystatin TOP POWDER* 15 GM BTL TOPICAL SCH ×2 (10:04→22:35)
[2017-09-17] MEDS: predniSONE TAB* 1 MG PO SCH (17:06)
[2017-09-17] MEDS: Warfarin TAB(*) 5 MG PO SCH (17:06)
[2017-09-18] MEDS: Cefepime 1 GM in Dextrose(*) 1 GM/50 ML BAG IV SCH ×2 (03:54→14:43)
[2017-09-18] MEDS: Omeprazole CAP* 20 MG PO SCH (06:11)
[2017-09-18] MEDS: predniSONE TAB* 5 MG PO SCH (09:51)
[2017-09-18] MEDS: Docusate CAP* 100 MG PO SCH ×2 (09:51→22:16)
[2017-09-18] MEDS: Nystatin TOP POWDER* 15 GM BTL TOPICAL SCH ×2 (09:58→22:30)
--- NOTE | 2017-09-18 10:05 | PN ---
Progress Note - Progress Note Date of Service: 09/18/17 SOAP: Subjective: []Better but still very weak. Eating. Breathing is fine. RA is bad, has significant pain. Has been walking some to bathroom. Understands and is ok with disp to NH and re-hab Objective: [] Vital Signs Temp Pulse Resp BP Pulse Ox 98.0 F 98 18 116/59 99 09/18/17 03:25 09/18/17 03:25 09/18/17 03:25 09/18/17 03:25 09/18/17 03:25 Exam: Gen: 72 yo female who appears fatigued but comfortable and in NAD HEENT: few missing teeth, no oral lesions. CV: RRR, no m/r/g Resp: crackles in posterior lung [place], especially RLL Abd: soft, non TTP Ext: trace edema] Neuro: AAO x 3. Assessment: [72 yo female with metastatic cervical CA admitted with sepsis that appears to be due to PNA and UTI. Chemotherapy has been held since early July due to recurrent infection, has been on MTX and prednisone for RA.] Plan: [1. Sepsis - PNA and UTI. ID consult appreciated, will continue Cefepime. Given repeat infections will check QUIGs 2. A-fib on EKG. BP is stable but tachycardic, will re-start Metoprolol 25 mg po bid. She is on anticoagulation. 2. Metastatic cervical CA. CT A is stable and will continue off therapy. Plan follow up CT in clinc as previously scheduled. 3. RA. Joint pain is increased. - MTX 15 mg q and treat this week. - Prednisone to 10 mg po daily. 4. DM - generally diet controlled - glucose control has been good since admission, stop finger sticks and Humalog coverage] 5. Disp. NH with re-hab
[2017-09-18] MEDS: diPHENhydraMINE PO* 25 MG PO PRN (14:16)
[2017-09-18] MEDS: Warfarin TAB(*) 5 MG PO SCH (17:09)
[2017-09-18] MEDS: predniSONE TAB* 1 MG PO SCH (17:09)
[2017-09-18] MEDS: Metoprolol Tartrate TAB* 25 MG PO SCH (22:16)
[2017-09-19] MEDS: diPHENhydraMINE PO* 25 MG PO PRN ×2 (04:14→19:26)
[2017-09-19 04:56] LABS: INR 2.9 (0.77-1.02)
[2017-09-19 05:10] LABS: EGFR Non-African American 72.2 (>60)
[2017-09-19 05:16] LABS: ABS Basophils 0 10^3/ul (0-0.2); ABS Eosinophils 0.2 10^3/ul (0-0.6); ABS Lymphocytes 1.1 10^3/ul (1.0-4.8); ABS Monocytes 0.3 10^3/ul (0-0.8); ABS Neutrophils 2.7 10^3/ul (1.5-7.7); ABS Nucleated RBC 0 10^3/ul; Eosinophil % 3.7 % (0-6); Hematocrit 30 % (35-47); Hemoglobin 9.5 g/dl (12.0-16.0); Lymphocyte % 25.6 % (25-47); Mean Corpuscular HGB Conc 32 g/dl (31-36); Mean Corpuscular Hemoglobin 27 pg (27-31); Mean Corpuscular Volume 86 fL (80-97); Mean Platelet Volume 7.1 um3 (7.4-10.4); Nucleated Red Blood Cells % 0.1; Platelet Count 358 10^3/ul (150-450); Red Blood Count 3.47 10^6/ul (4.00-5.40); Red Cell Distribution Width 20 % (10.5-15); White Blood Count 4.3 10^3/ul (3.5-10.8)
[2017-09-19] MEDS: Omeprazole CAP* 20 MG PO SCH (06:47)
[2017-09-19] MEDS: Levofloxacin 500 MG IVPREMIX(* 500 MG/100 ML BAG IVPB SCH (07:21)
[2017-09-19] MEDS: Docusate CAP* 100 MG PO SCH ×3 (09:49→21:36)
[2017-09-19] MEDS: predniSONE TAB* 10 MG PO SCH (09:49)
[2017-09-19] MEDS: Nystatin TOP POWDER* 15 GM BTL TOPICAL SCH ×2 (09:50→21:37)
[2017-09-19] MEDS: Metoprolol Tartrate TAB* 25 MG PO SCH ×2 (09:50→21:36)
--- NOTE | 2017-09-19 15:22 | PN ---
Progress Note - Progress Note Date of Service: 09/19/17 SOAP: Subjective: []Seen and examined this AM at approx. 10:30. Feeling well overall, but still very weak. No new symptoms or concerns today. Pain reasonably controlled. Medications: Acetaminophen (Tylenol Tab*) 650 mg PO Q6H PRN PRN Reason: FEVER/PAIN Last Admin: 09/17/17 17:17 Dose: 650 mg Albuterol (Ventolin 2.5 Mg/3 Ml Neb.Antonia*) 2.5 mg INH Q2H PRN PRN Reason: SOB/WHEEZING Diphenhydramine HCl (Benadryl Po*) 25 mg PO Q12H PRN PRN Reason: ITCHING Last Admin: 09/19/17 04:14 Dose: 25 mg Docusate Sodium (Colace Cap*) 100 mg PO BID [facility] Last Admin: 09/19/17 09:52 Dose: Not Given Levofloxacin/Dextrose (Levaquin 500 Mg Ivpremix(*)) 500 mg in 100 mls @ 100 mls /hr IVPB Q24H [facility] Last Admin: 09/19/17 07:21 Dose: 100 mls/hr Melatonin (Melatonin) 3 mg PO BEDTIME PRN; Protocol PRN Reason: Sleep Metoprolol Tartrate (Lopressor Tab*) 25 mg PO BID [facility] Last Admin: 09/19/17 09:50 Dose: 25 mg Nystatin (Nystatin Top Powder*) 1 applic TOPICAL BID [facility] Last Admin: 09/19/17 09:50 Dose: 1 applic Omeprazole (Prilosec Cap*) 20 mg PO DAILY@0600 [facility] Last Admin: 09/19/17 06:47 Dose: 20 mg Ondansetron HCl (Zofran Odt Tab*) 4 mg PO Q6H PRN PRN Reason: n/v Pharmacy Profile Note (Coumadin Daily Reminder*) 1 note FOLLOW UP 1700 [facility] Last Admin: 09/18/17 17:10 Dose: 1 note Polyethylene Glycol/Electrolytes (Miralax*) 17 gm PO BID PRN PRN Reason: CONSTIPATION Last Admin: 09/15/17 17:56 Dose: 17 gm Prednisone (Deltasone Tab*) 10 mg PO DAILY [facility] Last Admin: 09/19/17 09:49 Dose: 10 mg Senna (Senokot Tab*) 1 tab PO BEDTIME PRN PRN Reason: CONSTIPATION Warfarin Sodium (Coumadin Tab(*)) 5 mg PO DAILY@1700 [facility]; Protocol Last Admin: 09/18/17 17:09 Dose: 5 mg Objective: [] Vital Signs Temp Pulse Resp BP Pulse Ox 97.9 F 87 16 117/55 98 09/19/17 11:45 09/19/17 11:45 09/19/17 11:45 09/19/17 11:45 09/19/17 11:45 A&Ox3, EOMI, communicating clearly and involved in plan of care HRR, S1S2 LS clear bilat. without wheeze or rhonchi +PP=bilat., +peripheral edema Laboratory Results - last 24 hr 09/18/17 09/19/17 09/19/17 09:56 04:30 04:30 WBC 4.3 RBC 3.47 L Hgb 9.5 L Hct 30 L MCV 86 MCH 27 MCHC 32 RDW 20 H Plt Count 358 MPV 7.1 L Neut % (Auto) 63.0 Lymph % (Auto) 25.6 [place] % (Auto) 7.4 H Eos % (Auto) 3.7 Baso % (Auto) 0.3 Absolute Neuts (auto) 2.7 Absolute Lymphs (auto) 1.1 Absolute Monos (auto) 0.3 Absolute Eos (auto) 0.2 Absolute Basos (auto) 0 Absolute Nucleated RBC 0 Nucleated RBC % 0.1 INR (Anticoag Therapy) Sodium 134 L Potassium 3.9 Chloride 99 L Carbon Dioxide 27 Anion Gap 8 BUN 21 Creatinine 0.78 Est GFR ( Amer) 87.4 Est GFR (Non-Af Amer) 72.2 BUN/Creatinine Ratio 26.9 H Glucose 108 H Calcium 8.8 IgG 939 IgA 264 IgM 88 09/19/17 04:30 WBC RBC Hgb Hct MCV MCH MCHC RDW Plt Count MPV Neut % (Auto) Lymph % (Auto) [place] % (Auto) Eos % (Auto) Baso % (Auto) Absolute Neuts (auto) Absolute Lymphs (auto) Absolute Monos (auto) Absolute Eos (auto) Absolute Basos (auto) Absolute Nucleated RBC Nucleated RBC % INR (Anticoag Therapy) 2.90 H Sodium Potassium Chloride Carbon Dioxide Anion Gap BUN Creatinine Est GFR ( Amer) Est GFR (Non-Af Amer) BUN/Creatinine Ratio Glucose Calcium IgG IgA IgM Assessment: []72 yo female admitted with sepsis secondary to PNA and UTI. Urine grew K.Pneumoniae, sensitive to Levaquin. Plan: []1. Sepsis: Cont. Levaquin, initial consideration for full 2 week course of abx., however at this time with no growth on sputum and overall improvement I suspect we can transition to PO @ Day 10 2. RA: cont. steroids and resume Methotrexate 15 mg PO qThursday Disposition: will require rehabilitation due to deconditioning, bed offer @ [facility] for 09/21
[2017-09-19] MEDS: Warfarin TAB(*) 5 MG PO SCH (18:58)
[2017-09-19] MEDS: Acetaminophen TAB* 325 MG PO PRN (19:26)
[2017-09-20] MEDS: Omeprazole CAP* 20 MG PO SCH (05:43)
[2017-09-20] MEDS: Levofloxacin 500 MG IVPREMIX(* 500 MG/100 ML BAG IVPB SCH (05:43)
[2017-09-20] MEDS: predniSONE TAB* 10 MG PO SCH (08:33)
[2017-09-20] MEDS: Metoprolol Tartrate TAB* 25 MG PO SCH ×2 (08:33→19:55)
[2017-09-20] MEDS: Docusate CAP* 100 MG PO SCH ×2 (08:33→19:55)
[2017-09-20] MEDS: Nystatin TOP POWDER* 15 GM BTL TOPICAL SCH ×2 (08:35→19:55)
[2017-09-20] MEDS: Acetaminophen TAB* 325 MG PO PRN ×2 (08:39→17:20)
--- NOTE | 2017-09-20 10:06 | PN ---
Progress Note - Progress Note Date of Service: 09/20/17 SOAP: Subjective: [] Overall doing well. Feels better. Eating well. No fevers. Stating to work with PT. Joints still stiff. Active Medications Generic Name Dose Route Start Last Admin Trade Name Freq PRN Reason Stop Dose Admin Acetaminophen 650 mg 09/11/17 02:57 09/20/17 08:39 Tylenol Tab* PO 650 mg Q6H PRN Administration FEVER/PAIN Albuterol 2.5 mg 09/11/17 02:57 Ventolin 2.5 Mg/3 Ml Neb.Antonia* INH Q2H PRN SOB/WHEEZING Diphenhydramine HCl 25 mg 09/18/17 14:04 09/19/17 19:26 Benadryl Po* PO 25 mg Q12H PRN Administration ITCHING Docusate Sodium 100 mg 09/15/17 10:00 09/20/17 08:33 Colace Cap* PO Not Given BID ANN Heparin Sodium (Porcine) 5 ml 09/20/17 10:00 Heparin Flush Port (Ivad) FLUSH DAILY [facility] Protocol Levofloxacin/Dextrose 500 mg in 100 mls @ 100 mls/hr 09/19/17 06:00 09/20/17 05:43 Levaquin 500 Mg Ivpremix(*) IVPB 100 mls/hr Q24H [facility] Administration Melatonin 3 mg 09/11/17 03:01 Melatonin PO BEDTIME PRN Sleep Protocol Methotrexate 15 mg 09/21/17 10:01 Methotrexate Tab* PO 09/21/17 10:02 ONCE ONE Metoprolol Tartrate 25 mg 09/18/17 21:00 09/20/17 08:33 Lopressor Tab* PO 25 mg BID ANN Administration Nystatin 1 applic 09/13/17 21:00 09/20/17 08:35 Nystatin Top Powder* TOPICAL 1 applic BID [facility] Administration Omeprazole 20 mg 09/11/17 06:00 09/20/17 05:43 Prilosec Cap* PO 20 mg DAILY@0600 [facility] Administration Ondansetron HCl 4 mg 09/11/17 03:51 Zofran Odt Tab* PO Q6H PRN n/v Pharmacy Profile Note 1 note 09/12/17 17:00 09/19/17 18:58 Coumadin Daily Reminder* FOLLOW UP 1 note 1700 [facility] Administration Polyethylene Glycol/Electrolytes 17 gm 09/15/17 17:46 09/15/17 17:56 Miralax* PO 17 gm BID PRN Administration CONSTIPATION Prednisone 10 mg 09/19/17 09:00 09/20/17 08:33 Deltasone Tab* PO 10 mg DAILY [facility] Administration Senna 1 tab 09/15/17 17:47 Senokot Tab* PO BEDTIME PRN CONSTIPATION Warfarin Sodium 5 mg 09/19/17 17:00 09/19/17 18:58 Coumadin Tab(*) PO 5 mg 1700 ANN Administration Objective: [] Vital Signs Temp Pulse Resp BP Pulse Ox 97.4 F 84 14 132/58 98 09/20/17 07:30 09/20/17 07:30 09/20/17 08:20 09/20/17 07:30 09/20/17 07:30 HEENT - no oral lesions, thrush. No JVD CTA RRR S1S2 +BS NT ND Ext with RA, joint deformity. No edema AAO x 3 Assessment: []72 yo female admitted with sepsis secondary to PNA and UTI. Urine grew K.Pneumoniae, sensitive to Levaquin. Plan: []1. Sepsis. Levaquin, 2 week course of antibiotics. Can transition to PO on discharge tomorrow. 2. RA. Predisone 10 mg po daily and Methotrexate 15 mg PO tomorrow and weekly on discharge. 3. Disposition: will require rehabilitation due to deconditioning, bed offer @ [facility] for 09/21 4. Rash likely drug allergy, improving and allergies documented. 5. Coumadin. Check INR tomorrow
[2017-09-20] MEDS: Warfarin TAB(*) 5 MG PO SCH (17:20)
[2017-09-20] MEDS: diPHENhydraMINE PO* 25 MG PO PRN (23:17)
[2017-09-21] MEDS: Levofloxacin 500 MG IVPREMIX(* 500 MG/100 ML BAG IVPB SCH (05:41)
[2017-09-21] MEDS: Omeprazole CAP* 20 MG PO SCH (05:41)
[2017-09-21 06:08] LABS: Hematocrit 30 % (35-47); Hemoglobin 9.8 g/dl (12.0-16.0); Mean Corpuscular HGB Conc 32 g/dl (31-36); Mean Corpuscular Hemoglobin 28 pg (27-31); Mean Corpuscular Volume 86 fL (80-97); Platelet Count 376 10^3/ul (150-450); Red Blood Count 3.54 10^6/ul (4.00-5.40); Red Cell Distribution Width 20 % (10.5-15); White Blood Count 4.7 10^3/ul (3.5-10.8)
[2017-09-21 06:13] LABS: INR 3.02 (0.77-1.02)
[2017-09-21 06:28] LABS: EGFR Non-African American 60.4 (>60)
[2017-09-21 06:29] LABS: ABS Basophils 0 10^3/ul (0-0.2); ABS Eosinophils 0.2 10^3/ul (0-0.6); ABS Lymphocytes 1.3 10^3/ul (1.0-4.8); ABS Monocytes 0.3 10^3/ul (0-0.8); ABS Neutrophils 2.9 10^3/ul (1.5-7.7); ABS Nucleated RBC 0 10^3/ul; Eosinophil % 4.2 % (0-6); Nucleated Red Blood Cells % 0.1
[2017-09-21] MEDS: Docusate CAP* 100 MG PO SCH (08:22)
[2017-09-21] MEDS: predniSONE TAB* 10 MG PO SCH (08:25)
[2017-09-21] MEDS: Metoprolol Tartrate TAB* 25 MG PO SCH (08:25)
[2017-09-21] MEDS: Nystatin TOP POWDER* 15 GM BTL TOPICAL SCH (08:26)
[2017-09-21] MEDS ORDERED: Methotrexate TAB* 2.5 MG PO ONE (10:01)
--- NOTE | 2017-09-21 10:34 | DS ---
- Discharge Summary Admission Date: 09/11/2017 Discharge Date: 09/21/2017 Discharge Diagnosis: 1. Pneumonia and UTI: improved, complete abx. for full 2 week course 2. RA: on steroids and methotrexate qThurs, d/c to rehab 3. Metastatic Cervical Cancer: off therapy, f/u as outpatient Discharge Medications: Home Medications Medication Instructions Recorded Confirmed Type Metoprolol Tartrate TAB* 25 mg PO BID 07/25/17 09/10/17 History [Lopressor TAB*] Acetaminophen TAB* [Tylenol TAB*] 650 mg PO Q6H PRN tab 09/19/17 Rx Albuterol 2.5MG/3ML (0.083%)* 2.5 mg INH Q2H PRN neb.soln 09/19/17 Rx [Ventolin 2.5 MG/3 ML NEB.TRIXIE*] Docusate CAP* [Colace Cap*] 100 mg PO BID cap 09/19/17 Rx Melatonin 3 mg PO BEDTIME PRN tab 09/19/17 Rx Nystatin TOP POWDER* 1 applic TOPICAL BID btl 09/19/17 Rx Omeprazole CAP* [Prilosec CAP* 20 20 mg PO DAILY@0600 cap.dr 09/19/17 Rx MG] Ondansetron ODT TAB* [Zofran 4 MG 4 mg PO Q6H PRN tab 09/19/17 Rx Odt TAB*] Polyethylene Glycol 3350* 17 gm PO BID PRN packet 09/19/17 Rx [Miralax*] Senna TAB* [Senokot TAB*] 1 tab PO BEDTIME PRN tab 09/19/17 Rx Warfarin TAB(*) [Coumadin TAB(*)] 5 mg PO DAILY@1700 tab 09/19/17 Rx diPHENhydraMINE PO* [Benadryl PO 25 mg PO Q12H PRN tab 09/19/17 Rx 25 MG TAB*] predniSONE TAB* [Deltasone 10 MG 10 mg PO DAILY tab 09/19/17 Rx TAB*] Levofloxacin TAB* [Levaquin TAB*] 500 mg PO DAILY #4 tab 09/21/17 Rx Methotrexate TAB* 15 mg PO WEEKLY #1 tab 09/21/17 Rx Hospital Course: Please see admission note for full H&P, however gerardy Ms. Kaplan is well known to our service due to her unfortunate diagnosis of metastatic cervical cancer now off therapy due to several recent hospitalizations, stable by imaging. She presented to the ER on 09/11 with AMS and was admitted d/t sepsis secondary to pneumonia for IV abx. On initial work-up urine also revealed a Kleibsiella infection. On 09/12 a renal US was completed d/t stent, however this was negative. Initial blood cultures on 09/11 reveal 2/4 bottles +Staph Epidermidis, however repeat cultures on 09/12 revealed 4/4 negative. Due to swelling of her arm she had a doppler on 09/12 which was negative for DVT. On Infectious disease saw the patient who agreed with the plan of care. A CT chest and abd. confirmed RUL pneumonia with a question of liver lesion and subsequent US of the liver on 09/14 was negative. Over the next week she improved dramatically, however has remained very week with some limitation in function 2/2 underlying RA diagnosis. She is now stable for discharge, however with de-conditioning and multiple recent admissions she will require rehab with goal of home in near future. She will f/u with Dr. Moreau as an outpatient with no plans for treatment at this time. >40 min spent with >50% face to face counseling
[2017-09-21] MEDS: Acetaminophen TAB* 325 MG PO PRN (11:00)
[2017-09-21 11:28] VITALS: BP 103/55
== END 2017-09-21 17:15 | DRG 871 ==
LOC: ED 23:02 → MED 09-11 02:52
PROVIDERS: ADMIT Hospitalist; ATTEND Internal Medicine Hematology & Oncology
DX: A41.9 Sepsis, unspecified organism (principal); J18.9 Pneumonia, unspecified organism; N39.0 Urinary tract infection, site not specified; E87.1 Hypo-osmolality and hyponatremia; C79.82 Secondary malignant neoplasm of genital organs; C79.11 Secondary malignant neoplasm of bladder; J90 Pleural effusion, not elsewhere classified; E66.9 Obesity, unspecified; I10 Essential (primary) hypertension; C55 Malignant neoplasm of uterus, part unspecified; R91.8 Other nonspecific abnormal finding of lung field; Z96.651 Presence of right artificial knee joint; Z96.0 Presence of urogenital implants; M21.941 Unspecified acquired deformity of hand, right hand; D64.9 Anemia, unspecified; E11.65 Type 2 diabetes mellitus with hyperglycemia; R21 Rash and other nonspecific skin eruption; I48.91 Unspecified atrial fibrillation; M06.9 Rheumatoid arthritis, unspecified; M19.90 Unspecified osteoarthritis, unspecified site; E78.00 Pure hypercholesterolemia, unspecified; M24.541 Contracture, right hand; E11.36 Type 2 diabetes mellitus with diabetic cataract; B96.1 Klebsiella pneumoniae [K. pneumoniae] as the cause of diseases classified elsewhere; M21.942 Unspecified acquired deformity of hand, left hand; Z88.1 Allergy status to other antibiotic agents; Z88.0 Allergy status to penicillin; Z82.49 Family history of ischemic heart disease and other diseases of the circulatory system; Z86.711 Personal history of pulmonary embolism; Z68.33 Body mass index [BMI] 33.0-33.9, adult; Z90.49 Acquired absence of other specified parts of digestive tract; Z87.891 Personal history of nicotine dependence; Z83.3 Family history of diabetes mellitus; Z79.01 Long term (current) use of anticoagulants
CPT/HCPCS: 36415; 71045; 71260; 74160; 76705; 76775; 80048; 80053; 80202; 81003; 81015; 82247; 82248; 82784; 83605; 84075; 84450; 84460; 84484; 85025; 85610; 85730; 86140; 86850; 86900; 86901; 86922; 87040; 87070; 87077; 87086; 87150; 87186; 87205; 87899; 93005; 94640; 99232; 99233; 99239; 99285; A9270-GY; G8978-GP-CK; G8979-GP-CI; J0692; J1642; J1720; J1940; J1956; J2270; J2997; J3370; J7512; J8610; P9040; Q9967

== ENCOUNTER 2018-07-25 23:29 | Emergency (ER) | payer MEDICARE ==
[2018-07-26] MEDS ORDERED: Albuterol 2.5 MG/3 ML NEB.SOL* (0.083%) INH ONE (01:18)
[2018-07-26] MEDS ORDERED: Tetan/Diph/Pertus SYR(Tdap)* 0.5 ML SYR(BOOSTRIX) use SYR IM ONE (01:22)
--- NOTE | 2018-07-26 01:25 | ED ---
Laceration/Wound HPI - HPI Summary HPI Summary: 73-year-old female presents with cat scratch to her leg over a day ago. She states that her cat scratched her by accident she she walked across her leg. States area continues to bleed. States her INR was 2 last week. Unsure when her last tetanus was but believes it is up-to-date. She denies any fevers. no redness. No swollen lymph nodes. Immunizations are up-to-date for cat. - History of Current Complaint Stated Complaint: "CAT SCRATCH" PER SON Time Seen by Provider: 07/26/18 00:51 Pain Intensity: 0 - Additional Pertinent History Primary Care Physician: [id number] - Allergy/Home Medications Allergies/Adverse Reactions: Allergies Allergy/AdvReac Type Severity Reaction Status Date / Time cefepime Allergy Intermediate Rash Verified 07/25/18 23:39 amoxicillin [From Augmentin] AdvReac Intermediate Rash Verified 07/25/18 23:39 clavulanic acid AdvReac Intermediate Rash Verified 07/25/18 23:39 [From Augmentin] Home Medications: Home Medications Warfarin TAB(*) [Coumadin TAB(*)] 3 mg PO EVERY OTHER DAY 07/26/18 [History Confirmed 07/26/18] Warfarin TAB(*) [Coumadin TAB(*)] 4 mg PO EVERY OTHER DAY 07/26/18 [History Confirmed 07/26/18] PMH/Surg Hx/FS Hx/Imm Hx Endocrine/Hematology History: Reports: Hx Diabetes - type 2, diet controlled, Hx Anemia - on iron Denies: Hx Bone Marrow Disease, Hx Sickle Cell Disease, Hx Thyroid Disease Cardiovascular History: Reports: Hx Hypercholesterolemia, Hx Hypertension - off of blood pressure meds at this time, Other Cardiovascular Problems/Disorders - HYPERCHOLESTEROLEMIA Respiratory History: Reports: Hx Pulmonary Embolism, Other Respiratory Problems/ Disorders - L lung nodule Denies: Hx Asthma, Hx Chronic Obstructive Pulmonary Disease (COPD) GI History: Reports: Hx Gall Bladder Disease - s/p cholesysectomy, Hx Gastroesophageal Reflux Disease - takes rx, Other GI Disorders - laparoscopic cholecystectomy 2012 Denies: Hx Cirrhosis, Hx Crohn's Disease, Hx Hiatal Hernia, Hx Irritable Bowel, Hx Jaundice, Hx Ulcer History: Reports: Hx Kidney Infection - last year at least 3 kidney infections - none at this time, Other Problems/Disorders - stent placed on kidney 03/31/17 Denies: Hx Kidney Stones, Hx Renal Disease Musculoskeletal History: Reports: Hx Arthritis - osteoarthritis, rheumatoid arthritis, Other Musculoskeletal History - RA, contracted right hand Sensory History: Reports: Hx Cataracts - both eye , not ready for surgery, Hx Contacts or Glasses, Hx Glaucoma Denies: Hx Hearing Aid Opthamlomology History: Reports: Hx Cataracts - both eye , not ready for surgery , Hx Contacts or Glasses, Hx Glaucoma - Cancer History Cancer Type, Location and Year: cervical 2017 Hx Chemotherapy: Yes Hx Radiation Therapy: Yes - Surgical History Surgery Procedure, Year, and Place: laparoscopic gall bladder removed 2012. right total knee replacement 2012, s/p cysto with attempted stent placement Hx Anesthesia Reactions: No Infectious Disease History: No Infectious Disease History: Reports: Hx Shingles - FALL 2015 Denies: Hx Hepatitis, Traveled Outside the [place] in Last 30 Days - Family History Known Family History: Positive: Hypertension, Diabetes - Social History Alcohol Use: None Hx Substance Use: No Substance Use Type: Reports: None Hx Tobacco Use: Yes Smoking Status (MU): Former Smoker Type: Cigarettes Amount Used/How Often: smoked for 40 years approx, 1/2 -1 ppd Length of Time of Smoking/Using Tobacco: 40 YRS Have You Smoked in the Last Year: No Review of Systems Negative: Fever Negative: Chest Pain Negative: Shortness Of Breath Positive: Other - laceration leg All Other Systems Reviewed And Are Negative: Yes Physical Exam Triage Information Reviewed: Yes Vital Signs On Initial Exam: Initial Vitals Temp Pulse Resp BP Pulse Ox 97.6 F 104 16 107/71 95 07/25/18 23:32 07/25/18 23:32 07/25/18 23:32 07/25/18 23:32 07/25/18 23:32 Vital Signs Reviewed: Yes Appearance: Positive: Well-Appearing Skin: Positive: Warm, Dry, Other - 3cm superficial laceration to left lower leg with oozing, no erythema Head/Face: Positive: Normal Head/Face Inspection Eyes: Positive: Normal, Conjunctiva Clear ENT: Positive: Pharynx normal Respiratory/Lung Sounds: Positive: Clear to Auscultation, Decreased Breath Sounds Cardiovascular: Positive: Normal, RRR Abdomen Description: Positive: Nontender, Soft Bowel Sounds: Positive: Present Musculoskeletal: Positive: Normal Neurological: Positive: Normal Psychiatric: Positive: Normal Diagnostics - Vital Signs Vital Signs Temp Pulse Resp BP Pulse Ox 07/25/18 23:32 97.6 F 104 16 107/71 95 - Laboratory Lab Statement: Any lab studies that have been ordered have been reviewed, and results considered in the medical decision making process. Laceration Repair Course/Dx - Course Course Of Treatment: 73-year-old female presents with cat scratch to her leg over a day ago. She states that her cat scratched her by accident she she walked across her leg. States area continues to bleed. States her INR was 2 last week. Unsure when her last tetanus was but believes it is up-to-date. She denies any fevers. no redness. No swollen lymph nodes. Immunizations are up-to-date. On exam has recently superficial laceration to left leg with no erythema. areas continues to ooze. Clean area and placed Steri-Strips and pressure dressing. Explained cannot close the wound is greater than 24 hours since occured. Warned if develop any signs of infection to return. patient was noted to have decreased breath sounds on exam so gave breathing treatment. Patient understands and agrees with plan. - Differential Dx Differental Diagnoses: Abrasion, Avulsion, Laceration - Clinical Impression Provider Diagnoses: Laceration Discharge - Sign-Out/Discharge Documenting (check all that apply): Patient Departure Patient Received Moderate/Deep Sedation with Procedure: No - Discharge Plan Condition: Good Disposition: HOME Patient Education Materials: Laceration Without Closure (ED) Referrals: Jose Moreau MD [Primary Care Provider] - Additional Instructions: change dressing once a day watch for any signs of infection follow up with primary within 5 days Return to ED if develop any new or worsening symptoms - Billing Disposition and Condition Condition: GOOD Disposition: Home
[2018-07-26 01:37] VITALS: BP 126/70
== END 2018-07-26 01:34 | disposition home or self-care (01) ==
LOC: ED 23:29
DX: S81.812A Laceration without foreign body, left lower leg, initial encounter (principal); W55.03XA Scratched by cat, initial encounter; Y92.9 Unspecified place or not applicable; Z87.891 Personal history of nicotine dependence; E11.9 Type 2 diabetes mellitus without complications; I10 Essential (primary) hypertension; E78.00 Pure hypercholesterolemia, unspecified; I26.99 Other pulmonary embolism without acute cor pulmonale; K21.9 Gastro-esophageal reflux disease without esophagitis; Z79.01 Long term (current) use of anticoagulants; Z88.0 Allergy status to penicillin
CPT/HCPCS: 90471; 90715; 99282

== ENCOUNTER 2018-07-31 03:46 | Emergency (ER) | payer MEDICARE ==
--- NOTE | 2018-07-31 04:14 | ED ---
Lower Extremity - HPI Summary HPI Summary: Pt is a 73 y/o female who presents to the ED c/o LLE bleeding. She was here on as per medical records for a cat-scratch wound on her left dunham. Bleeding was controlled for several days, however the bleeding began again 2 days ago. As per son, shes also had a cough and SOB for about 2 weeks. Pain is rated a 4/ 10 in severity. Pt denies any fever or N/V/D. Pt is on Coumadin. She is a former smoker. PMHx cervical CA, PE, lung nodule, anemia. - History of Current Complaint Chief Complaint: EDGeneral Stated Complaint: "LEG LAC IS BLEEDING" PER PT Time Seen by Provider: 07/31/18 04:08 Hx Obtained From: Patient, Family/Alignment Technician - Son Mechanism Of Injury: Other - cat scratch Onset/Duration: Still Present - 1 Severity Currently: Moderate Pain Intensity: 4 Pain Scale Used: 0-10 Numeric Location: Is Discrete @ - left dunham Aggravating Factor(s): Nothing Alleviating Factor(s): Nothing - Allergies/Home Medications Allergies/Adverse Reactions: Allergies Allergy/AdvReac Type Severity Reaction Status Date / Time cefepime Allergy Intermediate Rash Verified 07/31/18 03:55 amoxicillin [From Augmentin] AdvReac Intermediate Rash Verified 07/31/18 03:55 clavulanic acid AdvReac Intermediate Rash Verified 07/31/18 03:55 [From Augmentin] PMH/Surg Hx/FS Hx/Imm Hx Endocrine/Hematology History: Reports: Hx Diabetes - type 2, diet controlled, Hx Anemia - on iron Denies: Hx Bone Marrow Disease, Hx Sickle Cell Disease, Hx Thyroid Disease Cardiovascular History: Reports: Hx Hypercholesterolemia, Hx Hypertension - off of blood pressure meds at this time, Other Cardiovascular Problems/Disorders - HYPERCHOLESTEROLEMIA Denies: Hx Congestive Heart Failure Respiratory History: Reports: Hx Pulmonary Embolism, Other Respiratory Problems/ Disorders - L lung nodule Denies: Hx Asthma, Hx Chronic Obstructive Pulmonary Disease (COPD) GI History: Reports: Hx Gall Bladder Disease - s/p cholesysectomy, Hx Gastroesophageal Reflux Disease - takes rx, Other GI Disorders - laparoscopic cholecystectomy 2012 Denies: Hx Cirrhosis, Hx Crohn's Disease, Hx Hiatal Hernia, Hx Irritable Bowel, Hx Jaundice, Hx Ulcer History: Reports: Hx Kidney Infection - last year at least 3 kidney infections - none at this time, Other Problems/Disorders - stent placed on kidney 03/31/17 Denies: Hx Kidney Stones, Hx Renal Disease Musculoskeletal History: Reports: Hx Arthritis - osteoarthritis, rheumatoid arthritis, Other Musculoskeletal History - RA, contracted right hand Sensory History: Reports: Hx Cataracts - both eye , not ready for surgery, Hx Contacts or Glasses, Hx Glaucoma Denies: Hx Hearing Aid Opthamlomology History: Reports: Hx Cataracts - both eye , not ready for surgery , Hx Contacts or Glasses, Hx Glaucoma - Cancer History Cancer Type, Location and Year: cervical 2017 Hx Chemotherapy: Yes Hx Radiation Therapy: Yes - Surgical History Surgery Procedure, Year, and Place: laparoscopic gall bladder removed 2012. right total knee replacement 2012, s/p cysto with attempted stent placement Hx Anesthesia Reactions: No Infectious Disease History: No Infectious Disease History: Reports: Hx Shingles - FALL 2015 Denies: Hx Hepatitis, Traveled Outside the [place] in Last 30 Days - Family History Known Family History: Positive: Hypertension, Diabetes - Social History Alcohol Use: None Hx Substance Use: No Substance Use Type: Reports: None Hx Tobacco Use: Yes Smoking Status (MU): Former Smoker Type: Cigarettes Amount Used/How Often: smoked for 40 years approx, 1/2 -1 ppd Length of Time of Smoking/Using Tobacco: 40 YRS Have You Smoked in the Last Year: No Review of Systems Negative: Fever Positive: Shortness Of Breath, Cough Negative: Vomiting, Diarrhea, Nausea Positive: Other - LLE bleeding All Other Systems Reviewed And Are Negative: Yes Physical Exam - Summary Physical Exam Summary: Appearance: well appearing, no pain distress Skin: warm, dry, reflects adequate perfusion, 2 cm laceration to left lower leg with no active bleeding, no deep hematoma Head/face: normal Eyes: EOMI, MEGHAN ENT: mucous membranes moist Neck: supple, non-tender, no JVD Respiratory: breath sounds course in left base, breath sounds decreased in right base, harsh cough, gurgling breath sounds Cardiovascular: RRR, pulses symmetrical, BLE edema Abdomen: non-tender, soft Bowel Sounds: present Musculoskeletal: normal, strength/ROM intact Neuro: normal, sensory motor intact, A&Ox3 Triage Information Reviewed: Yes Vital Signs On Initial Exam: Initial Vitals Temp Pulse Resp BP Pulse Ox 97.2 F 93 18 104/76 96 07/31/18 03:48 07/31/18 03:48 07/31/18 03:48 07/31/18 03:48 07/31/18 03:48 Vital Signs Reviewed: Yes Diagnostics - Vital Signs Vital Signs Temp Pulse Resp BP Pulse Ox 07/31/18 03:48 97.2 F 93 18 104/76 96 - Laboratory Result Diagrams: 07/31/18 05:09 07/31/18 05:09 Lab Statement: Any lab studies that have been ordered have been reviewed, and results considered in the medical decision making process. - Radiology CXR Radiology Interpretation Completed By: ED Physician Summary of Radiographic Findings: Improved right basilar infiltrate. Pending official radiology report. - EKG 5:38 Cardiac Rate: NL - 92 bpm EKG Rhythm: Sinus Rhythm ST Segment: Non-Specific Summary of EKG Findings: LAD, PVC Re-Evaluation - Re-Evaluation First Eval Re-Evaluation Time: 06:10 Change: Improved Comment: Pt is fine and has no further bleeding. Lower Extremity Course/Dx - Course Course Of Treatment: 73-year-old female on Coumadin presents with persistent bleeding from a cat scratch wound on her left dunham area. Resting was taken down and there is no active bleeding. Her INR is 4.62. This will be held for one dose and she'll follow this up with her doctor. She also has a chronic wet cough without JVD. X-ray shows no new infiltrate or CHF. BNP is only 73. She will follow up both with her doctor. - Diagnoses Differential Diagnosis/HQI/PQRI: Positive: Other - Elevated INR, hematoma, pneumonia, CHF Provider Diagnoses: Supratherapeutic INR, Chronic cough, Lower extremity edema, Bleeding from wound Discharge - Sign-Out/Discharge Documenting (check all that apply): Patient Departure - Discharge Patient Received Moderate/Deep Sedation with Procedure: No - Discharge Plan Condition: Improved Disposition: HOME Patient Education Materials: Elevated INR (ED) Referrals: Jose Moreau MD [Primary Care Provider] - Additional Instructions: Your INR level today was 4.62. Hold her Coumadin dose tonight. Call your doctor first thing this morning that manages the Coumadin and ask what to do. They will need to recheck this. Return with fever, difficulty breathing, worsening cough, new symptoms or other concerns. Follow-up with your doctor for the cough as well. Keep the dressing in place for a minimum of 3 days. - Billing Disposition and Condition Condition: IMPROVED Disposition: Home - Attestation Statements Document Initiated by Coral: Yes Documenting Scribe: Karmen Farfan Provider For Whom Coral is Documenting (Include Credential): Barrie Davis MD Scribe Attestation: Karmen Mullins, scribed for Barrie Davis MD on 07/31/18 at 0635. Scribe Documentation Reviewed: Yes Provider Attestation: The documentation as recorded by the Karmen byrd accurately reflects the service I personally performed and the decisions made by , Barrie Davis MD Status of Scribe Document: Viewed
[2018-07-31 05:18] LABS: ABS Eosinophils 0.1 10^3/ul (0-0.6); ABS Lymphocytes 1.1 10^3/ul (1.0-4.8); ABS Monocytes 0.7 10^3/ul (0-0.8); ABS Neutrophils 8.8 10^3/ul (1.5-7.7); Hematocrit 35 % (35-47); Hemoglobin 11.1 g/dL (12.0-16.0); Lymphocyte % 9.9 %; Mean Corpuscular HGB Conc 32 g/dL (31-36); Mean Corpuscular Hemoglobin 28 pg (27-31); Mean Corpuscular Volume 89 fL (80-97); Mean Platelet Volume 7.4 fL (7.4-10.4); Platelet Count 342 10^3/uL (150-450); Red Cell Distribution Width 17 % (10.5-15); White Blood Count 10.8 10^3/uL (3.5-10.8)
[2018-07-31 05:24] LABS: INR 4.62 (0.82-1.09)
[2018-07-31 05:39] LABS: BUN/Creatinine Ratio 19.5 (8-20); Calcium 9.8 mg/dL (8.6-10.3); EGFR Non-African American 44.7 (>60); Potassium 4.1 mmol/L (3.5-5.0)
[2018-07-31 05:41] LABS: Troponin I 0.01 ng/mL (<0.04)
[2018-07-31 06:45] VITALS: BP 121/72
== END 2018-07-31 06:44 | disposition home or self-care (01) ==
LOC: ED 03:46
DX: S81.802A Unspecified open wound, left lower leg, initial encounter (principal); R79.1 Abnormal coagulation profile; R05 Cough; R60.0 Localized edema; W55.03XA Scratched by cat, initial encounter; J43.9 Emphysema, unspecified; J98.11 Atelectasis; Z86.711 Personal history of pulmonary embolism; Z79.01 Long term (current) use of anticoagulants; E11.9 Type 2 diabetes mellitus without complications; D64.9 Anemia, unspecified; I10 Essential (primary) hypertension; Z87.891 Personal history of nicotine dependence; Z88.1 Allergy status to other antibiotic agents; Z88.0 Allergy status to penicillin; Z88.8 Allergy status to other drugs, medicaments and biological substances
CPT/HCPCS: 36415; 71046; 80048; 83880; 84484; 85025; 85610; 93005; 99282

== ENCOUNTER 2019-09-30 14:19 | Inpatient (IN) ==
[2019-09-30 14:53] LABS: ABS Eosinophils 0.1 10^3/ul (0-0.6); ABS Lymphocytes 1.4 10^3/ul (1.0-4.8); ABS Monocytes 0.5 10^3/ul (0-0.8); ABS Neutrophils 5.2 10^3/ul (1.5-7.7); Eosinophil % 1.3 %; Hematocrit 40 % (35-47); Hemoglobin 13.1 g/dL (12.0-16.0); Lymphocyte % 18.9 %; Mean Corpuscular HGB Conc 33 g/dL (31-36); Mean Corpuscular Hemoglobin 27 pg (27-31); Mean Corpuscular Volume 83 fL (80-97); Mean Platelet Volume 7.3 fL (7.4-10.4); Nucleated Red Blood Cells % 0.1; Platelet Count 293 10^3/uL (150-450); Red Blood Count 4.85 10^6 /uL (3.70-4.87); Red Cell Distribution Width 17 % (10-15); White Blood Count 7.2 10^3/uL (3.5-10.8)
[2019-09-30 15:05] LABS: Albumin 3.4 g/dL (3.2-5.2); Albumin/Globulin Ratio 0.9 (1-3); BUN/Creatinine Ratio 12.4 (8-20); Calcium 9.3 mg/dL (8.6-10.3); EGFR African American 48.6 (>60); EGFR Non-African American 40.2 (>60); Potassium 3.4 mmol/L (3.5-5.0); Total Bilirubin 0.5 mg/dL (0.2-1.0); Total Protein 7.4 g/dL (6.4-8.9)
[2019-09-30 15:34] LABS: INR 9.66 (0.82-1.09)
[2019-09-30] MEDS ORDERED: oxyCODONE/Acetamin 5/325 mg TAB PO PRN (15:51)
[2019-09-30] MEDS ORDERED: Dextrose 50% Syringe 50 ml 25 GM/50 ML SYRINGE IV PUSH PRN (15:54)
[2019-09-30] MEDS ORDERED: NS 0.9% 1000 ml BAG 1,000 ML IV ONE (15:56)
[2019-09-30] MEDS ORDERED: Phytonadione Oral Solution 5 MG/25 ML UDC PO ONE (15:58)
[2019-09-30] MEDS: NS 0.9% 1000 ml BAG 1,000 ML IV SCH (18:45)
[2019-10-01] MEDS: NS 0.9% 1000 ml BAG 1,000 ML IV SCH ×4 (01:20→20:32)
[2019-10-01 07:55] LABS: Albumin 2.5 g/dL (3.2-5.2); Albumin/Globulin Ratio 0.8 (1-3); BUN/Creatinine Ratio 12.1 (8-20); EGFR African American 72.7 (>60); EGFR Non-African American 60.1 (>60); Potassium 3.3 mmol/L (3.5-5.0); Total Bilirubin 0.4 mg/dL (0.2-1.0); Total Protein 5.5 g/dL (6.4-8.9)
[2019-10-01 10:48] LABS: ABS Eosinophils 0.1 10^3/ul (0-0.6); ABS Lymphocytes 0.9 10^3/ul (1.0-4.8); ABS Monocytes 0.2 10^3/ul (0-0.8); ABS Neutrophils 2.2 10^3/ul (1.5-7.7); Eosinophil % 1.8 %; Hematocrit 39 % (35-47); Hemoglobin 12.1 g/dL (12.0-16.0); Lymphocyte % 27.2 %; Mean Corpuscular HGB Conc 31 g/dL (31-36); Mean Corpuscular Hemoglobin 27 pg (27-31); Mean Corpuscular Volume 86 fL (80-97); Nucleated Red Blood Cells % 0.2; Platelet Count 200 10^3/uL (150-450); Red Cell Distribution Width 17 % (10-15); White Blood Count 3.4 10^3/uL (3.5-10.8)
[2019-10-01] MEDS ORDERED: KCL 10 MEQ/100 ML IVPREMIX 100 ml BAG IV ONE (11:00)
[2019-10-01 11:15] LABS: INR 6.35 (0.82-1.09)
[2019-10-01] MEDS: KCL premix 10MEQ/50 ML x 2 BAGS IV SCH ×2 (11:57→14:00)
[2019-10-01] MEDS ORDERED: Iodixanol (CONTRAST) 320 MG/ML 100 ML SDV IV ONE (14:03)
[2019-10-02] MEDS: NS 0.9% 1000 ml BAG 1,000 ML IV SCH ×2 (06:28→17:39)
[2019-10-02 06:59] LABS: Albumin 2.5 g/dL (3.2-5.2); Albumin/Globulin Ratio 0.9 (1-3); BUN/Creatinine Ratio 12.2 (8-20); Calcium 6.9 mg/dL (8.6-10.3); EGFR Non-African American 67.8 (>60); Globulin 2.8 g/dL (2-4); Potassium 3.3 mmol/L (3.5-5.0); Total Bilirubin 0.5 mg/dL (0.2-1.0); Total Protein 5.3 g/dL (6.4-8.9)
[2019-10-02 08:27] LABS: INR 6.57 (0.82-1.09)
[2019-10-02] MEDS ORDERED: Phytonadione Oral Solution 5 MG/25 ML UDC PO ONE (09:14)
[2019-10-02] MEDS ORDERED: KCL 20 MEQ/100 ML IVPREMIX 20 MEQ/100 ML BAG IV ONE (09:15)
[2019-10-02 09:34] LABS: Magnesium 1.1 mg/dL (1.9-2.7)
[2019-10-02] MEDS ORDERED: Magnesium Sulf 4 GM/100 ML IV 4,000 MG/100 ML BAG IVPB ONE (10:22)
[2019-10-02 11:33] LABS: ABS Eosinophils 0.1 10^3/ul (0-0.6); ABS Lymphocytes 1.1 10^3/ul (1.0-4.8); ABS Monocytes 0.3 10^3/ul (0-0.8); ABS Neutrophils 2.3 10^3/ul (1.5-7.7); Eosinophil % 2.2 %; Hematocrit 34 % (35-47); Hemoglobin 10.8 g/dL (12.0-16.0); Mean Corpuscular HGB Conc 32 g/dL (31-36); Mean Corpuscular Hemoglobin 26 pg (27-31); Mean Corpuscular Volume 83 fL (80-97); Mean Platelet Volume 7.3 fL (7.4-10.4); Nucleated Red Blood Cells % 0.1; Platelet Count 232 10^3/uL (150-450); Red Blood Count 4.14 10^6 /uL (3.70-4.87); Red Cell Distribution Width 16 % (10-15); White Blood Count 3.8 10^3/uL (3.5-10.8)
[2019-10-02] MEDS: Potassium Chlor 10 meq TAB PO SCH (13:04)
[2019-10-02 16:34] LABS: ABS Lymphocytes 0.6 10^3/ul (1.0-4.8); ABS Monocytes 0.3 10^3/ul (0-0.8); ABS Neutrophils 3.4 10^3/ul (1.5-7.7); Eosinophil % 0.7 %; Hematocrit 36 % (35-47); Hemoglobin 11.3 g/dL (12.0-16.0); Lymphocyte % 14.5 %; Mean Corpuscular HGB Conc 32 g/dL (31-36); Mean Corpuscular Hemoglobin 26 pg (27-31); Mean Corpuscular Volume 83 fL (80-97); Mean Platelet Volume 7.3 fL (7.4-10.4); Nucleated Red Blood Cells % 0.1; Platelet Count 219 10^3/uL (150-450); Red Blood Count 4.28 10^6 /uL (3.70-4.87); Red Cell Distribution Width 16 % (10-15); White Blood Count 4.4 10^3/uL (3.5-10.8)
[2019-10-02 17:00] LABS: INR 2.67 (0.82-1.09)
[2019-10-03] MEDS: NS 0.9% 1000 ml BAG 1,000 ML IV SCH ×2 (00:34→03:33)
[2019-10-03 08:35] LABS: INR 1.77 (0.82-1.09)
[2019-10-03 08:40] LABS: White Blood Count 4.7 10^3/uL (3.5-10.8)
[2019-10-03 08:41] LABS: ABS Eosinophils 0.1 10^3/ul (0-0.6); ABS Monocytes 0.4 10^3/ul (0-0.8); ABS Neutrophils 3.2 10^3/ul (1.5-7.7); Eosinophil % 1.2 %; Hematocrit 31 % (35-47); Lymphocyte % 21.2 %; Mean Corpuscular HGB Conc 32 g/dL (31-36); Mean Corpuscular Hemoglobin 27 pg (27-31); Mean Corpuscular Volume 83 fL (80-97); Mean Platelet Volume 7.2 fL (7.4-10.4); Platelet Count 189 10^3/uL (150-450); Red Blood Count 3.76 10^6 /uL (3.70-4.87); Red Cell Distribution Width 16 % (10-15)
[2019-10-03] MEDS: Potassium Chlor 10 meq TAB PO SCH (08:56)
[2019-10-03 09:52] LABS: BUN/Creatinine Ratio 12.4 (8-20); EGFR African American 74.6 (>60); EGFR Non-African American 61.7 (>60); Potassium 3.6 mmol/L (3.5-5.0)
[2019-10-03 09:53] LABS: Albumin 2.7 g/dL (3.2-5.2); Albumin/Globulin Ratio 0.9 (1-3); Calcium 7.5 mg/dL (8.6-10.3); Globulin 3.1 g/dL (2-4); Magnesium 1.7 mg/dL (1.9-2.7); Total Bilirubin 0.6 mg/dL (0.2-1.0); Total Protein 5.8 g/dL (6.4-8.9)
[2019-10-04 04:44] LABS: ABS Eosinophils 0.1 10^3/ul (0-0.6); ABS Lymphocytes 1.1 10^3/ul (1.0-4.8); ABS Monocytes 0.4 10^3/ul (0-0.8); Eosinophil % 1.8 %; Hematocrit 32 % (35-47); Hemoglobin 10.4 g/dL (12.0-16.0); Lymphocyte % 23.3 %; Mean Corpuscular HGB Conc 33 g/dL (31-36); Mean Corpuscular Hemoglobin 27 pg (27-31); Mean Corpuscular Volume 82 fL (80-97); Mean Platelet Volume 7.1 fL (7.4-10.4); Nucleated Red Blood Cells % 0.1; Platelet Count 203 10^3/uL (150-450); Red Blood Count 3.93 10^6 /uL (3.70-4.87); Red Cell Distribution Width 16 % (10-15); White Blood Count 4.6 10^3/uL (3.5-10.8)
[2019-10-04 04:53] LABS: INR 1.39 (0.82-1.09)
[2019-10-04 05:01] LABS: BUN/Creatinine Ratio 9.6 (8-20); EGFR African American 70.1 (>60); EGFR Non-African American 57.9 (>60); Magnesium 1.5 mg/dL (1.9-2.7); Potassium 3.7 mmol/L (3.5-5.0)
[2019-10-04] MEDS: Potassium Chlor 10 meq TAB PO SCH (07:23)
[2019-10-04] MEDS ORDERED: Magnesium Sulf 4 GM/100 ML IV 4,000 MG/100 ML BAG IVPB ONE (09:15)
[2019-10-04 11:36] LABS: Urine Appearance Turbid; Urine Bilirubin Negative (Negative); Urine Blood 2+ (Negative); Urine Color Yellow; Urine Glucose Negative (Negative); Urine Ketones Negative (Negative); Urine Nitrite Positive (Negative); Urine Protein 1+(30 mg/dL) (Negative); Urine Urobilinogen Negative (Negative)
[2019-10-04 11:51] LABS: Urine Bacteria 1+ (Absent); Urine Red Blood Cell 3+(>10/hpf) (Absent); Urine Squamous Epithelial Cell Present (Absent); Urine White Blood Cell 3+(>20/hpf) (Absent)
[2019-10-04] MEDS ORDERED: Gadoteridol (CONTRAST) 279.3 MG/ML 10 ML IV ONE (12:41)
[2019-10-04] MEDS ORDERED: Sulfamethox/Trimethoprim DS TAB 800/160 mg PO ONE (17:14)
[2019-10-04 18:38] VITALS: BP 127/61
== END 2019-10-04 19:00 | disposition home or self-care (01) | DRG 690 ==
LOC: CHOA 14:19 → MED 14:19
PROVIDERS: ADMIT Internal Medicine Hematology & Oncology; ATTEND Internal Medicine Hematology & Oncology

== ENCOUNTER 2019-10-29 12:50 | Inpatient (IN) ==
[2019-10-29] MEDS ORDERED: NS 0.9% 1000 ml BAG 1,000 ML IV ONE ×2 (13:13→14:44)
[2019-10-29] MEDS ORDERED: Metoprolol Tartrate 5 mg VIAL 5 ml VIAL (1 mg/ml) IV ONE (13:35)
[2019-10-29 13:53] LABS: ABS Lymphocytes 1.1 10^3/ul (1.0-4.8); ABS Monocytes 0.4 10^3/ul (0-0.8); ABS Neutrophils 7.5 10^3/ul (1.5-7.7); Eosinophil % 0.3 %; Hematocrit 38 % (35-47); Hemoglobin 12.3 g/dL (12.0-16.0); Lymphocyte % 12.3 %; Mean Corpuscular HGB Conc 32 g/dL (31-36); Mean Corpuscular Hemoglobin 27 pg (27-31); Mean Corpuscular Volume 83 fL (80-97); Mean Platelet Volume 7.8 fL (7.4-10.4); Nucleated Red Blood Cells % 0.2; Platelet Count 256 10^3/uL (150-450); Red Blood Count 4.56 10^6 /uL (3.70-4.87); Red Cell Distribution Width 18 % (10-15); White Blood Count 9.1 10^3/uL (3.5-10.8)
[2019-10-29 14:06] LABS: ALT 25 U/L (7-52); AST 25 U/L (13-39); Albumin 3.7 g/dL (3.2-5.2); Albumin/Globulin Ratio 0.9 (1-3); Alkaline Phosphatase 117 U/L (34-104); Anion Gap 15 mmol/L (2-11); BUN/Creatinine Ratio 11.5 (8-20); Blood Urea Nitrogen 21 mg/dL (6-24); CO2 Carbon Dioxide 21 mmol/L (22-32); Calcium 9.6 mg/dL (8.6-10.3); Chloride 97 mmol/L (101-111); EGFR African American 32.5 (>60); EGFR Non-African American 26.8 (>60); Globulin 3.9 g/dL (2-4); Glucose 307 mg/dL (70-100); INR 1.57 (0.82-1.09); Magnesium 1.1 mg/dL (1.9-2.7); Potassium 3.6 mmol/L (3.5-5.0); Sodium 133 mmol/L (135-145); Total Protein 7.6 g/dL (6.4-8.9)
[2019-10-29 14:11] LABS: Troponin I 0.07 ng/mL (<0.03)
[2019-10-29 14:44] LABS: TSH Ultra Thyroid Stim Horm 3.18 mcIU/mL (0.34-5.60)
[2019-10-29 14:53] LABS: Urine Appearance Turbid; Urine Bilirubin Negative (Negative); Urine Blood 1+ (Negative); Urine Color Amber; Urine Glucose 1+(50 mg/dL) (Negative); Urine Ketones Trace (Negative); Urine Nitrite Negative (Negative); Urine Protein 2+(100 mg/dL) (Negative); Urine Specific Gravity 1.018 (1.010-1.030); Urine Urobilinogen Positive (Negative)
[2019-10-29 15:13] LABS: Urine Bacteria 2+ (Absent); Urine Red Blood Cell 3+(>10/hpf) (Absent); Urine Squamous Epithelial Cell Present (Absent); Urine White Blood Cell 3+(>20/hpf) (Absent)
[2019-10-29] MEDS ORDERED: Ciprofloxacin 400mg IVPREMIX 400 MG/200 ML BAG IVPB ONE (15:47)
[2019-10-29] MEDS ORDERED: Magnesium Sulfate 2 gm BAG 2 GM/50 ML BAG IVPB ONE (15:51)
[2019-10-29] MEDS ORDERED: Warfarin per PHARMACY **NOTE FOLLOW UP SCH (17:00)
[2019-10-29] MEDS ORDERED: oxyCODONE/Acetamin 5/325 mg TAB PO PRN (17:14)
[2019-10-29 17:45] LABS: Troponin I 0.16 ng/mL (<0.03)
[2019-10-29] MEDS ORDERED: Magnesium Sulfate 2 gm BAG 2 GM/50 ML BAG ONE (18:11)
[2019-10-29] MEDS: NS 0.9% 1000 ml BAG 1,000 ML IV SCH (19:42)
[2019-10-29 20:51] LABS: Troponin I 0.15 ng/mL (<0.03)
[2019-10-30] MEDS: Ciprofloxacin 400mg IVPREMIX 400 MG/200 ML BAG IVPB SCH ×2 (04:30→16:52)
[2019-10-30 06:36] LABS: ABS Eosinophils 0.1 10^3/ul (0-0.6); ABS Lymphocytes 0.8 10^3/ul (1.0-4.8); ABS Monocytes 0.3 10^3/ul (0-0.8); Eosinophil % 1.2 %; Hematocrit 30 % (35-47); Hemoglobin 9.8 g/dL (12.0-16.0); Lymphocyte % 18.2 %; Mean Corpuscular HGB Conc 33 g/dL (31-36); Mean Corpuscular Hemoglobin 28 pg (27-31); Mean Corpuscular Volume 83 fL (80-97); Mean Platelet Volume 7.5 fL (7.4-10.4); Platelet Count 137 10^3/uL (150-450); Red Blood Count 3.55 10^6 /uL (3.70-4.87); Red Cell Distribution Width 18 % (10-15); White Blood Count 4.2 10^3/uL (3.5-10.8)
[2019-10-30 06:50] LABS: INR 1.56 (0.82-1.09)
[2019-10-30 06:52] LABS: Albumin 2.7 g/dL (3.2-5.2); Albumin/Globulin Ratio 0.9 (1-3); Calcium 7.8 mg/dL (8.6-10.3); EGFR African American 42.1 (>60); EGFR Non-African American 34.8 (>60); Globulin 3.1 g/dL (2-4); Potassium 3.6 mmol/L (3.5-5.0); Total Bilirubin 1.6 mg/dL (0.2-1.0); Total Protein 5.8 g/dL (6.4-8.9)
[2019-10-30] MEDS: NS 0.9% 1000 ml BAG 1,000 ML IV SCH ×2 (06:59→16:52)
[2019-10-30] MEDS ORDERED: Dextrose 50% Syringe 50 ml 25 GM/50 ML SYRINGE IV PUSH PRN (09:03)
[2019-10-31] MEDS: Ciprofloxacin 400mg IVPREMIX 400 MG/200 ML BAG IVPB SCH ×2 (03:31→16:43)
[2019-10-31 05:41] LABS: INR 1.8 (0.82-1.09)
[2019-10-31] MEDS: NS 0.9% 1000 ml BAG 1,000 ML IV SCH ×2 (05:42→15:10)
[2019-10-31 09:57] LABS: Troponin I 0.09 ng/mL (<0.03)
[2019-11-01] MEDS: NS 0.9% 1000 ml BAG 1,000 ML IV SCH (02:32)
[2019-11-01] MEDS: Ciprofloxacin 400mg IVPREMIX 400 MG/200 ML BAG IVPB SCH (03:34)
[2019-11-01 05:54] LABS: INR 2.1 (0.82-1.09)
[2019-11-01 06:35] LABS: ABS Eosinophils 0.1 10^3/ul (0-0.6); ABS Lymphocytes 0.9 10^3/ul (1.0-4.8); ABS Monocytes 0.3 10^3/ul (0-0.8); ABS Neutrophils 1.9 10^3/ul (1.5-7.7); Eosinophil % 2.5 %; Hematocrit 27 % (35-47); Hemoglobin 8.7 g/dL (12.0-16.0); Lymphocyte % 28.5 %; Mean Corpuscular HGB Conc 32 g/dL (31-36); Mean Corpuscular Hemoglobin 27 pg (27-31); Mean Corpuscular Volume 84 fL (80-97); Mean Platelet Volume 7.8 fL (7.4-10.4); Nucleated Red Blood Cells % 0.1; Platelet Count 149 10^3/uL (150-450); Red Blood Count 3.22 10^6 /uL (3.70-4.87); Red Cell Distribution Width 17 % (10-15); White Blood Count 3.1 10^3/uL (3.5-10.8)
[2019-11-01 06:46] LABS: Albumin 2.5 g/dL (3.2-5.2); Albumin/Globulin Ratio 0.8 (1-3); BUN/Creatinine Ratio 8.3 (8-20); Calcium 7.5 mg/dL (8.6-10.3); EGFR African American 68.4 (>60); EGFR Non-African American 56.5 (>60); Globulin 3.1 g/dL (2-4); Potassium 3.8 mmol/L (3.5-5.0); Total Bilirubin 0.4 mg/dL (0.2-1.0); Total Protein 5.6 g/dL (6.4-8.9)
[2019-11-01] MEDS ORDERED: Polyethylene Glycol 3350 17 GM PACKET PO PRN (08:46)
[2019-11-01 09:32] LABS: ABS Eosinophils 0.1 10^3/ul (0-0.6); ABS Lymphocytes 0.8 10^3/ul (1.0-4.8); ABS Monocytes 0.2 10^3/ul (0-0.8); Eosinophil % 2.1 %; Hematocrit 30 % (35-47); Hemoglobin 9.7 g/dL (12.0-16.0); Lymphocyte % 27.2 %; Mean Corpuscular HGB Conc 32 g/dL (31-36); Mean Corpuscular Hemoglobin 27 pg (27-31); Mean Corpuscular Volume 84 fL (80-97); Mean Platelet Volume 7.8 fL (7.4-10.4); Nucleated Red Blood Cells % 0.1; Platelet Count 170 10^3/uL (150-450); Red Blood Count 3.59 10^6 /uL (3.70-4.87); Red Cell Distribution Width 18 % (10-15); White Blood Count 3.1 10^3/uL (3.5-10.8)
[2019-11-01 12:00] VITALS: BP 148/83
== END 2019-11-01 14:18 | disposition home or self-care (01) | DRG 872 ==
LOC: ED 12:50 → SSU 16:32 → MEDTELE 16:40
PROVIDERS: ADMIT Internal Medicine; ATTEND Internal Medicine Hematology & Oncology

== ENCOUNTER 2020-02-10 16:19 | Inpatient (IN) ==
[2020-02-10] MEDS ORDERED: Ondansetron 4 mg VIAL 2 MG/ML 2 ml VIAL IV ONE (16:55)
[2020-02-10] MEDS ORDERED: Lactated Ringers 1000 ml BAG 1,000 ML IV ONE ×2 (16:55→20:00)
[2020-02-10 18:58] LABS: ABS Eosinophils 0.1 10^3/ul (0-0.6); ABS Lymphocytes 1.1 10^3/ul (1.0-4.8); ABS Monocytes 0.4 10^3/ul (0-0.8); ABS Neutrophils 4.8 10^3/ul (1.5-7.7); Eosinophil % 1.8 %; Hematocrit 34 % (35-47); Lymphocyte % 17.6 %; Mean Corpuscular HGB Conc 32 g/dL (31-36); Mean Corpuscular Hemoglobin 26 pg (27-31); Mean Corpuscular Volume 82 fL (80-97); Mean Platelet Volume 7.1 fL (7.4-10.4); Platelet Count 282 10^3/uL (150-450); Red Blood Count 4.16 10^6 /uL (3.70-4.87); Red Cell Distribution Width 17 % (10-15); White Blood Count 6.4 10^3/uL (3.5-10.8)
[2020-02-10 19:31] LABS: Albumin 3.2 g/dL (3.2-5.2); Albumin/Globulin Ratio 0.8 (1-3); BUN/Creatinine Ratio 6.4 (8-20); C Reactive Protein 120.58 mg/L (<8.01); Calcium 8.3 mg/dL (8.6-10.3); EGFR African American 70.1 (>60); EGFR Non-African American 57.9 (>60); Globulin 3.8 g/dL (2-4); Magnesium 1.1 mg/dL (1.9-2.7); Potassium 2.8 mmol/L (3.5-5.0); Total Bilirubin 1.7 mg/dL (0.2-1.0)
[2020-02-10] MEDS ORDERED: Magnesium Sulfate 2 gm BAG 2 GM/50 ML BAG IVPB ONE (20:04)
[2020-02-10] MEDS ORDERED: Iodixanol (CONTRAST) 320 MG/ML 100 ML SDV IV ONE (20:08)
[2020-02-10] MEDS: KCL 10 MEQ/50 ML IVPREMIX 10 MEQ/50 ML BAG IV SCH ×3 (21:54→23:15)
[2020-02-11] MEDS ORDERED: Ondansetron 4 mg VIAL 2 MG/ML 2 ml VIAL IV PRN (00:02)
[2020-02-11] MEDS ORDERED: Magnesium Sulf 4 GM/100 ML IV 4,000 MG/100 ML BAG IVPB ONE (00:15)
[2020-02-11] MEDS: KCL 10 MEQ/50 ML IVPREMIX 10 MEQ/50 ML BAG IV SCH ×7 (00:15→10:12)
[2020-02-11] MEDS: Lactated Ringers 1000 ml BAG 1,000 ML IV SCH ×4 (04:50→23:16)
[2020-02-11] MEDS ORDERED: Dextrose 50% Syringe 50 ml 25 GM/50 ML SYRINGE IV PUSH PRN (05:27)
[2020-02-11 05:39] LABS: Urine Appearance Cloudy; Urine Bilirubin Negative (Negative); Urine Blood 1+ (Negative); Urine Color Yellow; Urine Glucose Negative (Negative); Urine Ketones 1+ (Negative); Urine Nitrite Negative (Negative); Urine Protein 1+(30 mg/dL) (Negative); Urine Specific Gravity 1.018 (1.010-1.030); Urine Urobilinogen Negative (Negative)
[2020-02-11 05:51] LABS: Urine Bacteria 1+ (Absent); Urine Red Blood Cell 2+(6-10/hpf) (Absent); Urine Squamous Epithelial Cell Present (Absent); Urine White Blood Cell 3+(>20/hpf) (Absent)
[2020-02-11 07:16] LABS: Albumin 2.9 g/dL (3.2-5.2); Albumin/Globulin Ratio 0.9 (1-3); Globulin 3.3 g/dL (2-4); Indirect Bilirubin 1.2 mg/dL (0.3-1.0); Total Bilirubin 1.6 mg/dL (0.2-1.0); Total Protein 6.2 g/dL (6.4-8.9)
[2020-02-11 10:25] LABS: Calcium 8.2 mg/dL (8.6-10.3); Magnesium 2.7 mg/dL (1.9-2.7); Potassium 3.4 mmol/L (3.5-5.0)
[2020-02-11 10:31] LABS: BUN/Creatinine Ratio 4.4 (8-20); EGFR African American 73.7 (>60); EGFR Non-African American 60.9 (>60)
[2020-02-11] MEDS ORDERED: Potassium Chlor 20 meq TAB.ER PO ONE (10:45)
[2020-02-11] MEDS ORDERED: Iodixanol (CONTRAST) 320 MG/ML 100 ML SDV IV ONE (13:16)
[2020-02-11 23:14] LABS: INR 4.72 (0.82-1.09)
[2020-02-11] MEDS ORDERED: Aspirin EC 81 mg TAB.EC (enteric coated) ONE (23:40)
[2020-02-11 23:55] LABS: BUN/Creatinine Ratio 7.4 (8-20); Calcium 8.2 mg/dL (8.6-10.3); EGFR African American 70.1 (>60); EGFR Non-African American 57.9 (>60); Magnesium 1.7 mg/dL (1.9-2.7); Potassium 4.5 mmol/L (3.5-5.0)
[2020-02-12] MEDS ORDERED: Magnesium Sulfate 2 gm BAG 2 GM/50 ML BAG IVPB ONE (00:45)
[2020-02-12] MEDS ORDERED: Morphine 2 MG/ML SYRINGE IV ONE (00:46)
[2020-02-12] MEDS ORDERED: Al Hydrox/Mg Hydrox/Simet LIQ 30 ML UDC PO ONE (01:19)
[2020-02-12 06:51] LABS: ABS Eosinophils 0.1 10^3/ul (0-0.6); ABS Lymphocytes 0.9 10^3/ul (1.0-4.8); ABS Monocytes 0.3 10^3/ul (0-0.8); ABS Neutrophils 2.5 10^3/ul (1.5-7.7); Hematocrit 32 % (35-47); Hemoglobin 10.1 g/dL (12.0-16.0); Lymphocyte % 22.6 %; Mean Corpuscular HGB Conc 31 g/dL (31-36); Mean Corpuscular Hemoglobin 26 pg (27-31); Mean Corpuscular Volume 83 fL (80-97); Nucleated Red Blood Cells % 0.1; Platelet Count 228 10^3/uL (150-450); Red Blood Count 3.86 10^6 /uL (3.70-4.87); Red Cell Distribution Width 17 % (10-15); White Blood Count 3.8 10^3/uL (3.5-10.8)
[2020-02-12 06:55] LABS: INR 4.43 (0.82-1.09)
[2020-02-12 07:06] LABS: BUN/Creatinine Ratio 6.9 (8-20); EGFR African American 76.6 (>60); EGFR Non-African American 63.3 (>60); Potassium 3.8 mmol/L (3.5-5.0)
[2020-02-12 07:08] LABS: Albumin 2.7 g/dL (3.2-5.2); Albumin/Globulin Ratio 0.8 (1-3); Globulin 3.3 g/dL (2-4); Indirect Bilirubin 0.7 mg/dL (0.3-1.0); Total Bilirubin 0.9 mg/dL (0.2-1.0)
[2020-02-12 07:46] LABS: C Reactive Protein 132.77 mg/L (<8.01)
[2020-02-12 10:12] LABS: Erythrocyte Sed Rate 88 mm/Hr (0-29)
[2020-02-12 15:00] LABS: Free T4 1.48 ng/dL (0.61-1.12)
[2020-02-12] MEDS ORDERED: Phytonadione SUBCUT/IM Adult 10 MG/ML AMP (IM or SQ not preferred route) IM ONE (15:22)
[2020-02-12] MEDS ORDERED: Phytonadione 10 mg in 50 mL NS over 30 min IV ONE (16:00)
[2020-02-12] MEDS ORDERED: Warfarin DAILY REMINDER **NOTE FOLLOW UP SCH (17:00)
[2020-02-12] MEDS ORDERED: cefTRIAXone 1 gm/50 mL NS BAG 1 GM/50 ML BAG IVPB SCH (17:00)
[2020-02-13 04:33] LABS: ABS Eosinophils 0.1 10^3/ul (0-0.6); ABS Lymphocytes 1.1 10^3/ul (1.0-4.8); ABS Monocytes 0.4 10^3/ul (0-0.8); ABS Neutrophils 2.7 10^3/ul (1.5-7.7); Eosinophil % 2.7 %; Hematocrit 28 % (35-47); Hemoglobin 9.2 g/dL (12.0-16.0); Lymphocyte % 26.3 %; Mean Corpuscular HGB Conc 33 g/dL (31-36); Mean Corpuscular Hemoglobin 27 pg (27-31); Mean Corpuscular Volume 82 fL (80-97); Mean Platelet Volume 7.2 fL (7.4-10.4); Nucleated Red Blood Cells % 0.1; Platelet Count 240 10^3/uL (150-450); Red Blood Count 3.42 10^6 /uL (3.70-4.87); Red Cell Distribution Width 17 % (10-15); White Blood Count 4.4 10^3/uL (3.5-10.8)
[2020-02-13 04:52] LABS: BUN/Creatinine Ratio 9.8 (8-20); C Reactive Protein 111.61 mg/L (<8.01); Calcium 7.9 mg/dL (8.6-10.3); EGFR Non-African American 67.8 (>60); Potassium 3.9 mmol/L (3.5-5.0)
[2020-02-13 04:58] LABS: INR 1.34 (0.82-1.09)
[2020-02-13] MEDS: Ciprofloxacin 400mg IVPREMIX 400 MG/200 ML BAG IVPB SCH ×2 (12:35→21:05)
[2020-02-14 05:56] LABS: ABS Eosinophils 0.2 10^3/ul (0-0.6); ABS Lymphocytes 1.2 10^3/ul (1.0-4.8); ABS Monocytes 0.4 10^3/ul (0-0.8); ABS Neutrophils 2.8 10^3/ul (1.5-7.7); Eosinophil % 3.6 %; Hematocrit 28 % (35-47); Hemoglobin 8.9 g/dL (12.0-16.0); Lymphocyte % 25.9 %; Mean Corpuscular HGB Conc 32 g/dL (31-36); Mean Corpuscular Hemoglobin 26 pg (27-31); Mean Corpuscular Volume 83 fL (80-97); Mean Platelet Volume 6.9 fL (7.4-10.4); Nucleated Red Blood Cells % 0.1; Platelet Count 239 10^3/uL (150-450); Red Blood Count 3.41 10^6 /uL (3.70-4.87); Red Cell Distribution Width 17 % (10-15); White Blood Count 4.6 10^3/uL (3.5-10.8)
[2020-02-14] MEDS ORDERED: NS 0.9% 1000 ml BAG 1,000 ML IV SCH (06:00)
[2020-02-14] MEDS ORDERED: Buffered Lidocaine 1% SYRIN 1 ml INTRADERM ONE (06:00)
[2020-02-14] MEDS ORDERED: Famotidine IV 10 MG/ML 2 ml VIAL (20 mg) IV ONE (06:00)
[2020-02-14 06:06] LABS: INR 1.13 (0.82-1.09)
[2020-02-14 06:14] LABS: BUN/Creatinine Ratio 12.9 (8-20); Calcium 8.2 mg/dL (8.6-10.3); EGFR African American 70.9 (>60); EGFR Non-African American 58.6 (>60)
[2020-02-14] MEDS ORDERED: Midazolam 5 mg/5 ml VIAL 1 mg/ml 5 ml VIAL (5 mg) ONE (10:20)
[2020-02-14] MEDS ORDERED: fentaNYL 100 mcg/2 ml 50 MCG/ML VIAL ONE (10:20)
[2020-02-14] MEDS ORDERED: Iohexol 180 (CONTRAST) 10 ML SDV IV ONE ×2 (10:30→11:15)
[2020-02-14] MEDS: Ciprofloxacin 400mg IVPREMIX 400 MG/200 ML BAG IVPB SCH (10:46)
[2020-02-14] MEDS ORDERED: Dexamethasone IV 4 MG/ML VIAL 1 ml VIAL ONE (10:56)
[2020-02-14] MEDS ORDERED: Ondansetron 4 mg VIAL 2 MG/ML 2 ml VIAL ONE (10:56)
[2020-02-14] MEDS ORDERED: Propofol 10 MG/ML 20 ML BTL ONE (10:56)
[2020-02-14] MEDS ORDERED: Lidocaine 2% PF 5 ML VIAL ONE (10:56)
[2020-02-14 11:25] LABS: Magnesium 1.3 mg/dL (1.9-2.7)
[2020-02-14] MEDS ORDERED: Naloxone 0.4 mg VIAL 0.4 mg/ml 1 ml VIAL IV PRN (11:37)
[2020-02-14] MEDS ORDERED: HYDROmorphone 1 MG/1 ML SYRINGE IV PRN (11:37)
[2020-02-14] MEDS ORDERED: DiMENhydriNATE IV 50 mg/ml 1 ml VIAL IV PUSH PRN (11:37)
[2020-02-14 15:40] VITALS: BP 138/77
== END 2020-02-14 18:08 | disposition home or self-care (01) | DRG 988 ==
LOC: MED 16:19 → ED 16:19 → MED 02-11 03:49 → MEDTELE 02-12 12:03
PROVIDERS: ADMIT Internal Medicine; ATTEND Internal Medicine

== ENCOUNTER 2020-09-12 13:30 | Inpatient (IN) ==
[2020-09-12] MEDS ORDERED: NS 0.9% 1000 ml BAG 1,000 ML IV.FLUID IV ONE (13:54)
[2020-09-12] MEDS ORDERED: Piperacillin/Tazobac ADVAN 3.375 GM in NS 0.9% 100 ml BAG 100 ML IV ONE (14:44)
[2020-09-12 15:05] LABS: Venous Bicarbonate HCO3 22.6 mmol/L (24-28)
[2020-09-12 15:09] LABS: ABS Lymphocytes 0.9 10^3/ul (1.0-4.8); ABS Monocytes 0.5 10^3/ul (0-0.8); ABS Neutrophils 5.3 10^3/ul (1.5-7.7); Eosinophil % 0.3 %; Hematocrit 32 % (35-47); Hemoglobin 9.8 g/dL (12.0-16.0); Lymphocyte % 13.4 %; Mean Corpuscular HGB Conc 31 g/dL (31-36); Mean Corpuscular Hemoglobin 24 pg (27-31); Mean Corpuscular Volume 76 fL (80-97); Platelet Count 176 10^3/uL (150-450); Red Blood Count 4.13 10^6 /uL (3.70-4.87); Red Cell Distribution Width 23 % (10-15); White Blood Count 6.7 10^3/uL (3.5-10.8)
[2020-09-12 15:14] LABS: Urine Appearance Turbid; Urine Bilirubin Negative (Negative); Urine Blood 2+ (Negative); Urine Color Yellow; Urine Glucose Negative (Negative); Urine Ketones 1+ (Negative); Urine Nitrite Negative (Negative); Urine Protein 3+(>=500 mg/dL) (Negative); Urine Specific Gravity 1.018 (1.002-1.030); Urine Urobilinogen Positive (Negative)
[2020-09-12 15:16] LABS: Activated Partial Thrombo Time 32.8 seconds (26.0-38.0); INR 2.2 (0.82-1.09)
[2020-09-12 15:25] LABS: Urine Bacteria Absent (Absent); Urine Red Blood Cell 3+(>10/hpf) (Absent); Urine White Blood Cell 3+(>20/hpf) (Absent)
[2020-09-12 15:27] LABS: ALT 28 U/L (7-52); AST 31 U/L (13-39); Albumin 3.1 g/dL (3.2-5.2); Albumin/Globulin Ratio 0.8 (1-3); Alkaline Phosphatase 84 U/L (35-149); Anion Gap 12 mmol/L (2-11); Blood Urea Nitrogen 18 mg/dL (6-24); C Reactive Protein 387.93 mg/L (<8.01); CO2 Carbon Dioxide 21 mmol/L (22-32); Calcium 7.9 mg/dL (8.6-10.3); Chloride 96 mmol/L (101-111); EGFR African American 40.7 (>60); EGFR Non-African American 33.7 (>60); Globulin 3.7 g/dL (2-4); Glucose 300 mg/dL (70-100); Potassium 2.9 mmol/L (3.5-5.0); Sodium 129 mmol/L (135-145); Total Protein 6.8 g/dL (6.4-8.9)
[2020-09-12 15:31] LABS: Troponin I 0.05 ng/mL (<0.03)
[2020-09-12] MEDS ORDERED: Iodixanol (CONTRAST) 320 MG/ML 100 ML SDV IV ONE (15:33)
[2020-09-12] MEDS ORDERED: Ciprofloxacin 400mg IVPREMIX 400 MG/200 ML BAG IVPB ONE (15:40)
[2020-09-12] MEDS ORDERED: Ondansetron 4 mg VIAL 2 MG/ML 2 ml VIAL IV PRN (16:52)
[2020-09-12] MEDS ORDERED: diPHENhydraMINE IV 50 MG/ML 1 ml VIAL (BENADRYL) IV PRN (16:59)
[2020-09-12] MEDS ORDERED: NS 0.9% 1000 ml BAG 1,000 ML IV SCH (17:00)
[2020-09-12] MEDS ORDERED: Albuterol HFA INHALER 8 gm MDI INH PRN (17:17)
[2020-09-12] MEDS ORDERED: Dextrose 50% Syringe 50 ml 25 GM/50 ML SYRINGE IV PUSH PRN (17:19)
[2020-09-12] MEDS ORDERED: Magnesium Sulf 4 GM/100 ML IV 4,000 MG/100 ML BAG IVPB ONE (18:26)
[2020-09-12 18:51] LABS: Troponin I 0.04 ng/mL (<0.03)
[2020-09-12] MEDS: Mometasone/Formoter 200/5 MDI INH SCH (19:21)
[2020-09-12] MEDS: cefTRIAXone 1 gm/50 mL NS BAG 1 GM/50 ML BAG IVPB SCH (21:38)
[2020-09-12] MEDS: Potassium Chlor 20 meq TAB.ER PO SCH ×2 (21:38→21:40)
[2020-09-13] MEDS: Potassium Chlor 20 meq TAB.ER PO SCH (02:21)
[2020-09-13 03:47] LABS: ABS Eosinophils 0.1 10^3/ul (0-0.6); ABS Lymphocytes 0.8 10^3/ul (1.0-4.8); ABS Monocytes 0.3 10^3/ul (0-0.8); Eosinophil % 2.2 %; Hematocrit 26 % (35-47); Hemoglobin 8.1 g/dL (12.0-16.0); Lymphocyte % 18.4 %; Mean Corpuscular HGB Conc 32 g/dL (31-36); Mean Corpuscular Hemoglobin 24 pg (27-31); Mean Corpuscular Volume 76 fL (80-97); Platelet Count 141 10^3/uL (150-450); Red Blood Count 3.38 10^6 /uL (3.70-4.87); Red Cell Distribution Width 23 % (10-15); White Blood Count 4.1 10^3/uL (3.5-10.8)
[2020-09-13 03:58] LABS: Anion Gap 6 mmol/L (2-11); Blood Urea Nitrogen 12 mg/dL (6-24); CO2 Carbon Dioxide 22 mmol/L (22-32); Chloride 104 mmol/L (101-111); EGFR African American 60.8 (>60); EGFR Non-African American 50.3 (>60); Glucose 164 mg/dL (70-100); Magnesium 2.6 mg/dL (1.9-2.7); Potassium 3.6 mmol/L (3.5-5.0); Sodium 132 mmol/L (135-145)
[2020-09-13 04:04] LABS: Troponin I 0.04 ng/mL (<0.03)
[2020-09-13] MEDS: Mometasone/Formoter 200/5 MDI INH SCH ×2 (07:49→19:42)
[2020-09-13] MEDS ORDERED: Warfarin per PHARMACY **NOTE FOLLOW UP SCH (12:00)
[2020-09-13] MEDS: Warfarin DAILY REMINDER **NOTE FOLLOW UP SCH (17:19)
[2020-09-13] MEDS: cefTRIAXone 1 gm/50 mL NS BAG 1 GM/50 ML BAG IVPB SCH (21:40)
[2020-09-14 05:53] LABS: ABS Lymphocytes 0.7 10^3/ul (1.0-4.8); ABS Monocytes 0.3 10^3/ul (0-0.8); ABS Neutrophils 2.2 10^3/ul (1.5-7.7); Eosinophil % 1.4 %; Hematocrit 24 % (35-47); Hemoglobin 7.6 g/dL (12.0-16.0); Lymphocyte % 22.5 %; Mean Corpuscular HGB Conc 31 g/dL (31-36); Mean Corpuscular Hemoglobin 24 pg (27-31); Mean Corpuscular Volume 76 fL (80-97); Mean Platelet Volume 7.4 fL (7.4-10.4); Platelet Count 140 10^3/uL (150-450); Red Blood Count 3.19 10^6 /uL (3.70-4.87); Red Cell Distribution Width 23 % (10-15); White Blood Count 3.2 10^3/uL (3.5-10.8)
[2020-09-14 06:03] LABS: EGFR African American 69.9 (>60); EGFR Non-African American 57.7 (>60); Potassium 3.2 mmol/L (3.5-5.0)
[2020-09-14 06:06] LABS: INR 3.47 (0.82-1.09)
[2020-09-14] MEDS: Mometasone/Formoter 200/5 MDI INH SCH ×2 (07:37→19:52)
[2020-09-14] MEDS ORDERED: KCL 20 MEQ/100 ML IVPREMIX 20 MEQ/100 ML BAG IV ONE (08:18)
[2020-09-14 08:39] LABS: Magnesium 1.8 mg/dL (1.9-2.7)
[2020-09-14] MEDS ORDERED: Magnesium Sulfate IV 1GM/100ML 1 GM/100 ML BAG IV ONE (10:52)
[2020-09-14 15:33] LABS: ABS Lymphocytes 0.5 10^3/ul (1.0-4.8); ABS Monocytes 0.2 10^3/ul (0-0.8); ABS Neutrophils 1.9 10^3/ul (1.5-7.7); Eosinophil % 0.3 %; Hematocrit 25 % (35-47); Hemoglobin 7.8 g/dL (12.0-16.0); Lymphocyte % 20.6 %; Mean Corpuscular HGB Conc 31 g/dL (31-36); Mean Corpuscular Hemoglobin 23 pg (27-31); Mean Corpuscular Volume 76 fL (80-97); Mean Platelet Volume 7.4 fL (7.4-10.4); Platelet Count 149 10^3/uL (150-450); Red Blood Count 3.34 10^6 /uL (3.70-4.87); Red Cell Distribution Width 23 % (10-15); White Blood Count 2.7 10^3/uL (3.5-10.8)
[2020-09-14] MEDS ORDERED: Warfarin - No Order Today **NOTE FOLLOW UP ONE (17:00)
[2020-09-14] MEDS: Warfarin DAILY REMINDER **NOTE FOLLOW UP SCH (17:13)
[2020-09-14] MEDS: cefTRIAXone 1 gm/50 mL NS BAG 1 GM/50 ML BAG IVPB SCH (20:50)
[2020-09-15 05:55] LABS: ABS Eosinophils 0.1 10^3/ul (0-0.6); ABS Lymphocytes 1.1 10^3/ul (1.0-4.8); ABS Monocytes 0.3 10^3/ul (0-0.8); ABS Neutrophils 2.5 10^3/ul (1.5-7.7); Eosinophil % 1.6 %; Hematocrit 24 % (35-47); Hemoglobin 7.5 g/dL (12.0-16.0); Lymphocyte % 26.6 %; Mean Corpuscular HGB Conc 32 g/dL (31-36); Mean Corpuscular Hemoglobin 24 pg (27-31); Mean Corpuscular Volume 76 fL (80-97); Mean Platelet Volume 7.5 fL (7.4-10.4); Platelet Count 161 10^3/uL (150-450); Red Cell Distribution Width 23 % (10-15)
[2020-09-15 06:01] LABS: INR 2.31 (0.82-1.09)
[2020-09-15 06:07] LABS: Anion Gap 5 mmol/L (2-11); Blood Urea Nitrogen 16 mg/dL (6-24); CO2 Carbon Dioxide 24 mmol/L (22-32); Calcium 7.2 mg/dL (8.6-10.3); Chloride 107 mmol/L (101-111); EGFR African American 75.4 (>60); EGFR Non-African American 62.3 (>60); Glucose 185 mg/dL (70-100); Magnesium 1.6 mg/dL (1.9-2.7); Potassium 3.6 mmol/L (3.5-5.0); Sodium 136 mmol/L (135-145)
[2020-09-15] MEDS ORDERED: Magnesium Sulfate 2 gm BAG 2 GM/50 ML BAG IVPB ONE (07:24)
[2020-09-15] MEDS: Mometasone/Formoter 200/5 MDI INH SCH (07:50)
[2020-09-15 13:51] VITALS: BP 97/55
[2020-09-15 14:26] LABS: % Iron Saturation 17 % (15-55); Iron 36 ug/dL (50-212); Total Iron Binding Capacity 211 mcg/dL (250-450); Transferrin 151 mg/dL (203-362); Unsaturated Iron Binding < 196 ug/dL
[2020-09-15 14:45] LABS: Ferritin 192.2 ng/mL (11-307)
== END 2020-09-15 16:45 | disposition home or self-care (01) | DRG 872 ==
LOC: ED 13:30 → MEDTELE 17:42
PROVIDERS: ADMIT Student in an Organized Health Care Education/Training Program; ATTEND Student in an Organized Health Care Education/Training Program

== ENCOUNTER 2020-11-06 16:46 | Inpatient (IN) ==
[2020-11-06] MEDS ORDERED: cefTRIAXone 2 GM ADDV.VIAL 2 GM in NS 0.9% 100 ml BAG 100 ML IVPB ONE (17:17)
[2020-11-06] MEDS: NS 0.9% 1000 ml BAG 1,000 ML IV ONE ×4 (17:24→17:28)
[2020-11-06 17:26] LABS: ABS Lymphocytes 6.7 10^3/ul (1.0-4.8); ABS Monocytes 2.3 10^3/ul (0-0.8); ABS Neutrophils 15.1 10^3/ul (1.5-7.7); Eosinophil % 0.1 %; Hematocrit 34 % (35-47); Hemoglobin 9.7 g/dL (12.0-16.0); Lymphocyte % 27.7 %; Mean Corpuscular HGB Conc 29 g/dL (31-36); Mean Corpuscular Hemoglobin 24 pg (27-31); Mean Corpuscular Volume 83 fL (80-97); Nucleated Red Blood Cells % 0.1; Platelet Count 407 10^3/uL (150-450); Red Blood Count 4.04 10^6 /uL (3.70-4.87); Red Cell Distribution Width 21 % (10-15); White Blood Count 24.1 10^3/uL (3.5-10.8)
[2020-11-06 17:35] LABS: INR 1.78 (0.86-1.15)
[2020-11-06 17:42] LABS: Albumin 3.1 g/dL (3.2-5.2); Albumin/Globulin Ratio 0.8 (1-3); C Reactive Protein 322.68 mg/L (<8.01); Calcium 8.6 mg/dL (8.6-10.3); EGFR African American 20.2 (>60); EGFR Non-African American 16.7 (>60); Globulin 3.8 g/dL (2-4); Potassium 3.4 mmol/L (3.5-5.0); Total Bilirubin 1.4 mg/dL (0.2-1.0); Total Protein 6.9 g/dL (6.4-8.9)
[2020-11-06 17:43] LABS: Anisocytosis 2+; Hypochromasia 1+; Microcytosis 1+; Polychromasia 1+
[2020-11-06] MEDS ORDERED: Magnesium Sulf 4 GM/100 ML IV 4,000 MG/100 ML BAG IVPB ONE (17:45)
[2020-11-06] MEDS ORDERED: Morphine 4 MG/ML VIAL (1 ml) IV ONE (17:46)
[2020-11-06 18:28] LABS: Urine Appearance Turbid; Urine Specific Gravity 1.026 (1.002-1.030)
[2020-11-06 18:29] LABS: Urine Color Red
[2020-11-06 18:46] LABS: Urine Bacteria 3+ (Absent); Urine Red Blood Cell 3+(>10/hpf) (Absent); Urine White Blood Cell 3+(>20/hpf) (Absent)
[2020-11-06 18:47] LABS: Urine Squamous Epithelial Cell Present (Absent)
[2020-11-06] MEDS ORDERED: Lactated Ringers 1000 ml BAG 1,000 ML IV ONE (20:16)
[2020-11-06] MEDS ORDERED: Ondansetron 4 mg VIAL 2 MG/ML 2 ml VIAL IV PRN (21:06)
[2020-11-06] MEDS ORDERED: Dextrose 50% Syringe 50 ml 25 GM/50 ML SYRINGE IV PUSH PRN (21:16)
[2020-11-06] MEDS ORDERED: KCL 20 MEQ/100 ML IVPREMIX 20 MEQ/100 ML BAG IV ONE (21:17)
[2020-11-06] MEDS ORDERED: NS 0.9% 1000 ml BAG 1,000 ML IV SCH (21:30)
[2020-11-06] MEDS: Hydrocortisone INJ 100 MG/2ML 2 ML VIAL IV SCH (21:43)
[2020-11-06] MEDS ORDERED: Norepinephrine 16MCG/ML IVPRE 4,000 MCG/250 ML BAG IV ONE (21:53)
[2020-11-06] MEDS ORDERED: Norepinephrine 16MCG/ML IVPRE 4,000 MCG/250 ML BAG IV SCH ×2 (22:00→23:45)
[2020-11-06 22:21] LABS: Rapid COVID-19 Molecular Undetected (Undetected)
[2020-11-06] MEDS ORDERED: Warfarin per PHARMACY **NOTE FOLLOW UP SCH (23:45)
[2020-11-07 04:55] LABS: ABS Lymphocytes 0.6 10^3/ul (1.0-4.8); ABS Monocytes 0.7 10^3/ul (0-0.8); ABS Neutrophils 12.1 10^3/ul (1.5-7.7); Hematocrit 27 % (35-47); Hemoglobin 8.4 g/dL (12.0-16.0); Lymphocyte % 4.8 %; Mean Corpuscular HGB Conc 31 g/dL (31-36); Mean Corpuscular Hemoglobin 25 pg (27-31); Mean Corpuscular Volume 80 fL (80-97); Mean Platelet Volume 7.4 fL (7.4-10.4); Platelet Count 232 10^3/uL (150-450); Red Blood Count 3.43 10^6 /uL (3.70-4.87); Red Cell Distribution Width 21 % (10-15); White Blood Count 13.4 10^3/uL (3.5-10.8)
[2020-11-07 05:01] LABS: INR 1.76 (0.86-1.15)
[2020-11-07 05:07] LABS: Calcium 7.4 mg/dL (8.6-10.3); EGFR African American 25.9 (>60); EGFR Non-African American 21.4 (>60); Phosphorus 3.3 mg/dL (2.5-5.0); Potassium 4.3 mmol/L (3.5-5.0)
[2020-11-07] MEDS: Hydrocortisone INJ 100 MG/2ML 2 ML VIAL IV SCH (06:08)
[2020-11-07] MEDS: Albuterol HFA INHALER 8 gm MDI INH PRN (08:01)
[2020-11-07] MEDS: Mometasone/Formoter 200/5 MDI INH SCH ×2 (08:01→21:21)
[2020-11-07] MEDS ORDERED: Insulin GLARGINE 100 un/ml 10 ml VIAL SUBCUT ONE (08:40)
[2020-11-07 11:47] LABS: Calcium 7.3 mg/dL (8.6-10.3); EGFR African American 27.3 (>60); EGFR Non-African American 22.6 (>60)
[2020-11-07] MEDS ORDERED: Dextrose 50% Syringe 50 ml 25 GM/50 ML SYRINGE IV PUSH PRN (11:52)
[2020-11-07] MEDS ORDERED: Lactated Ringers 1000 ml BAG 1,000 ML IV SCH (12:00)
[2020-11-07] MEDS ORDERED: Potassium Chlor 20 meq TAB.ER PO ONE (14:43)
[2020-11-07 15:41] LABS: Calcium 7.3 mg/dL (8.6-10.3); EGFR African American 29.2 (>60); EGFR Non-African American 24.2 (>60); Potassium 3.7 mmol/L (3.5-5.0)
[2020-11-07] MEDS: Warfarin DAILY REMINDER **NOTE FOLLOW UP SCH (16:36)
[2020-11-07] MEDS: cefTRIAXone 2 GM ADDV.VIAL 2 GM in NS 0.9% 100 ml BAG 100 ML IV SCH (17:32)
[2020-11-07] MEDS: Insulin GLARGINE 100 un/ml 10 ml VIAL SUBCUT SCH (20:44)
[2020-11-07] MEDS ORDERED: Hydrocortisone INJ 100 MG/2ML 2 ML VIAL IV SCH (21:00)
[2020-11-07 21:25] LABS: Calcium 7.5 mg/dL (8.6-10.3); EGFR African American 34.3 (>60); EGFR Non-African American 28.4 (>60)
[2020-11-08] MEDS ORDERED: Alteplase (CATHFLO) 2 MG VIAL IV ONE (05:58)
[2020-11-08] MEDS: Mometasone/Formoter 200/5 MDI INH SCH ×3 (07:17→19:58)
[2020-11-08] MEDS: Albuterol HFA INHALER 8 gm MDI INH PRN (07:19)
[2020-11-08 07:47] LABS: INR 2.47 (0.86-1.15)
[2020-11-08 08:07] LABS: ABS Eosinophils 0.1 10^3/ul (0-0.6); ABS Lymphocytes 0.9 10^3/ul (1.0-4.8); ABS Monocytes 0.5 10^3/ul (0-0.8); ABS Neutrophils 6.9 10^3/ul (1.5-7.7); Hematocrit 23 % (35-47); Hemoglobin 7.4 g/dL (12.0-16.0); Lymphocyte % 11.1 %; Mean Corpuscular HGB Conc 32 g/dL (31-36); Mean Corpuscular Hemoglobin 25 pg (27-31); Mean Corpuscular Volume 78 fL (80-97); Mean Platelet Volume 7.6 fL (7.4-10.4); Nucleated Red Blood Cells % 0.1; Platelet Count 205 10^3/uL (150-450); Red Cell Distribution Width 22 % (10-15); White Blood Count 8.5 10^3/uL (3.5-10.8)
[2020-11-08 08:24] LABS: Albumin 2.4 g/dL (3.2-5.2); Albumin/Globulin Ratio 0.8 (1-3); Calcium 7.4 mg/dL (8.6-10.3); Globulin 3.2 g/dL (2-4); Magnesium 1.9 mg/dL (1.9-2.7); Phosphorus 1.6 mg/dL (2.5-5.0); Potassium 3.2 mmol/L (3.5-5.0); Total Bilirubin 0.4 mg/dL (0.2-1.0); Total Protein 5.6 g/dL (6.4-8.9)
[2020-11-08] MEDS ORDERED: CALCIUM GLUCONATE 1GM/50ML NS 1 GM/50 ML BAG IV ONE (08:29)
[2020-11-08] MEDS ORDERED: Potassium Phosphate IV 15 MMOLE in NS 0.9% 250 ml 250 ML IVPB ONE (09:00)
[2020-11-08] MEDS: Pantoprazole VIAL 40 MG VIAL IV SCH (09:46)
[2020-11-08] MEDS ORDERED: Potassium Chlor 20 meq TAB.ER PO ONE (12:31)
[2020-11-08] MEDS: Warfarin DAILY REMINDER **NOTE FOLLOW UP SCH (17:15)
[2020-11-08] MEDS: cefTRIAXone 2 GM ADDV.VIAL 2 GM in NS 0.9% 100 ml BAG 100 ML IV SCH (17:36)
[2020-11-08] MEDS: Insulin GLARGINE 100 un/ml 10 ml VIAL SUBCUT SCH (22:28)
[2020-11-09] MEDS: Albuterol HFA INHALER 8 gm MDI INH PRN ×2 (00:34→19:18)
[2020-11-09 05:27] LABS: ABS Lymphocytes 0.8 10^3/ul (1.0-4.8); ABS Monocytes 0.4 10^3/ul (0-0.8); ABS Neutrophils 4.4 10^3/ul (1.5-7.7); Eosinophil % 0.9 %; Hematocrit 22 % (35-47); Hemoglobin 6.9 g/dL (12.0-16.0); Lymphocyte % 14.6 %; Mean Corpuscular HGB Conc 32 g/dL (31-36); Mean Corpuscular Hemoglobin 25 pg (27-31); Mean Corpuscular Volume 78 fL (80-97); Mean Platelet Volume 7.4 fL (7.4-10.4); Nucleated Red Blood Cells % 0.1; Platelet Count 188 10^3/uL (150-450); Red Blood Count 2.76 10^6 /uL (3.70-4.87); Red Cell Distribution Width 22 % (10-15); White Blood Count 5.7 10^3/uL (3.5-10.8)
[2020-11-09 05:45] LABS: INR 3.29 (0.86-1.15)
[2020-11-09 05:46] LABS: Calcium 7.5 mg/dL (8.6-10.3); EGFR African American 51.7 (>60); EGFR Non-African American 42.7 (>60); Magnesium 1.6 mg/dL (1.9-2.7); Phosphorus 1.9 mg/dL (2.5-5.0); Potassium 3.5 mmol/L (3.5-5.0)
[2020-11-09] MEDS: Pantoprazole VIAL 40 MG VIAL IV SCH (09:33)
[2020-11-09] MEDS: Mometasone/Formoter 200/5 MDI INH SCH ×2 (09:42→19:54)
[2020-11-09] MEDS ORDERED: Iron Sucrose 200 MG in NS 0.9% 100 ml BAG 100 ML IVPB ONE (10:33)
[2020-11-09] MEDS: Iron Sucrose 200 MG in NS 0.9% 100 ml BAG 100 ML IVPB SCH (11:53)
[2020-11-09] MEDS ORDERED: Warfarin - No Order Today **NOTE FOLLOW UP ONE (17:00)
[2020-11-09] MEDS: Warfarin DAILY REMINDER **NOTE FOLLOW UP SCH (17:06)
[2020-11-09] MEDS: cefTRIAXone 2 GM ADDV.VIAL 2 GM in NS 0.9% 100 ml BAG 100 ML IV SCH (17:17)
[2020-11-09] MEDS: Insulin GLARGINE 100 un/ml 10 ml VIAL SUBCUT SCH (20:34)
[2020-11-10 05:52] LABS: ABS Eosinophils 0.1 10^3/ul (0-0.6); ABS Lymphocytes 0.9 10^3/ul (1.0-4.8); ABS Monocytes 0.4 10^3/ul (0-0.8); ABS Neutrophils 3.9 10^3/ul (1.5-7.7); Hematocrit 28 % (35-47); Hemoglobin 9.1 g/dL (12.0-16.0); Lymphocyte % 17.1 %; Mean Corpuscular HGB Conc 32 g/dL (31-36); Mean Corpuscular Hemoglobin 25 pg (27-31); Mean Corpuscular Volume 79 fL (80-97); Mean Platelet Volume 7.2 fL (7.4-10.4); Nucleated Red Blood Cells % 0.1; Platelet Count 201 10^3/uL (150-450); Red Blood Count 3.56 10^6 /uL (3.70-4.87); Red Cell Distribution Width 21 % (10-15); White Blood Count 5.3 10^3/uL (3.5-10.8)
[2020-11-10 05:57] LABS: INR 4.6 (0.86-1.15)
[2020-11-10 06:09] LABS: Calcium 7.7 mg/dL (8.6-10.3); EGFR African American 56.5 (>60); EGFR Non-African American 46.7 (>60); Potassium 3.6 mmol/L (3.5-5.0)
[2020-11-10] MEDS: Mometasone/Formoter 200/5 MDI INH SCH ×2 (07:44→19:10)
[2020-11-10 07:54] LABS: Magnesium 1.3 mg/dL (1.9-2.7)
[2020-11-10] MEDS ORDERED: Magnesium Sulf 4 GM/100 ML IV 4,000 MG/100 ML BAG IVPB ONE (09:00)
[2020-11-10] MEDS: Iron Sucrose 200 MG in NS 0.9% 100 ml BAG 100 ML IVPB SCH (09:17)
[2020-11-10] MEDS: Pantoprazole VIAL 40 MG VIAL IV SCH (09:17)
[2020-11-10 12:03] LABS: Urine Appearance Cloudy; Urine Bilirubin Negative (Negative); Urine Blood 3+ (Negative); Urine Color Yellow; Urine Glucose Negative (Negative); Urine Ketones Negative (Negative); Urine Nitrite Negative (Negative); Urine Protein Negative (Negative); Urine Urobilinogen Negative (Negative)
[2020-11-10 12:08] LABS: Urine Bacteria Absent (Absent); Urine Red Blood Cell 3+(>10/hpf) (Absent); Urine Squamous Epithelial Cell Present (Absent); Urine White Blood Cell 3+(>20/hpf) (Absent)
[2020-11-10] MEDS ORDERED: Warfarin - No Order Today **NOTE FOLLOW UP ONE (17:00)
[2020-11-10] MEDS: cefTRIAXone 2 GM ADDV.VIAL 2 GM in NS 0.9% 100 ml BAG 100 ML IV SCH (17:35)
[2020-11-10] MEDS: Warfarin DAILY REMINDER **NOTE FOLLOW UP SCH (17:35)
[2020-11-10] MEDS: Insulin GLARGINE 100 un/ml 10 ml VIAL SUBCUT SCH (20:55)
[2020-11-11 05:42] LABS: ABS Eosinophils 0.1 10^3/ul (0-0.6); ABS Lymphocytes 1.2 10^3/ul (1.0-4.8); ABS Monocytes 0.5 10^3/ul (0-0.8); ABS Neutrophils 3.4 10^3/ul (1.5-7.7); Eosinophil % 1.2 %; Hematocrit 27 % (35-47); Hemoglobin 8.7 g/dL (12.0-16.0); Lymphocyte % 22.3 %; Mean Corpuscular HGB Conc 32 g/dL (31-36); Mean Corpuscular Hemoglobin 26 pg (27-31); Mean Corpuscular Volume 80 fL (80-97); Mean Platelet Volume 7.2 fL (7.4-10.4); Nucleated Red Blood Cells % 0.1; Platelet Count 216 10^3/uL (150-450); Red Blood Count 3.41 10^6 /uL (3.70-4.87); Red Cell Distribution Width 22 % (10-15); White Blood Count 5.2 10^3/uL (3.5-10.8)
[2020-11-11 06:02] LABS: INR 3.52 (0.86-1.15)
[2020-11-11 06:02] LABS: Calcium 7.6 mg/dL (8.6-10.3); EGFR African American 64.3 (>60); EGFR Non-African American 53.1 (>60); Potassium 3.4 mmol/L (3.5-5.0)
[2020-11-11] MEDS: Mometasone/Formoter 200/5 MDI INH SCH ×2 (07:20→19:09)
[2020-11-11] MEDS: Pantoprazole VIAL 40 MG VIAL IV SCH (07:37)
[2020-11-11] MEDS: Iron Sucrose 200 MG in NS 0.9% 100 ml BAG 100 ML IVPB SCH (07:38)
[2020-11-11] MEDS ORDERED: Warfarin - No Order Today **NOTE FOLLOW UP ONE (17:00)
[2020-11-11] MEDS: cefTRIAXone 2 GM ADDV.VIAL 2 GM in NS 0.9% 100 ml BAG 100 ML IV SCH (17:06)
[2020-11-11] MEDS: Warfarin DAILY REMINDER **NOTE FOLLOW UP SCH (17:07)
[2020-11-11] MEDS: Insulin GLARGINE 100 un/ml 10 ml VIAL SUBCUT SCH (21:09)
[2020-11-12 05:58] LABS: INR 3.26 (0.86-1.15)
[2020-11-12] MEDS: Pantoprazole VIAL 40 MG VIAL IV SCH (08:09)
[2020-11-12] MEDS: Mometasone/Formoter 200/5 MDI INH SCH ×2 (08:14→19:22)
[2020-11-12] MEDS: Iron Sucrose 200 MG in NS 0.9% 100 ml BAG 100 ML IVPB SCH (10:40)
[2020-11-12] MEDS: Warfarin DAILY REMINDER **NOTE FOLLOW UP SCH (17:23)
[2020-11-12] MEDS: cefTRIAXone 2 GM ADDV.VIAL 2 GM in NS 0.9% 100 ml BAG 100 ML IV SCH (17:26)
[2020-11-12] MEDS: Insulin GLARGINE 100 un/ml 10 ml VIAL SUBCUT SCH (21:23)
[2020-11-13 06:13] LABS: INR 2.38 (0.86-1.15)
[2020-11-13] MEDS: Mometasone/Formoter 200/5 MDI INH SCH (07:09)
[2020-11-13] MEDS: Pantoprazole VIAL 40 MG VIAL IV SCH (09:05)
[2020-11-13] MEDS: Iron Sucrose 200 MG in NS 0.9% 100 ml BAG 100 ML IVPB SCH ×2 (09:07→10:00)
[2020-11-13 11:22] VITALS: BP 122/48
== END 2020-11-13 15:50 | disposition home or self-care (01) | DRG 854 ==
LOC: ED 16:46 → SUATTDRO 21:33 → ICU 21:33 → MED 11-08 19:27
PROVIDERS: ADMIT Student in an Organized Health Care Education/Training Program; ATTEND Internal Medicine

== ENCOUNTER 2021-01-08 14:13 | Inpatient (IN) ==
[2021-01-08] MEDS ORDERED: Lactated Ringers 1000 ml BAG 1,000 ML IV ONE ×3 (15:57→16:58)
[2021-01-08 16:41] LABS: Troponin I 0.07 ng/mL (<0.03)
[2021-01-08 16:46] LABS: ALT 20 U/L (7-52); AST 24 U/L (13-39); Albumin 3.3 g/dL (3.2-5.2); Albumin/Globulin Ratio 0.9 (1-3); Alkaline Phosphatase 89 U/L (35-149); Blood Urea Nitrogen 28 mg/dL (6-24); Calcium 9.7 mg/dL (8.6-10.3); Chloride 101 mmol/L (101-111); Globulin 3.8 g/dL (2-4); Glucose 415 mg/dL (70-100); Magnesium 1.8 mg/dL (1.9-2.7); Potassium 3.7 mmol/L (3.5-5.0); Sodium 139 mmol/L (135-145); Total Protein 7.1 g/dL (6.4-8.9)
[2021-01-08 16:51] LABS: Anion Gap 29 mmol/L (2-11); CO2 Carbon Dioxide 9 mmol/L (22-32)
[2021-01-08] MEDS ORDERED: Insulin Infusion 100unit/100mL 100 UNIT/100 ML BAG IV ONE (17:01)
[2021-01-08 17:02] LABS: Anisocytosis 2+; Polychromasia 1+
[2021-01-08 17:03] LABS: ABS Basophils 0.1 10^3/ul (0-0.2); ABS Lymphocytes 4.7 10^3/ul (1.0-4.8); ABS Monocytes 0.5 10^3/ul (0-0.8); Eosinophil % 0.2 %; Hematocrit 40 % (35-47); Hemoglobin 11.4 g/dL (12.0-16.0); Hypochromasia 1+; Lymphocyte % 33.1 %; Mean Corpuscular HGB Conc 29 g/dL (31-36); Mean Corpuscular Hemoglobin 26 pg (27-31); Mean Corpuscular Volume 92 fL (80-97); Mean Platelet Volume 7.5 fL (7.4-10.4); Nucleated Red Blood Cells % 0.3; Platelet Count 385 10^3/uL (150-450); Red Blood Count 4.34 10^6 /uL (3.70-4.87); Red Cell Distribution Width 20 % (10-15); White Blood Count 14.3 10^3/uL (3.5-10.8)
[2021-01-08 17:07] LABS: TSH Ultra Thyroid Stim Horm 5.63 mcIU/mL (0.34-5.60)
[2021-01-08] MEDS ORDERED: Norepinephrine 16MCG/ML IVPRE 4,000 MCG/250 ML BAG IV ONE (17:11)
[2021-01-08] MEDS ORDERED: cefTRIAXone 1 gm/50 mL NS BAG 1 GM/50 ML BAG IV ONE (17:11)
[2021-01-08] MEDS ORDERED: Hydrocortisone INJ 100 MG/2ML 2 ML VIAL IV ONE (17:11)
[2021-01-08 17:57] LABS: Phosphorus 5.6 mg/dL (2.5-5.0)
[2021-01-08] MEDS ORDERED: Norepinephrine 16MCG/ML IVPRE 4,000 MCG/250 ML BAG IV SCH ×2 (18:00→18:19)
[2021-01-08] MEDS ORDERED: Albuterol HFA INHALER 8 gm MDI INH PRN (18:38)
[2021-01-08] MEDS ORDERED: Magnesium Sulfate 2 gm BAG 2 GM/50 ML BAG IVPB ONE (18:43)
[2021-01-08] MEDS ORDERED: Lactated Ringers 1000 ml BAG 1,000 ML IV SCH (19:00)
[2021-01-08] MEDS ORDERED: D5W 1/2 NS 1000 ml BAG 1,000 ML IV SCH (20:00)
[2021-01-08] MEDS: KCL 20 MEQ/100 ML IVPREMIX 20 MEQ/100 ML BAG IV SCH ×2 (20:17→23:03)
[2021-01-08 20:31] LABS: INR 1.58 (0.86-1.15)
[2021-01-08 20:34] LABS: Calcium 7.8 mg/dL (8.6-10.3); Chloride 110 mmol/L (101-111); Potassium 3.1 mmol/L (3.5-5.0); Sodium 140 mmol/L (135-145)
[2021-01-08 20:39] LABS: Blood Urea Nitrogen 29 mg/dL (6-24); Glucose 199 mg/dL (70-100)
[2021-01-08 20:45] LABS: Anion Gap 16 mmol/L (2-11); Troponin I 0.15 ng/mL (<0.03)
[2021-01-08 20:46] LABS: CO2 Carbon Dioxide 14 mmol/L (22-32)
[2021-01-08] MEDS: Pantoprazole VIAL 40 MG VIAL IV SCH (22:16)
[2021-01-08] MEDS: Norepinephrine IV 4 MG in NS 0.9% 250 ml 246 ML IV SCH (22:27)
[2021-01-09] MEDS ORDERED: Vasopressin 100 UNITS in D5W 250 ml BAG 245 ML IV SCH
[2021-01-09 01:34] LABS: Hematocrit 36 % (35-47); Mean Corpuscular HGB Conc 31 g/dL (31-36); Mean Corpuscular Hemoglobin 26 pg (27-31); Mean Corpuscular Volume 85 fL (80-97); Mean Platelet Volume 7.3 fL (7.4-10.4); Platelet Count 278 10^3/uL (150-450); Red Blood Count 4.19 10^6 /uL (3.70-4.87); Red Cell Distribution Width 20 % (10-15); White Blood Count 13.3 10^3/uL (3.5-10.8)
[2021-01-09 01:35] LABS: Urine Appearance Turbid; Urine Bilirubin Negative (Negative); Urine Blood 3+ (Negative); Urine Color Yellow; Urine Glucose Negative (Negative); Urine Ketones Negative (Negative); Urine Nitrite Negative (Negative); Urine Protein 2+(100 mg/dL) (Negative); Urine Specific Gravity 1.016 (1.002-1.030); Urine Urobilinogen Negative (Negative)
[2021-01-09] MEDS ORDERED: Ondansetron 4 mg VIAL 2 MG/ML 2 ml VIAL IV PRN (01:38)
[2021-01-09 01:39] LABS: Urine Bacteria 2+ (Absent); Urine Red Blood Cell 3+(>10/hpf) (Absent); Urine White Blood Cell 3+(>20/hpf) (Absent)
[2021-01-09] MEDS: Hydrocortisone INJ 100 MG/2ML 2 ML VIAL IV SCH ×3 (01:43→17:46)
[2021-01-09 02:11] LABS: Blood Urea Nitrogen 29 mg/dL (6-24); Chloride 110 mmol/L (101-111); Glucose 134 mg/dL (70-100); Potassium 3.9 mmol/L (3.5-5.0); Sodium 136 mmol/L (135-145)
[2021-01-09 02:15] LABS: ABS Lymphocytes 0.7 10^3/ul (1.0-4.8); ABS Monocytes 0.5 10^3/ul (0-0.8); ABS Neutrophils 12.1 10^3/ul (1.5-7.7); Eosinophil % 0.1 %; Lymphocyte % 5.3 %; Nucleated Red Blood Cells % 0.3
[2021-01-09 02:32] LABS: Anion Gap 13 mmol/L (2-11); CO2 Carbon Dioxide 13 mmol/L (22-32)
[2021-01-09] MEDS ORDERED: D5W 1/2 NS 1000 ml BAG 1,000 ML IV SCH (02:40)
[2021-01-09] MEDS: Norepinephrine IV 4 MG in NS 0.9% 250 ml 246 ML IV SCH (02:41)
[2021-01-09] MEDS ORDERED: Dextrose 50% Syringe 50 ml 25 GM/50 ML SYRINGE IV PUSH PRN ×2 (05:54→12:16)
[2021-01-09] MEDS ORDERED: Insulin Infusion 100unit/100mL 100 UNIT/100 ML BAG IV SCH (06:00)
[2021-01-09 06:17] LABS: INR 1.69 (0.86-1.15)
[2021-01-09 06:24] LABS: Blood Urea Nitrogen 32 mg/dL (6-24); Calcium 7.6 mg/dL (8.6-10.3); Chloride 107 mmol/L (101-111); Glucose 232 mg/dL (70-100); Potassium 4.1 mmol/L (3.5-5.0); Sodium 133 mmol/L (135-145)
[2021-01-09 06:30] LABS: Anion Gap 14 mmol/L (2-11); Troponin I 0.36 ng/mL (<0.03)
[2021-01-09 07:33] LABS: Magnesium 1.5 mg/dL (1.9-2.7)
[2021-01-09 07:35] LABS: CO2 Carbon Dioxide 12 mmol/L (22-32)
[2021-01-09 07:44] LABS: Rapid COVID-19 Molecular Undetected (Undetected)
[2021-01-09 08:07] LABS: Troponin I 0.27 ng/mL (<0.03)
[2021-01-09] MEDS ORDERED: Magnesium Sulf 4 GM/100 ML IV 4,000 MG/100 ML BAG IVPB ONE (08:38)
[2021-01-09] MEDS ORDERED: cefTRIAXone 1 gm/50 mL NS BAG 1 GM/50 ML BAG IVPB SCH (09:00)
[2021-01-09] MEDS ORDERED: Piperacillin/Tazobac ADVAN 3.375 GM in NS 0.9% 100 ml BAG 100 ML IV ONE (09:46)
[2021-01-09] MEDS ORDERED: Zosyn per Pharmacy NOTE FOLLOW UP SCH (10:00)
[2021-01-09] MEDS: Pantoprazole VIAL 40 MG VIAL IV SCH (10:21)
[2021-01-09 11:08] LABS: Blood Urea Nitrogen 34 mg/dL (6-24); Calcium 7.3 mg/dL (8.6-10.3); Chloride 107 mmol/L (101-111); Glucose 220 mg/dL (70-100); Potassium 4.1 mmol/L (3.5-5.0); Sodium 132 mmol/L (135-145)
[2021-01-09 11:38] LABS: Anion Gap 13 mmol/L (2-11); CO2 Carbon Dioxide 12 mmol/L (22-32); Troponin I 0.29 ng/mL (<0.03)
[2021-01-09] MEDS: Meropenem 1 GM PREMIX(*) 1 GM/50 ML BAG IV SCH ×2 (12:19→21:38)
[2021-01-09] MEDS: Heparin 5000 UNITS/ML 1 mL VIAL SUBCUT SCH ×2 (13:15→21:37)
[2021-01-09] MEDS ORDERED: Succinylcholine 200 mg VIAL 20 mg/ml 10 ml VIAL (200 mg) ONE (14:57)
[2021-01-09] MEDS ORDERED: Rocuronium 50 mg VIAL 10 mg/ml 5 ml VIAL (50 mg) ONE (14:59)
[2021-01-09] MEDS ORDERED: fentaNYL 250 mcg/5 ml 50 MCG/ML 5 ml VIAL (250 MCG) ONE (15:02)
[2021-01-09] MEDS ORDERED: Etomidate 40 mg/20 ml (2 MG/ML) 20 ml VIAL (40 mg) ONE (15:02)
[2021-01-09] MEDS ORDERED: Midazolam 2 mg/2 ml VIAL 1 mg/ml 2 ml VIAL (2 mg) ONE (16:05)
[2021-01-09] MEDS ORDERED: fentaNYL 100 mcg/2 ml 50 MCG/ML VIAL ONE (16:06)
[2021-01-09] MEDS ORDERED: Midazolam 5 mg/5 ml VIAL 1 mg/ml 5 ml VIAL (5 mg) ONE (16:07)
[2021-01-09] MEDS ORDERED: Lorazepam PYXIS KEY ONE (16:52)
[2021-01-09] MEDS ORDERED: Midazolam 10 mg/10 ml VIAL 1 mg/ml 10 ml VIAL (10 mg) IV SLOW PU ONE (17:00)
[2021-01-09] MEDS ORDERED: fentaNYL 100 mcg/2 ml 50 MCG/ML VIAL IV SLOW PU ONE (17:00)
[2021-01-09] MEDS ORDERED: Lactated Ringers 1000 ml BAG 1,000 ML IV SCH (18:00)
[2021-01-09] MEDS ORDERED: Midazolam 5 mg/5 ml VIAL 1 mg/ml 5 ml VIAL (5 mg) IV SLOW PU ONE (18:16)
[2021-01-09] MEDS: Norepinephrine *QUAD STRENGTH* 16 mg/250 mL NS per protocol IV SCH (21:26)
[2021-01-10] MEDS: Hydrocortisone INJ 100 MG/2ML 2 ML VIAL IV SCH ×3 (00:23→16:24)
[2021-01-10] MEDS: LACTATED RINGERS 1000 ML/HR *Bolus IV SCH ×2 (01:30→04:30)
[2021-01-10] MEDS: Norepinephrine *QUAD STRENGTH* 16 mg/250 mL NS per protocol IV SCH ×2 (04:50→13:19)
[2021-01-10 04:59] LABS: Hematocrit 33 % (35-47); Hemoglobin 9.7 g/dL (12.0-16.0); Mean Corpuscular HGB Conc 30 g/dL (31-36); Mean Corpuscular Hemoglobin 27 pg (27-31); Mean Corpuscular Volume 89 fL (80-97); Mean Platelet Volume 7.8 fL (7.4-10.4); Platelet Count 248 10^3/uL (150-450); Red Blood Count 3.67 10^6 /uL (3.70-4.87); Red Cell Distribution Width 20 % (10-15); White Blood Count 24.4 10^3/uL (3.5-10.8)
[2021-01-10 05:04] LABS: INR 3.47 (0.86-1.15)
[2021-01-10 05:15] LABS: Blood Urea Nitrogen 42 mg/dL (6-24); Calcium 7.3 mg/dL (8.6-10.3); Chloride 108 mmol/L (101-111); Glucose 151 mg/dL (70-100); Magnesium 3.3 mg/dL (1.9-2.7); Phosphorus 8.7 mg/dL (2.5-5.0); Sodium 133 mmol/L (135-145)
[2021-01-10 05:31] LABS: Burr Cells 3+
[2021-01-10 05:32] LABS: ABS Lymphocytes 1.2 10^3/ul (1.0-4.8); ABS Monocytes 0.9 10^3/ul (0-0.8); ABS Neutrophils 22.2 10^3/ul (1.5-7.7); Eosinophil % 0.1 %; Lymphocyte % 4.9 %; Nucleated Red Blood Cells % 0.1
[2021-01-10 05:37] LABS: CO2 Carbon Dioxide < 7 mmol/L (22-32); Potassium 7.5 mmol/L (3.5-5.0)
[2021-01-10] MEDS ORDERED: Dextrose 50% Syringe 50 ml 25 GM/50 ML SYRINGE IV PUSH PRN (05:44)
[2021-01-10] MEDS ORDERED: Dextrose 50% Syringe 50 ml 25 GM/50 ML SYRINGE IV PUSH ONE (05:44)
[2021-01-10] MEDS ORDERED: NS 0.9% 1000 ml BAG 1,000 ML IV ONE (05:49)
[2021-01-10] MEDS ORDERED: Patiromer POWDER 8.4 GM PAK PO ONE (05:53)
[2021-01-10] MEDS ORDERED: metroNIDAZOLE IV 500 MG/100ML 500 MG/100 ML BAG IVPB SCH (06:00)
[2021-01-10] MEDS: Sodium Bicarbonate 8.4% SYR 50 ml SYRINGE IV ONE ×2 (06:05→07:50)
[2021-01-10] MEDS: Chlorhexidine MOUTHWASH 0.12% 15 ML UDC TOPICAL SCH ×5 (06:07→20:24)
[2021-01-10] MEDS: CALCIUM GLUCONATE 1GM/50ML NS 1 GM/50 ML BAG IV ONE ×2 (06:07→06:18)
[2021-01-10] MEDS ORDERED: Calcium Gluconate 1 GM/10 ML VIAL (in Pyxis) IV PUSH ONE (06:12)
[2021-01-10] MEDS ORDERED: CALCIUM GLUCONATE 1GM/50ML NS 1 GM/50 ML BAG IV ONE (06:18)
[2021-01-10 06:29] LABS: PCO2 Arterial 61 mmHg (35-45); PO2 Arterial 80 mmHg (80-100)
[2021-01-10 08:05] LABS: Calcium 7.1 mg/dL (8.6-10.3)
[2021-01-10 08:09] LABS: Potassium 6.3 mmol/L (3.5-5.0)
[2021-01-10] MEDS ORDERED: Midazolam 5 mg/5 ml VIAL 1 mg/ml 5 ml VIAL (5 mg) ONE (08:14)
[2021-01-10] MEDS ORDERED: Dextrose 50% Syringe 50 ml 25 GM/50 ML SYRINGE ONE (08:14)
[2021-01-10] MEDS ORDERED: fentaNYL 100 mcg/2 ml 50 MCG/ML VIAL ONE (08:15)
[2021-01-10] MEDS: metroNIDAZOLE IV 500 MG/100ML 500 MG/100 ML BAG IVPB SCH ×2 (09:17→16:24)
[2021-01-10] MEDS: Pantoprazole VIAL 40 MG VIAL IV SCH (09:19)
[2021-01-10] MEDS: Heparin 5000 UNITS/ML 1 mL VIAL SUBCUT SCH ×2 (09:19→20:24)
[2021-01-10 09:43] LABS: Potassium 5.6 mmol/L (3.5-5.0)
[2021-01-10] MEDS: Vancomycin SOL ORALSYR 50 MG/ML ML PO SCH ×4 (10:16→20:24)
[2021-01-10] MEDS: Meropenem 1 GM PREMIX(*) 1 GM/50 ML BAG IV SCH ×2 (11:49→23:21)
[2021-01-10 12:11] LABS: Calcium 7.8 mg/dL (8.6-10.3)
[2021-01-10 12:15] LABS: Potassium 5.4 mmol/L (3.5-5.0)
[2021-01-10] MEDS: fentaNYL INFUSION 50 mcg/mL VL 2,500 MCG/50 ML VIAL IV SCH (13:20)
[2021-01-10] MEDS ORDERED: Norepinephrine IV 16 MG in NS 0.9% 250 ml 234 ML IV SCH (13:49)
[2021-01-11] MEDS: Chlorhexidine MOUTHWASH 0.12% 15 ML UDC TOPICAL SCH ×6 (00:16→20:18)
[2021-01-11] MEDS: Hydrocortisone INJ 100 MG/2ML 2 ML VIAL IV SCH ×3 (00:16→18:18)
[2021-01-11] MEDS: metroNIDAZOLE IV 500 MG/100ML 500 MG/100 ML BAG IVPB SCH ×4 (00:16→23:59)
[2021-01-11 04:14] LABS: INR 3.46 (0.86-1.15)
[2021-01-11 04:33] LABS: Calcium 7.4 mg/dL (8.6-10.3)
[2021-01-11 04:34] LABS: Potassium 5.5 mmol/L (3.5-5.0)
[2021-01-11] MEDS: Pantoprazole VIAL 40 MG VIAL IV SCH (07:38)
[2021-01-11] MEDS: Vancomycin SOL ORALSYR 50 MG/ML ML PO SCH ×4 (07:41→20:18)
[2021-01-11] MEDS: Heparin 5000 UNITS/ML 1 mL VIAL SUBCUT SCH ×2 (07:42→20:18)
[2021-01-11 07:45] LABS: Hematocrit 29 % (35-47); Hemoglobin 9.4 g/dL (12.0-16.0); Mean Corpuscular HGB Conc 32 g/dL (31-36); Mean Corpuscular Hemoglobin 26 pg (27-31); Mean Corpuscular Volume 82 fL (80-97); Mean Platelet Volume 7.4 fL (7.4-10.4); Platelet Count 137 10^3/uL (150-450); Red Blood Count 3.58 10^6 /uL (3.70-4.87); Red Cell Distribution Width 20 % (10-15); White Blood Count 11.3 10^3/uL (3.5-10.8)
[2021-01-11] MEDS ORDERED: Patiromer POWDER 8.4 GM PAK PO SCH (08:00)
[2021-01-11 08:12] LABS: ABS Lymphocytes 0.2 10^3/ul (1.0-4.8); ABS Monocytes 0.4 10^3/ul (0-0.8); ABS Neutrophils 10.6 10^3/ul (1.5-7.7); Eosinophil % 0.1 %; Lymphocyte % 2.2 %; Nucleated Red Blood Cells % 0.2
[2021-01-11] MEDS ORDERED: Midazolam 5 mg/5 ml VIAL 1 mg/ml 5 ml VIAL (5 mg) ONE (08:27)
[2021-01-11] MEDS ORDERED: Midazolam 10 mg/10 ml VIAL 1 mg/ml 10 ml VIAL (10 mg) IV SLOW PU ONE (08:27)
[2021-01-11] MEDS ORDERED: Midazolam 5 mg/5 ml VIAL 1 mg/ml 5 ml VIAL (5 mg) IV SLOW PU ONE (09:00)
[2021-01-11] MEDS ORDERED: Desmopressin Acetate 20 MCG in NS 0.9% 50 ML 50 ML IVPB ONE (09:00)
[2021-01-11] MEDS: Heparin 1,000 UNIT/ML 10 ml (10,000 UNITS) CATHLAB/DIALYSIS DIALYSIS SCH (13:05)
[2021-01-11 16:34] LABS: INR 3.21 (0.86-1.15)
[2021-01-11 17:13] LABS: Hematocrit 28 % (35-47); Hemoglobin 9.2 g/dL (12.0-16.0); Mean Corpuscular HGB Conc 32 g/dL (31-36); Mean Corpuscular Hemoglobin 26 pg (27-31); Mean Corpuscular Volume 80 fL (80-97); Mean Platelet Volume 7.6 fL (7.4-10.4); Platelet Count 123 10^3/uL (150-450); Red Blood Count 3.54 10^6 /uL (3.70-4.87); Red Cell Distribution Width 21 % (10-15); White Blood Count 9.2 10^3/uL (3.5-10.8)
[2021-01-11 17:38] LABS: Calcium 7.5 mg/dL (8.6-10.3); Magnesium 2.1 mg/dL (1.9-2.7); Phosphorus 4.4 mg/dL (2.5-5.0); Potassium 3.9 mmol/L (3.5-5.0)
[2021-01-11 17:50] LABS: ABS Lymphocytes 1.1 10^3/ul (1.0-4.8); ABS Monocytes 0.4 10^3/ul (0-0.8); ABS Neutrophils 7.6 10^3/ul (1.5-7.7); Eosinophil % 0.3 %; Lymphocyte % 11.7 %; Nucleated Red Blood Cells % 0.5
[2021-01-11] MEDS: fentaNYL INFUSION 50 mcg/mL VL 2,500 MCG/50 ML VIAL IV SCH (21:45)
[2021-01-11] MEDS ORDERED: Meropenem 1 GM PREMIX(*) 1 GM/50 ML BAG IV SCH (23:00)
[2021-01-12] MEDS: Hydrocortisone INJ 100 MG/2ML 2 ML VIAL IV SCH ×4 (00:01→20:17)
[2021-01-12] MEDS: Chlorhexidine MOUTHWASH 0.12% 15 ML UDC TOPICAL SCH ×6 (00:01→20:16)
[2021-01-12 04:47] LABS: Hematocrit 26 % (35-47); Hemoglobin 8.3 g/dL (12.0-16.0); Mean Corpuscular HGB Conc 32 g/dL (31-36); Mean Corpuscular Hemoglobin 26 pg (27-31); Mean Corpuscular Volume 81 fL (80-97); Mean Platelet Volume 7.6 fL (7.4-10.4); Platelet Count 108 10^3/uL (150-450); Red Blood Count 3.16 10^6 /uL (3.70-4.87); Red Cell Distribution Width 20 % (10-15); White Blood Count 7.1 10^3/uL (3.5-10.8)
[2021-01-12 05:04] LABS: ABS Lymphocytes 0.3 10^3/ul (1.0-4.8); ABS Monocytes 0.3 10^3/ul (0-0.8); ABS Neutrophils 6.5 10^3/ul (1.5-7.7); Eosinophil % 0.1 %; INR 2.85 (0.86-1.15); Lymphocyte % 4.9 %; Nucleated Red Blood Cells % 0.2
[2021-01-12 05:15] LABS: Calcium 7.2 mg/dL (8.6-10.3); Magnesium 2.3 mg/dL (1.9-2.7); Phosphorus 4.2 mg/dL (2.5-5.0); Potassium 4.1 mmol/L (3.5-5.0)
[2021-01-12] MEDS ORDERED: fentaNYL 100 mcg/2 ml 50 MCG/ML VIAL IV SLOW PU ONE (07:27)
[2021-01-12] MEDS: Pantoprazole VIAL 40 MG VIAL IV SCH (08:08)
[2021-01-12] MEDS: Vancomycin SOL ORALSYR 50 MG/ML ML PO SCH ×4 (08:08→20:17)
[2021-01-12] MEDS: metroNIDAZOLE IV 500 MG/100ML 500 MG/100 ML BAG IVPB SCH ×2 (08:10→16:06)
[2021-01-12] MEDS: Heparin 5000 UNITS/ML 1 mL VIAL SUBCUT SCH ×2 (08:22→20:17)
[2021-01-12 09:49] LABS: Hepatitis B Surface Antigen Nonreactive (Nonreactive)
[2021-01-12 10:06] LABS: Hepatitis B Surface Ab Not Immune (Immune)
[2021-01-12] MEDS: Propofol 10 mg/ml 100 ML BTL 100 ML IV SCH ×2 (10:48→18:45)
[2021-01-12] MEDS ORDERED: Norepinephrine 16MCG/ML IVPRE 4,000 MCG/250 ML BAG IV SCH (14:00)
[2021-01-12] MEDS ORDERED: NOREPINEPHRINE IV SCH (15:00)
[2021-01-12] MEDS ORDERED: NS IV SCH (15:00)
[2021-01-12] MEDS: Heparin 1,000 UNIT/ML 10 ml (10,000 UNITS) CATHLAB/DIALYSIS DIALYSIS SCH ×2 (15:21→17:40)
[2021-01-12] MEDS: Aztreonam 1 GM in NS 0.9% 50 ML 50 ML IV SCH (23:56)
[2021-01-13] MEDS: Chlorhexidine MOUTHWASH 0.12% 15 ML UDC TOPICAL SCH ×6 (00:17→20:06)
[2021-01-13] MEDS: metroNIDAZOLE IV 500 MG/100ML 500 MG/100 ML BAG IVPB SCH ×3 (00:17→20:06)
[2021-01-13 05:17] LABS: Hematocrit 27 % (35-47); Hemoglobin 8.5 g/dL (12.0-16.0); Mean Corpuscular HGB Conc 32 g/dL (31-36); Mean Corpuscular Hemoglobin 26 pg (27-31); Mean Corpuscular Volume 81 fL (80-97); Platelet Count 114 10^3/uL (150-450); Red Blood Count 3.29 10^6 /uL (3.70-4.87); Red Cell Distribution Width 20 % (10-15)
[2021-01-13 05:29] LABS: INR 2.46 (0.86-1.15)
[2021-01-13 05:40] LABS: Calcium 7.9 mg/dL (8.6-10.3); Phosphorus 2.5 mg/dL (2.5-5.0); Potassium 3.5 mmol/L (3.5-5.0)
[2021-01-13 07:44] LABS: ABS Lymphocytes 0.6 10^3/ul (1.0-4.8); ABS Monocytes 0.4 10^3/ul (0-0.8); Lymphocyte % 8.1 %; Nucleated Red Blood Cells % 0.4
[2021-01-13] MEDS: fentaNYL 100 mcg/2 ml 50 MCG/ML VIAL IV SLOW PU PRN (08:05)
[2021-01-13] MEDS: Hydrocortisone INJ 100 MG/2ML 2 ML VIAL IV SCH (10:38)
[2021-01-13] MEDS: Heparin 1,000 UNIT/ML 10 ml (10,000 UNITS) CATHLAB/DIALYSIS DIALYSIS SCH ×2 (11:00→11:33)
[2021-01-13] MEDS: Heparin 5000 UNITS/ML 1 mL VIAL SUBCUT SCH ×2 (11:30→20:06)
[2021-01-13] MEDS: Pantoprazole VIAL 40 MG VIAL IV SCH (11:33)
[2021-01-13] MEDS: Vancomycin SOL ORALSYR 50 MG/ML ML PO SCH ×4 (12:07→20:07)
[2021-01-13] MEDS ORDERED: Dexmedetomidine 1,000 MCG in NS 0.9% 250 ml 240 ML IV SCH (15:00)
[2021-01-13] MEDS: Aztreonam 1 GM in NS 0.9% 50 ML 50 ML IV SCH (23:50)
[2021-01-14] MEDS: Chlorhexidine MOUTHWASH 0.12% 15 ML UDC TOPICAL SCH ×7 (00:24→23:13)
[2021-01-14] MEDS: metroNIDAZOLE IV 500 MG/100ML 500 MG/100 ML BAG IVPB SCH (04:11)
[2021-01-14 05:03] LABS: Hematocrit 24 % (35-47); Hemoglobin 7.5 g/dL (12.0-16.0); Mean Corpuscular HGB Conc 32 g/dL (31-36); Mean Corpuscular Hemoglobin 26 pg (27-31); Mean Corpuscular Volume 81 fL (80-97); Mean Platelet Volume 7.6 fL (7.4-10.4); Platelet Count 105 10^3/uL (150-450); Red Cell Distribution Width 20 % (10-15); White Blood Count 5.6 10^3/uL (3.5-10.8)
[2021-01-14 05:14] LABS: ABS Lymphocytes 0.7 10^3/ul (1.0-4.8); ABS Monocytes 0.3 10^3/ul (0-0.8); ABS Neutrophils 4.5 10^3/ul (1.5-7.7); Eosinophil % 0.4 %; Lymphocyte % 12.8 %; Nucleated Red Blood Cells % 0.1
[2021-01-14 05:18] LABS: INR 1.95 (0.86-1.15)
[2021-01-14 05:23] LABS: Albumin 2.2 g/dL (3.2-5.2); Albumin/Globulin Ratio 0.7 (1-3); Calcium 8.1 mg/dL (8.6-10.3); Magnesium 1.8 mg/dL (1.9-2.7); Phosphorus 1.7 mg/dL (2.5-5.0); Potassium 3.2 mmol/L (3.5-5.0); Total Bilirubin 0.6 mg/dL (0.2-1.0); Total Protein 5.2 g/dL (6.4-8.9)
[2021-01-14] MEDS ORDERED: Magnesium Sulfate 2 gm BAG 2 GM/50 ML BAG IVPB ONE (07:24)
[2021-01-14] MEDS: KCL 10 MEQ/50 ML IVPREMIX 10 MEQ/50 ML BAG IV SCH ×2 (08:09→09:25)
[2021-01-14] MEDS: Heparin 5000 UNITS/ML 1 mL VIAL SUBCUT SCH ×2 (08:10→20:07)
[2021-01-14] MEDS: Vancomycin SOL ORALSYR 50 MG/ML ML PO SCH ×4 (08:10→20:07)
[2021-01-14] MEDS: Pantoprazole VIAL 40 MG VIAL IV SCH ×2 (08:10→20:07)
[2021-01-14] MEDS: Heparin 1,000 UNIT/ML 10 ml (10,000 UNITS) CATHLAB/DIALYSIS DIALYSIS SCH (08:11)
[2021-01-14] MEDS ORDERED: Potassium Phosphate IV 15 MMOLE in NS 0.9% 250 ml 250 ML IVPB ONE (08:15)
[2021-01-14 11:17] LABS: PCO2 Arterial 37 mmHg (35-45); PO2 Arterial 140 mmHg (80-100)
[2021-01-14 16:42] LABS: Anion Gap 7 mmol/L (2-11); Blood Urea Nitrogen 47 mg/dL (6-24); CO2 Carbon Dioxide 26 mmol/L (22-32); Calcium 8.5 mg/dL (8.6-10.3); Chloride 103 mmol/L (101-111); Glucose 188 mg/dL (70-100); Magnesium 2.5 mg/dL (1.9-2.7); Phosphorus 4.1 mg/dL (2.5-5.0); Potassium 4.1 mmol/L (3.5-5.0); Sodium 136 mmol/L (135-145)
[2021-01-14 19:10] LABS: % Iron Saturation 14 % (15-55); Iron 23 ug/dL (50-212); Total Iron Binding Capacity 167 mcg/dL (250-450); Transferrin 119 mg/dL (203-362); Unsaturated Iron Binding < 152 ug/dL
[2021-01-14 19:27] LABS: Ferritin 225.4 ng/mL (11-307)
[2021-01-14] MEDS: fentaNYL 100 mcg/2 ml 50 MCG/ML VIAL IV SLOW PU PRN (21:31)
[2021-01-14] MEDS: Aztreonam 1 GM in NS 0.9% 50 ML 50 ML IV SCH (23:01)
[2021-01-15] MEDS: Chlorhexidine MOUTHWASH 0.12% 15 ML UDC TOPICAL SCH ×3 (04:24→12:15)
[2021-01-15 04:30] LABS: ABS Monocytes 0.4 10^3/ul (0-0.8); ABS Neutrophils 5.8 10^3/ul (1.5-7.7); Eosinophil % 0.6 %; Hematocrit 26 % (35-47); Hemoglobin 8.3 g/dL (12.0-16.0); Lymphocyte % 14.3 %; Mean Corpuscular HGB Conc 32 g/dL (31-36); Mean Corpuscular Hemoglobin 26 pg (27-31); Mean Corpuscular Volume 82 fL (80-97); Mean Platelet Volume 8.3 fL (7.4-10.4); Platelet Count 130 10^3/uL (150-450); Red Blood Count 3.17 10^6 /uL (3.70-4.87); Red Cell Distribution Width 20 % (10-15); White Blood Count 7.3 10^3/uL (3.5-10.8)
[2021-01-15 04:40] LABS: INR 1.75 (0.86-1.15)
[2021-01-15 04:48] LABS: Albumin 2.3 g/dL (3.2-5.2); Albumin/Globulin Ratio 0.7 (1-3); Calcium 8.1 mg/dL (8.6-10.3); Globulin 3.1 g/dL (2-4); Magnesium 2.2 mg/dL (1.9-2.7); Phosphorus 3.2 mg/dL (2.5-5.0); Potassium 3.4 mmol/L (3.5-5.0); Total Bilirubin 0.6 mg/dL (0.2-1.0); Total Protein 5.4 g/dL (6.4-8.9)
[2021-01-15] MEDS: fentaNYL 100 mcg/2 ml 50 MCG/ML VIAL IV SLOW PU PRN ×2 (07:04→20:09)
[2021-01-15] MEDS: Vancomycin SOL ORALSYR 50 MG/ML ML PO SCH ×4 (08:37→20:25)
[2021-01-15] MEDS: Pantoprazole VIAL 40 MG VIAL IV SCH ×2 (08:37→20:09)
[2021-01-15] MEDS: Heparin 5000 UNITS/ML 1 mL VIAL SUBCUT SCH ×2 (08:37→20:20)
[2021-01-15] MEDS: Heparin 1,000 UNIT/ML 10 ml (10,000 UNITS) CATHLAB/DIALYSIS DIALYSIS SCH (08:55)
[2021-01-15 15:25] LABS: Calcium 8.1 mg/dL (8.6-10.3); Potassium 3.6 mmol/L (3.5-5.0)
[2021-01-15] MEDS: KCL 10 MEQ/50 ML IVPREMIX 10 MEQ/50 ML BAG IV SCH ×2 (16:49→18:39)
[2021-01-15] MEDS: Aztreonam 1 GM in NS 0.9% 50 ML 50 ML IV SCH (23:09)
[2021-01-16 04:24] LABS: ABS Lymphocytes 1.3 10^3/ul (1.0-4.8); ABS Monocytes 0.4 10^3/ul (0-0.8); ABS Neutrophils 6.2 10^3/ul (1.5-7.7); Eosinophil % 0.6 %; Hematocrit 26 % (35-47); Hemoglobin 8.4 g/dL (12.0-16.0); Lymphocyte % 16.9 %; Mean Corpuscular HGB Conc 32 g/dL (31-36); Mean Corpuscular Hemoglobin 26 pg (27-31); Mean Corpuscular Volume 82 fL (80-97); Mean Platelet Volume 8.4 fL (7.4-10.4); Nucleated Red Blood Cells % 0.1; Platelet Count 165 10^3/uL (150-450); Red Blood Count 3.19 10^6 /uL (3.70-4.87); Red Cell Distribution Width 20 % (10-15)
[2021-01-16 04:43] LABS: Magnesium 1.8 mg/dL (1.9-2.7); Potassium 3.4 mmol/L (3.5-5.0)
[2021-01-16] MEDS: fentaNYL 100 mcg/2 ml 50 MCG/ML VIAL IV SLOW PU PRN (05:51)
[2021-01-16] MEDS: KCL 20 MEQ/100 ML IVPREMIX 20 MEQ/100 ML BAG IV SCH ×2 (07:19→08:54)
[2021-01-16] MEDS: Vancomycin SOL ORALSYR 50 MG/ML ML PO SCH ×4 (08:54→20:15)
[2021-01-16] MEDS: Heparin 5000 UNITS/ML 1 mL VIAL SUBCUT SCH ×2 (08:54→20:15)
[2021-01-16] MEDS: Pantoprazole VIAL 40 MG VIAL IV SCH ×2 (08:54→20:15)
[2021-01-16] MEDS: Heparin 1,000 UNIT/ML 10 ml (10,000 UNITS) CATHLAB/DIALYSIS DIALYSIS SCH (12:14)
[2021-01-16] MEDS: Aztreonam 1 GM in NS 0.9% 50 ML 50 ML IV SCH (23:00)
[2021-01-17 04:50] LABS: Hematocrit 25 % (35-47); Hemoglobin 7.9 g/dL (12.0-16.0); Mean Corpuscular HGB Conc 32 g/dL (31-36); Mean Corpuscular Hemoglobin 26 pg (27-31); Mean Corpuscular Volume 83 fL (80-97); Mean Platelet Volume 8.6 fL (7.4-10.4); Platelet Count 185 10^3/uL (150-450); Red Blood Count 3.02 10^6 /uL (3.70-4.87); Red Cell Distribution Width 20 % (10-15); White Blood Count 6.7 10^3/uL (3.5-10.8)
[2021-01-17 05:08] LABS: Calcium 7.9 mg/dL (8.6-10.3); Magnesium 1.4 mg/dL (1.9-2.7); Phosphorus 3.6 mg/dL (2.5-5.0); Potassium 3.6 mmol/L (3.5-5.0)
[2021-01-17] MEDS ORDERED: Magnesium Sulf 4 GM/100 ML IV 4,000 MG/100 ML BAG IVPB ONE (06:55)
[2021-01-17] MEDS: Pantoprazole VIAL 40 MG VIAL IV SCH ×2 (09:22→19:50)
[2021-01-17] MEDS: Heparin 5000 UNITS/ML 1 mL VIAL SUBCUT SCH ×2 (09:22→19:50)
[2021-01-17] MEDS: Vancomycin SOL ORALSYR 50 MG/ML ML PO SCH ×4 (09:22→21:39)
[2021-01-17] MEDS ORDERED: Potassium Chlor 20 meq TAB.ER PO ONE (09:25)
[2021-01-17] MEDS: KCL 10 MEQ/50 ML IVPREMIX 10 MEQ/50 ML BAG IV SCH ×3 (10:28→12:48)
[2021-01-17] MEDS: Aztreonam 1 GM in NS 0.9% 50 ML 50 ML IV SCH (23:15)
[2021-01-18 05:34] LABS: ABS Eosinophils 0.1 10^3/ul (0-0.6); ABS Lymphocytes 1.2 10^3/ul (1.0-4.8); ABS Monocytes 0.4 10^3/ul (0-0.8); ABS Neutrophils 4.9 10^3/ul (1.5-7.7); Eosinophil % 1.6 %; Hematocrit 26 % (35-47); Hemoglobin 8.1 g/dL (12.0-16.0); Lymphocyte % 18.3 %; Mean Corpuscular HGB Conc 31 g/dL (31-36); Mean Corpuscular Hemoglobin 27 pg (27-31); Mean Corpuscular Volume 85 fL (80-97); Mean Platelet Volume 8.5 fL (7.4-10.4); Platelet Count 218 10^3/uL (150-450); Red Blood Count 3.04 10^6 /uL (3.70-4.87); Red Cell Distribution Width 21 % (10-15); White Blood Count 6.6 10^3/uL (3.5-10.8)
[2021-01-18 05:53] LABS: INR 1.49 (0.86-1.15)
[2021-01-18 05:59] LABS: Magnesium 1.9 mg/dL (1.9-2.7); Phosphorus 3.3 mg/dL (2.5-5.0); Potassium 4.3 mmol/L (3.5-5.0)
[2021-01-18] MEDS ORDERED: Warfarin per PHARMACY **NOTE FOLLOW UP SCH (09:00)
[2021-01-18] MEDS: Vancomycin SOL ORALSYR 50 MG/ML ML PO SCH ×4 (11:34→20:25)
[2021-01-18] MEDS ORDERED: Morphine 2 MG/ML SYRINGE IV ONE (17:28)
[2021-01-19 04:58] LABS: ABS Eosinophils 0.1 10^3/ul (0-0.6); ABS Lymphocytes 1.3 10^3/ul (1.0-4.8); ABS Monocytes 0.4 10^3/ul (0-0.8); ABS Neutrophils 5.3 10^3/ul (1.5-7.7); Eosinophil % 1.7 %; Hematocrit 27 % (35-47); Hemoglobin 8.3 g/dL (12.0-16.0); Lymphocyte % 18.5 %; Mean Corpuscular HGB Conc 31 g/dL (31-36); Mean Corpuscular Hemoglobin 26 pg (27-31); Mean Corpuscular Volume 84 fL (80-97); Mean Platelet Volume 8.2 fL (7.4-10.4); Platelet Count 258 10^3/uL (150-450); Red Blood Count 3.15 10^6 /uL (3.70-4.87); Red Cell Distribution Width 21 % (10-15); White Blood Count 7.2 10^3/uL (3.5-10.8)
[2021-01-19 05:09] LABS: INR 1.53 (0.86-1.15)
[2021-01-19 05:15] LABS: Calcium 8.1 mg/dL (8.6-10.3); Magnesium 1.4 mg/dL (1.9-2.7); Potassium 4.3 mmol/L (3.5-5.0)
[2021-01-19] MEDS ORDERED: Magnesium Sulfate IV 3 GM in NS 0.9% 100 ml BAG 100 ML IVPB ONE (08:30)
[2021-01-19] MEDS: Vancomycin SOL ORALSYR 50 MG/ML ML PO SCH ×4 (10:45→21:53)
[2021-01-19] MEDS: Mometasone/Formoter 200/5 MDI INH SCH (20:27)
[2021-01-20 05:42] LABS: ABS Eosinophils 0.1 10^3/ul (0-0.6); ABS Lymphocytes 1.3 10^3/ul (1.0-4.8); ABS Monocytes 0.4 10^3/ul (0-0.8); ABS Neutrophils 4.9 10^3/ul (1.5-7.7); Eosinophil % 1.1 %; Hematocrit 30 % (35-47); Hemoglobin 9.3 g/dL (12.0-16.0); Lymphocyte % 19.2 %; Mean Corpuscular HGB Conc 31 g/dL (31-36); Mean Corpuscular Hemoglobin 26 pg (27-31); Mean Corpuscular Volume 86 fL (80-97); Mean Platelet Volume 8.6 fL (7.4-10.4); Platelet Count 309 10^3/uL (150-450); Red Blood Count 3.51 10^6 /uL (3.70-4.87); Red Cell Distribution Width 21 % (10-15); White Blood Count 6.7 10^3/uL (3.5-10.8)
[2021-01-20 05:50] LABS: INR 1.58 (0.86-1.15)
[2021-01-20 05:58] LABS: Albumin 2.6 g/dL (3.2-5.2); Calcium 8.4 mg/dL (8.6-10.3); Magnesium 1.7 mg/dL (1.9-2.7); Potassium 4.3 mmol/L (3.5-5.0); Total Bilirubin 0.4 mg/dL (0.2-1.0)
[2021-01-20 06:04] LABS: Albumin/Globulin Ratio 0.7 (1-3); Globulin 3.5 g/dL (2-4); Total Protein 6.1 g/dL (6.4-8.9)
[2021-01-20] MEDS: Mometasone/Formoter 200/5 MDI INH SCH ×2 (07:29→19:46)
[2021-01-20] MEDS ORDERED: Magnesium Sulfate 2 gm BAG 2 GM/50 ML BAG IVPB ONE (08:14)
[2021-01-20] MEDS ORDERED: Warfarin DAILY REMINDER **NOTE FOLLOW UP SCH (17:00)
[2021-01-20] MEDS: Warfarin DAILY REMINDER **NOTE FOLLOW UP SCH (18:54)
[2021-01-21 05:40] LABS: INR 1.77 (0.86-1.15)
[2021-01-21] MEDS: Mometasone/Formoter 200/5 MDI INH SCH ×2 (07:11→19:24)
[2021-01-21] MEDS ORDERED: Digoxin IV 0.5 MG/2 ML AMP (0.25 MG/ML) IV SLOW PU ONE (11:29)
[2021-01-21] MEDS ORDERED: Lactated Ringers 1000 ml BAG 1,000 ML IV ONE (11:30)
[2021-01-21 16:08] LABS: Calcium 8.1 mg/dL (8.6-10.3); Magnesium 1.3 mg/dL (1.9-2.7); Potassium 4.5 mmol/L (3.5-5.0)
[2021-01-21] MEDS: Warfarin DAILY REMINDER **NOTE FOLLOW UP SCH (17:44)
[2021-01-22 05:54] LABS: INR 2.03 (0.86-1.15)
[2021-01-22] MEDS: Mometasone/Formoter 200/5 MDI INH SCH ×2 (07:18→19:46)
[2021-01-22] MEDS: Warfarin DAILY REMINDER **NOTE FOLLOW UP SCH (17:31)
[2021-01-22] MEDS ORDERED: Magnesium Sulfate 2 gm BAG 2 GM/50 ML BAG IVPB ONE (18:11)
[2021-01-23 05:26] LABS: INR 2.33 (0.86-1.15)
[2021-01-23 05:34] LABS: Magnesium 1.7 mg/dL (1.9-2.7); Potassium 4.1 mmol/L (3.5-5.0)
[2021-01-23] MEDS: Mometasone/Formoter 200/5 MDI INH SCH ×2 (08:10→19:46)
[2021-01-23] MEDS ORDERED: Magnesium Sulfate IV 3 GM in NS 0.9% 100 ml BAG 100 ML IVPB ONE (12:36)
[2021-01-23] MEDS: Warfarin DAILY REMINDER **NOTE FOLLOW UP SCH (16:15)
[2021-01-24 05:57] LABS: ABS Eosinophils 0.1 10^3/ul (0-0.6); ABS Lymphocytes 1.2 10^3/ul (1.0-4.8); ABS Monocytes 0.3 10^3/ul (0-0.8); ABS Neutrophils 2.3 10^3/ul (1.5-7.7); Eosinophil % 1.3 %; Hematocrit 26 % (35-47); Lymphocyte % 30.8 %; Mean Corpuscular HGB Conc 31 g/dL (31-36); Mean Corpuscular Hemoglobin 27 pg (27-31); Mean Corpuscular Volume 85 fL (80-97); Mean Platelet Volume 7.7 fL (7.4-10.4); Nucleated Red Blood Cells % 0.1; Platelet Count 338 10^3/uL (150-450); Red Cell Distribution Width 20 % (10-15); White Blood Count 3.8 10^3/uL (3.5-10.8)
[2021-01-24 06:04] LABS: INR 2.94 (0.86-1.15)
[2021-01-24 06:20] LABS: Calcium 8.2 mg/dL (8.6-10.3); Magnesium 1.8 mg/dL (1.9-2.7)
[2021-01-24] MEDS: Mometasone/Formoter 200/5 MDI INH SCH ×2 (08:22→20:30)
[2021-01-24] MEDS ORDERED: Magnesium Sulfate 2 gm BAG 2 GM/50 ML BAG IVPB ONE (08:39)
[2021-01-24] MEDS: Warfarin DAILY REMINDER **NOTE FOLLOW UP SCH (17:31)
[2021-01-25 05:38] LABS: ABS Lymphocytes 1.2 10^3/ul (1.0-4.8); ABS Monocytes 0.3 10^3/ul (0-0.8); ABS Neutrophils 2.1 10^3/ul (1.5-7.7); Eosinophil % 1.3 %; Hematocrit 24 % (35-47); Hemoglobin 7.5 g/dL (12.0-16.0); Lymphocyte % 32.3 %; Mean Corpuscular HGB Conc 32 g/dL (31-36); Mean Corpuscular Hemoglobin 26 pg (27-31); Mean Corpuscular Volume 83 fL (80-97); Mean Platelet Volume 7.3 fL (7.4-10.4); Nucleated Red Blood Cells % 0.1; Platelet Count 316 10^3/uL (150-450); Red Blood Count 2.84 10^6 /uL (3.70-4.87); Red Cell Distribution Width 20 % (10-15); White Blood Count 3.6 10^3/uL (3.5-10.8)
[2021-01-25 05:44] LABS: INR 2.76 (0.86-1.15)
[2021-01-25] MEDS: Mometasone/Formoter 200/5 MDI INH SCH ×2 (07:51→20:29)
[2021-01-25] MEDS: Warfarin DAILY REMINDER **NOTE FOLLOW UP SCH (17:16)
[2021-01-25 17:55] LABS: Rapid COVID-19 Molecular Undetected (Undetected)
[2021-01-26 06:35] LABS: INR 2.76 (0.86-1.15)
[2021-01-26] MEDS: Mometasone/Formoter 200/5 MDI INH SCH (08:09)
[2021-01-26 08:29] VITALS: BP 113/51
== END 2021-01-26 11:45 | DRG 870 ==
LOC: ED 14:13 → SUATTDRO 19:00 → ICU 19:00 → MED 01-18 22:56
PROVIDERS: ADMIT Hospitalist; ATTEND Internal Medicine

== ENCOUNTER 2021-06-06 03:19 | Inpatient (IN) ==
[2021-06-06] MEDS ORDERED: Diltiazem (ADVAN VIAL) 100 MG/100 ML ADDV.BAG IV ONE (04:11)
[2021-06-06] MEDS ORDERED: Amiodarone 360 MG IVPREMIX 360 MG/200 ML BAG IV ONE (04:16)
[2021-06-06] MEDS ORDERED: Amiodarone 150 mg IVPREMIX 150 MG/100 ML BAG IV ONE (04:16)
[2021-06-06 04:30] LABS: ABS Eosinophils 0.1 10^3/ul (0-0.6); ABS Lymphocytes 2.8 10^3/ul (1.0-4.8); ABS Monocytes 0.3 10^3/ul (0-0.8); ABS Neutrophils 8.6 10^3/ul (1.5-7.7); Eosinophil % 0.6 %; Hematocrit 32 % (35-47); Hemoglobin 9.8 g/dL (12.0-16.0); Lymphocyte % 23.7 %; Mean Corpuscular HGB Conc 30 g/dL (31-36); Mean Corpuscular Hemoglobin 25 pg (27-31); Mean Corpuscular Volume 81 fL (80-97); Mean Platelet Volume 7.1 fL (7.4-10.4); Platelet Count 388 10^3/uL (150-450); Red Blood Count 4.01 10^6 /uL (3.70-4.87); Red Cell Distribution Width 20 % (10-15); White Blood Count 11.8 10^3/uL (3.5-10.8)
[2021-06-06] MEDS ORDERED: Vancomycin 1,000 MG in NS 0.9% 250 ml 250 ML IVPB ONE (04:43)
[2021-06-06] MEDS ORDERED: Piperacillin/Tazobac ADVAN 3.375 GM in NS 0.9% 100 ml BAG 100 ML IV ONE ×2 (04:43→11:02)
[2021-06-06] MEDS ORDERED: NS 0.9% 1000 ml BAG 1,000 ML IV ONE ×2 (04:47→05:33)
[2021-06-06] MEDS ORDERED: Albuterol HFA INHALER 8 gm MDI INH PRN (05:00)
[2021-06-06] MEDS ORDERED: Norepinephrine 16MCG/ML BAG NS 4,000 MCG/250 ML BAG IV SCH (05:00)
[2021-06-06] MEDS ORDERED: Ondansetron 4 mg VIAL 2 MG/ML 2 ml VIAL IV PRN (05:01)
[2021-06-06 05:04] LABS: Albumin 3.6 g/dL (3.2-5.2); C Reactive Protein 148.86 mg/L (<8.01); Globulin 3.5 g/dL (2-4); Total Bilirubin 0.7 mg/dL (0.2-1.0); Total Protein 7.1 g/dL (6.4-8.9); eGFR CKD-EPI 30.5 (>60)
[2021-06-06 06:21] LABS: Urine Appearance Cloudy; Urine Color Red
[2021-06-06 06:27] LABS: Urine Specific Gravity 1.019 (1.002-1.030)
[2021-06-06 06:32] LABS: Urine Bacteria Absent (Absent); Urine Red Blood Cell 3+(>10/hpf) (Absent); Urine White Blood Cell 3+(>20/hpf) (Absent)
[2021-06-06] MEDS ORDERED: Lactated Ringers 1000 ml BAG 1,000 ML IV ONE (07:59)
[2021-06-06 08:19] LABS: Urine Appearance Turbid; Urine Bilirubin Negative (Negative); Urine Blood 3+ (Negative); Urine Color Yellow; Urine Glucose Negative (Negative); Urine Ketones Negative (Negative); Urine Nitrite Negative (Negative); Urine Protein 2+(100 mg/dL) (Negative); Urine Specific Gravity 1.008 (1.002-1.030); Urine Urobilinogen Negative (Negative)
[2021-06-06 08:23] LABS: Activated Partial Thrombo Time 26.3 seconds (26.0-38.0); INR 1.46 (0.86-1.15)
[2021-06-06 08:24] LABS: Urine Bacteria Absent (Absent); Urine Red Blood Cell 3+(>10/hpf) (Absent); Urine Squamous Epithelial Cell Present (Absent); Urine White Blood Cell 3+(>20/hpf) (Absent)
[2021-06-06 08:39] LABS: High Sensitivity Troponin 1 Hr 20 pg/mL (<15)
[2021-06-06] MEDS: Hydrocortisone INJ 100 MG/2ML 2 ML VIAL IV SCH ×2 (09:00→17:17)
[2021-06-06] MEDS: Mometasone/Formoter 200/5 MDI INH SCH ×2 (09:28→19:57)
[2021-06-06] MEDS ORDERED: Lactated Ringers 1000 ml BAG 1,000 ML IV SCH ×2 (10:00→17:33)
[2021-06-06] MEDS: Linezolid 600 MG IVPREMIX(*) 600 MG/300 ML BAG IVPB SCH (11:30)
[2021-06-06] MEDS: ZOSYN 3.375 GM Q8H per EXTENDED INFUSION IV SCH ×2 (11:30→20:13)
[2021-06-06] MEDS ORDERED: Zosyn per Pharmacy NOTE FOLLOW UP SCH (12:00)
[2021-06-06] MEDS ORDERED: Warfarin per PHARMACY **NOTE FOLLOW UP SCH (12:00)
[2021-06-06] MEDS ORDERED: Dextrose 50% Syringe 50 ml 25 GM/50 ML SYRINGE IV PUSH PRN (12:35)
[2021-06-06] MEDS: Warfarin DAILY REMINDER **NOTE FOLLOW UP SCH (17:17)
[2021-06-07] MEDS: Linezolid 600 MG IVPREMIX(*) 600 MG/300 ML BAG IVPB SCH ×2 (00:07→11:28)
[2021-06-07] MEDS: Hydrocortisone INJ 100 MG/2ML 2 ML VIAL IV SCH ×2 (00:54→08:08)
[2021-06-07] MEDS: ZOSYN 3.375 GM Q8H per EXTENDED INFUSION IV SCH ×3 (03:48→20:08)
[2021-06-07 04:39] LABS: ABS Lymphocytes 0.6 10^3/ul (1.0-4.8); ABS Monocytes 0.1 10^3/ul (0-0.8); ABS Neutrophils 4.9 10^3/ul (1.5-7.7); Eosinophil % 0.1 %; Hematocrit 22 % (35-47); Hemoglobin 6.9 g/dL (12.0-16.0); Lymphocyte % 10.6 %; Mean Corpuscular HGB Conc 32 g/dL (31-36); Mean Corpuscular Hemoglobin 25 pg (27-31); Mean Corpuscular Volume 78 fL (80-97); Mean Platelet Volume 6.9 fL (7.4-10.4); Platelet Count 212 10^3/uL (150-450); Red Blood Count 2.76 10^6 /uL (3.70-4.87); Red Cell Distribution Width 20 % (10-15); White Blood Count 5.6 10^3/uL (3.5-10.8)
[2021-06-07 05:13] LABS: Calcium 7.3 mg/dL (8.6-10.3); Magnesium 1.1 mg/dL (1.9-2.7); Phosphorus 1.9 mg/dL (2.5-5.0); Potassium 3.9 mmol/L (3.5-5.0); Vancomycin Trough 6.1 mcg/mL; eGFR CKD-EPI 34.1 (>60)
[2021-06-07] MEDS ORDERED: Magnesium Sulf 4 GM/100 ML IV 4,000 MG/100 ML BAG IVPB ONE (06:13)
[2021-06-07] MEDS ORDERED: Potassium & Sodium Phos 250 mg = 1 PACKET PO ONE (06:19)
[2021-06-07] MEDS: Mometasone/Formoter 200/5 MDI INH SCH ×2 (07:30→19:59)
[2021-06-07] MEDS ORDERED: Potassium Phosphate IV 15 MMOLE in NS 0.9% 250 ml 250 ML IVPB ONE ×2 (09:20→17:06)
[2021-06-07 09:54] LABS: ABS Lymphocytes 0.7 10^3/ul (1.0-4.8); ABS Monocytes 0.1 10^3/ul (0-0.8); ABS Neutrophils 5.1 10^3/ul (1.5-7.7); Hematocrit 22 % (35-47); Hemoglobin 6.9 g/dL (12.0-16.0); Lymphocyte % 11.9 %; Mean Corpuscular HGB Conc 31 g/dL (31-36); Mean Corpuscular Hemoglobin 25 pg (27-31); Mean Corpuscular Volume 79 fL (80-97); Mean Platelet Volume 6.6 fL (7.4-10.4); Platelet Count 209 10^3/uL (150-450); Red Blood Count 2.79 10^6 /uL (3.70-4.87); Red Cell Distribution Width 20 % (10-15); White Blood Count 5.9 10^3/uL (3.5-10.8)
[2021-06-07 10:23] LABS: Calcium 7.3 mg/dL (8.6-10.3); Potassium 3.6 mmol/L (3.5-5.0); eGFR CKD-EPI 34.6 (>60)
[2021-06-07] MEDS ORDERED: Potassium Chlor 20 meq TAB.ER PO ONE (15:25)
[2021-06-07 15:51] LABS: ABS Lymphocytes 0.8 10^3/ul (1.0-4.8); ABS Monocytes 0.2 10^3/ul (0-0.8); ABS Neutrophils 4.4 10^3/ul (1.5-7.7); Hematocrit 21 % (35-47); Hemoglobin 6.4 g/dL (12.0-16.0); Mean Corpuscular HGB Conc 31 g/dL (31-36); Mean Corpuscular Hemoglobin 25 pg (27-31); Mean Corpuscular Volume 79 fL (80-97); Mean Platelet Volume 6.9 fL (7.4-10.4); Platelet Count 206 10^3/uL (150-450); Red Cell Distribution Width 21 % (10-15); White Blood Count 5.5 10^3/uL (3.5-10.8)
[2021-06-07 15:55] LABS: INR 1.17 (0.86-1.15)
[2021-06-07 16:33] LABS: Magnesium 1.9 mg/dL (1.9-2.7); Phosphorus 1.8 mg/dL (2.5-5.0)
[2021-06-07 16:43] LABS: Calcium 6.9 mg/dL (8.6-10.3); Potassium 3.6 mmol/L (3.5-5.0); eGFR CKD-EPI 39.2 (>60)
[2021-06-07] MEDS ORDERED: Warfarin - No Order Today **NOTE FOLLOW UP ONE (17:00)
[2021-06-07] MEDS ORDERED: Magnesium Sulfate IV 1GM/100ML 1 GM/100 ML BAG IV ONE (17:06)
[2021-06-07] MEDS: Warfarin DAILY REMINDER **NOTE FOLLOW UP SCH (17:42)
[2021-06-07] MEDS ORDERED: Iodixanol (CONTRAST) 320 MG/ML 100 ML SDV IV ONE (22:32)
[2021-06-07] MEDS: Pantoprazole VIAL 40 MG VIAL IV SCH (22:44)
[2021-06-08] MEDS: ZOSYN 3.375 GM Q8H per EXTENDED INFUSION IV SCH ×3 (04:18→20:10)
[2021-06-08 04:35] LABS: ABS Eosinophils 0.1 10^3/ul (0-0.6); ABS Lymphocytes 1.1 10^3/ul (1.0-4.8); ABS Monocytes 0.2 10^3/ul (0-0.8); ABS Neutrophils 5.1 10^3/ul (1.5-7.7); Eosinophil % 1.1 %; Hematocrit 25 % (35-47); Hemoglobin 7.9 g/dL (12.0-16.0); Lymphocyte % 17.5 %; Mean Corpuscular HGB Conc 31 g/dL (31-36); Mean Corpuscular Hemoglobin 25 pg (27-31); Mean Corpuscular Volume 79 fL (80-97); Nucleated Red Blood Cells % 0.2; Platelet Count 221 10^3/uL (150-450); Red Blood Count 3.15 10^6 /uL (3.70-4.87); Red Cell Distribution Width 20 % (10-15); White Blood Count 6.5 10^3/uL (3.5-10.8)
[2021-06-08 04:43] LABS: INR 1.15 (0.86-1.15)
[2021-06-08 05:27] LABS: Blood Urea Nitrogen 15 mg/dL (6-24); CO2 Carbon Dioxide 20 mmol/L (22-32); Calcium 6.8 mg/dL (8.6-10.3); Glucose 109 mg/dL (70-100); Sodium 140 mmol/L (135-145); eGFR CKD-EPI 44.1 (>60)
[2021-06-08 05:30] LABS: Chloride 113 mmol/L (101-111)
[2021-06-08 05:31] LABS: Anion Gap 7 mmol/L (2-11)
[2021-06-08 06:17] LABS: Potassium Redraw 3.3 mmol/L (3.5-5.0)
[2021-06-08] MEDS ORDERED: Potassium Chlor 20 meq TAB.ER PO ONE ×2 (06:27→07:31)
[2021-06-08] MEDS ORDERED: Potassium Chloride LIQUID 20 MEQ/15 ML LIQUID PO ONE (06:42)
[2021-06-08 07:56] LABS: Phosphorus 2.4 mg/dL (2.5-5.0)
[2021-06-08] MEDS: Mometasone/Formoter 200/5 MDI INH SCH ×2 (08:13→20:42)
[2021-06-08] MEDS: Pantoprazole VIAL 40 MG VIAL IV SCH ×2 (08:18→20:10)
[2021-06-08] MEDS: KCL 20 MEQ/100 ML IVPREMIX 20 MEQ/100 ML BAG IV SCH ×2 (08:19→10:29)
[2021-06-08 11:37] LABS: Total Iron Binding Capacity 165 mcg/dL (250-450); Transferrin 118 mg/dL (203-362)
[2021-06-08 13:34] LABS: Total Iron Binding Capacity 164 mcg/dL (250-450); Transferrin 117 mg/dL (203-362)
[2021-06-08 13:42] LABS: % Iron Saturation 12 % (15-55); Iron < 20 ug/dL (50-212); Unsaturated Iron Binding 144 ug/dL
[2021-06-08 17:17] LABS: Hematocrit 24 % (35-47); Hemoglobin 7.5 g/dL (12.0-16.0)
[2021-06-08 18:04] LABS: Calcium 6.7 mg/dL (8.6-10.3); Potassium 4.9 mmol/L (3.5-5.0); eGFR CKD-EPI 45.4 (>60)
[2021-06-08 22:13] LABS: Ferritin 78.6 ng/mL (11-307)
[2021-06-08 23:56] LABS: Vitamin B12 788 pg/mL (180-914)
[2021-06-09] MEDS: ZOSYN 3.375 GM Q8H per EXTENDED INFUSION IV SCH ×2 (03:59→11:28)
[2021-06-09 06:03] LABS: ABS Eosinophils 0.1 10^3/ul (0-0.6); ABS Lymphocytes 1.2 10^3/ul (1.0-4.8); ABS Monocytes 0.4 10^3/ul (0-0.8); ABS Neutrophils 3.4 10^3/ul (1.5-7.7); Hematocrit 26 % (35-47); Hemoglobin 8.3 g/dL (12.0-16.0); Lymphocyte % 23.2 %; Mean Corpuscular HGB Conc 32 g/dL (31-36); Mean Corpuscular Hemoglobin 26 pg (27-31); Mean Corpuscular Volume 80 fL (80-97); Mean Platelet Volume 6.8 fL (7.4-10.4); Platelet Count 207 10^3/uL (150-450); Red Blood Count 3.19 10^6 /uL (3.70-4.87); Red Cell Distribution Width 20 % (10-15); White Blood Count 5.1 10^3/uL (3.5-10.8)
[2021-06-09 06:48] LABS: Blood Urea Nitrogen 8 mg/dL (6-24); CO2 Carbon Dioxide 20 mmol/L (22-32); Calcium 6.8 mg/dL (8.6-10.3); Glucose 85 mg/dL (70-100); Potassium 4.5 mmol/L (3.5-5.0); Sodium 141 mmol/L (135-145); Total Iron Binding Capacity 174 mcg/dL (250-450); Transferrin 124 mg/dL (203-362); eGFR CKD-EPI 44.1 (>60)
[2021-06-09 06:59] LABS: % Iron Saturation 11 % (15-55); Anion Gap 6 mmol/L (2-11); Chloride 115 mmol/L (101-111); Iron < 20 ug/dL (50-212); Unsaturated Iron Binding 154 ug/dL
[2021-06-09] MEDS: Mometasone/Formoter 200/5 MDI INH SCH ×2 (07:54→19:07)
[2021-06-09] MEDS: Pantoprazole VIAL 40 MG VIAL IV SCH ×2 (08:43→21:52)
[2021-06-09] MEDS ORDERED: Iron Sucrose 200 MG in NS 0.9% 100 ml BAG 100 ML IVPB SCH (12:00)
[2021-06-09] MEDS ORDERED: cefTRIAXone 1 gm/50 mL D5W 1 GM/50 ML BAG IV SCH (20:00)
[2021-06-10 05:56] LABS: ABS Eosinophils 0.1 10^3/ul (0-0.6); ABS Lymphocytes 1.2 10^3/ul (1.0-4.8); ABS Monocytes 0.5 10^3/ul (0-0.8); Hematocrit 25 % (35-47); Hemoglobin 7.8 g/dL (12.0-16.0); Lymphocyte % 24.7 %; Mean Corpuscular HGB Conc 31 g/dL (31-36); Mean Corpuscular Hemoglobin 25 pg (27-31); Mean Corpuscular Volume 80 fL (80-97); Mean Platelet Volume 6.9 fL (7.4-10.4); Platelet Count 229 10^3/uL (150-450); Red Cell Distribution Width 20 % (10-15); White Blood Count 4.7 10^3/uL (3.5-10.8)
[2021-06-10 06:25] LABS: Calcium 6.9 mg/dL (8.6-10.3); Potassium 3.9 mmol/L (3.5-5.0)
[2021-06-10] MEDS: Mometasone/Formoter 200/5 MDI INH SCH ×2 (08:23→19:43)
[2021-06-10] MEDS: Pantoprazole VIAL 40 MG VIAL IV SCH ×2 (09:40→20:26)
[2021-06-10] MEDS: Iron Sucrose 200 MG in NS 0.9% 100 ml BAG 100 ML IVPB SCH (14:52)
[2021-06-10] MEDS ORDERED: Midazolam 10 mg/10 ml VIAL 1 mg/ml 10 ml VIAL (10 mg) ONE (16:18)
[2021-06-10] MEDS ORDERED: fentaNYL 100 mcg/2 ml 50 MCG/ML VIAL ONE (16:18)
[2021-06-10] MEDS ORDERED: PEG 3000 GI LAVAGE 1 GALLON PO ONE (16:58)
[2021-06-10] MEDS: cefTRIAXone 1 gm/50 mL D5W 1 GM/50 ML BAG IV SCH (20:26)
[2021-06-11 05:24] LABS: ABS Eosinophils 0.1 10^3/ul (0-0.6); ABS Lymphocytes 1.5 10^3/ul (1.0-4.8); ABS Monocytes 0.6 10^3/ul (0-0.8); ABS Neutrophils 3.1 10^3/ul (1.5-7.7); Eosinophil % 1.4 %; Hematocrit 25 % (35-47); Hemoglobin 7.9 g/dL (12.0-16.0); Lymphocyte % 28.1 %; Mean Corpuscular HGB Conc 31 g/dL (31-36); Mean Corpuscular Hemoglobin 25 pg (27-31); Mean Corpuscular Volume 80 fL (80-97); Mean Platelet Volume 6.7 fL (7.4-10.4); Platelet Count 258 10^3/uL (150-450); Red Blood Count 3.17 10^6 /uL (3.70-4.87); Red Cell Distribution Width 20 % (10-15); White Blood Count 5.3 10^3/uL (3.5-10.8)
[2021-06-11] MEDS ORDERED: PEG 3000 GI LAVAGE 1 GALLON PO ONE (06:00)
[2021-06-11] MEDS: Mometasone/Formoter 200/5 MDI INH SCH ×2 (07:33→19:59)
[2021-06-11] MEDS: Pantoprazole VIAL 40 MG VIAL IV SCH ×2 (08:49→21:15)
[2021-06-11] MEDS ORDERED: fentaNYL 100 mcg/2 ml 50 MCG/ML VIAL ONE (12:30)
[2021-06-11] MEDS ORDERED: Midazolam 10 mg/10 ml VIAL 1 mg/ml 10 ml VIAL (10 mg) ONE (12:30)
[2021-06-11] MEDS: Iron Sucrose 200 MG in NS 0.9% 100 ml BAG 100 ML IVPB SCH (16:37)
[2021-06-11] MEDS: cefTRIAXone 1 gm/50 mL D5W 1 GM/50 ML BAG IV SCH (21:17)
[2021-06-12 05:29] LABS: ABS Eosinophils 0.1 10^3/ul (0-0.6); ABS Lymphocytes 1.6 10^3/ul (1.0-4.8); ABS Monocytes 0.6 10^3/ul (0-0.8); ABS Neutrophils 2.5 10^3/ul (1.5-7.7); Eosinophil % 1.9 %; Hematocrit 26 % (35-47); Hemoglobin 8.1 g/dL (12.0-16.0); Lymphocyte % 33.8 %; Mean Corpuscular HGB Conc 32 g/dL (31-36); Mean Corpuscular Hemoglobin 26 pg (27-31); Mean Corpuscular Volume 81 fL (80-97); Mean Platelet Volume 6.8 fL (7.4-10.4); Nucleated Red Blood Cells % 0.1; Platelet Count 269 10^3/uL (150-450); Red Blood Count 3.15 10^6 /uL (3.70-4.87); Red Cell Distribution Width 20 % (10-15); White Blood Count 4.8 10^3/uL (3.5-10.8)
[2021-06-12] MEDS: Mometasone/Formoter 200/5 MDI INH SCH ×2 (08:25→20:04)
[2021-06-12] MEDS: Pantoprazole VIAL 40 MG VIAL IV SCH ×2 (09:56→20:56)
[2021-06-12] MEDS: Iron Sucrose 200 MG in NS 0.9% 100 ml BAG 100 ML IVPB SCH (13:19)
[2021-06-12] MEDS ORDERED: Warfarin per PHARMACY **NOTE FOLLOW UP SCH (14:00)
[2021-06-12 14:27] LABS: INR 1.4 (0.86-1.15)
[2021-06-12] MEDS: cefTRIAXone 1 gm/50 mL D5W 1 GM/50 ML BAG IV SCH (20:55)
[2021-06-12] MEDS: Enoxaparin 80 MG/0.8 ML SYR SUBCUT SCH (20:56)
[2021-06-13 05:33] LABS: ABS Eosinophils 0.1 10^3/ul (0-0.6); ABS Lymphocytes 1.7 10^3/ul (1.0-4.8); ABS Monocytes 0.6 10^3/ul (0-0.8); ABS Neutrophils 4.3 10^3/ul (1.5-7.7); Eosinophil % 1.5 %; Hematocrit 25 % (35-47); Lymphocyte % 24.9 %; Mean Corpuscular HGB Conc 31 g/dL (31-36); Mean Corpuscular Hemoglobin 25 pg (27-31); Mean Corpuscular Volume 81 fL (80-97); Mean Platelet Volume 6.9 fL (7.4-10.4); Nucleated Red Blood Cells % 0.1; Platelet Count 278 10^3/uL (150-450); Red Blood Count 3.15 10^6 /uL (3.70-4.87); Red Cell Distribution Width 20 % (10-15); White Blood Count 6.7 10^3/uL (3.5-10.8)
[2021-06-13 05:41] LABS: INR 1.25 (0.86-1.15)
[2021-06-13] MEDS: Pantoprazole VIAL 40 MG VIAL IV SCH ×2 (09:29→21:11)
[2021-06-13] MEDS: Enoxaparin 80 MG/0.8 ML SYR SUBCUT SCH ×3 (09:35→21:13)
[2021-06-13] MEDS: Mometasone/Formoter 200/5 MDI INH SCH ×2 (09:57→19:22)
[2021-06-13] MEDS ORDERED: Saline NASAL SPRAY 0.65% BTL BOTH NARES PRN (11:32)
[2021-06-13] MEDS: Iron Sucrose 200 MG in NS 0.9% 100 ml BAG 100 ML IVPB SCH (13:46)
[2021-06-14 06:22] LABS: INR 1.14 (0.86-1.15)
[2021-06-14] MEDS: Mometasone/Formoter 200/5 MDI INH SCH ×2 (08:15→19:28)
[2021-06-14] MEDS: Pantoprazole VIAL 40 MG VIAL IV SCH ×2 (10:17→20:22)
[2021-06-14] MEDS: Enoxaparin 80 MG/0.8 ML SYR SUBCUT SCH (10:21)
[2021-06-15 04:36] LABS: INR 1.24 (0.86-1.15)
[2021-06-15] MEDS: Mometasone/Formoter 200/5 MDI INH SCH ×2 (07:32→20:10)
[2021-06-15] MEDS: Pantoprazole VIAL 40 MG VIAL IV SCH ×2 (08:12→19:47)
[2021-06-15] MEDS: Warfarin DAILY REMINDER **NOTE FOLLOW UP SCH (17:28)
[2021-06-16 05:38] LABS: ABS Eosinophils 0.1 10^3/ul (0-0.6); ABS Lymphocytes 1.6 10^3/ul (1.0-4.8); ABS Monocytes 0.5 10^3/ul (0-0.8); Eosinophil % 1.3 %; Hematocrit 28 % (35-47); Hemoglobin 8.7 g/dL (12.0-16.0); Lymphocyte % 25.8 %; Mean Corpuscular HGB Conc 31 g/dL (31-36); Mean Corpuscular Hemoglobin 26 pg (27-31); Mean Corpuscular Volume 81 fL (80-97); Mean Platelet Volume 6.8 fL (7.4-10.4); Nucleated Red Blood Cells % 0.1; Platelet Count 310 10^3/uL (150-450); Red Blood Count 3.41 10^6 /uL (3.70-4.87); Red Cell Distribution Width 22 % (10-15); White Blood Count 6.3 10^3/uL (3.5-10.8)
[2021-06-16 06:07] LABS: Calcium 8.1 mg/dL (8.6-10.3); Potassium 3.6 mmol/L (3.5-5.0); eGFR CKD-EPI 55.7 (>60)
[2021-06-16] MEDS: Pantoprazole VIAL 40 MG VIAL IV SCH ×2 (07:39→20:41)
[2021-06-16] MEDS: Mometasone/Formoter 200/5 MDI INH SCH ×2 (07:54→19:45)
[2021-06-16 08:17] LABS: INR 1.4 (0.86-1.15)
[2021-06-16 15:09] LABS: Immunoglobulin A 251 mg/dL (61 - 356); Immunoglobulin G 1050 mg/dL (767 - 1590); Immunoglobulin M 89 mg/dL (37 - 286)
[2021-06-16] MEDS: Warfarin DAILY REMINDER **NOTE FOLLOW UP SCH (17:30)
[2021-06-17 06:18] LABS: Hematocrit 28 % (35-47); Hemoglobin 8.8 g/dL (12.0-16.0); Mean Corpuscular HGB Conc 31 g/dL (31-36); Mean Corpuscular Hemoglobin 26 pg (27-31); Mean Corpuscular Volume 83 fL (80-97); Platelet Count 313 10^3/uL (150-450); Red Blood Count 3.41 10^6 /uL (3.70-4.87); Red Cell Distribution Width 22 % (10-15)
[2021-06-17 06:23] LABS: INR 1.65 (0.86-1.15)
[2021-06-17] MEDS: Mometasone/Formoter 200/5 MDI INH SCH ×2 (08:28→19:30)
[2021-06-17] MEDS: Pantoprazole VIAL 40 MG VIAL IV SCH ×2 (10:09→20:21)
[2021-06-17] MEDS: Warfarin DAILY REMINDER **NOTE FOLLOW UP SCH (17:31)
[2021-06-18 06:19] LABS: INR 1.9 (0.86-1.15)
[2021-06-18] MEDS: Mometasone/Formoter 200/5 MDI INH SCH (08:08)
[2021-06-18] MEDS: Pantoprazole VIAL 40 MG VIAL IV SCH (09:32)
[2021-06-18 11:24] VITALS: BP 118/49
== END 2021-06-18 15:30 | disposition home or self-care (01) | DRG 871 ==
LOC: ED 03:19 → ICU 05:01 → SUATTDRO 05:01 → MED 06-08 12:33
PROVIDERS: ADMIT Internal Medicine; ATTEND Internal Medicine